=== PATIENT | male | born 1960 | race Caucasian/White ===

== ENCOUNTER → 2018-12-26 | Outpatient (CLI) | payer SELFPAY ==
[~2018-12-26] MED LIST: ALBU8.5H2 IH; BUDE6HFA IH; CHOL4PAC2 PO; FRSM40T PO; HYDR25CA PO; MED FOR STOMACH; POTA20TA15 PO; PRM25T PO; PROP10TA8 PO; SPRN25T PO; [UNRECOGNIZED DRUG - OTHER]
[2018-12-29 15:36] LABS: HEMATOCRIT 51 % (40-54); HEMOGLOBIN 18.2 G/DL (13.3-17.7); MEAN CORPUSCULAR HEMOGLOBIN 34 PG (25-34); MEAN CORPUSCULAR HGB CONC 36 G/DL (32-36); MEAN CORPUSCULAR VOLUME 95 FL (80-99); PLATELET COUNT 54 10^3/uL (130-400); RED CELL DISTRIBUTION WIDTH 14.4 % (10.0-14.5); WHITE BLOOD COUNT 6.6 10^3/uL (4.3-11.0)
[2018-12-29 15:37] LABS: BASOPHILS % (AUTO) 1 % (0-10); EOSINOPHILS % (AUTO) 6 % (0-10); LYMPHOCYTES # (AUTO) 1.4 X 10^3 (1.0-4.0); LYMPHOCYTES % (AUTO) 21 % (12-44); MEAN PLATELET VOLUME 11.9 FL (7.4-10.4); MONOCYTES # (AUTO) 0.6 X 10^3 (0.0-1.0); MONOCYTES % (AUTO) 9 % (0-12); NEUTROPHILS # (AUTO) 4.1 X 10^3 (1.8-7.8); NEUTROPHILS % (AUTO) 63 % (42-75)
[2018-12-29 15:38] LABS: EOSINOPHILS # (AUTO) 0.4 10^3/uL (0.0-0.3); NEUTROPHILS % (MANUAL) 62 %
[2018-12-29 15:39] LABS: BAND NEUTROPHILS 2 %; BASOPHILS % (MANUAL) 2 %; EOSINOPHILS % (MANUAL) 4 %; LYMPHOCYTES % (MANUAL) 20 %; MONOCYTES % (MANUAL) 10 %; RBC MORPH NORMAL
[2018-12-29 15:40] LABS: ABSOLUTE RETIC # 104 10e9/L (24-90); RETICULOCYTE % 1.93 % (0.50-2.40)
== END ==
LOC: GIR 21:20
PROVIDERS: ATTEND Family Medicine
DX: D69.6 Thrombocytopenia, unspecified (principal); D75.1 Secondary polycythemia
CPT/HCPCS: 85007; 85025; 85045

== ENCOUNTER 2020-01-06 03:49 | Inpatient (IN) | payer SELFPAY ==
[~2020-01-06] VITALS: Ht 177.8 cm; Wt 125.7 kg
[2020-01-06] VITALS (19 sets, daily range): BP systolic 103–174; BP diastolic 51–91
[2020-01-06] MEDS ORDERED: LACTATED RINGERS 1,000 ML IV ONE (03:57)
--- OUTSIDE RECORDS SUMMARY | 2020-01-06 03:58 | XMS REPORT ---
Author Author Gavin GOMEZ Organization [facility] Address [address] [place] [address] Care Team Providers Care Catalyst Operator Chief Name Role Phone MARTY GOMEZ Unavailable PROBLEMS Type Condition ICD9-CM Code JXC49-WO Code Onset Dates Condition S tatus SNOMED Code Problem Calculus of gallbladder without cholecystitis wi thout obstruction K80.20 Active 44138185 Problem Alcoholic cirrhosis of liver without ascites K70.3 0 Active 242663660 Problem Benign prostatic hyperplasia , unspecified whether lower urinary tract symptoms present N40.0 Active 969787827 Problem History of hepatitis C Z86.19 Active [id number] Problem Chronic obstructive pulmonary disease, unspecified COPD ty pe J44.9 Active 95768629 Problem Obesity (BMI 30-39.9) E66.9 Active 870772223 ALLERGIES No Information ENCOUNTERS Encounter Location Date Diagnosis [place] [address] [address] Oct, Chronic obstructive pulmonary disease, u nspecified COPD type J44.9 ; Encounter to establish care Z76.89 ; Obesity (BMI 30-39.9) E66.9 ; History of hepatitis C Z86.19 ; Alcoholic cirrhosis of liver without ascites K70.30 ; Benign prostatic hyperplasia, unspecified whether lower urinary tract symptoms present N40.0 and Calculus of gallbladder without cholecystitis without obstruction K80.20 [facility] [address] [address] Dec, [facility] [address] [address] Dec, [facility] [address] [address] Aug, [facility] [address] [address] Aug, [facility] [address] [id number] [facility] [place] [address] May, 2013 [facility] [address] [facility] [id number] [facility] [place] [address] May, 2013 [facility] [address] [id number] [facility] [place] [address] May, 2013 [facility] [address] [facility] [id number] [facility] [place] [address] May, 2013 [facility] [address] [facility] [id number] [facility] [place] [address] May, 2013 [facility] [address] [facility] [id number] [place] [address] May, 2013 [facility] [address] [id number] [place] [address] Apr, [facility] [address] [id number] [place] [address] Apr, [facility] [address] [id number] [place] [address] Mar, [facility] [address] [id number] [place] [address] Mar, [facility] [address] [id number] [place] [address] Mar, [facility] [address] [id number] [place] [address] Mar, 2013 [facility] [address] [facility] [id number] [place] [address] Mar, 2013 [facility] [address] [id number] [place] [address] Mar, [facility] [address] [id number] [place] [address] Mar, 2013 [facility] [address] [id number] [place] [address] 16 Mar, 2013 [facility] [address] [id number] [place] [address] Mar, 2013 [facility] [address] [facility] [id number] [place] [address] Mar, 2013 [facility] [address] [facility] [id number] [place] [address] Mar, 2013 [facility] [address] [id number] [place] [address] Mar, 2013 [facility] [address] [facility] [id number] [place] [address] Mar, 2013 [facility] [address] [facility] [id number] [place] [address] Mar, 2013 [facility] [address] [id number] [place] [address] Mar, 2013 [facility] [address] [id number] [place] [address] Mar, [facility] [address] [id number] [place] [address] Mar, [facility] [address] [id number] [place] [address] Feb, [facility] [address] [id number] [place] [address] Feb, [facility] [address] [id number] [place] [address] Feb, [facility] [address] [id number] [place] [address] Feb, [facility] [address] [facility] [id number] [place] [address] Oct, [facility] [address] [id number] [place] [address] Oct, [facility] [address] [id number] [place] [address] Sep, [facility] [address] [id number] [place] [address] Sep, [facility] [address] [place] [id number] [place] [address] Sep, [facility] [address] [place] [id number] [place] [address] Sep, [facility] [address] [place] [id number] [place] [address] Sep, [facility] [address] [place] [id number] [place] [address] Sep, [facility] [address] [place] [id number] [place] [address] Sep, [facility] [address] [address] Sep, [facility] [address] [place] [id number] [place] [address] Sep, [facility] [address] [place] [id number] [place] [address] Sep, [facility] [address] [place] [id number] [place] [address] Aug, [facility] [address] [place] [id number] [place] [address] Aug, [facility] [address] [place] [id number] [place] [address] Aug, [facility] [address] [place] [id number] [place] [address] Aug, [facility] [address] [place] [id number] [place] [address] Aug, IMMUNIZATIONS No Known Immunizations SOCIAL HISTORY Never Assessed REASON FOR VISIT PLAN OF CARE VITAL SIGNS MEDICATIONS Unknown Medications RESULTS No Results PROCEDURES No Known procedures INSTRUCTIONS MEDICATIONS ADMINISTERED No Known Medications MEDICAL (GENERAL) HISTORY Type Description Date Medical History COPD Medical History Liver Cirrhosis Medical History BPH Medical History Disorders of bilirubin excretion Medical History Nondependent alcohol abuse, unspecified drunkenness Medical History Alcoholic cirrhosis of liver Medical History Calculus of gallbladder with out mention of cholecystitis or obstruction Hospitalization History COPD, penumonia
--- OUTSIDE RECORDS SUMMARY | 2020-01-06 03:58 | XMS REPORT ---
Author Author Gvain GOMEZ Organization [facility] Address [address] [place] [address] Care Team Providers Care Cattle Shipper Name Role Phone MARTY GOMEZ Unavailable PROBLEMS Type Condition ICD9-CM Code MXA04-KT Code Onset Dates Condition S tatus SNOMED Code Problem Calculus of gallbladder without cholecystitis wi thout obstruction K80.20 Active 87453287 Problem Alcoholic cirrhosis of liver without ascites K70.3 0 Active 607614363 Problem Benign prostatic hyperplasia , unspecified whether lower urinary tract symptoms present N40.0 Active 812416503 Problem History of hepatitis C Z86.19 Active 53410759891668 Problem Chronic obstructive pulmonary disease, unspecified COPD ty pe J44.9 Active 37372074 Problem Obesity (BMI 30-39.9) E66.9 Active 604559087 ALLERGIES No Information ENCOUNTERS Encounter Location Date Diagnosis [place] [address] [address] 07 Dec, 2019 [place] [address] [place] [id number] [place] [address] 03 Oct, 2019 Chronic obstructive pulmonar y disease, unspecified COPD type J44.9 ; Encounter to establish care Z76.89 ; Obesity (BMI 30-39.9) E66.9 ; History of hepatitis C Z86.19 ; Alcoholic cirrhosis of liver without ascites K70.30 ; Benign prostatic hyperplasia, unspecified whether lower urinary tract symptoms present N40.0 and Calculus of gallbladder without cholecystitis without obstruction K80.20 [facility] [address] [place] [id number] [address] [place] [address] Dec, [facility] [address] [place] [id number] [address] [place] [address] 13 Dec, 2014 [facility] [address] [id number] [address] [place] [address], [place] [address] 15 Aug, 2014 [facility] [address] [id number] [address] [place] [address], [place] [address] Aug, [facility] [address] [id number] [address] [place] [address], [place] [address] May, [facility] [address] [id number] [address] [place] [address], [place] [address] May, 2013 [facility] [address] [id number] [address] [place] [address], [place] [address] May, 2013 [facility] [address] [id number] [address] [place] [address], [place] [address] May, [facility] [address] [id number] [address] [place] [address], [place] [address] May, [facility] [address] [id number] [address] [place] [address], [place] [address] May, [facility] [address] [id number] [address] [place] [address], [place] [address] Apr, [facility] [address] [id number] [address] [place] [address], [place] [address] Apr, [facility] [address] [id number] [address] [place] [address], [place] [address] Mar, [facility] [address] [id number] [address] [place] [address], [place] [address] Mar, [facility] [address] [id number] [address] [place] [address], [place] [address] Mar, [facility] [address] [id number] [address] [place] [address], [place] [address] Mar, [facility] [address] [id number] [address] [place] [address], [place] [address] Mar, [facility] [address] [id number] [address] [place] [address], [place] [address] Mar, [facility] [address] [id number] [address] [place] [address], [place] [address] Mar, 2013 [facility] [address] [id number] [address] [place] [address], [place] [address] Mar, 2013 [facility] [address] [id number] [address] [place] [address], [place] [address] Mar, 2013 [facility] [address] [id number] [address] [place] [address], [place] [address] Mar, 2013 [facility] [address] [id number] [address] [place] [address], [place] [address] Mar, 2013 [facility] [address] [id number] [address] [place] [address], [place] [address] Mar, 2013 [facility] [address] [id number] [address] [place] [address], [place] [address] Mar, 2013 [facility] [address] [id number] [address] [place] [address], [place] [address] Mar, 2013 [facility] [address] [id number] [address] [place] [address], [place] [address] Mar, 2013 [facility] [address] [id number] [address] [place] [address], [place] [address] Mar, [facility] [address] [id number] [address] [place] [address], [place] [address] Mar, [facility] [address] [id number] [address] [place] [address], [place] [address] Feb, [facility] [address] [id number] [address] [place] [address], [place] [address] Feb, [facility] [address] [id number] [address] [place] [address], [place] [address] Feb, [facility] [address] [id number] [address] [place] [address], [place] [address] Feb, [facility] [address] [id number] [address] [place] [address], [place] [address] Oct, [facility] [address] [id number] [address] [place] [address], [place] [address] Oct, [facility] [address] [id number] [address] [place] [address], [place] [address] Sep, [facility] [address] [id number] [address] [place] [address], [place] [address] Sep, [facility] [address] [id number] [address] [place] [address], [place] [address] Sep, [facility] [address] [id number] [address] [place] [address], [place] [address] Sep, [facility] [address] [id number] [address] [place] [address], [place] [address] Sep, [facility] [address] [id number] [address] [place] [address], [place] [address] Sep, [facility] [address] [id number] [address] [place] [address], [place] [address] Sep, [facility] [address] [id number] [address] [place] [address], [place] [address] Sep, [facility] [address] [id number] [address] [place] [address], [place] [address] Sep, [facility] [address] [id number] [address] [place] [address], [place] [address] Sep, [facility] [address] [id number] [address] [place] [address], [place] [address] Aug, [facility] [address] [id number] [address] [place] [address], [place] [address] Aug, [facility] [address] [id number] [address] [place] [address], [place] [address] Aug, [facility] [address] [id number] [address] [place] [address], [place] [address] Aug, [facility] [address] [facility] [id number] [address] [place] [address] Aug, IMMUNIZATIONS No Known Immunizations SOCIAL HISTORY [...]
--- OUTSIDE RECORDS SUMMARY | 2020-01-06 03:58 | XMS REPORT ---
Author Author Gavin GOMEZ Organization [facility] Address [address] [place] [address] Care Team Providers Care Mechanical Shop Laborer Name Role Phone MARTY GOMEZ Unavailable PROBLEMS Type Condition ICD9-CM Code WQG79-CF Code Onset Dates Condition S tatus SNOMED Code Problem Calculus of gallbladder without cholecystitis wi thout obstruction K80.20 Active 38492803 Problem Alcoholic cirrhosis of liver without ascites K70.3 0 Active 196776867 Problem Benign prostatic hyperplasia , unspecified whether lower urinary tract symptoms present N40.0 Active 333603569 Problem History of hepatitis C Z86.19 Active [id number] Problem Chronic obstructive pulmonary disease, unspecified COPD ty pe J44.9 Active 01416195 Problem Obesity (BMI 30-39.9) E66.9 Active 145410367 ALLERGIES No Information ENCOUNTERS Encounter Location Date Diagnosis [place] [address] [place] [address] 03 Oct, 2019 Chronic obstructive pulmonar y disease, unspecified COPD type J44.9 ; Encounter to establish care Z76.89 ; Obesity (BMI 30-39.9) E66.9 ; History of hepatitis C Z86.19 ; Alcoholic cirrhosis of liver without ascites K70.30 ; Benign prostatic hyperplasia, unspecified whether lower urinary tract symptoms present N40.0 and Calculus of gallbladder without cholecystitis without obstruction K80.20 [facility] [address] [facility] [id number] [address] [place] [address] Dec, [facility] [address] [place] [id number] [address] [place] [address] Dec, [facility] [address] [place] [id number] [address] [place] [address] Aug, [facility] [address] [id number] [facility] [place] [address] 15 Aug, 2014 [facility] [address] [id number] [address] [place] [address], [place] [address] May, 2013 [facility] [address] [id number] [address] [place] [address], [place] [address] May, 2013 [facility] [address] [id number] [address] [place] [address], [place] [address] May, 2013 [facility] [address] [id number] [address] [place] [address], [place] [address] May, 2013 [facility] [address] [id number] [address] [place] [address], [place] [address] May, [facility] [address] [id number] [address] [place] [address], [place] [address] May, [facility] [address] [id number] [address] [place] [address], [place] [address] Apr, [facility] [address] [id number] [address] [place] [address], [place] [address] Apr, [facility] [address] [id number] [address] [place] [address], [place] [address] Mar, [facility] [address] [id number] [address] [place] [address], [place] [address] Mar, [facility] [address] [id number] [address] [place] [address], [place] [address] Mar, [facility] [address] [id number] [address] [place] [address], [place] [address] Mar, [facility] [address] [id number] [address] [place] [address], [place] [address] Mar, [facility] [address] [id number] [address] [place] [address], [place] [address] Mar, [facility] [address] [id number] [address] [place] [address], [place] [address] Mar, [facility] [address] [id number] [address] [place] [address], [place] [address] Mar, 2013 [facility] [address] [id number] [address] [place] [address], [place] [address] Mar, 2013 [facility] [address] [id number] [address] [place] [address], [place] [address] Mar, 2013 [facility] [address] [id number] [address] [place] [address], [place] [address] Mar, 2013 [facility] [address] [id number] [address] [place] [address], [place] [address] Mar, 2013 [facility] [address] [id number] [address] [place] [address], [place] [address] Mar, 2013 [facility] [address] [id number] [address] [place] [address], [place] [address] Mar, 2013 [facility] [address] [id number] [address] [place] [address], [place] [address] Mar, 2013 [facility] [address] [id number] [address] [place] [address], [place] [address] Mar, [facility] [address] [id number] [address] [place] [address], [place] [address] Mar, [facility] [address] [id number] [address] [place] [address], [place] [address] Feb, [facility] [address] [id number] [address] [place] [address], [place] [address] Feb, [facility] [address] [id number] [address] [place] [address], [place] [address] Feb, [facility] [address] [id number] [address] [place] [address], [place] [address] Feb, [facility] [address] [id number] [address] [place] [address], [place] [address] Oct, [facility] [address] [id number] [address] [place] [address] Oct, [facility] [address] [id number] [address] [place] [address], [place] [address] Sep, [facility] [address] [id number] [address] [place] [address] Sep, [facility] [address] [id number] [address] [place] [address], [place] [phone] Sep, [facility] [address] [id number] [address] [place] [address], [place] [address] Sep, [facility] [address] [id number] [address] [place] [address], [place] [address] Sep, [facility] [address] [id number] [address] [place] [address], [place] [address] Sep, [facility] [address] [id number] [address] [place] [id number] Sep, [facility] [address] [id number] [address] [place] [phone] Sep, [facility] [address] [id number] [address] [place] [id number] Sep, [facility] [address] [id number] [address] [place] [id number] Sep, [facility] [address] [id number] [address] [place] [id number] Aug, [facility] [address] [id number] [address] [place] [id number] Aug, [facility] [address] [id number] [address] [place] [phone] Aug, [facility] [address] [id number] [address] [place] [phone] Aug, [facility] [address] [id number] [address] [place] [id number] Aug, IMMUNIZATIONS No Known Immunizations SOCIAL HISTORY Never Assessed REASON FOR VISIT PLAN OF CARE VITAL SIGNS MEDICATIONS Unknown Medications RESULTS No Results PROCEDURES Procedure Date Ordered Result Body Site RESPIRATORY FLOW VOLUME LOOP Sep 18, 2013 NEB/MDI DEMO Sep 18, 2013 SPRIOMETRY CHALLENGE Sep 18, 2013 SPIROMETRY Sep 18, 2013 INSTRUCTIONS MEDICATIONS ADMINISTERED No Known Medications MEDICAL [...]
--- OUTSIDE RECORDS SUMMARY | 2020-01-06 03:58 | XMS REPORT ---
Author Author Gavin HUNTER Organization [facility] Address [address] [place] [address] Care Team Providers Care Herb Doctor Name Role Phone JABARI HUNTER Unavailable PROBLEMS Type Condition ICD9-CM Code EUM84-IT Code Onset Dates Condition S tatus SNOMED Code Problem Calculus of gallbladder without cholecystitis wi thout obstruction K80.20 Active 15114699 Problem Alcoholic cirrhosis of liver without ascites K70.3 0 Active 125307886 Problem Benign prostatic hyperplasia , unspecified whether lower urinary tract symptoms present N40.0 Active 104585278 Problem History of hepatitis C Z86.19 Active [id number] Problem Chronic obstructive pulmonary disease, unspecified COPD ty pe J44.9 Active 37550820 Problem Obesity (BMI 30-39.9) E66.9 Active 090107228 ALLERGIES No Information ENCOUNTERS Encounter Location Date Diagnosis [facility] [address] [address] Oct, Chronic obstructive pulmonary disease, u nspecified COPD type J44.9 ; Encounter to establish care Z76.89 ; Obesity (BMI 30-39.9) E66.9 ; History of hepatitis C Z86.19 ; Alcoholic cirrhosis of liver without ascites K70.30 ; Benign prostatic hyperplasia, unspecified whether lower urinary tract symptoms present N40.0 and Calculus of gallbladder without cholecystitis without obstruction K80.20 [facility] [address] [address] Dec, [facility] [address] [address] Dec, [facility] [address] [address] Aug, [facility] [address] [address] Aug, [facility] [address] [id number] [place] [address] May, 2013 [facility] [address] [facility] [id number] [place] [address] May, 2013 [facility] [address] [id number] [place] [address] May, 2013 [facility] [address] [id number] [place] [address] May, 2013 [facility] [address] [facility] [id number] [place] [address] May, 2013 [facility] [address] [id number] [place] [address] May, 2013 [facility] [address] [id number] [place] [address] Apr, [facility] [address] [id number] [place] [address] Apr, [facility] [address] [id number] [place] [address] Mar, [facility] [address] [id number] [place] [address] Mar, [facility] [address] [id number] [place] [address] Mar, [facility] [address] [id number] [place] [address] Mar, [facility] [address] [id number] [place] [address] Mar, 2013 [facility] [address] [id number] [place] [address] Mar, [facility] [address] [id number] [place] [address] Mar, [facility] [address] [id number] [place] [address] Mar, 2013 [facility] [address] [id number] [place] [address] Mar, 2013 [facility] [address] [facility] [id number] [place] [address] Mar, 2013 [facility] [address] [facility] [id number] [place] [address] Mar, 2013 [facility] [address] [id number] [place] [address] Mar, 2013 [facility] [address] [facility] [id number] [place] [address] Mar, 2013 [facility] [address] [facility] [id number] [place] [address] Mar, 2013 [facility] [address] [id number] [place] [address] Mar, 2013 [facility] [address] [id number] [place] [address] Mar, 2013 [facility] [address] [id number] [place] [address] Mar, [facility] [address] [facility] [id number] [place] [address] Feb, [facility] [address] [id number] [place] [address] Feb, [facility] [address] [id number] [place] [address] Feb, [facility] [address] [id number] [place] [address] Feb, [facility] [address] [facility] [id number] [place] [address] Oct, [facility] [address] [id number] [place] [address] Oct, [facility] [address] [facility] [id number] [place] [address] Sep, [facility] [address] [id number] [place] [address] Sep, [facility] [id number] [place] [address] Sep, [facility] [address] [id number] [place] [address] Sep, [facility] [address] [id number] [place] [address] Sep, [facility] [address] [id number] [place] [address] Sep, [facility] [id number] [place] [address] Sep, [facility] [address] [address] Sep, [facility] [address] [address] Sep, [facility] [address] [address] Sep, [facility] [id number] [place] [address] Aug, [facility] [address] [id number] [place] [address] Aug, [facility] [address] [address] Aug, [facility] [address] [id number] [place] [address] Aug, [facility] [id number] [place] [address] Aug, IMMUNIZATIONS No Known Immunizations SOCIAL HISTORY Never Assessed REASON FOR VISIT PLAN OF CARE VITAL SIGNS Height 70 in 2013-09-19 Weight 259 lbs 2013-09-19 Temperature 97.4 degrees Fahrenheit 2013-09-19 Heart Rate 76 bpm 2013-09-19 Respiratory Rate 24 2013-09-19 Blood pressure systolic 128 mmHg 2013-09-19 Blood pressure diastolic 78 mmHg 2013-09-19 MEDICATIONS Unknown Medications RESULTS No Results PROCEDURES [...]
--- OUTSIDE RECORDS SUMMARY | 2020-01-06 03:58 | XMS REPORT ---
Author Author Gavin GOMEZ Organization [facility] Address [address] [place] [address] Care Team Providers Care Channel Program Manager Name Role Phone MARTY GOMEZ Unavailable PROBLEMS Type Condition ICD9-CM Code ITP31-XL Code Onset Dates Condition S tatus SNOMED Code Problem Calculus of gallbladder without cholecystitis wi thout obstruction K80.20 Active 68512780 Problem Alcoholic cirrhosis of liver without ascites K70.3 0 Active 224388697 Problem Benign prostatic hyperplasia , unspecified whether lower urinary tract symptoms present N40.0 Active 931226067 Problem History of hepatitis C Z86.19 Active 34376154459487 Problem Chronic obstructive pulmonary disease, unspecified COPD ty pe J44.9 Active 80145361 Problem Obesity (BMI 30-39.9) E66.9 Active 375943974 ALLERGIES No Information ENCOUNTERS Encounter Location Date Diagnosis [place] [address] [place] [address] 03 Oct, 2019 Chronic obstructive pulmonar y disease, unspecified COPD type J44.9 ; Encounter to establish care Z76.89 ; Obesity (BMI 30-39.9) E66.9 ; History of hepatitis C Z86.19 ; Alcoholic cirrhosis of liver without ascites K70.30 ; Benign prostatic hyperplasia, unspecified whether lower urinary tract symptoms present N40.0 and Calculus of gallbladder without cholecystitis without obstruction K80.20 [facility] [address] [facility] [id number] [address] [place] [address] Dec, [facility] [address] [place] [id number] [address] [place] [address] Dec, [facility] [address] [place] [id number] [address] [place] [address] Aug, [facility] [address] [id number] [facility] [place] [address] 15 Aug, 2014 [facility] [address] [id number] [address] [place] [address], [place] [address] May, 2013 [facility] [address] [id number] [address] [place] [address], [place] [address] May, 2013 [facility] [address] [id number] [address] [place] [address], [place] [address] May, 2013 [facility] [address] [id number] [address] [place] [address], [place] [address] May, 2013 [facility] [address] [id number] [address] [place] [address], [place] [address] May, [facility] [address] [id number] [address] [place] [address], [place] [address] May, [facility] [address] [id number] [address] [place] [address], [place] [address] Apr, [facility] [address] [id number] [address] [place] [address], [place] [address] Apr, [facility] [address] [id number] [address] [place] [address], [place] [address] Mar, [facility] [address] [id number] [address] [place] [address], [place] [address] Mar, [facility] [address] [id number] [address] [place] [address], [place] [address] Mar, [facility] [address] [id number] [address] [place] [address], [place] [address] Mar, [facility] [address] [id number] [address] [place] [address], [place] [address] Mar, [facility] [address] [id number] [address] [place] [address], [place] [address] Mar, [facility] [address] [id number] [address] [place] [address], [place] [address] Mar, [facility] [address] [id number] [address] [place] [address], [place] [address] Mar, 2013 [facility] [address] [id number] [address] [place] [address], [place] [address] Mar, 2013 [facility] [address] [id number] [address] [place] [address], [place] [address] Mar, 2013 [facility] [address] [id number] [address] [place] [address], [place] [address] Mar, 2013 [facility] [address] [id number] [address] [place] [address], [place] [address] Mar, 2013 [facility] [address] [id number] [address] [place] [address], [place] [address] Mar, 2013 [facility] [address] [id number] [address] [place] [address], [place] [address] Mar, 2013 [facility] [address] [id number] [address] [place] [address], [place] [address] Mar, 2013 [facility] [address] [id number] [address] [place] [address], [place] [address] Mar, [facility] [address] [id number] [address] [place] [address], [place] [address] Mar, [facility] [address] [id number] [address] [place] [address], [place] [address] Feb, [facility] [address] [id number] [address] [place] [address], [place] [address] Feb, [facility] [address] [id number] [address] [place] [address], [place] [address] Feb, [facility] [address] [id number] [address] [place] [address], [place] [address] Feb, [facility] [address] [id number] [address] [place] [address], [place] [address] Oct, [facility] [address] [id number] [address] [place] [address] Oct, [facility] [address] [id number] [address] [place] [address], [place] [address] Sep, [facility] [address] [id number] [address] [place] [address] Sep, [facility] [address] [id number] [address] [place] [address], [place] [address] Sep, [facility] [address] [id number] [address] [place] [address], [place] [address] Sep, [facility] [address] [id number] [address] [place] [address], [place] [address] Sep, [facility] [address] [id number] [address] [place] [address], [place] [address] Sep, [facility] [address] [id number] [address] [place] [address] Sep, [facility] [address] [id number] [address] [place] [address] Sep, [facility] [address] [id number] [address] [place] [address] Sep, [facility] [address] [id number] [address] [place] [address] Sep, [facility] [address] [id number] [address] [place] [address] Aug, [facility] [address] [id number] [address] [place] [address] Aug, [facility] [address] [id number] [address] [place] [address] Aug, [facility] [address] [id number] [address] [place] [address] Aug, [facility] [address] [id number] [address] [place] [address] Aug, IMMUNIZATIONS No Known Immunizations SOCIAL HISTORY [...]
--- OUTSIDE RECORDS SUMMARY | 2020-01-06 03:58 | XMS REPORT ---
Author Author Gavin GOMEZ Organization [facility] Address [address] [place] [address] Care Team Providers Care Banana Ripening Room Supervisor Name Role Phone MARTY GOMEZ Unavailable PROBLEMS Type Condition ICD9-CM Code KAG90-DY Code Onset Dates Condition S tatus SNOMED Code Problem Calculus of gallbladder without cholecystitis wi thout obstruction K80.20 Active 19157600 Problem Alcoholic cirrhosis of liver without ascites K70.3 0 Active 373451971 Problem Benign prostatic hyperplasia , unspecified whether lower urinary tract symptoms present N40.0 Active 963676360 Problem History of hepatitis C Z86.19 Active 95012116274323 Problem Chronic obstructive pulmonary disease, unspecified COPD ty pe J44.9 Active 97621351 Problem Obesity (BMI 30-39.9) E66.9 Active 287702854 ALLERGIES No Information ENCOUNTERS Encounter Location Date Diagnosis [place] [address] [address] Oct, Chronic obstructive pulmonary disease, u nspecified COPD type J44.9 ; Encounter to establish care Z76.89 ; Obesity (BMI 30-39.9) E66.9 ; History of hepatitis C Z86.19 ; Alcoholic cirrhosis of liver without ascites K70.30 ; Benign prostatic hyperplasia, unspecified whether lower urinary tract symptoms present N40.0 and Calculus of gallbladder without cholecystitis without obstruction K80.20 [facility] [address] [address] Dec, [facility] [address] [address] Dec, [facility] [address] [address] Aug, [facility] [address] [address] Aug, [facility] [address] [id number] [facility] [place] [address] May, 2013 [facility] [address] [facility] [id number] [facility] [place] [address] May, 2013 [facility] [address] [id number] [facility] [place] [address] May, 2013 [facility] [address] [facility] [id number] [facility] [place] [address] May, 2013 [facility] [address] [facility] [id number] [facility] [place] [address] May, 2013 [facility] [address] [facility] [id number] [place] [address] May, 2013 [facility] [address] [id number] [place] [address] Apr, [facility] [address] [id number] [place] [address] Apr, [facility] [address] [id number] [place] [address] Mar, [facility] [address] [id number] [place] [address] Mar, [facility] [address] [id number] [place] [address] Mar, [facility] [address] [id number] [place] [address] Mar, 2013 [facility] [address] [facility] [id number] [place] [address] Mar, 2013 [facility] [address] [id number] [place] [address] Mar, [facility] [address] [id number] [place] [address] Mar, 2013 [facility] [address] [id number] [place] [address] 16 Mar, 2013 [facility] [address] [id number] [place] [address] Mar, 2013 [facility] [address] [facility] [id number] [place] [address] Mar, 2013 [facility] [address] [facility] [id number] [place] [address] Mar, 2013 [facility] [address] [id number] [place] [address] Mar, 2013 [facility] [address] [facility] [id number] [place] [address] Mar, 2013 [facility] [address] [facility] [id number] [place] [address] Mar, 2013 [facility] [address] [id number] [place] [address] Mar, 2013 [facility] [address] [id number] [place] [address] Mar, [facility] [address] [id number] [place] [address] Mar, [facility] [address] [id number] [place] [address] Feb, [facility] [address] [id number] [place] [address] Feb, [facility] [address] [id number] [place] [address] Feb, [facility] [address] [id number] [place] [address] Feb, [facility] [address] [facility] [id number] [place] [address] Oct, [facility] [address] [id number] [place] [address] Oct, [facility] [address] [id number] [place] [address] Sep, [facility] [address] [id number] [place] [address] Sep, [facility] [address] [id number] [place] [address] Sep, [facility] [address] [id number] [place] [address] Sep, [facility] [address] [id number] [place] [address] Sep, [facility] [address] [id number] [place] [address] Sep, [facility] [address] [id number] [place] [address] Sep, [facility] [address] [address] Sep, [facility] [address] [address] Sep, [facility] [address] [address] Sep, [facility] [address] [id number] [place] [address] Aug, [facility] [address] [address] Aug, [facility] [address] [address] Aug, [facility] [address] [id number] [place] [address] Aug, [facility] [address] [id number] [place] [address] Aug, IMMUNIZATIONS No Known Immunizations SOCIAL HISTORY Never Assessed REASON FOR VISIT PLAN OF CARE VITAL SIGNS Height 70 in 2013-09-29 Weight 260.3 lbs 2013-09-29 Temperature 97.3 degrees Fahrenheit 2013-09-29 Heart Rate 78 bpm 2013-09-29 Respiratory Rate 20 2013-09-29 Blood pressure systolic 126 mmHg 2013-09-29 Blood pressure diastolic 70 mmHg 2013-09-29 MEDICATIONS Unknown Medications RESULTS No Results PROCEDURES Procedure Date Ordered Result Body Site THER/PROPH/DIAG INJ, SC/IM Sep 29, 2013 INJ METHYLPRDNISLN SODIM TO 125 MG Sep 29, 2013 INSTRUCTIONS MEDICATIONS ADMINISTERED No Known Medications [...]
--- OUTSIDE RECORDS SUMMARY | 2020-01-06 03:58 | XMS REPORT ---
Author Author Gavin GOMEZ Organization [facility] Address [address] [place] [address] Care Team Providers Care Director Financial Systems Name Role Phone MARTY GOMEZ Unavailable PROBLEMS Type Condition ICD9-CM Code RIF59-VN Code Onset Dates Condition S tatus SNOMED Code Problem Calculus of gallbladder without cholecystitis wi thout obstruction K80.20 Active 70074487 Problem Alcoholic cirrhosis of liver without ascites K70.3 0 Active 953181181 Problem Benign prostatic hyperplasia , unspecified whether lower urinary tract symptoms present N40.0 Active 603592163 Problem History of hepatitis C Z86.19 Active [id number] Problem Chronic obstructive pulmonary disease, unspecified COPD ty pe J44.9 Active 76019742 Problem Obesity (BMI 30-39.9) E66.9 Active 321148391 ALLERGIES No Information ENCOUNTERS Encounter Location Date Diagnosis [place] [address] [address] [place] [address] 03 Oct, 2019 Chronic obstructive pulmonar y disease, unspecified COPD type J44.9 ; Encounter to establish care Z76.89 ; Obesity (BMI 30-39.9) E66.9 ; History of hepatitis C Z86.19 ; Alcoholic cirrhosis of liver without ascites K70.30 ; Benign prostatic hyperplasia, unspecified whether lower urinary tract symptoms present N40.0 and Calculus of gallbladder without cholecystitis without obstruction K80.20 [facility] [address] [facility] [id number] [address] [place] [address] Dec, [facility] [address] [place] [id number] [address] [place] [address] Dec, [facility] [address] [id number] [address] [place] [address] Aug, [facility] [address] [id number] [facility] [place] [address] 15 Aug, 2014 [facility] [address] [id number] [address] [place] [address], [place] [address] May, 2013 [facility] [address] [id number] [address] [place] [address], [place] [address] May, 2013 [facility] [address] [id number] [address] [place] [address], [place] [address] May, 2013 [facility] [address] [id number] [address] [place] [address], [place] [address] May, 2013 [facility] [address] [id number] [address] [place] [address], [place] [address] May, [facility] [address] [id number] [address] [place] [address], [place] [address] May, [facility] [address] [id number] [address] [place] [address], [place] [address] Apr, [facility] [address] [id number] [address] [place] [address], [place] [address] Apr, [facility] [address] [id number] [address] [place] [address], [place] [address] Mar, [facility] [address] [id number] [address] [place] [address], [place] [address] Mar, [facility] [address] [id number] [address] [place] [address], [place] [address] Mar, [facility] [address] [id number] [address] [place] [address], [place] [address] Mar, [facility] [address] [id number] [address] [place] [address], [place] [address] Mar, [facility] [address] [id number] [address] [place] [address], [place] [address] Mar, [facility] [address] [id number] [address] [place] [address], [place] [address] Mar, [facility] [address] [id number] [address] [place] [address], [place] [address] Mar, 2013 [facility] [address] [id number] [address] [place] [address], [place] [address] Mar, 2013 [facility] [address] [id number] [address] [place] [address], [place] [address] Mar, 2013 [facility] [address] [id number] [address] [place] [address], [place] [address] Mar, 2013 [facility] [address] [id number] [address] [place] [address], [place] [address] Mar, 2013 [facility] [address] [id number] [address] [place] [address], [place] [address] Mar, 2013 [facility] [address] [id number] [address] [place] [address], [place] [address] Mar, 2013 [facility] [address] [id number] [address] [place] [address], [place] [address] Mar, 2013 [facility] [address] [id number] [address] [place] [address], [place] [address] Mar, [facility] [address] [id number] [address] [place] [address], [place] [address] Mar, [facility] [address] [id number] [address] [place] [address], [place] [address] Feb, [facility] [address] [id number] [address] [place] [address], [place] [address] Feb, [facility] [address] [id number] [address] [place] [address], [place] [address] Feb, [facility] [address] [id number] [address] [place] [address], [place] [address] Feb, [facility] [address] [id number] [address] [place] [address], [place] [address] Oct, [facility] [address] [id number] [address] [place] [address] Oct, [facility] [address] [id number] [address] [place] [address], [place] [address] Sep, [facility] [address] [id number] [address] [place] [address] Sep, [facility] [address] [id number] [address] [place] [address], [place] [address] Sep, [facility] [address] [id number] [address] [place] [address], [place] [address] Sep, [facility] [address] [id number] [address] [place] [address], [place] [address] Sep, [facility] [address] [id number] [address] [place] [address], [place] [address] Sep, [facility] [address] [id number] [address] [place] [address] Sep, [facility] [address] [id number] [address] [place] [address] Sep, [facility] [address] [id number] [address] [place] [address] Sep, [facility] [address] [id number] [address] [place] [address] Sep, [facility] [address] [id number] [address] [place] [address] Aug, [facility] [address] [id number] [address] [place] [address] Aug, [facility] [address] [id number] [address] [place] [address] Aug, [facility] [address] [id number] [address] [place] [address] Aug, [facility] [address] [id number] [address] [place] [address] Aug, IMMUNIZATIONS No Known Immunizations SOCIAL HISTORY Never Assessed REASON FOR VISIT PLAN OF CARE VITAL SIGNS Height 70 in 2013-09-14 Weight 260 lbs 2013-09-14 Temperature 98.2 degrees Fahrenheit 2013-09-14 Heart Rate 72 bpm 2013-09-14 Respiratory Rate 20 2013-09-14 Blood pressure systolic 122 mmHg 2013-09-14 Blood pressure diastolic 80 mmHg 2013-09-14 MEDICATIONS Unknown Medications RESULTS No Results PROCEDURES Procedure Date Ordered Result Body Site COMPLETE CBC W/AUTO DIFF WBC Sep 14, 2013 ASSAY THYROID STIM HORMONE Sep 14, 2013 GLYCATED HEMOGLOBIN TEST Sep 14, 2013 ACUTE HEPATITIS PANEL Sep 14, 2013 COMPREHEN METABOLIC PANEL Sep 14, 2013 VENIPUNCT, ROUTINE* Sep 14, 2013 INSTRUCTIONS MEDICATIONS ADMINISTERED No Known Medications [...]
--- OUTSIDE RECORDS SUMMARY | 2020-01-06 03:59 | XMS REPORT ---
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 V70.0 Active 673517016 Problem Alcoholic cirrhosis of liver 571.2 A ctive 489623411 Problem Chronic airway obstruction, not elsewhere classified 496 Active 60100154 Problem Nondependent alcohol abuse, unspecified drunkenness 305.00 Active 334449747 Problem Unspecified thrombocytopenia 287.5 A ctive 966907164 ALLERGIES No Information ENCOUNTERS Encounter Location Date Diagnosis [facility] [id number] [place] [address] Oct, [facility] [address] [address] Dec, [facility] [address] [address] Dec, [facility] [address] [address] Aug, [facility] [address] [address] Aug, [facility] [address] [id number] [place] [address] May, 2013 [facility] [address] [facility] [id number] [place] [address] May, 2013 [facility] [address] [facility] [id number] [place] [address] May, 2013 [facility] [address] [id number] [place] [address] May, 2013 [facility] [address] [facility] [id number] [place] [address] May, 2013 [facility] [address] [id number] [place] [address] May, 2013 [facility] [address] [id number] [place] [address] Apr, [facility] [address] [id number] [place] [address] Apr, [facility] [address] [id number] [place] [address] Mar, [facility] [address] [id number] [place] [address] Mar, [facility] [address] [id number] [place] [address] Mar, [facility] [address] [id number] [place] [address] Mar, [facility] [address] [id number] [place] [address] Mar, [facility] [address] [facility] [id number] [place] [address] Mar, [facility] [address] [id number] [place] [address] Mar, [facility] [address] [id number] [place] [address] Mar, [facility] [address] [id number] [place] [address] Mar, 2013 [facility] [address] [facility] [id number] [place] [address] Mar, 2013 [facility] [address] [id number] [facility] [place] [address] Mar, 2013 [facility] [address] [id number] [place] [address] Mar, 2013 [facility] [address] [id number] [place] [address] Mar, 2013 [facility] [address] [id number] [place] [address] Mar, 2013 [facility] [address] [id number] [place] [address] Mar, 2013 [facility] [address] [id number] [place] [address] Mar, [facility] [address] [id number] [place] [address] Mar, [facility] [address] [id number] [place] [address] Feb, [facility] [address] [id number] [place] [address] Feb, [facility] [address] [id number] [place] [address] Feb, [facility] [address] [id number] [place] [address] Feb, [facility] [address] [id number] [place] [address] Oct, [facility] [address] [id number] [place] [address] Oct, [facility] [address] [id number] [place] [address] Sep, [facility] [address] [id number] [place] [address] Sep, [facility] [address] [id number] [place] [address] Sep, [facility] [address] [id number] [place] [address] Sep, [facility] [address] [id number] [place] [address] Sep, [facility] [id number] [place] [address] Sep, [facility] [id number] [place] [address] Sep, [facility] [id number] [place] [address] Sep, [facility] [id number] [place] [address] Sep, [facility] [id number] [place] [address] Sep, [facility] [id number] [place] [address] Aug, [facility] [id number] [place] [address] Aug, [facility] [id number] [place] [address] Aug, [facility] [id number] [place] [address] Aug, [facility] [id number] [place] [address] Aug, IMMUNIZATIONS No Known Immunizations SOCIAL HISTORY Never Assessed REASON FOR VISIT PLAN OF CARE VITAL SIGNS Height 70 in 2014-04-05 Weight 251.25 lbs 2014-04-05 Temperature 98.2 degrees Fahrenheit 2014-04-05 Heart Rate 84 bpm 2014-04-05 Respiratory Rate 20 2014-04-05 Blood pressure systolic 136 mmHg 2014-04-05 Blood pressure diastolic 82 mmHg 2014-04-05 MEDICATIONS Unknown Medications RESULTS No Results PROCEDURES No Known procedures INSTRUCTIONS MEDICATIONS ADMINISTERED No Known Medications
--- OUTSIDE RECORDS SUMMARY | 2020-01-06 03:59 | XMS REPORT ---
Author Author Gavin THIBODEAUX [facility] Address [address] [place] [address] Care Team Providers Care Delivery And Mail Sorter Name Role Phone MORELIA FLORECITA Unavailable PROBLEMS Type Condition ICD9-CM Code TMH42-HD Code Onset Dates Condition S tatus SNOMED Code Problem Unspecified pruritic disorder 698.9 Active 234724738 Problem Other atopic dermatitis and related conditions 691.8 Active 970199601 Problem Calculus of gallbladder without mention of cholecystitis or obstruction 574.20 Active 488608522 Problem Family history of diabetes mellitus V18.0 Active 890481683 Problem Disorders of bilirubin excretion 277.4 Active 859242314 Problem Rash and other nonspecific skin eruption 782.1 Active 811162765 Problem Chronic hepatitis C without mention of hepatic coma 070.54 Active 012885784 Problem Routine general medical examination at [facility] V70.0 Active 003604410 Problem Alcoholic cirrhosis of liver 571.2 A ctive 544142826 Problem Chronic airway obstruction, not elsewhere classified 496 Active 39755599 Problem Nondependent alcohol abuse, unspecified drunkenness 305.00 Active 765819577 Problem Unspecified thrombocytopenia 287.5 A ctive 675547663 ALLERGIES No Information ENCOUNTERS Encounter Location Date Diagnosis [facility] [id number] [place] [address] Oct, [facility] [address] [id number] [place] [address] Dec, [facility] [address] [address] Dec, [facility] [address] [address] Aug, [facility] [address] [address] Aug, [facility] [address] [id number] [place] [address] May, 2013 [facility] [address] [id number] [facility] [place] [address] May, 2013 [facility] [address] [facility] [id number] [place] [address] May, 2013 [facility] [address] [id number] [place] [address] May, 2013 [facility] [address] [facility] [id number] [place] [address] May, 2013 [facility] [address] [id number] [place] [address] May, 2013 [facility] [address] [id number] [place] [address] Apr, [facility] [id number] [place] [address] Apr, [facility] [id number] [place] [address] Mar, [facility] [address] [id number] [place] [address] Mar, [facility] [address] [id number] [place] [address] Mar, [facility] [id number] [place] [address] Mar, 2013 [facility] [id number] [place] [address] Mar, [facility] [address] [id number] [place] [address] Mar, [facility] [address] [id number] [place] [address] Mar, [facility] [id number] [place] [address] Mar, [facility] [id number] [place] [address] Mar, 2013 [facility] [address] [facility] [id number] [place] [address] Mar, 2013 [facility] [address] [facility] [id number] [facility] [place] [address] Mar, 2013 [facility] [address] [facility] [id number] [place] [address] Mar, 2013 [facility] [address] [facility] [id number] [place] [address] Mar, 2013 [facility] [address] [facility] [id number] [place] [address] Mar, 2013 [facility] [id number] [place] [address] Mar, 2013 [facility] [id number] [place] [address] Mar, 2013 [facility] [id number] [place] [address] Mar, [facility] [address] [facility] [id number] [place] [address] Feb, [facility] [id number] [place] [address] Feb, [facility] [id number] [place] [address] Feb, [facility] [id number] [place] [address] Feb, [facility] [address] [facility] [id number] [place] [address] Oct, [facility] [address] [facility] [id number] [place] [address] Oct, [facility] [id number] [place] [address] Sep, [facility] [id number] [place] [address] Sep, [facility] [id number] [place] [address] Sep, [facility] [id number] [place] [address] Sep, [facility] [id number] [place] [address] Sep, [facility] [id number] [place] [address] Sep, [facility] [id number] [place] [address] Sep, [facility] [id number] [place] [address] Sep, [facility] [id number] [place] [address] Sep, [facility] [id number] [place] [address] Sep, [facility] [id number] [place] [address] Aug, [facility] [address] [id number] [place] [address] Aug, [facility] [id number] [place] [address] Aug, [facility] [address] [id number] [place] [address] Aug, [facility] [address] [id number] [place] [address] Aug, IMMUNIZATIONS No Known Immunizations SOCIAL HISTORY Never Assessed REASON FOR VISIT PLAN OF CARE VITAL SIGNS Height 70 in 2014-02-15 Weight 254.12 lbs 2014-02-15 Temperature 97.8 degrees Fahrenheit 2014-02-15 Heart Rate 112 bpm 2014-02-15 Respiratory Rate 22 2014-02-15 Blood pressure systolic 131 mmHg 2014-02-15 Blood pressure diastolic 64 mmHg 2014-02-15 MEDICATIONS Unknown Medications RESULTS No Results PROCEDURES Procedure Date Ordered Result Body Site MEASURE BLOOD OXYGEN LEVEL February 15, 2014 INSTRUCTIONS MEDICATIONS ADMINISTERED No Known Medications
--- OUTSIDE RECORDS SUMMARY | 2020-01-06 03:59 | XMS REPORT ---
Author Author Gavin GOMEZ [facility] Address [address] [place] [address] Care Team Providers Care Head Of Drama Name Role Phone MARTY GOMEZ Unavailable PROBLEMS Type Condition ICD9-CM Code IJM30-[id number] Code Onset Dates Condition S tatus SNOMED Code Problem Unspecified pruritic disorder 698.9 Active 495690994 Problem Other atopic dermatitis and related conditions 691.8 Active 832092712 Problem Calculus of gallbladder without mention of cholecystitis or obstruction 574.20 Active 795588941 Problem Family history of diabetes mellitus V18.0 Active 060954223 Problem Disorders of bilirubin excretion 277.4 Active 282029031 Problem Rash and other nonspecific skin eruption 782.1 Active 112305284 Problem Chronic hepatitis C without mention of hepatic coma 070.54 Active 102393578 Problem Routine general medical examination at [facility] V70.0 Active 538706610 Problem Alcoholic cirrhosis of liver 571.2 A ctive 260258354 Problem Chronic airway obstruction, not elsewhere classified 496 Active 03588939 Problem Nondependent alcohol abuse, unspecified drunkenness 305.00 Active 368517884 Problem Unspecified thrombocytopenia 287.5 A ctive [id number] ALLERGIES No Information ENCOUNTERS Encounter Location Date Diagnosis [facility] [address] [id number] [place] [address] Oct, [facility] [address] [address] Dec, [facility] [address] [address] Dec, [facility] [address] [address] Aug, [facility] [address] [address] Aug, [facility] [address] [id number] [place] [address] May, 2013 [facility] [address] [facility] [id number] [place] [address] May, 2013 [facility] [address] [facility] [id number] [place] [address] May, 2013 [facility] [address] [id number] [place] [address] May, 2013 [facility] [address] [facility] [id number] [place] [address] May, 2013 [facility] [address] [id number] [place] [address] May, 2013 [facility] [address] [id number] [place] [address] Apr, [facility] [address] [id number] [place] [address] Apr, [facility] [address] [id number] [place] [address] Mar, [facility] [address] [id number] [place] [address] Mar, [facility] [address] [id number] [place] [address] Mar, [facility] [address] [id number] [place] [address] Mar, [facility] [address] [id number] [place] [address] Mar, [facility] [address] [facility] [id number] [place] [address] Mar, [facility] [address] [id number] [place] [address] Mar, [facility] [address] [id number] [place] [address] Mar, [facility] [address] [id number] [place] [address] Mar, 2013 [facility] [address] [facility] [id number] [place] [address] Mar, 2013 [facility] [address] [id number] [facility] [place] [address] Mar, 2013 [facility] [address] [id number] [place] [address] Mar, 2013 [facility] [address] [id number] [place] [address] Mar, 2013 [facility] [address] [id number] [place] [address] Mar, 2013 [facility] [address] [id number] [place] [address] Mar, 2013 [facility] [address] [id number] [place] [address] Mar, [facility] [address] [id number] [place] [address] Mar, [facility] [address] [id number] [place] [address] Feb, [facility] [address] [id number] [place] [address] Feb, [facility] [address] [id number] [place] [address] Feb, [facility] [address] [id number] [place] [address] Feb, [facility] [address] [id number] [place] [address] Oct, [facility] [address] [id number] [place] [address] Oct, [facility] [address] [id number] [place] [address] Sep, [facility] [address] [id number] [place] [address] Sep, [facility] [address] [id number] [place] [address] Sep, [facility] [address] [id number] [place] [address] Sep, [facility] [address] [id number] [place] [address] Sep, [facility] [address] [id number] [place] [address] Sep, [facility] [id number] [place] [address] Sep, [facility] [id number] [place] [address] Sep, [facility] [id number] [place] [address] Sep, [facility] [address] [id number] [place] [address] Sep, [facility] [address] [id number] [place] [address] Aug, [facility] [id number] [place] [address] Aug, [facility] [id number] [place] [address] Aug, [facility] [address] [id number] [place] [address] Aug, [facility] [address] [id number] [place] [address] Aug, IMMUNIZATIONS No Known Immunizations SOCIAL HISTORY Never Assessed REASON FOR VISIT PLAN OF CARE VITAL SIGNS MEDICATIONS Unknown Medications RESULTS No Results PROCEDURES No Known procedures INSTRUCTIONS MEDICATIONS ADMINISTERED No Known Medications
--- OUTSIDE RECORDS SUMMARY | 2020-01-06 03:59 | XMS REPORT ---
Author Author Gavin GOMEZ [facility] Address [address] [place] [address] Care Team Providers Care Negotiations Director Name Role Phone MARTY GOMEZ Unavailable PROBLEMS Type Condition ICD9-CM Code MGM06-FO Code Onset Dates Condition S tatus SNOMED Code Problem Unspecified pruritic disorder 698.9 Active 435335813 Problem Other atopic dermatitis and related conditions 691.8 Active 581451343 Problem Calculus of gallbladder without mention of cholecystitis or obstruction 574.20 Active 112916109 Problem Family history of diabetes mellitus V18.0 Active 036842869 Problem Disorders of bilirubin excretion 277.4 Active 419281472 Problem Rash and other nonspecific skin eruption 782.1 Active 797254254 Problem Chronic hepatitis C without mention of hepatic coma 070.54 Active 413963559 Problem Routine general medical examination at [facility] V70.0 Active 181857441 Problem Alcoholic cirrhosis of liver 571.2 A ctive 717885867 Problem Chronic airway obstruction, not elsewhere classified 496 Active 93812450 Problem Nondependent alcohol abuse, unspecified drunkenness 305.00 Active 467403392 Problem Unspecified thrombocytopenia 287.5 A ctive 693940819 ALLERGIES No Information ENCOUNTERS Encounter Location Date Diagnosis [facility] [id number] [place] [address] Oct, [facility] [address] [address] Dec, [facility] [address] [address] Dec, [facility] [address] [address] Aug, [facility] [address] [address] Aug, [facility] [address] [id number] [place] [address] May, 2013 [facility] [address] [facility] [id number] [place] [address] May, 2013 [facility] [address] [facility] [id number] [place] [address] May, 2013 [facility] [address] [id number] [place] [address] May, 2013 [facility] [address] [facility] [id number] [place] [address] May, 2013 [facility] [address] [id number] [place] [address] May, 2013 [facility] [address] [id number] [place] [address] Apr, [facility] [address] [id number] [place] [address] Apr, [facility] [address] [id number] [place] [address] Mar, [facility] [address] [id number] [place] [address] Mar, [facility] [address] [id number] [place] [address] Mar, [facility] [address] [id number] [place] [address] Mar, [facility] [address] [id number] [place] [address] Mar, [facility] [address] [facility] [id number] [place] [address] Mar, [facility] [address] [id number] [place] [address] Mar, [facility] [address] [id number] [place] [address] Mar, [facility] [address] [id number] [place] [address] Mar, 2013 [facility] [address] [facility] [id number] [place] [address] Mar, 2013 [facility] [address] [id number] [facility] [place] [address] Mar, 2013 [facility] [address] [id number] [place] [address] Mar, 2013 [facility] [address] [id number] [place] [address] Mar, 2013 [facility] [address] [id number] [place] [address] Mar, 2013 [facility] [address] [id number] [place] [address] Mar, 2013 [facility] [address] [id number] [place] [address] Mar, [facility] [address] [id number] [place] [address] Mar, [facility] [address] [id number] [place] [address] Feb, [facility] [address] [id number] [place] [address] Feb, [facility] [address] [id number] [place] [address] Feb, [facility] [address] [id number] [place] [address] Feb, [facility] [address] [id number] [place] [address] Oct, [facility] [address] [id number] [place] [address] Oct, [facility] [address] [id number] [place] [address] Sep, [facility] [address] [id number] [place] [address] Sep, [facility] [address] [id number] [place] [address] Sep, [facility] [address] [id number] [place] [address] Sep, [facility] [address] [id number] [place] [address] Sep, [facility] [id number] [place] [address] Sep, [facility] [id number] [place] [address] Sep, [facility] [id number] [place] [address] Sep, [facility] [id number] [place] [address] Sep, [facility] [id number] [place] [address] Sep, [facility] [id number] [place] [address] Aug, [facility] [id number] [place] [address] Aug, [facility] [id number] [place] [address] Aug, [facility] [id number] [place] [address] Aug, [facility] [id number] [place] [address] Aug, IMMUNIZATIONS No Known Immunizations SOCIAL HISTORY Never Assessed REASON FOR VISIT PLAN OF CARE VITAL SIGNS Height 70 in 2014-03-25 Weight 246.19 lbs 2014-03-25 Temperature 97.2 degrees Fahrenheit 2014-03-25 Heart Rate 88 bpm 2014-03-25 Respiratory Rate 20 2014-03-25 Blood pressure systolic 134 mmHg 2014-03-25 Blood pressure diastolic 74 mmHg 2014-03-25 MEDICATIONS Unknown Medications RESULTS No Results PROCEDURES No Known procedures INSTRUCTIONS MEDICATIONS ADMINISTERED No Known Medications
--- OUTSIDE RECORDS SUMMARY | 2020-01-06 03:59 | XMS REPORT ---
Author Author Gavin GOMEZ Organization [facility] Address [address] [place] [address] Care Team Providers Care Link Trainer Name Role Phone MARTY GOMEZ Unavailable PROBLEMS Type Condition ICD9-CM Code DBT61-IQ Code Onset Dates Condition S tatus SNOMED Code Problem Calculus of gallbladder without cholecystitis wi thout obstruction K80.20 Active 47236746 Problem Alcoholic cirrhosis of liver without ascites K70.3 0 Active 157940924 Problem Benign prostatic hyperplasia , unspecified whether lower urinary tract symptoms present N40.0 Active 982075793 Problem History of hepatitis C Z86.19 Active 67139143138776 Problem Chronic obstructive pulmonary disease, unspecified COPD ty pe J44.9 Active 14185401 Problem Obesity (BMI 30-39.9) E66.9 Active 118367527 ALLERGIES No Information ENCOUNTERS Encounter Location Date Diagnosis [place] [address] [address] Oct, Chronic obstructive pulmonary disease, u nspecified COPD type J44.9 ; Encounter to establish care Z76.89 ; Obesity (BMI 30-39.9) E66.9 ; History of hepatitis C Z86.19 ; Alcoholic cirrhosis of liver without ascites K70.30 ; Benign prostatic hyperplasia, unspecified whether lower urinary tract symptoms present N40.0 and Calculus of gallbladder without cholecystitis without obstruction K80.20 [facility] [address] [address] Dec, [facility] [address] [address] Dec, [facility] [address] [address] Aug, [facility] [address] [address] Aug, [facility] [address] [id number] [facility] [place] [address] May, 2013 [facility] [address] [facility] [id number] [facility] [place] [address] May, 2013 [facility] [address] [id number] [facility] [place] [address] May, 2013 [facility] [address] [facility] [id number] [facility] [place] [address] May, 2013 [facility] [address] [facility] [id number] [facility] [place] [address] May, 2013 [facility] [address] [facility] [id number] [place] [address] May, 2013 [facility] [address] [id number] [place] [address] Apr, [facility] [address] [id number] [place] [address] Apr, [facility] [address] [id number] [place] [address] Mar, [facility] [address] [id number] [place] [address] Mar, [facility] [address] [id number] [place] [address] Mar, [facility] [address] [id number] [place] [address] Mar, 2013 [facility] [address] [facility] [id number] [place] [address] Mar, 2013 [facility] [address] [id number] [place] [address] Mar, [facility] [address] [id number] [place] [address] Mar, 2013 [facility] [address] [id number] [place] [address] 16 Mar, 2013 [facility] [address] [id number] [place] [address] Mar, 2013 [facility] [address] [facility] [id number] [place] [address] Mar, 2013 [facility] [address] [facility] [id number] [place] [address] Mar, 2013 [facility] [address] [id number] [place] [address] Mar, 2013 [facility] [address] [facility] [id number] [place] [address] Mar, 2013 [facility] [address] [facility] [id number] [place] [address] Mar, 2013 [facility] [address] [id number] [place] [address] Mar, 2013 [facility] [address] [id number] [place] [address] Mar, [facility] [address] [id number] [place] [address] Mar, [facility] [address] [id number] [place] [address] Feb, [facility] [address] [id number] [place] [address] Feb, [facility] [address] [id number] [place] [address] Feb, [facility] [address] [id number] [place] [address] Feb, [facility] [address] [facility] [id number] [place] [address] Oct, [facility] [address] [id number] [place] [address] Oct, [facility] [address] [id number] [place] [address] Sep, [facility] [address] [id number] [place] [address] Sep, [facility] [id number] [place] [address] Sep, [facility] [id number] [place] [address] Sep, [facility] [id number] [place] [address] Sep, [facility] [id number] [place] [address] Sep, [facility] [id number] [place] [address] Sep, [facility] [address] [address] Sep, [facility] [id number] [place] [address] Sep, [facility] [id number] [place] [address] Sep, [facility] [id number] [place] [address] Aug, [facility] [id number] [place] [address] Aug, [facility] [id number] [place] [address] Aug, [facility] [id number] [place] [address] Aug, [facility] [id number] [place] [address] Aug, IMMUNIZATIONS No Known Immunizations SOCIAL HISTORY [...]
--- OUTSIDE RECORDS SUMMARY | 2020-01-06 03:59 | XMS REPORT ---
Author Author Gavin GOMEZ [facility] Address [address] [place] [address] Care Team Providers Care Recruitment And Outreach Assistant Name Role Phone MARTY GOMEZ Unavailable PROBLEMS Type Condition ICD9-CM Code ALX12-PF Code Onset Dates Condition S tatus SNOMED Code Problem Unspecified pruritic disorder 698.9 Active 367445821 Problem Other atopic dermatitis and related conditions 691.8 Active 041466246 Problem Calculus of gallbladder without mention of cholecystitis or obstruction 574.20 Active 231223117 Problem Family history of diabetes mellitus V18.0 Active 384527043 Problem Disorders of bilirubin excretion 277.4 Active 583942426 Problem Rash and other nonspecific skin eruption 782.1 Active 715680332 Problem Chronic hepatitis C without mention of hepatic coma 070.54 Active 028643562 Problem Routine general medical examination at [facility] V70.0 Active 453073936 Problem Alcoholic cirrhosis of liver 571.2 A ctive 482307122 Problem Chronic airway obstruction, not elsewhere classified 496 Active 68409316 Problem Nondependent alcohol abuse, unspecified drunkenness 305.00 Active 127321713 Problem Unspecified thrombocytopenia 287.5 A ctive [id number] ALLERGIES No Information ENCOUNTERS Encounter Location Date Diagnosis [facility] [address] [id number] [place] [address] Oct, [facility] [address] [address] Dec, [facility] [address] [address] Dec, [facility] [address] [address] Aug, [facility] [address] [address] Aug, [facility] [address] [id number] [place] [address] May, 2013 [facility] [address] [facility] [id number] [place] [address] May, 2013 [facility] [address] [facility] [id number] [place] [address] May, 2013 [facility] [address] [id number] [place] [address] May, 2013 [facility] [address] [facility] [id number] [place] [address] May, 2013 [facility] [address] [id number] [place] [address] May, 2013 [facility] [address] [id number] [place] [address] Apr, [facility] [address] [id number] [place] [address] Apr, [facility] [address] [id number] [place] [address] Mar, [facility] [address] [id number] [place] [address] Mar, [facility] [address] [id number] [place] [address] Mar, [facility] [address] [id number] [place] [address] Mar, [facility] [address] [id number] [place] [address] Mar, [facility] [address] [facility] [id number] [place] [address] Mar, [facility] [address] [id number] [place] [address] Mar, [facility] [address] [id number] [place] [address] Mar, [facility] [address] [id number] [place] [address] Mar, 2013 [facility] [address] [facility] [id number] [place] [address] Mar, 2013 [facility] [address] [id number] [facility] [place] [address] Mar, 2013 [facility] [address] [id number] [place] [address] Mar, 2013 [facility] [address] [id number] [place] [address] Mar, 2013 [facility] [address] [id number] [place] [address] Mar, 2013 [facility] [address] [id number] [place] [address] Mar, 2013 [facility] [address] [id number] [place] [address] Mar, [facility] [address] [id number] [place] [address] Mar, [facility] [address] [id number] [place] [address] Feb, [facility] [address] [id number] [place] [address] Feb, [facility] [address] [id number] [place] [address] Feb, [facility] [address] [id number] [place] [address] Feb, [facility] [address] [id number] [place] [address] Oct, [facility] [address] [id number] [place] [address] Oct, [facility] [address] [id number] [place] [address] Sep, [facility] [address] [id number] [place] [address] Sep, [facility] [address] [id number] [place] [address] Sep, [facility] [address] [id number] [place] [address] Sep, [facility] [address] [id number] [place] [address] Sep, [facility] [address] [id number] [place] [address] Sep, [facility] [address] [id number] [place] [address] Sep, [facility] [id number] [place] [address] Sep, [facility] [address] [id number] [place] [address] Sep, [facility] [address] [id number] [place] [address] Sep, [facility] [address] [id number] [place] [address] Aug, [facility] [id number] [place] [address] Aug, [facility] [id number] [place] [address] Aug, [facility] [address] [id number] [place] [address] Aug, [facility] [address] [id number] [place] [address] Aug, IMMUNIZATIONS No Known Immunizations SOCIAL HISTORY Never Assessed REASON FOR VISIT PLAN OF CARE VITAL SIGNS MEDICATIONS Unknown Medications RESULTS No Results PROCEDURES No Known procedures INSTRUCTIONS MEDICATIONS ADMINISTERED No Known Medications
--- OUTSIDE RECORDS SUMMARY | 2020-01-06 03:59 | XMS REPORT ---
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 Active 155644868 Problem Rash and other nonspecific skin eruption 782.1 Active 767703425 Problem Chronic hepatitis C without mention of hepatic coma 070.54 Active 469590722 Problem Routine general medical examination at [facility] V70.0 Active 816460146 Problem Alcoholic cirrhosis of liver 571.2 A ctive 320051359 Problem Chronic airway obstruction, not elsewhere classified 496 Active 25990187 Problem Nondependent alcohol abuse, unspecified drunkenness 305.00 Active 574580217 Problem Unspecified thrombocytopenia 287.5 A ctive 360722484 ALLERGIES No Information ENCOUNTERS Encounter Location Date Diagnosis [facility] [address] [id number] [place] [address] Oct, [facility] [address] [address] Dec, [facility] [address] [address] Dec, [facility] [address] [address] Aug, [facility] [address] [address] Aug, [facility] [address] [id number] [place] [address] May, 2013 [facility] [address] [facility] [id number] [place] [address] May, 2013 [facility] [address] [facility] [id number] [place] [address] May, 2013 [facility] [address] [id number] [place] [address] May, 2013 [facility] [address] [facility] [id number] [place] [address] May, 2013 [facility] [address] [id number] [place] [address] May, 2013 [facility] [address] [id number] [place] [address] Apr, [facility] [address] [id number] [place] [address] Apr, [facility] [address] [id number] [place] [address] Mar, [facility] [address] [id number] [place] [address] Mar, [facility] [address] [id number] [place] [address] Mar, [facility] [address] [id number] [place] [address] Mar, [facility] [address] [id number] [place] [address] Mar, [facility] [address] [facility] [id number] [place] [address] Mar, [facility] [address] [id number] [place] [address] Mar, [facility] [address] [id number] [place] [address] Mar, [facility] [address] [id number] [place] [address] Mar, 2013 [facility] [address] [facility] [id number] [place] [address] Mar, 2013 [facility] [address] [id number] [facility] [place] [address] Mar, 2013 [facility] [address] [id number] [place] [address] Mar, 2013 [facility] [address] [id number] [place] [address] Mar, 2013 [facility] [address] [id number] [place] [address] Mar, 2013 [facility] [address] [id number] [place] [address] Mar, 2013 [facility] [address] [id number] [place] [address] Mar, [facility] [address] [id number] [place] [address] Mar, [facility] [address] [id number] [place] [address] Feb, [facility] [address] [id number] [place] [address] Feb, [facility] [address] [id number] [place] [address] Feb, [facility] [address] [id number] [place] [address] Feb, [facility] [address] [id number] [place] [address] Oct, [facility] [address] [id number] [place] [address] Oct, [facility] [address] [id number] [place] [address] Sep, [facility] [address] [id number] [place] [address] Sep, [facility] [address] [id number] [place] [address] Sep, [facility] [address] [id number] [place] [address] Sep, [facility] [address] [id number] [place] [address] Sep, [facility] [address] [id number] [place] [address] Sep, [facility] [id number] [place] [address] Sep, [facility] [id number] [place] [address] Sep, [facility] [id number] [place] [address] Sep, [facility] [address] [id number] [place] [address] Sep, [facility] [address] [id number] [place] [address] Aug, [facility] [id number] [place] [address] Aug, [facility] [id number] [place] [address] Aug, [facility] [address] [id number] [place] [address] Aug, [facility] [address] [id number] [place] [address] Aug, IMMUNIZATIONS No Known Immunizations SOCIAL HISTORY Never Assessed REASON FOR VISIT PLAN OF CARE VITAL SIGNS MEDICATIONS Unknown Medications RESULTS No Results PROCEDURES No Known procedures INSTRUCTIONS MEDICATIONS ADMINISTERED No Known Medications
--- OUTSIDE RECORDS SUMMARY | 2020-01-06 03:59 | XMS REPORT ---
Author Author Gavin GOMEZ 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 Active 101399178 Problem Rash and other nonspecific skin eruption 782.1 Active 401743997 Problem Chronic hepatitis C without mention of hepatic coma 070.54 Active 330975135 Problem Routine general medical examination at [facility] V70.0 Active 295534511 Problem Alcoholic cirrhosis of liver 571.2 A ctive 891082316 Problem Chronic airway obstruction, not elsewhere classified 496 Active 31505801 Problem Nondependent alcohol abuse, unspecified drunkenness 305.00 Active 035534066 Problem Unspecified thrombocytopenia 287.5 A ctive 054214894 ALLERGIES No Information ENCOUNTERS Encounter Location Date Diagnosis [facility] [address] [id number] [place] [address] Oct, [facility] [address] [address] Dec, [facility] [address] [address] Dec, [facility] [address] [address] Aug, [facility] [address] [address] Aug, [facility] [address] [id number] [place] [address] May, 2013 [facility] [address] [facility] [id number] [place] [address] May, 2013 [facility] [address] [facility] [id number] [place] [address] May, 2013 [facility] [address] [id number] [place] [address] May, 2013 [facility] [address] [facility] [id number] [place] [address] May, 2013 [facility] [address] [id number] [place] [address] May, 2013 [facility] [address] [id number] [place] [address] Apr, [facility] [address] [id number] [place] [address] Apr, [facility] [address] [id number] [place] [address] Mar, [facility] [address] [id number] [place] [address] Mar, [facility] [address] [id number] [place] [address] Mar, [facility] [address] [id number] [place] [address] Mar, [facility] [address] [id number] [place] [address] Mar, [facility] [address] [facility] [id number] [place] [address] Mar, [facility] [address] [id number] [place] [address] Mar, [facility] [address] [id number] [place] [address] Mar, [facility] [address] [id number] [place] [address] Mar, 2013 [facility] [address] [facility] [id number] [place] [address] Mar, 2013 [facility] [address] [id number] [place] [address] Mar, 2013 [facility] [address] [id number] [place] [address] Mar, 2013 [facility] [address] [id number] [place] [address] Mar, 2013 [facility] [address] [id number] [place] [address] Mar, 2013 [facility] [address] [id number] [place] [address] Mar, 2013 [facility] [address] [id number] [place] [address] Mar, [facility] [address] [id number] [place] [address] Mar, [facility] [address] [id number] [place] [address] Feb, [facility] [address] [id number] [place] [address] Feb, [facility] [address] [id number] [place] [address] Feb, [facility] [address] [id number] [place] [address] Feb, [facility] [address] [id number] [place] [address] Oct, [facility] [address] [id number] [place] [address] Oct, [facility] [address] [id number] [place] [address] Sep, [facility] [address] [id number] [place] [address] Sep, [facility] [address] [id number] [place] [address] Sep, [facility] [address] [id number] [place] [address] Sep, [facility] [address] [id number] [place] [address] Sep, [facility] [address] [id number] [place] [address] Sep, [facility] [id number] [place] [address] Sep, [facility] [id number] [place] [address] Sep, [facility] [id number] [place] [address] Sep, [facility] [address] [id number] [place] [address] Sep, [facility] [address] [id number] [place] [address] Aug, [facility] [id number] [place] [address] Aug, [facility] [id number] [place] [address] Aug, [facility] [address] [id number] [place] [address] Aug, [facility] [address] [id number] [place] [address] Aug, IMMUNIZATIONS No Known Immunizations SOCIAL HISTORY Never Assessed REASON FOR VISIT PLAN OF CARE VITAL SIGNS MEDICATIONS Unknown Medications RESULTS No Results PROCEDURES No Known procedures INSTRUCTIONS MEDICATIONS ADMINISTERED No Known Medications
--- OUTSIDE RECORDS SUMMARY | 2020-01-06 03:59 | XMS REPORT ---
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 V70.0 Active 599485936 Problem Alcoholic cirrhosis of liver 571.2 A ctive 134243214 Problem Chronic airway obstruction, not elsewhere classified 496 Active 02139729 Problem Nondependent alcohol abuse, unspecified drunkenness 305.00 Active 363235091 Problem Unspecified thrombocytopenia 287.5 A ctive 357298104 ALLERGIES No Information ENCOUNTERS Encounter Location Date Diagnosis [facility] [id number] [place] [address] Oct, [facility] [address] [address] Dec, [facility] [address] [address] Dec, [facility] [address] [address] Aug, [facility] [address] [address] Aug, [facility] [id number] [place] [address] May, 2013 [facility] [address] [facility] [id number] [place] [address] May, 2013 [facility] [address] [facility] [id number] [place] [address] May, 2013 [facility] [address] [id number] [place] [address] May, 2013 [facility] [address] [facility] [id number] [place] [address] May, 2013 [facility] [address] [id number] [place] [address] May, 2013 [facility] [address] [id number] [place] [address] Apr, [facility] [address] [id number] [place] [address] Apr, [facility] [address] [id number] [place] [address] Mar, [facility] [address] [id number] [place] [address] Mar, [facility] [address] [id number] [place] [address] Mar, [facility] [address] [id number] [place] [address] Mar, [facility] [address] [id number] [place] [address] Mar, [facility] [address] [facility] [id number] [place] [address] Mar, [facility] [address] [id number] [place] [address] Mar, [facility] [address] [id number] [place] [address] Mar, [facility] [address] [id number] [place] [address] Mar, 2013 [facility] [address] [facility] [id number] [place] [address] Mar, 2013 [facility] [address] [id number] [place] [address] Mar, 2013 [facility] [address] [id number] [place] [address] Mar, 2013 [facility] [address] [id number] [place] [address] Mar, 2013 [facility] [address] [id number] [place] [address] Mar, 2013 [facility] [address] [id number] [place] [address] Mar, 2013 [facility] [address] [id number] [place] [address] Mar, [facility] [address] [id number] [place] [address] Mar, [facility] [address] [id number] [place] [address] Feb, [facility] [address] [id number] [place] [address] Feb, [facility] [address] [id number] [place] [address] Feb, [facility] [address] [id number] [place] [address] Feb, [facility] [address] [id number] [place] [address] Oct, [facility] [address] [id number] [place] [address] Oct, [facility] [address] [id number] [place] [address] Sep, [facility] [address] [id number] [place] [address] Sep, [facility] [address] [id number] [place] [address] Sep, [facility] [address] [id number] [place] [address] Sep, [facility] [address] [id number] [place] [address] Sep, [facility] [address] [id number] [place] [address] Sep, [facility] [id number] [place] [address] Sep, [facility] [id number] [place] [address] Sep, [facility] [id number] [place] [address] Sep, [facility] [address] [id number] [place] [address] Sep, [facility] [address] [id number] [place] [address] Aug, [facility] [id number] [place] [address] Aug, [facility] [id number] [place] [address] Aug, [facility] [address] [id number] [place] [address] Aug, [facility] [address] [id number] [place] [address] Aug, IMMUNIZATIONS No Known Immunizations SOCIAL HISTORY Never Assessed REASON FOR VISIT PLAN OF CARE VITAL SIGNS MEDICATIONS Unknown Medications RESULTS No Results PROCEDURES No Known procedures INSTRUCTIONS MEDICATIONS ADMINISTERED No Known Medications
--- OUTSIDE RECORDS SUMMARY | 2020-01-06 03:59 | XMS REPORT | Continuity Of Care Document ---
Author Author [facility] Organization [facility] Address [address] [place] [address] Phone Care Team Providers Care City Superintendent Name Role Phone UNASSIGNED, ED PHYSICIAN Unavailable Unavailable JULISSA GROVE, YAMILETH Khanna AT NON STAFF, PROVIDER Unavailable Unavailable Results Lab Results Visit/Account #[id number] (March 25 7:47am - March 25, 2016 9:49am) Test Result Date/Time 04837-4: COMPLETE BLOOD COUNT WITH DIFF WHITE BLOOD COUNT(4.0-11.0 10E3/UL) 4.5 10E3/UL March 25, 2016 8:00am RED BLOOD COUNT(4.50-5.90 10E6/UL) 5.51 10E6/UL March 25, 2016 8:00am HEMOGLOBIN(13.5-17.5 G/DL) 17.5 G/DL March 25, 2016 8:00am HEMATOCRIT(41.0-53.0 %) 51.1 % March 25, 2016 8:00am MEAN CORPUSCULAR VOLUME(82.0-100.0 FL) 92.7 FL March 25, 2016 8:00am 96995-0: MEAN CORPUSCULAR HEMOGLOBIN(26. 0-34.0 PG) 31.8 PG March 25, 2016 8:00am MEAN CORPUSCULAR HGB CONC(31.5-36.5 G/DL ) 34.2 G/DL March 25, 2016 8:00am RED CELL DISTRIBUTION WIDTH(11.5-14.5 %) 13.2 % March 25, 2016 8:00am 777-3: PLATELET COUNT(150-450 10E3/UL) 42 10E3/UL March 25, 2016 8:00am MEAN PLATELET VOLUME(8.2-12.4 FL) 10.2 FL March 25, 2016 8:00am 770-8: NEUTROPHILS % (AUTO)(40-70 %) 64 % March 25, 2016 8:00am LYMPHOCYTES % (AUTO)(15-45 %) 20 % March 25, 2016 8:00am 5905-5: MONOCYTES % (AUTO)(2-10 %) 11 % March 25, 2016 8:00am 713-8: EOSINOPHILS % (AUTO)(0-6 %) 5 % March 25, 2016 8:00am 706-2: BASOPHILS % (AUTO)(0-1 %) 0 % March 25, 2016 8:00am 50515-4: IMMATURE GRANS % (AUTO)(0-0 %) 0 % March 25, 2016 8:00am NUCLEATED RBCS (AUTO)(0-0 %) 0 % March 25, 2016 8:00am 751-8: NEUTROPHILS # (AUTO)(2.5-7.5 10E3 /UL) 2.9 10E3/UL March 25, 2016 8:00am 58174-3: LYMPHOCYTES # (AUTO)(1.0-4.0 10 E3/UL) 0.9 10E3/UL March 25, 2016 8:00am 742-7: MONOCYTES # (AUTO)(0.2-0.8 10E3/U L) 0.5 10E3/UL March 25, 2016 8:00am 711-2: EOSINOPHILS # (AUTO)(0.0-0.4 10E3 /UL) 0.2 10E3/UL March 25, 2016 8:00am 704-7: BASOPHILS # (AUTO)(0.0-0.2 10E3/U L) 0.0 10E3/UL March 25, 2016 8:00am IMMATURE GRANS # (AUTO)(0.0-0.0 10E3/UL) 0.0 10E3/UL March 25, 2016 8:00am DIFF TYPE AUTOMATED March 25, 2016 8:00am UA WITH SCREEN FOR CULTURE 5778-6: COLOR,URINE YELLOW March 25, 2016 8:00am 57272-5: CLARITY,URINE CLEAR March 25, 2016 8:00am GLUCOSE, URINE(NEGATIVE MG/DL) NEGATIVE MG/DL March 25, 2016 8:00am URINE BILIRUBIN(NEGATIVE) NEGATIVE March 25, 2016 8:00am KETONES,URINE(NEGATIVE MG/DL) NEGATIVE MG/DL March 25, 2016 8:00am URINE SPECIFIC GRAVITY(1.001-1.035) 1.015 March 25, 2016 8:00am 06815-5: URINE BLOOD(NEGATIVE) NEGATIVE March 25, 2016 8:00am 2756-5: URINE PH(5.0-9.0) 7.0 March 25, 2016 8:00am URINE PROTEIN(Less than 20 MG/DL) NEGATIVE MG/DL March 25, 2016 8:00am 72804-8: URINE UROBILINOGEN(0.2-1.0 MG/D L) 0.2 MG/DL March 25, 2016 8:00am URINE NITRITE(NEGATIVE) NEGATIVE March 25, 2016 8:00am 5799-2: LEUKOCYTE ESTERASE ,URINE(NEGATI VE) NEGATIVE March 25, 2016 8:00am 630-4: URINE CULTURE NOT INDICATED March 25, 2016 8:00am URINE MICROSCOPIC REQUIRED NO March 25, 2016 8:00am 69502-9: COMPLETE METABOLIC PROFILE GLUCOSE(70-110 MG/DL) 130 MG/DL March 25, 2016 8:00am BLOOD UREA NITROGEN(6-20 MG/DL) 15 MG/DL March 25, 2016 8:00am CREATININE(0.50-1.20 MG/DL) 0.55 MG/DL March 25, 2016 8:00am 00205-4: EST GLOMERULAR FILTRATION RATE( Greater than or equal to 60) Greater than or equal to 60 Result Comments: If the patient is of -[place] descent/extraction multiply the eGFR value by 1.212 to obtain the actual eGFR. >=60 mg/dL Normal 30-59 mg/dL Moderate Kidney Disease 15-29 mg/dL Severe Kidney Disease <15 mg/dL Kidney Failure March 25, 2016 8:00am BUN CREATININE RATIO(10.0-20.0 RATIO) 27.0 RATIO March 25, 2016 8:00am SODIUM(135-145 MMOL/L) 140 MMOL/L March 25, 2016 8:00am POTASSIUM(3.6-5.0 MMOL/L) 4.1 MMOL/L March 25, 2016 8:00am CHLORIDE(101-111 MMOL/L) 101 MMOL/L March 25, 2016 8:00am 8-9: CO2(21-31 MMOL/L) 31 MMOL/L March 25, 2016 8:00am ANION GAP(8-18) 12 March 25, 2016 8:00am OSMO CALCULATED(270.0-290.0) 282.0 March 25, 2016 8:00am CALCIUM(8.5-10.5 MG/DL) 9.3 MG/DL March 25, 2016 8:00am BILIRUBIN,TOTAL(0.1-1.2 MG/DL) 1.1 MG/DL March 25, 2016 8:00am ALKALINE PHOSPHATASE(42-121 IU/L) 61 IU/L March 25, 2016 8:00am ASPARTATE AMINO TRANSFERASE(10-42 IU/L) 26 IU/L March 25, 2016 8:00am ALANINE AMINOTRANSFERASE(10-60 IU/L) 30 IU/L March 25, 2016 8:00am TOTAL PROTEIN(6.4-8.2 G/DL) 7.7 G/DL March 25, 2016 8:00am ALBUMIN(3.5-5.5 G/DL) 4.7 G/DL March 25, 2016 8:00am GLOBULIN(2.4-3.6) 3.0 March 25, 2016 8:00am ALBUMIN/GLOBULIN RATIO(0.9-1.8 RATIO) 1.6 RATIO March 25, 2016 8:00am Allergies and Adverse Reactions Allergies and Adverse Reactions Patient Unit Number: [id number] No allergies recorded. Problem List Problem List Visit/Account #[id number] (March 25 7:47am - March 25, 2016 9:49am) Acute Problems: Code/Condition Comments Documented Start Date Documented Resolv ed Date Code(s) COPD exacerbation ICD10: J44.1 Obstructive chronic bronchitis with exacerbation ICD9: 491.21 Obstructive chronic bronchitis with exacerbation SNOMED: 230569897 Obstructive chronic bronchitis with exacerbation Plan of Care Plan Of Care Visit/Account #[id number] (March 25 7:47am - March 25, 2016 9:49am) Patient Instructions Take the prednisone as directed. Use the prescribed inhaler as needed for shortness of breath. Stop smoking. Followup with either the County call physician as listed, or a local primary care physician, as soon as possible for recheck and further recommendations. ER as needed. Vital Signs Vital Signs Visit/Account #[id number] (March 25 7:47am - March 25, 2016 9:49am) Sign First Result Last Result Code(s) Temperature in Fahrenheit Temperature (Fahrenheit): 97.1 [degF] O n March 25, 2016 7:38am Temperature (Fahrenheit): 98.2 [degF] O n March 25, 2016 9:39am 8310-5 Body Temperature Weight in Kilograms Weight (Kilograms): 115.5 kg On March 7:38am 3141-9 Weight Measured 13314-6 Body weight measured in kilogra ms Functional Status Functional and Cognitive Status No Functional Status Data Medications Inpatient/Ordered Medications - Medicati ons administered during hospital visit Visit/Account #[id number] (March 25 7:47am - March 25, 2016 9:49am) Medication Route Sig/Schedule Precondition/Indication Comments/I nstructions Codes ATROVENT 0.02% NEB(IPRATROPIUM BROMIDE) 0.5 MG/2.5 ML SOLUTION Dose: 2.5 ML INHALED NOW Ipratropium [place] 0.2 MG/ML Inhalant S olution (RxNorm): 466384 ATROVENT 0.02% NEB (IPRATROPIUM BROMIDE) NDC: 76018865883 XOPENEX NEB(LEVALBUTEROL) 1.25 MG/0.5 ML NEBULE Dose: 0.5 ML INHALED NOW Levalbuterol 0.417 MG/ML Inhalant Soluti on [Xopenex] (RxNorm): 930075 XOPENEX NEB (LEVALBUTEROL) NDC: 61786084050 Solu-MEDROL INJ(MethylPREDNISolone SOD S UCC) 125 MG/2 ML INJECTION Dose: 2 ML INTRAVEN NOW Methylprednisolone 62.5 MG/ML Injectable Solution [Solu-Medrol] (RxNorm): 292567 Solu-MEDROL INJ (MethylPREDNISolone SOD SUCC) NDC: 28276070173 Discharge Medications - Medications that patient should continue to take. Review with physician Visit/Account #[id number] (March 25 7:47am - March 25, 2016 9:49am) Medication Route Sig/Schedule Precondition/Indication Comments/I nstructions Codes Prednisone(PredniSONE) 20 MG TAB Dose: 20 MG ORAL DAILY Rx Instructions: Take 3 tabs QD for 3 days, then 2 tabs QD for 3 days, then 1 tab QD for 3 days, then 1/2 tab QD for 4 days. Prednisone 20 MG Oral Tablet (RxNorm): 3 79549 Prednisone (PredniSONE) NDC: 22606422292 ALBUTEROL SULF HFA(ALBUTEROL SULFATE) 8. 5 GM PUFF Dose: 2-3 PUFF INHALED Q4H WHEEZING 200 ACTUAT Albuterol 0.09 MG/ACTUAT Mete red Dose Inhaler [Proventil] (RxNorm): 201728 ALBUTEROL SULF HFA (ALBUTEROL SULFATE) NDC: 99501640584 History Of Encounters Encounters Visit/Account #[id number] (March 25 7:47am - March 25, 2016 9:49am) Account Status Physican Of Record Reason For Visit Visit Diagnosis Start Date/Time Stop Date/Time ER YAMILETH COSTA MD SHORTNESS OF BREATH FOR THE LAST 2 WEEKS Not Available Mar 25, 2016 7:47am Mar 25, 2016 9:49am History of Procedures Procedure List No procedures recorded. Discharge Instructions Discharge Instructions Visit/Account #[id number] (March 25 7:47am - March 25, 2016 9:49am) DISCHARGE INSTRUCTIONS Physician Shira craig Social History Social History No Social History Data. Immunizations Immunizations Patient Unit Number: [id number] Immunizations No immunizations recorded.
--- OUTSIDE RECORDS SUMMARY | 2020-01-06 03:59 | XMS REPORT ---
Author Author Gavin GOMEZ Organization [facility] Address [address] [place] [address] Care Team Providers Care Head Rose Grower Name Role Phone MARTY GOMEZ Unavailable PROBLEMS Type Condition ICD9-CM Code MWO95-QJ Code Onset Dates Condition S tatus SNOMED Code Problem Calculus of gallbladder without cholecystitis wi thout obstruction K80.20 Active 95733562 Problem Alcoholic cirrhosis of liver without ascites K70.3 0 Active 860354745 Problem Benign prostatic hyperplasia , unspecified whether lower urinary tract symptoms present N40.0 Active 170907027 Problem History of hepatitis C Z86.19 Active 80051238739194 Problem Chronic obstructive pulmonary disease, unspecified COPD ty pe J44.9 Active 49318491 Problem Obesity (BMI 30-39.9) E66.9 Active 189930784 ALLERGIES No Information ENCOUNTERS Encounter Location Date Diagnosis [address] [address] Oct, Chronic obstructive pulmonary disease, u nspecified COPD type J44.9 ; Encounter to establish care Z76.89 ; Obesity (BMI 30-39.9) E66.9 ; History of hepatitis C Z86.19 ; Alcoholic cirrhosis of liver without ascites K70.30 ; Benign prostatic hyperplasia, unspecified whether lower urinary tract symptoms present N40.0 and Calculus of gallbladder without cholecystitis without obstruction K80.20 [facility] [address] [address] Dec, [facility] [address] [address] Dec, [facility] [address] [address] Aug, [facility] [address] [address] Aug, [facility] [address] [id number] [facility] [place] [address] May, 2013 [facility] [address] [facility] [place] [id number] [facility] [place] [address] May, 2013 [facility] [address] [id number] [facility] [place] [address] May, 2013 [facility] [address] [facility] [place] [id number] [facility] [place] [address] May, 2013 [facility] [address] [facility] [place] [id number] [facility] [place] [address] May, 2013 [facility] [address] [facility] [place] [id number] [place] [address] May, 2013 [facility] [address] [id number] [place] [address] Apr, [facility] [address] [id number] [place] [address] Apr, [facility] [address] [id number] [place] [address] Mar, [facility] [address] [id number] [place] [address] Mar, [facility] [address] [id number] [place] [address] Mar, [facility] [address] [id number] [place] [address] Mar, 2013 [facility] [address] [facility] [place] [id number] [place] [address] Mar, 2013 [facility] [address] [id number] [place] [address] Mar, [facility] [address] [id number] [place] [address] Mar, 2013 [facility] [address] [id number] [place] [address] 16 Mar, 2013 [facility] [address] [id number] [place] [address] Mar, 2013 [facility] [address] [facility] [place] [id number] [place] [address] Mar, 2013 [facility] [address] [facility] [place] [id number] [place] [address] Mar, 2013 [facility] [address] [id number] [place] [address] Mar, 2013 [facility] [address] [facility] [place] [id number] [place] [address] Mar, 2013 [facility] [address] [facility] [place] [id number] [place] [address] Mar, 2013 [facility] [address] [id number] [place] [address] Mar, 2013 [facility] [address] [id number] [place] [address] Mar, [facility] [address] [id number] [place] [address] Mar, [facility] [address] [id number] [place] [address] Feb, [facility] [address] [id number] [place] [address] Feb, [facility] [address] [id number] [place] [address] Feb, [facility] [address] [id number] [place] [address] Feb, [facility] [address] [facility] [place] [id number] [place] [address] Oct, [facility] [address] [id number] [place] [address] Oct, [facility] [address] [id number] [place] [address] Sep, [facility] [address] [id number] [place] [address] Sep, [facility] [id number] [place] [address] Sep, [facility] [id number] [place] [address] Sep, [facility] [id number] [place] [address] Sep, [facility] [id number] [place] [address] Sep, [facility] [id number] [place] [address] Sep, [facility] [address] [address] Sep, [facility] [id number] [place] [address] Sep, [facility] [id number] [place] [address] Sep, [facility] [id number] [place] [address] Aug, [facility] [id number] [place] [address] Aug, [facility] [id number] [place] [address] Aug, [facility] [id number] [place] [address] Aug, [facility] [id number] [place] [address] Aug, IMMUNIZATIONS No Known Immunizations SOCIAL HISTORY [...]
--- OUTSIDE RECORDS SUMMARY | 2020-01-06 04:00 | XMS REPORT | Continuity Of Care Document ---
Author Author [facility] Organization [facility] Address [address] [place] [address] Phone Care Team Providers Care Service Learning Coordinator Name Role Phone UNASSIGNED KIM, ED PHYSICIAN AT [facility] rajiv POP MD, AMANDA Ramos Unavailable Results Lab Results Visit/Account #[id number] (May 8:02pm - May 17, 2016 10:07pm) Test Result Date/Time POC LACTIC ACID VENOUS POC LACTIC ACID VENOUS(0.90-1.70 MMOL/L) 1.02 MMOL/L May 17, 2016 8:28pm 89186-2: COMPLETE BLOOD COUNT WITH DIFF WHITE BLOOD COUNT(4.0-11.0 10E3/UL) 4.0 10E3/UL May 17, 2016 8:15pm RED BLOOD COUNT(4.50-5.90 10E6/UL) 4.91 10E6/UL May 17, 2016 8:15pm HEMOGLOBIN(13.5-17.5 G/DL) 15.9 G/DL May 17, 2016 8:15pm HEMATOCRIT(41.0-53.0 %) 44.7 % May 17, 2016 8:15pm MEAN CORPUSCULAR VOLUME(82.0-100.0 FL) 91.0 FL May 17, 2016 8:15pm 11534-0: MEAN CORPUSCULAR HEMOGLOBIN(26. 0-34.0 PG) 32.4 PG May 17, 2016 8:15pm MEAN CORPUSCULAR HGB CONC(31.5-36.5 G/DL ) 35.6 G/DL May 17, 2016 8:15pm RED CELL DISTRIBUTION WIDTH(11.5-14.5 %) 14.2 % May 17, 2016 8:15pm 777-3: PLATELET COUNT(150-450 10E3/UL) 40 10E3/UL May 17, 2016 8:15pm MEAN PLATELET VOLUME(8.2-12.4 FL) 11.0 FL May 17, 2016 8:15pm 770-8: NEUTROPHILS % (AUTO)(40-70 %) 66 % May 17, 2016 8:15pm LYMPHOCYTES % (AUTO)(15-45 %) 15 % May 17, 2016 8:15pm 5905-5: MONOCYTES % (AUTO)(2-10 %) 13 % May 17, 2016 8:15pm 713-8: EOSINOPHILS % (AUTO)(0-6 %) 5 % May 17, 2016 8:15pm 706-2: BASOPHILS % (AUTO)(0-1 %) 0 % May 17, 2016 8:15pm 06267-5: IMMATURE GRANS % (AUTO)(0-0 %) 0 % May 17, 2016 8:15pm 751-8: NEUTROPHILS # (AUTO)(2.5-7.5 10E3 /UL) 2.6 10E3/UL May 17, 2016 8:15pm 92919-5: LYMPHOCYTES # (AUTO)(1.0-4.0 10 E3/UL) 0.6 10E3/UL May 17, 2016 8:15pm 742-7: MONOCYTES # (AUTO)(0.2-0.8 10E3/U L) 0.5 10E3/UL May 17, 2016 8:15pm 711-2: EOSINOPHILS # (AUTO)(0.0-0.4 10E3 /UL) 0.2 10E3/UL May 17, 2016 8:15pm 704-7: BASOPHILS # (AUTO)(0.0-0.2 10E3/U L) 0.0 10E3/UL May 17, 2016 8:15pm IMMATURE GRANS # (AUTO)(0.0-0.0 10E3/UL) 0.0 10E3/UL May 17, 2016 8:15pm DIFF TYPE AUTOMATED May 17, 2016 8:15pm 78365-7: PROTHROMBIN TIME WITH INR PROTHROMBIN TIME(12.1-14.0 SEC) 14.1 SEC May 17, 2016 8:15pm 47815-4: INR 1.09 Result Comments: INR reference interval applies to patients on anticoagulant therapy. Suggested INR therapeutic range for oral anticoagulant therapy: (Stabilized anticoagulated patients) Routine Therapy: 2.0 to 3.0 Recurrent Myocardial Infarction: 2.5 to 3.5 Mechanical Prosthetic Valves: 2.5 to 3.5 May 17, 2016 8:15pm PARTIAL THROMBOPLASTIN TIME PARTIAL THROMBOPLASTIN TIME(22.2-37.4 SE C) 27.4 SEC May 17, 2016 8:15pm 51169-4: COMPLETE METABOLIC PROFILE GLUCOSE(70-110 MG/DL) 106 MG/DL May 17, 2016 8:15pm BLOOD UREA NITROGEN(6-20 MG/DL) 13 MG/DL May 17, 2016 8:15pm CREATININE(0.50-1.20 MG/DL) 0.64 MG/DL May 17, 2016 8:15pm 41032-7: EST GLOMERULAR FILTRATION RATE( Greater than or equal to 60) Greater than or equal to 60 Result Comments: If the patient is of -[place] descent/extraction multiply the eGFR value by 1.212 to obtain the actual eGFR. >=60 mg/dL Normal 30-59 mg/dL Moderate Kidney Disease 15-29 mg/dL Severe Kidney Disease <15 mg/dL Kidney Failure May 17, 2016 8:15pm BUN CREATININE RATIO(10.0-20.0 RATIO) 20.0 RATIO May 17, 2016 8:15pm SODIUM(135-145 MMOL/L) 138 MMOL/L May 17, 2016 8:15pm POTASSIUM(3.6-5.0 MMOL/L) 3.7 MMOL/L May 17, 2016 8:15pm CHLORIDE(101-111 MMOL/L) 101 MMOL/L May 17, 2016 8:15pm 8-9: CO2(21-31 MMOL/L) 31 MMOL/L May 17, 2016 8:15pm ANION GAP(8-18) 10 May 17, 2016 8:15pm OSMO CALCULATED(270.0-290.0) 276.2 May 17, 2016 8:15pm CALCIUM(8.5-10.5 MG/DL) 9.2 MG/DL May 17, 2016 8:15pm BILIRUBIN,TOTAL(0.1-1.2 MG/DL) 1.1 MG/DL May 17, 2016 8:15pm ALKALINE PHOSPHATASE(42-121 IU/L) 64 IU/L May 17, 2016 8:15pm ASPARTATE AMINO TRANSFERASE(10-42 IU/L) 30 IU/L May 17, 2016 8:15pm ALANINE AMINOTRANSFERASE(10-60 IU/L) 34 IU/L May 17, 2016 8:15pm TOTAL PROTEIN(6.4-8.2 G/DL) 7.5 G/DL May 17, 2016 8:15pm ALBUMIN(3.5-5.5 G/DL) 4.3 G/DL May 17, 2016 8:15pm GLOBULIN(2.4-3.6) 3.2 May 17, 2016 8:15pm ALBUMIN/GLOBULIN RATIO(0.9-1.8 RATIO) 1.3 RATIO May 17, 2016 8:15pm 39290-9: CARDIAC TROPONIN I 41457-6: CARDIAC TROPONIN I(0.01-0.04 NG /ML) 0.01 NG/ML Result Comments: REFERENCE RANGES: NEGATIVE < 0.04 NG/ML POSSIBLE MYCARDIAL INVOLVEMENT >/= 0.04 NG/ML INTERPRET TROPONIN I RESULT IN LIGHT OF THE TOTAL CLINICAL PRESENTATION INCLUDING CLINICAL HISTORY. ANY CONDITION RESULTING IN MYOCARDIAL INJURY CAN POTENTIALLY ELEVATE TROPONIN I LEVELS ABOVE EXPECTED NORMAL RANGES. NOTE NEW REFERENCE RANGE May 17, 2016 8:15pm LACTIC ACID LACTIC ACID(0.5-2.0 MMOL/L) 1.3 MMOL/L May 17, 2016 8:15pm Allergies and Adverse Reactions Allergies and Adverse Reactions Patient Unit Number: [id number] No allergies recorded. Problem List Problem List Visit/Account #[id number] (May 8:02pm - May 17, 2016 10:07pm) Acute Problems: Code/Condition Comments Documented Start Date Documented Resolv ed Date Code(s) COPD exacerbation ICD10: J44.1 Obstructive chronic bronchitis with exacerbation ICD9: 491.21 Obstructive chronic bronchitis with exacerbation SNOMED: 244086801 Obstructive chronic bronchitis with exacerbation Community acquired pneumonia ICD10: J18.9 Community acquired pneumonia ICD9: 486 Community acquired pneumonia SNOMED: 564317953 Community acquired pneumonia Plan of Care Plan Of Care Visit/Account #[id number] (May 8:02pm - May 17, 2016 10:07pm) Patient Instructions Continue to take Mucinex to help move se cretions. Take 2 puffs of your albuterol inhaler every 2-4 hours overnight. Fill antibiotic and complete the course. If breathing becomes worse or you have any concerns return to the ED Follow-up with [facility] tomorrow or Saturday. You will receive a phone call and if not by noon call them [phone]. Vital Signs Vital Signs Visit/Account #[id number] (May 8:02pm - May 17, 2016 10:07pm) Sign First Result Last Result Code(s) Temperature in Fahrenheit Temperature (Fahrenheit): 97.4 [degF] O n May 17, 2016 8:00pm Temperature (Fahrenheit): 97.4 [degF] O n May 17, 2016 8:15pm 8310-5 Body Temperature Weight in Kilograms Weight (Kilograms): 117.73 kg On 2015 8:00pm 3141-9 Weight Measured 37727-4 Body weight measured in kilogra ms Functional Status Functional and Cognitive Status No Functional Status Data Medications Inpatient/Ordered Medications - Medicati ons administered during hospital visit Visit/Account #[id number] (May 8:02pm - May 17, 2016 10:07pm) Medication Route Sig/Schedule Precondition/Indication Comments/I nstructions Codes VENTOLIN 0.5% NEB(ALBUTEROL SULF) 2.5 MG /0.5 ML INHALER Dose: 1 ML INHALED NOW Albuterol 1 MG/ML Inhalant Solution (RxN orm): 684582 VENTOLIN 0.5% NEB (ALBUTEROL SULF) NDC: 18196229659 ATROVENT 0.02% NEB(IPRATROPIUM BROMIDE) 0.5 MG/2.5 ML SOLUTION Dose: 2.5 ML INHALED NOW Ipratropium [place] 0.2 MG/ML Inhalant S olution (RxNorm): 459079 ATROVENT 0.02% NEB (IPRATROPIUM BROMIDE) NDC: 78868448906 Solu-MEDROL INJ(MethylPREDNISolone SOD S UCC) 125 MG/2 ML INJECTION Dose: 2 ML INTRAVEN NOW Methylprednisolone 125 MG Injection [Hansa u-Medrol] (RxNorm): 2227167 Solu-MEDROL INJ (MethylPREDNISolone SOD SUCC) NDC: 47014312927 IV Medication Carriers: NORMAL SALINE(SODIUM CHLORIDE) 1000 ML INJECTION Dose: 500 ML INTRAVEN .Q30M (Rate: 1000 MLS/HR Duration: 30 OK N) Label Comments: use a 1000 mL bag. Carriers: Sodium Chloride 0.154 MEQ/ML Injectable Solution (RxNorm): 525264 NORMAL SALINE (SODIUM CHLORIDE) NDC: 52435540329 DECADRON INJ(DEXAMETHASONE SOD PHOS) 10 MG/ML INJECTION Dose: 1 ML INTRAVEN NOW Dexamethasone 10 MG/ML Injectable Soluti on (RxNorm): 766349 DECADRON INJ (DEXAMETHASONE SOD PHOS) NDC: 92208526002 LEVAQUIN(LEVOFLOXACIN) 750 MG TAB Dose: 750 MG ORAL NOW Label Comments: Take 2 hrs before or after antacids, sucralfate, metal cations(iron), or multi-vitamins Levofloxacin 750 MG Oral Tablet (RxNorm) : 619929 LEVAQUIN (LEVOFLOXACIN) NDC: 25349714277 VENTOLIN 0.5% NEB(ALBUTEROL SULF) 2.5 MG /0.5 ML INHALER Dose: 1 ML INHALED NOW Albuterol 1 MG/ML Inhalant Solution (RxN orm): 333596 VENTOLIN 0.5% NEB (ALBUTEROL SULF) NDC: 18020037065 ATROVENT 0.02% NEB(IPRATROPIUM BROMIDE) 0.5 MG/2.5 ML SOLUTION Dose: 2.5 ML INHALED NOW Ipratropium [place] 0.2 MG/ML Inhalant S olution (RxNorm): 620235 ATROVENT 0.02% NEB (IPRATROPIUM BROMIDE) NDC: 60017918991 Discharge Medications - Medications that patient should continue to take. Review with physician Visit/Account #[id number] (May 8:02pm - May 17, 2016 10:07pm) Medication Route Sig/Schedule Precondition/Indication Comments/I nstructions Codes ZITHROMAX(AZITHROMYCIN) 500 MG TABLET Dose: 500 MG ORAL DAILY Azithromycin 500 MG Oral Tablet [Zithrom ax] (RxNorm): 646150 ZITHROMAX (AZITHROMYCIN) NDC: 16367273760 History Of Encounters Encounters Visit/Account #[id number] (May 8:02pm - May 17, 2016 10:07pm) Account Status Physican Of Record Reason For Visit Visit Diagnosis Start Date/Time Stop Date/Time ER ED PHYSICIAN UNASSIGNED DIFF BREATHING, COUGH Not Available May 17, 2016 8:02pm May 17, 2016 10:07pm History of Procedures Procedure List No procedures recorded. Discharge Instructions Discharge Instructions Visit/Account #[id number] (May 8:02pm - May 17, 2016 10:07pm) DISCHARGE INSTRUCTIONS Physician Shira craig Social History Social History No Social History Data. Immunizations Immunizations Patient Unit Number: [id number] Immunizations No immunizations recorded.
--- OUTSIDE RECORDS SUMMARY | 2020-01-06 04:00 | XMS REPORT | Continuity of Care Document ---
Author Organization Unknown Address Unknown Phone Unavailable Allergies Active Description Code Type Severity Reaction Onset Reported/Identified Relationship to Patient Clinical Status Yes DICYCLOMINE SEVERE DERMATOLOGICAL - DAWIT Yes No Allergy Information Drug Allergy N/A N/A 06/02/2013 Yes No Known Drug Allergies Drug Allergy N/A N/A 06/02/2013 Yes No Known Drug Allergies [id number] Drug Allergy Unknown N/A 03/09/2014 Yes No Known Allergies [id number] Drug Allergy Unknown N/A 10/08/2018 Yes No Known Drug Allergy NKDA N/A N/A 11/01/2018 Yes BENTYL [id number] Modera te to severe Anaphylaxis (Moderate to severe) 12/18/2018 Yes dicyclomine [id number] Drug Aller gy Severe Rash 07/08/2019 Medications Medication Packaging Start Date St op Date Route Dosage Sig ALBUTEROL 0.5% NEB 10/08/2018 10/08/2018 INH 5 MG ONE IPRATROPIUM 0.02% NEB 10/08/2018 10/08/2018 INH 0.5 MG ONE MAGNESIUM SULF (2 GM) PM 10/08/2018 10/08/2018 IV 50 ML ONE methylPREDNISolone Sod Succ PF 10/08/2018 10/08/2018 IV 125 MG ONE ALBUTEROL HFA INH 10/08/2018 INH 2 PUFF Q2H guaiFENesin ER 0 10/08/2018 PO 1200 MG BID&0900 ,2100 ALBUTEROL 0.5% NEB 10/08/2018 INH 2.5 MG Q6H IPRATROPIUM 0.02% NEB 10/08/2018 INH 0.5 MG Q6H ALBUTEROL 0.5% NEB 10/08/2018 INH 2.5 MG Q4H IBUPROFEN 2018 PO 800 MG Q8H ACETAMINOPHEN PO 1000 MG Q6H predniSONE 10/09 PO 60 MG DAILYB&0 800 levoFLOXacin PO 500 MG DAILY@10 00&1000 BUDESONIDE NEB 0 10/09/2018 INH 0.5 MG RTBID&07 00,1900 raNITIdine INJ 0 12/18/2018 12/18/2018 .ROUTE 50 MG .STK-ME D EPINEPHrine (1:1000) Inj 12/18/2018 12/18/2018 .ROUTE 1 MG .STK- MED SODIUM CHLORIDE 0.9% 12/18/2018 12/18/2018 .ROUTE 20 ML .STK-MED methylPREDNISolone Sod Succ PF 12/18/2018 12/18/2018 .ROUTE 125 MG .STK-MED raNITIdine INJ 0 12/18/2018 12/18/2018 IVP 50 MG ONE EPINEPHrine (1:1000) Inj 12/18/2018 12/18/2018 IM 0.3 MG ONE methylPREDNISolone Sod Succ PF 12/18/2018 12/18/2018 IM 125 MG ONE ONDANSETRON INJ 12/18/2018 12/18/2018 .ROUTE 4 MG .STK-MED raNITIdine 12/2012/20/2018 PO 150 MG ONE diphenhydrAMINE 12/20/2018 12/20/2018 PO 50 MG ONE ALBUTEROL 0.5% NEB 12/20/2018 12/20/2018 INH 5 MG ONE EPINEPHrine (1:1000) Inj 12/20/2018 12/20/2018 IM 0.3 MG ONE methylPREDNISolone Sod Succ PF 12/20/2018 12/20/2018 IM 125 MG ONE NORMAL SALINE 1000CC IV BAG INJ 0.9 % (NS 1000CC IV BAG) ml 12/26/2018 12/26/2018 ONCE&2150 ONDANSETRON INJ 02/19/2019 02/19/2019 IV 4 MG ONE fentaNYL INJ 02/201902/19/2019 IV 50 MCG ONE BENZOCAINE 20% (ORAL) 02/19/2019 02/19/2019 MM 1 SPRAY ONE Midazolam Inj (Special Proc) 02/19/2019 02/19/2019 IV 1 MG ONE SODIUM CHLORIDE 0.9% 02/19/2019 IV 1000 ML .Q 20H ALBUTEROL 0.5% NEB 03/20/2019 03/20/2019 INH 5 MG ONE IPRATROPIUM 0.02% NEB 03/20/2019 03/20/2019 INH 0.5 MG ONE predniSONE 03/2003/20/2019 PO 60 MG ONE ALBUTEROL 0.5% NEB 07/07/2019 07/07/2019 INH 5 MG ONE IPRATROPIUM 0.02% NEB 07/07/2019 07/07/2019 INH 0.5 MG ONE SODIUM CHLORIDE 0.9% 07/07/2019 07/07/2019 IV 500 ML ONE methylPREDNISolone Sod Succ PF 07/07/2019 07/07/2019 IV 125 MG ONE AZITHROMYCIN INJ 07/07/2019 07/07/2019 IV 500 MG ONE CefTRIAXone Inj 07/07/2019 IV 1000 MG NO W ALBUTEROL 0.5% NEB 07/07/2019 07/07/2019 INH 5 MG ONE IPRATROPIUM 0.02% NEB 07/07/2019 07/07/2019 INH 0.5 MG ONE cefTRIAXone (1)/Sod Chlor 0.9% 07/07/2019 07/07/2019 IV 50 ML ONE ALBUTEROL 0.5% NEB 07/07/2019 07/07/2019 INH 5 MG ONE IPRATROPIUM 0.02% NEB 07/07/2019 07/07/2019 INH 0.5 MG ONE MAGNESIUM SULF (2 GM) PM 07/07/2019 07/07/2019 IV 50 ML ONE NS- KCL(20) 06/17 IV 1000 ML .Q8H ALBUTEROL 0.5% NEB 07/07/2019 INH 2.5 MG Q2H IPRATROPIUM 0.02% NEB 07/07/2019 INH 0.5 MG Q2H ALBUTEROL 0.5% NEB 07/07/2019 INH 2.5 MG Q4H IPRATROPIUM 0.02% NEB 07/07/2019 INH 0.5 MG Q4H ACETAMINOPHEN PO 1000 MG Q8H ENOXAPARIN 07/08 SUBCUT 40 MG DAILY@06 00&0600 predniSONE 07/08 PO 60 MG DAILYB&0 800 NICOTINE 14 MG PATCH 07/08/2019 TOP 1 PATCH DA APARNA&0900 CefTRIAXone Inj 07/08/2019 IV 2000 MG Q2 4H FUROSEMIDE 07/08 PO 20 MG DAILY&09 00 AZITHROMYCIN 07/08/2019 PO 250 MG DAILY&0 900 PROPRANOLOL 06/1707/08/2019 PO 20 MG ONE Influenza Vacc PF (Quad) 6 mo+ 07/08/2019 07/08/2019 IM 0.5 ML ONE AZITHROMYCIN PO 500 MG BEDTIME& 2100 PROPRANOLOL 06/17 PO 20 MG BID&09 CefTRIAXone Inj 07/09/2019 IV 1000 MG Q2 4H AZITHROMYCIN 07/09/2019 PO 250 MG ONE SODIUM CHLORIDE 3% NEB 07/09/2019 INH 4 ML PRN guaiFENesin ER 1 PO 600 MG BID&899 guaiFENesin ER 1 PO 600 MG BID&899 CEFDINIR 019 PO 300 MG BID&899 ALBUTEROL 0.5% NEB 11/02/2019 11/02/2019 INH 2.5 MG ONE methylPREDNISolone Sod Succ PF 11/02/2019 11/02/2019 IV 125 MG ONE DOXYCYCLINE 10/1711/02/2019 PO 100 MG ONE Problems Date Dx Coded Attending Type Code Diagnosis Diagnosed By 05/06/2013 Robel Chávez MD Final 305. 1 TOBACCO USE DISORDER 05/06/2013 Robel Chávez MD Final 338. 19 ACUTE PAIN NEC 05/06/2013 Robel Chávez MD Final 338. 29 CHRONIC PAIN NEC 05/06/2013 Robel Chávez MD Final 724. 2 LUMBAGO 06/02/2013 Dwight Tristan MD Final 305.1 TOBACCO USE DISORDER 06/02/2013 Dwight Tristan MD Final 491.21 OCB W EXACERBATION 06/02/2013 Dwight Tristan MD 786.05 SHORTNESS OF BREATH 06/02/2013 Dwight Tristan MD Admittin g 786.2 COUGH 06/02/2013 Yazan Rene MD Final 305.1 TOBACCO USE DISORDER 06/02/2013 Yazan Rene MD Final 493.92 ASTHMA NOS W EXACER 06/02/2013 Yazan Rene MD Final 4 96 CHRONIC AIRWAY OBSTR NEC 06/02/2013 Yazan Rene MD Admitting 786.05 SHORTNESS OF BREATH 06/02/2013 Yazan Rene MD 786. 2 COUGH 06/02/2013 Yazan Rene MD Final 799.02 HYPOXEMIA 08/31/2013 Fabio Elliott MD Final 305.1 TOBACCO USE DISORDER 08/31/2013 Fabio Elliott MD Final 493.90 ASTHMA NOS 08/31/2013 Earl GROVE, Fabio Albright Admitting 786.05 SHORTNESS OF BREATH 08/31/2013 Earl GROVE, Fabio Albright 786 .9 RESP SYST/CHEST SX NEC 09/14/2013 DERREK GOMEZ APRNA S 070.54 HEPATITIS C CHRONIC 09/14/2013 JASON DIANE MARTY S 305.00 ALCOHOL ABUSE UNSPEC 09/14/2013 JASON DIANE MARTY S 496 COPD 09/14/2013 JASON DIANE MARTY S 782.1 RASH 09/14/2013 FRANCES GOMEZ APRNNDA S V18.0 FAMILY HISTORY OF DIABETES MELLITUS 09/14/2013 DERREK GOMEZ APRNA S V70.0 EXAM - ROUTINE H&P 09/14/2013 EVANGELISTA KILLIAN CORAL K 070.54 HEPATITIS C CHRONIC 09/14/2013 NAIDU DO CORAL K 305.00 ALCOHOL ABUSE UNSPEC 09/14/2013 EVANGELISTA KILLIAN CORAL K 496 COPD 09/14/2013 EVANGELISTA KILLIAN CORAL K 782.1 RASH 09/14/2013 EVANGELISTA KILLIAN CORAL K V18.0 FAMILY HISTORY OF DIABETES MELLITUS 09/14/2013 EVANGELISTA KILLIAN CORAL K V70.0 EXAM - ROUTINE H&P 09/14/2013 JABARI HUNTER APRN 070.54 HEPATITIS C CHRONIC 09/14/2013 JABARI HUNTER APRN 305.00 ALCOHOL ABUSE UNSPEC 09/14/2013 JABARI HUNTER APRN 49 6 COPD 09/14/2013 JABARI HUNTER APRN 78 2.1 RASH 09/14/2013 JABARI HUNTER APRN V1 8.0 FAMILY HISTORY OF DIABETES MELLITUS 09/14/2013 JABARI HUNTER APRN V7 0.0 EXAM - ROUTINE H&P 09/14/2013 MARTY GOMEZ APRN S 070.54 HEPATITIS C CHRONIC 09/14/2013 DERREK GOMEZ APRNA S 305.00 ALCOHOL ABUSE UNSPEC 09/14/2013 FRANCES GOMEZ APRNNDA S 496 COPD 09/14/2013 FRANCES GOMEZ APRNNDA S 782.1 RASH 09/14/2013 DERREK GOMEZ APRNA S V18.0 FAMILY HISTORY OF DIABETES MELLITUS 09/14/2013 DERREK GOMEZ APRNA S V70.0 EXAM - ROUTINE H&P 09/14/2013 NICOLASA THIBODEAUX APRNIA R 070.54 HEPATITIS C CHRONIC 09/14/2013 MORELIA DIANE FLORECITA R 305.00 ALCOHOL ABUSE 09/14/2013 THIBODEAUX MINUTE CLERKMYNORFLORECITA R 496 COPD 09/14/2013 THIBODEAUX MINUTE CLERK, FLORECITA R 782.1 RASH 09/14/2013 THIBODEAUX MINUTE CLERK, FLORECITA R V18.0 FAMILY HISTORY OF DIABETES MELLITUS 09/14/2013 THIBODEAUX MINUTE CLERK, FLORECITA R V70.0 EXAM - ROUTINE H&P 09/14/2013 070.54 HEP ATITIS C CHRONIC 09/14/2013 305.00 ALC OHOL ABUSE 09/14/2013 496 COPD 09/14/2013 782.1 RASH 09/14/2013 V18.0 FAMI LY HISTORY OF DIABETES MELLITUS 09/14/2013 V70.0 EXAM - ROUTINE H&P 09/14/2013 DERREK GOMEZ APRNA S 070.54 HEPATITIS C CHRONIC 09/14/2013 DERREK GOMEZ APRNA S 305.00 ALCOHOL ABUSE 09/14/2013 FRANCES GOMEZ APRNNDA S 496 COPD 09/14/2013 DERREK GOMEZ APRNA S 782.1 RASH 09/14/2013 DERREK GOMEZ APRNA S V18.0 FAMILY HISTORY OF DIABETES MELLITUS 09/14/2013 DERREK GOMEZ APRNA S V70.0 EXAM - ROUTINE H&P 09/14/2013 DERREK GOMEZ APRNA S 070.54 HEPATITIS C CHRONIC 09/14/2013 FRANCES GOMEZ APRNNDA S 305.00 ALCOHOL ABUSE 09/14/2013 FRANCES GOMEZ APRNNDA S 496 COPD 09/14/2013 FRANCES GOMEZ APRNNDA S 782.1 RASH 09/14/2013 JASON DIANE MARTY S V18.0 FAMILY HISTORY OF DIABETES MELLITUS 09/14/2013 FRANCES GOMEZ APRNNDA S V70.0 EXAM - ROUTINE H&P 09/14/2013 NAIDU DO, CORAL K 070.54 HEPATITIS C CHRONIC 09/14/2013 NAIDU DO, CORAL K 305.00 ALCOHOL ABUSE 09/14/2013 EVANGELISTA KILLIAN CORAL K 496 COPD 09/14/2013 KAREN NAIDU DOA K 782.1 RASH 09/14/2013 CORAL NAIDU DO K V18.0 FAMILY HISTORY OF DIABETES MELLITUS 09/14/2013 EVANGELISTA KILLIAN CORAL K V70.0 EXAM - ROUTINE H&P 09/15/2013 DERREK GOMEZ APRNA S 287.5 THROMBOCYTOPENIA 09/15/2013 EVANGELISTA CORAL KILLIAN K 287.5 THROMBOCYTOPENIA 09/15/2013 JABARI HUNTER APRN 28 7.5 THROMBOCYTOPENIA 09/15/2013 DERREK GOMEZ APRNA S 287.5 THROMBOCYTOPENIA 09/15/2013 FLORECITA THIBODEAUX APRN R 287.5 THROMBOCYTOPENIA 09/15/2013 287.5 THRO MBOCYTOPENIA 09/15/2013 DERREK GOMEZ APRNA S 287.5 THROMBOCYTOPENIA 09/15/2013 DERREK GOMEZ APRNA S 287.5 THROMBOCYTOPENIA 09/15/2013 NAIDU CORAL KILLIAN K 287.5 THROMBOCYTOPENIA 09/19/2013 JABARI HUNTER APRN 69 1.8 OTHER ATOPIC DERMATITIS AND RELATED CONDITIONS 09/19/2013 MARTY GOMEZ APRN S 691.8 OTHER ATOPIC DERMATITIS AND RELATED CONDITIONS 09/19/2013 FLORECITA THIBODEAUX APRN R 691.8 OTHER ATOPIC DERMATITIS AND RELATED CONDITIONS 09/19/2013 691.8 OTHE R ATOPIC DERMATITIS AND RELATED CONDITIONS 09/19/2013 MARTY GOMEZ APRN S 691.8 OTHER ATOPIC DERMATITIS AND RELATED CONDITIONS 09/19/2013 MARTY GOMEZ APRN S 691.8 OTHER ATOPIC DERMATITIS AND RELATED CONDITIONS 09/19/2013 CORAL NAIDU DO K 691.8 OTHER ATOPIC DERMATITIS AND RELATED CONDITIONS 02/15/2014 FLORECITA THIBODEAUX APRN R 277.4 DISORDERS OF BILIRUBIN EXCRETION 02/15/2014 FLORECITA THIBODEAUX APRN R 698.9 UNSPECIFIED PRURITIC DISORDER 02/15/2014 277.4 DISO RDERS OF BILIRUBIN EXCRETION 02/15/2014 698.9 UNSP ECIFIED PRURITIC DISORDER 02/15/2014 MARTY GOMEZ APRN S 277.4 DISORDERS OF BILIRUBIN EXCRETION 02/15/2014 MARTY GOMEZ APRN S 698.9 UNSPECIFIED PRURITIC DISORDER 02/15/2014 JASON DAVENPORTCharleen MARTY S 277.4 DISORDERS OF BILIRUBIN EXCRETION 02/15/2014 JASON MINUTE CLERK, MARTY S 698.9 UNSPECIFIED PRURITIC DISORDER 02/15/2014 EVANGELISTA KILLIAN CORAL K 277.4 DISORDERS OF BILIRUBIN EXCRETION 02/15/2014 EVANGELISTA KILLIAN CORAL K 698.9 UNSPECIFIED PRURITIC DISORDER 02/18/2014 070.54 HEP ATITIS C CHRONIC 02/18/2014 571.2 CIRR HOSIS OF LIVER - ALCOHOL INDUCED 02/18/2014 574.20 CHO LELITHIASIS 02/18/2014 JASON MINUTE CLERK, MARTY S 070.54 HEPATITIS C CHRONIC 02/18/2014 FRANCES GOMEZ APRNNDA S 571.2 CIRRHOSIS OF LIVER - ALCOHOL INDUCED 02/18/2014 JASON MINUTE CLERK, MARTY S 574.20 CHOLELITHIASIS 02/18/2014 FRANCES GOMEZ APRNNDA S 070.54 HEPATITIS C CHRONIC 02/18/2014 FRANCES GOMEZ APRNNDA S 571.2 CIRRHOSIS OF LIVER - ALCOHOL INDUCED 02/18/2014 JASON MINUTE CLERK, MARTY S 574.20 CHOLELITHIASIS 02/18/2014 EVANGELISTA KILLIAN CORAL K 070.54 HEPATITIS C CHRONIC 02/18/2014 EVANGELISTA KILLIAN CORAL K 571.2 CIRRHOSIS OF LIVER - ALCOHOL INDUCED 02/18/2014 NAIDU CORAL K 574.20 CHOLELITHIASIS 03/25/2016 JULISSA GROVE, YAMILETH ESPARZA F17.210 NICOTINE DEPENDENCE, CIGARETTES, UNCOMPLICATED 03/25/2016 YAMILETH COSTA MD J44.1 CHRONIC OBSTRUCTIVE PULMONARY DISEASE W (ACUTE) EX 03/25/2016 YAMILETH COSTA MD R06.02 SHORTNESS OF BREATH 05/17/2016 GIOVANY HO MD Other J18.9 PNEUMONIA, UNSPECIFIED ORGANISM 05/17/2016 GIOVANY HO MD Other J44.1 CHRONIC OBSTRUCTIVE PULMONARY DISEASE W (ACUTE) EXACER BATION 05/17/2016 GIOVANY HO MD Other R06.02 SHORTNESS OF BREATH 06/06/2018 NISS, CHYNA F J44.9 Chronic obstructive pulmonary disease, unspecified 07/12/2018 F F17.210 07/12/2018 F J44.1 07/12/2018 F R06.02 07/28/2018 NISSCHYNA J44.9 Chronic obstructive pulmonary disease, unspecified 07/31/2018 NISSCHYNA Z72.0 Tobacco use 07/31/2018 NISSCHYNA Z59.9 Problem related to housing and economic circumstances, unspecified 10/06/2018 NISSCHYNA J44.1 Chronic obstructive pulmonary disease with (acute) exacerbation 10/08/2018 TIM GROVE, MANUEL M F D69 .6 10/08/2018 TIM GROVE, MANUEL M F D72.819 10/08/2018 TIM GROVE, MANUEL M F E66 .9 10/08/2018 TIM GROVE, MANUEL M F F17.210 10/08/2018 TIM GROVE, MANUEL M F J44 .1 10/08/2018 TIM GROVE, MANUEL M F J96 .00 10/08/2018 TIM GROVE, MANUEL M F R05 10/08/2018 TIM GROVE, MANUEL M A R06 .02 10/08/2018 TIM GROVE, MANUEL M F R42 10/08/2018 TIM GROVE, MANUEL M F Z68 .34 10/08/2018 TIM GROVE, MANUEL M F Z79.899 10/10/2018 TIM GROVE, MANUEL M Other D69.6 D69.6 - Thrombocytopenia, unspecified 10/10/2018 TIM GROVE, MANUEL M Other D72.819 D72.819 - Decreased white blood cell count, unspecifie d 10/10/2018 TIM GROVE, MANUEL M Other E66.9 E66.9 - Obesity, unspecified 10/10/2018 TIM GROVE, MANUEL M Other J44.1 J44.1 - Chronic obstructive pulmonary di sease with (acute) exacerbation 10/10/2018 TIM GROVE, MANUEL Khanna Other D69.6 D69.6 - Thrombocytopenia, unspecified 10/10/2018 TIM GROVE, MANUEL M Other D72.819 D72.819 - Decreased white blood cell count, unspecifie d 10/10/2018 TIM GROVE, MANUEL M Other E66.9 E66.9 - Obesity, unspecified 10/10/2018 TIM GROVE, MANUEL Fajardo J44.1 J44.1 - Chronic obstructive pulmonary di sease with (acute) exacerbation 10/16/2018 NISS, CHYNA Wilcox J44.9 Chronic obstructive pulmonary disease, unspecified 10/16/2018 F Z59.6 Low income 10/17/2018 NISS, CHYNA Wilcox Z12.11 Encounter for screening for malignant neoplasm of colon 10/21/2018 F Z59.6 Low income 12/18/2018 FOREIGN GROVE, MAXIMILIANO Wilcox F17.210 12/18/2018 FOREIGN GROVE, MAXIMILIANO Wilcox T39.95XA 12/18/2018 FOREIGN GROVE, MAXIMILIANO Chavez T78.40XA 12/18/2018 FOREIGN GROVE, MAXIMILIANO Wilcox T88.6XXA 12/18/2018 FOREIGN GROVE, MAXIMILIANO Wilcox X58.XXXA 12/20/2018 WINTER GROVE, JONO S F F17.210 12/20/2018 WINTER GROVE, JONO S F L29.9 12/20/2018 WINTER GROVE, JONO S F R21 12/20/2018 WINTER GROVE, JONO S F R60.9 12/20/2018 WINTER GROVE, JONO S A T78.40XA 12/20/2018 WINTER GROVE, JONO S F X58.XXXA 12/26/2018 Juli Ibarra A W 287.5 THROMBOCYTOPENIA, UNSPECIFIED 12/26/2018 Ibarra, Juli A W D69.6 THROMBOCYTOPENIA, UNSPECIFIED 01/07/2019 NISS, CHYNA Wilcox H66.92 Otitis media, unspecified, left ear 01/07/2019 NISS, CHYNA Wilcox T78.40XA Allergy, unspecified, initial encounter 01/07/2019 NISS, CHYNA Wilcox Z98.890 Other specified postprocedural states 01/08/2019 NISS, CHYNA Wilcox K70.30 Alcoholic cirrhosis of liver without ascites 01/08/2019 NISS, CHYNA Wilcox D69.6 Thrombocytopenia, unspecified 01/08/2019 NISS, CHYNA Wilcox R16.1 Splenomegaly, not elsewhere classified 01/12/2019 VIJAYA GROVE, BRENDA Wilcox F17.210 01/12/2019 VIJAYA GROVE, BRENDA Wilcox J44.9 01/12/2019 VIJAYA GROVE, BRENDA Chavez R31.9 01/12/2019 VIJAYA GROVE, BERNDA Rausch F R82.2 01/12/2019 VIJAYA GROVE, BRENDA Rausch Other R31.9 R31.9 - Hematuria, unspecified 01/16/2019 PATRICIA GROVE, RUFINO Ot D69.6 THROMBOCYTOPENIA, UNSPECIFIED 01/16/2019 PATRICIA GROVE, RUFINO Ot D75.1 SECONDARY POLYCYTHEMIA 02/19/2019 APRIL GROVE, BRITNI R F F17. 210 02/19/2019 APRIL GROVE, BRITNI R F I85. 10 02/19/2019 APRIL GROVE, BRITNI R F J44. 9 02/19/2019 APRIL GROVE, BRITNI R F K31. 89 02/19/2019 APRIL GROVE, BRITNI R F K74. 69 02/19/2019 APRIL GROVE, BRITNI R F Z13. 810 02/19/2019 APRIL GROVE BRITNI R F Z79. 899 02/19/2019 TIM CHEN MDSICA R Other K74.60 K74.60 - Unspecified cirrhosis of liver 02/19/2019 APRIL GROVE BRITNI R Other K74.60 K74.60 - Unspecified cirrhosis of liver 03/20/2019 ZEN DIAZ MD G F J44.1 03/20/2019 ZEN DIAZ MD G A R06.02 03/20/2019 ZEN DIAZ MD G F R06.2 03/20/2019 ZEN DIAZ MD G F Z72.0 04/01/2019 NISS, CHYNA F J44.9 Chronic obstructive pulmonary disease, unspecified 04/02/2019 NISS, CHYNA F K70.30 Alcoholic cirrhosis of liver without ascites 07/07/2019 Viv Mart MD F D69.6 07/07/2019 Barron GROVE Viv F D72.81 9 07/07/2019 Viv Mart MD F E66.9 07/07/2019 Viv Mart MD F F17.21 0 07/07/2019 Viv Mart MD F J18.9 07/07/2019 Barron GROVE Viv F J44.0 07/07/2019 Viv Mart MD F J44.1 07/07/2019 Viv Mart MD F J45.90 9 07/07/2019 Barron GROVE, Viv F J96.20 07/07/2019 Barron GROVE, Viv F K70.30 07/07/2019 Barron GROVE, Viv F R73.9 07/07/2019 Barron GROVE, Viv F Z23 07/07/2019 Viv Mart MD Z68.34 07/09/2019 Viv Mart MD Other D69 .6 D69.6 - Thrombocytopenia, unspecified 07/09/2019 Barron GROVE Viv Other D72.819 D72.819 - Decreased white blood cell count, unspecifie d 07/09/2019 Barron GROVE Viv Other J18 .9 J18.9 - Pneumonia, unspecified organism 07/09/2019 Viv Mart MD Other J44 .1 J44.1 - Chronic obstructive pulmonary disease with (acute) exacerbation 07/09/2019 Viv Mart MD Other K74.60 K74.60 - Unspecified cirrhosis of liver 07/09/2019 Viv Mart MD Other R65.10 R65.10 - Systemic inflammatory response syndrome (SIRS) of non-infectious origin without acute organ dysfunction 07/09/2019 Viv Mart MD Other R73 .9 R73.9 - Hyperglycemia, unspecified 07/09/2019 Viv Mart MD Other Z72 .0 Z72.0 - Tobacco use 07/09/2019 Viv Mart MD Other D69 .6 D69.6 - Thrombocytopenia, unspecified 07/09/2019 Barron GROVE Viv Other D72.819 D72.819 - Decreased white blood cell count, unspecifie d 07/09/2019 Viv Mart MD Other J18 .9 J18.9 - Pneumonia, unspecified organism 07/09/2019 Barron GROVE Viv Other J44 .1 J44.1 - Chronic obstructive pulmonary disease with (acute) exacerbation 07/09/2019 Viv Mart MD Other K74.60 K74.60 - Unspecified cirrhosis of liver 07/09/2019 Viv Mart MD Other R65.10 R65.10 - Systemic inflammatory response syndrome (SIRS) of non-infectious origin without acute organ dysfunction 07/09/2019 Viv Mart MD Other R73 .9 R73.9 - Hyperglycemia, unspecified 07/09/2019 Barron GROVE Viv Other Z72 .0 Z72.0 - Tobacco use 07/10/2019 Viv Mart MD Other D69 .6 D69.6 - Thrombocytopenia, unspecified 07/10/2019 Barron GROVE Viv Other D72.819 D72.819 - Decreased white blood cell count, unspecifie d 07/10/2019 Viv Mart MD Other J18 .9 J18.9 - Pneumonia, unspecified organism 07/10/2019 Barron GROVE Viv Other J44 .1 J44.1 - Chronic obstructive pulmonary disease with (acute) exacerbation 07/10/2019 Viv Mart MD Other K74.60 K74.60 - Unspecified cirrhosis of liver 07/10/2019 Viv Mart MD Other R65.10 R65.10 - Systemic inflammatory response syndrome (SIRS) of non-infectious origin without acute organ dysfunction 07/10/2019 Viv Mart MD Other R73 .9 R73.9 - Hyperglycemia, unspecified 07/10/2019 Barron GROVE Viv Other Z72 .0 Z72.0 - Tobacco use 07/10/2019 Viv Mart MD Other D69 .6 D69.6 - Thrombocytopenia, unspecified 07/10/2019 Barron GROVE Viv Other D72.819 D72.819 - Decreased white blood cell count, unspecifie d 07/10/2019 Viv Mart MD Other J18 .9 J18.9 - Pneumonia, unspecified organism 07/10/2019 Viv Mart MD Other J44 .1 J44.1 - Chronic obstructive pulmonary disease with (acute) exacerbation 07/10/2019 Viv Mart MD Other K74.60 K74.60 - Unspecified cirrhosis of liver 07/10/2019 Viv Mart MD Other R65.10 R65.10 - Systemic inflammatory response syndrome (SIRS) of non-infectious origin without acute organ dysfunction 07/10/2019 Viv Mart MD Other R73 .9 R73.9 - Hyperglycemia, unspecified 07/10/2019 Barron GROVE Viv Other Z72 .0 Z72.0 - Tobacco use 07/10/2019 Viv Mart MD Other D69 .6 D69.6 - Thrombocytopenia, unspecified 07/10/2019 Viv Mart MD Other D72.819 D72.819 - Decreased white blood cell count, unspecifie d 07/10/2019 Viv Mart MD Other J18 .9 J18.9 - Pneumonia, unspecified organism 07/10/2019 Viv Mart MD Other J44 .1 J44.1 - Chronic obstructive pulmonary disease with (acute) exacerbation 07/10/2019 Viv Mart MD Other K74.60 K74.60 - Unspecified cirrhosis of liver 07/10/2019 Viv Mart MD Other R65.10 R65.10 - Systemic inflammatory response syndrome (SIRS) of non-infectious origin without acute organ dysfunction 07/10/2019 Viv Mart MD Other R73 .9 R73.9 - Hyperglycemia, unspecified 07/10/2019 Viv Mart MD Other Z72 .0 Z72.0 - Tobacco use 07/10/2019 Viv Mart MD Other D69 .6 D69.6 - Thrombocytopenia, unspecified 07/10/2019 Viv Mart MD Other D72.819 D72.819 - Decreased white blood cell count, unspecifie d 07/10/2019 Viv Mart MD Other J18 .9 J18.9 - Pneumonia, unspecified organism 07/10/2019 Viv Mart MD Other J44 .1 J44.1 - Chronic obstructive pulmonary disease with (acute) exacerbation 07/10/2019 Viv Mart MD Other K74.60 K74.60 - Unspecified cirrhosis of liver 07/10/2019 Viv Mart MD Other R65.10 R65.10 - Systemic inflammatory response syndrome (SIRS) of non-infectious origin without acute organ dysfunction 07/10/2019 Viv Mart MD Other R73 .9 R73.9 - Hyperglycemia, unspecified 07/10/2019 Viv Mart MD Other Z72 .0 Z72.0 - Tobacco use 07/14/2019 F 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, unspecified 07/14/2019 F 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 07/14/2019 F R09.02 Hyp oxemia 07/14/2019 F J18.9 Pneu monia, unspecified organism 07/17/2019 MAXWELL VERDUGO J44.9 Chronic obstructive pulmonary disease, unspecified 07/17/2019 MAXWELL VERDUGO J18.9 Pneumonia, unspecified organism 07/17/2019 MAXWELL VERDUGO K70.30 Alcoholic cirrhosis of liver without ascites 08/20/2019 CHYNA AGUAYO K70.30 Alcoholic cirrhosis of liver without ascites 08/20/2019 CHYNA AGUAYO Z20.5 Contact with and (suspected) exposure to viral hepatitis 08/20/2019 CHYNA AGUAYO N40.1 Benign prostatic hyperplasia with lower urinary tract symptoms 08/20/2019 CHYNA AGUAYO J44.9 Chronic obstructive pulmonary disease, unspecified 11/02/2019 Travis GROVE, Clemencia Wilcox J06.9 11/02/2019 Travis GROVE, Clemencia Wilcox J44.1 11/02/2019 Clemencia Robles MD R06.02 11/02/2019 Clemencia Robles MD Z79.51 11/02/2019 Travis GROVE, Clemencia Wilcox Z79.899 11/02/2019 Travis GROVE, Clemencia Hammond. Brenden Z87.891 Procedures Code [place] [address] ROUT INE VENIPUNCTURE 09/14/2013 08724 A1C (IN-HOUSE) 09/14/2013 4039971 GF R CALC (RESULT ONLY) 09/14/2013 14074 CMP 09/14/2013 84897 CBC 09/14/2013 43513 TSH 09/14/2013 96897 HEPA TITIS PROFILE 09/14/2013 08718 PULM ONARY FUNCTION TEST (IN- HOUSE) 09/18/2013 62942 BRON CHODILATION PRE/POST 09/18/2013 18064 RESP IRATORY FLOW VOLUME LOOP 09/18/2013 68242 PULM ONARY EDUCATION 09/18/2013 99534 THER APUTIC INJ SQ/IM 09/29/2013 J2930 SOLU MEDROL INJ 09/29/2013 48552 OXIMETRY 02/15/2014 66807 EST EXPANDED PROBLEM FOCUSED 06/06/2018 34190 EST EXPANDED PROBLEM FOCUSED 07/28/2018 84425 CHES T 2 VIEWS 10/06/2018 89303 EST DETAILED 10/06/2018 24899 EST DETAILED 10/16/2018 AMERICARES AMERICARES 10/16/2018 [facility] 10/20/2018 64844 ADMI N, IM OR SUBCS INJECTION 01/07/2019 86844 EST DETAILED 01/07/2019 J3301 JENN LOG/TRIAMICINOLONE 01/07/2019 50152 02/19/2019 67593 EST EXPANDED PROBLEM FOCUSED 04/01/2019 1111F DISC HARGE MEDICATION RECONCILED WITH CURRENT MED LIST 1 TCM TRANSI TIONAL CARE MANAGEMENT 07/14/2019 71443 EST DETAILED 07/17/2019 77233 DRAW ING AND HANDLING - VENOUS 08/20/2019 18339 COMP REHENSIVE PANEL 08/20/2019 91830 CBC/ HEMOGRAM WITH 08/20/2019 88445 PROTIME 08/20/2019 89483 EST DETAILED 08/20/2019 Results Test Result Range Comprehensive Metabolic Panel - 10/08/18 12:55 OSMO CALCULATED =282.5 270.0-290.0 Sodium SerPl-sCnc =138 135-145 Potassium SerPl-sCnc =3.9 3.6-5.0 Chloride SerPl-sCnc =100 101-111 CO2 SerPl-sCnc =24 21-31 Anion Gap4 SerPl-sCnc =18 8-18 BUN SerPl-mCnc =16 6-20 Creat SerPl-mCnc =0.20 0.50-1.20 Creatinine Clr Calc Pharmacy =410.6250 NRG GFR/BSA.pred SerPl DRD-NOF-RuQFxw >=60 >=60 BUN/Creat SerPl =80.0 10.0-20.0 Glucose SerPl-mCnc =200 70-110 Calcium SerPl-mCnc =9.0 8.5-10.5 Bilirub SerPl-mCnc =0.8 0.1-1.2 AST SerPl-cCnc =31 10-42 ALT SerPl w/o P-5'-P-cCnc =31 10-6 0 ALP SerPl-cCnc =51 42-121 Prot SerPl-mCnc =6.8 6.4-8.2 Albumin SerPl-mCnc =4.3 3.5-5.5 Globulin Ser Calc-mCnc =2.5 2.4-3.6 Albumin/Glob SerPl =1.7 0.9-1.8 Complete Blood Count with Diff - 9 12:55 DIFF TYPE Automated NRG WBC # Bld Auto =3.0 4.0-11.0 RBC # Bld Auto =5.19 4.50-5.90 Hgb Bld-mCnc =16.5 13.5-17.5 Hct VFr Bld Auto =47.8 41.0-53.0 MCV RBC Auto =92.1 80.0-100.0 MCH RBC Qn Auto =31.8 26.0-34.0 MCHC RBC Auto-mCnc =34.5 31.0-37.0 RDW RBC Auto-Rto =13.2 11.0-15.0 Platelet # Bld Auto =36 140-450 PMV Bld Auto =13.1 8.2-12.4 nRBC/100 WBC Bld Auto-Rto =0.0 0.0- 0.0 nRBC # Bld Auto =0.0 0.0-0.0 Neutrophils/leuk NFr Bld Auto =85.2 40.0-70.0 Lymphocytes/leuk NFr Bld Auto =9.9 15.0-45.0 Monocytes/leuk NFr Bld Auto =3.6 2. 0-10.0 Eosinophil/leuk NFr Bld Auto =1.0 0 .0-6.0 Basophils/leuk NFr Bld Auto =0.0 0. 0-1.0 Imm Granulocytes/leuk NFr Bld Auto =0.3 0.0-0.0 Neutrophils # Bld Auto =2.6 2.5-7.5 Lymphocytes # Bld Auto =0.3 1.0-4.0 Monocytes # Bld Auto =0.1 0.2-0.8 Eosinophil # Bld Auto =0.0 0.0-0.4 Basophils # Bld Auto =0.0 0.0-0.1 Imm Granulocytes # Bld Auto =0.0 0. 0-0.0 Vitamin B12 and Folate - 10/08/18 12:55 Folate SerPl-mCnc =18.10 5.90-24.80 Vit B12 SerPl-mCnc =659 180-914 TSH SerPl-aCnc - 10/08/18 12:55 TSH SerPl-aCnc =0.480 0.450-5.330 Comprehensive Metabolic Panel - 10/08/18 12:55 OSMO CALCULATED =280.3 270.0-290.0 Sodium SerPl-sCnc =137 135-145 Potassium SerPl-sCnc =3.8 3.6-5.0 Chloride SerPl-sCnc =102 101-111 CO2 SerPl-sCnc =26 21-31 Anion Gap4 SerPl-sCnc =13 8-18 BUN SerPl-mCnc =16 6-20 Creat SerPl-mCnc =0.48 0.50-1.20 Creatinine Clr Calc Pharmacy =[phone] NRG GFR/BSA.pred SerPl LVJ-QHO-UaXVez >=60 >=60 BUN/Creat SerPl =33.0 10.0-20.0 Glucose SerPl-mCnc =194 70-110 Calcium SerPl-mCnc =9.1 8.5-10.5 Bilirub SerPl-mCnc =1.0 0.1-1.2 AST SerPl-cCnc =32 10-42 ALT SerPl w/o P-5'-P-cCnc =33 10-6 0 ALP SerPl-cCnc =53 42-121 Prot SerPl-mCnc =6.7 6.4-8.2 Albumin SerPl-mCnc =4.2 3.5-5.5 Globulin Ser Calc-mCnc =2.5 2.4-3.6 Albumin/Glob SerPl =1.7 0.9-1.8 Hemoglobin A1c/Hemoglobin.total in Blood - 10/08/18 12:55 Est. average glucose Bld gHb Est-mCnc =123 84-140 Hemoglobin A1c/Hemoglobin.total in Blood =5.9 4.8-5.6 MRSA XXX Ql Cult - 10/08/18 15:30 MRSA XXX Ql Cult NMRSA NRG Complete Blood Count with Diff - 9 06:03 DIFF TYPE Automated NRG WBC # Bld Auto =3.8 4.0-11.0 RBC # Bld Auto =5.40 4.50-5.90 Hgb Bld-mCnc =17.1 13.5-17.5 Hct VFr Bld Auto =49.8 41.0-53.0 MCV RBC Auto =92.2 80.0-100.0 MCH RBC Qn Auto =31.7 26.0-34.0 MCHC RBC Auto-mCnc =34.3 31.0-37.0 RDW RBC Auto-Rto =13.2 11.0-15.0 Platelet # Bld Auto =46 140-450 PMV Bld Auto =11.5 8.2-12.4 nRBC/100 WBC Bld Auto-Rto =0.0 0.0- 0.0 nRBC # Bld Auto =0.0 0.0-0.0 Neutrophils/leuk NFr Bld Auto =78.1 40.0-70.0 Lymphocytes/leuk NFr Bld Auto =12.1 15.0-45.0 Monocytes/leuk NFr Bld Auto =8.4 2. 0-10.0 Eosinophil/leuk NFr Bld Auto =0.3 0 .0-6.0 Basophils/leuk NFr Bld Auto =0.3 0. 0-1.0 Imm Granulocytes/leuk NFr Bld Auto =0.8 0.0-0.0 Neutrophils # Bld Auto =3.0 2.5-7.5 Lymphocytes # Bld Auto =0.5 1.0-4.0 Monocytes # Bld Auto =0.3 0.2-0.8 Eosinophil # Bld Auto =0.0 0.0-0.4 Basophils # Bld Auto =0.0 0.0-0.1 Imm Granulocytes # Bld Auto =0.0 0. 0-0.0 Comprehensive Metabolic Panel - 10/09/18 06:03 OSMO CALCULATED =282.7 270.0-290.0 Sodium SerPl-sCnc =140 135-145 Potassium SerPl-sCnc =3.8 3.6-5.0 Chloride SerPl-sCnc =101 101-111 CO2 SerPl-sCnc =30 21-31 Anion Gap4 SerPl-sCnc =13 8-18 BUN SerPl-mCnc =18 6-20 Creat SerPl-mCnc =0.52 0.50-1.20 Creatinine Clr Calc Pharmacy =[phone] NRG GFR/BSA.pred SerPl ILJ-ZTQ-GjVXsa >=60 >=60 BUN/Creat SerPl =35.0 10.0-20.0 Glucose SerPl-mCnc =123 70-110 Calcium SerPl-mCnc =8.9 8.5-10.5 Bilirub SerPl-mCnc =0.9 0.1-1.2 AST SerPl-cCnc =31 10-42 ALT SerPl w/o P-5'-P-cCnc =42 10-6 0 ALP SerPl-cCnc =54 42-121 Prot SerPl-mCnc =7.0 6.4-8.2 Albumin SerPl-mCnc =4.3 3.5-5.5 Globulin Ser Calc-mCnc =2.7 2.4-3.6 Albumin/Glob SerPl =1.6 0.9-1.8 Prothrombin Time INR - 10/09/18 06:06 Prothrombin time =14.5 12.1-14.0 INR PPP =1.1 0.8-1.1 Hepatitis B T C Profile - 10/09/18 06:06 COMMENT: . HBV surface Ag SerPl Ql IA Negative Neg ative HCV Ab s/co SerPl IA =0.4 0.0-0.9 HBV surface Ab Ser Ql Reactive . HBV core Ab SerPl Ql IA Positive Negati ve HIV 4Th Gen W/Reflex - 10/09/18 06:06 HIV 1+2 Ab+HIV1 p24 Ag SerPl Ql IA Non Reactive Non Reactive Complete blood count (CBC) with automate d white blood cell (WBC) differential - 12/26/18 21:20 Blood leukocytes automated count (number/volume) 6.6 10*3/uL 4.3-11.0 Blood erythrocytes automated count (number/volume) 5.38 10*6/uL 4.35-5.85 Venous blood hemoglobin measurement (mass/volume) 18.2 g/dL 13.3-17.7 Blood hematocrit (volume fraction) 51 % 40-54 Automated erythrocyte mean corpuscular volume 95 [ foz_us] 80-99 Automated erythrocyte mean corpuscular h emoglobin (mass per erythrocyte) 34 pg 25-34 Automated erythrocyte mean corpuscular h emoglobin concentration measurement (mass/volume) 36 g/dL 32-36 Automated erythrocyte distribution width ratio 14. 4 % 10.0- 14.5 Automated blood platelet count (count/volume) 54 1 0*3/uL 130-400 Automated blood platelet mean volume measurement 11.9 [foz_us] 7.4-10.4 Automated blood neutrophils/100 leukocytes 63 % 42-75 Automated blood lymphocytes/100 leukocytes 21 % 12-44 Blood monocytes/100 leukocytes 9 % 0-12 Automated blood eosinophils/100 leukocytes 6 % 0-10 Automated blood basophils/100 leukocytes 1 % 0-10 Blood neutrophils automated count (number/volume) 4.1 10*3 1.8-7.8 Blood lymphocytes automated count (number/volume) 1.4 10*3 1.0-4.0 Blood monocytes automated count (number/volume) 0. 6 10*3 0.0-1.0 Automated eosinophil count 0.4 10*3/uL 0 .0-0.3 Automated blood basophil count (count/volume) 0.0 10*3/uL 0.0-0.1 Blood manual differential performed dete ction - 12/26/18 21:20 Blood monocytes/100 leukocytes 10 % NRG Manual blood segmented neutrophils/100 leukocytes 62 % NRG Blood band neutrophils/100 leukocytes 2 % NRG Manual blood lymphocytes/100 leukocytes 20 % NRG Manual eosinophils/100 leukocytes in nose 4 % NRG Manual blood basophils/100 leukocytes 2 % NRG Blood erythrocyte morphology finding identification NORMAL NRG Automated reticulocyte percentage - 12/15 11/04 21:20 Blood reticulocytes count (number/volume) 104 10*9 /L 24-90 Blood reticulocytes/100 erythrocytes 1.93 % 0.50-2.40 Comprehensive Metabolic Panel - 12/26/18 21:20 Albumin 4.6 g/dL 3.6-5.1 ALP 59 U/L 35-130 ALT 48 U/L 6-45 Anion Gap 15 6-14 AST 25 U/L 2-40 BUN 12 mg/dL 5-25 Calcium 10.0 mg/dL 8.3-10.4 Chloride 104 mmol/L 95-114 CO2 24 mEq/L 22-33 Creat 0.73 mg/dL 0.50-1.50 eGFR 110 mL/min/1.73m2 >59 Globulin 2.9 g/dL 2.3-3.5 Glucose 127 mg/dL 70-110 Osmo 288 280-295 Potassium 4.0 mmol/L 3.5-5.3 Sodium 139 mmol/L 134-148 TBil 0.9 mg/dL 0.2-1.2 TP 7.5 g/dL 6.0-8.3 Peripheral Smear - 12/26/18 21:20 Peripheral smear Sent to [facility] Pathology for review D-Dimer - 12/26/18 21:20 DDimer 190.00 ng/mL 21.00-229.00 PTT - 12/26/18 21:20 PTT 31.8 Sec 26.0-38.0 CBC with Auto Diff - 12/26/18 22:55 Baso% 0.50 % 0.00-2.50 Eos 0.4 K/uL 0.0-0.7 Eos% 6.9 % 0.0-7.0 Hct 47.6 % 42.0-52.0 Hgb 17.1 g/dL 14.0-17.0 Lym 1.08 K/uL 0.60-3.40 Lym% 19.0 % 10.0-50.0 MCH 33.9 pg 27.0-31.2 MCHC 35.9 g/dL 32.0-36.0 MCV 94.4 fL 80.0-97.0 [place]% 8.6 % 0.0-12.0 MPV 10.9 fL 7.4-10.0 Colin% 65.0 % 37.0-80.0 Plt 49 Result Verified by Repeat Analysis K/ uL 150-400 RBC 5.04 M/uL 4.20-5.40 RDW 14.4 % 11.6-14.8 WBC 5.68 K/uL 5.00-10.00 Colin 3.69 K/uL 2.00-6.90 [place] 0.5 K/uL 0.0-0.9 Baso 0.0 K/uL 0.0-0.2 UA with screen for culture - 01/12/19 18 :45 URINE CULTURE Not Indicated NRG URINE MICROSCOPIC REQUIRED Yes NRG Color Ur Auto Yellow Yellow Clarity Ur Refract.auto Slightly cloudy Clear Glucose Ur Strip.auto-mCnc Negative Neg ative Bilirub Ur Strip.auto-mCnc Negative Neg ative Ketones Ur Strip.auto-mCnc =5 Neg ative Sp Gr Ur Refract.auto =1.022 1.001-1. 035 Hgb Ur Strip.auto-mCnc >0.5 Negativ e pH Ur Strip.auto =6.0 5.0-9.0 Prot Ur Strip.auto-mCnc =20 <20 Urobilinogen Ur Strip.auto-mCnc =2.0 0.2-1.0 Nitrite Ur Ql Strip Negative Negative Leukocyte esterase Ur-aCnc Negative Neg ative RBC # Ur Auto 0 0-3 WBC # Ur Auto 0 0-3 Squamous # Ur Auto 0 0-3 Hyaline Casts # Ur Auto 0 0-3 Bacteria # Ur Auto Negative Negative Complete Blood Count with Diff - 9 18:53 DIFF TYPE Automated NRG WBC # Bld Auto =6.8 4.0-11.0 RBC # Bld Auto =5.46 4.50-5.90 Hgb Bld-mCnc =18.1 13.5-17.5 Hct VFr Bld Auto =50.6 41.0-53.0 MCV RBC Auto =92.7 80.0-100.0 MCH RBC Qn Auto =33.2 26.0-34.0 MCHC RBC Auto-mCnc =35.8 31.0-37.0 RDW RBC Auto-Rto =14.1 11.0-15.0 Platelet # Bld Auto =56 140-450 PMV Bld Auto =11.2 8.2-12.4 nRBC/100 WBC Bld Auto-Rto =0.0 0.0- 0.0 nRBC # Bld Auto =0.0 0.0-0.0 Neutrophils/leuk NFr Bld Auto =66.6 40.0-70.0 Lymphocytes/leuk NFr Bld Auto =19.2 15.0-45.0 Monocytes/leuk NFr Bld Auto =8.7 2. 0-10.0 Eosinophil/leuk NFr Bld Auto =4.7 0 .0-6.0 Basophils/leuk NFr Bld Auto =0.4 0. 0-1.0 Imm Granulocytes/leuk NFr Bld Auto =0.4 0.0-0.0 Neutrophils # Bld Auto =4.5 2.5-7.5 Lymphocytes # Bld Auto =1.3 1.0-4.0 Monocytes # Bld Auto =0.6 0.2-0.8 Eosinophil # Bld Auto =0.3 0.0-0.4 Basophils # Bld Auto =0.0 0.0-0.1 Imm Granulocytes # Bld Auto =0.0 0. 0-0.0 Prothrombin Time INR - 01/12/19 18:53 Prothrombin time =14.4 12.1-14.0 INR PPP =1.1 0.8-1.1 aPTT PPP - 01/12/19 18:53 aPTT PPP =27.7 22.2-37.4 Comprehensive Metabolic Panel - 01/12/19 18:53 OSMO CALCULATED =273.0 270.0-290.0 Sodium SerPl-sCnc =136 135-145 Potassium SerPl-sCnc =3.8 3.6-5.0 Chloride SerPl-sCnc =102 101-111 CO2 SerPl-sCnc =24 21-31 Anion Gap4 SerPl-sCnc =14 8-18 BUN SerPl-mCnc =14 6-20 Creat SerPl-mCnc =0.53 0.50-1.20 Creatinine Clr Calc Pharmacy =[phone] NRG GFR/BSA.pred SerPl RVU-HFJ-EbMCvp >=60 >=60 BUN/Creat SerPl =26.0 10.0-20.0 Glucose SerPl-mCnc =109 70-110 Calcium SerPl-mCnc =9.2 8.5-10.5 Bilirub SerPl-mCnc =1.2 0.1-1.2 AST SerPl-cCnc =25 10-42 ALT SerPl w/o P-5'-P-cCnc =13 10-6 0 ALP SerPl-cCnc =55 42-121 Prot SerPl-mCnc =7.7 6.4-8.2 Albumin SerPl-mCnc =4.9 3.5-5.5 Globulin Ser Calc-mCnc =2.8 2.4-3.6 Albumin/Glob SerPl =1.8 0.9-1.8 Lipase SerPl-cCnc - 01/12/19 18:53 Lipase SerPl-cCnc =25 22-51 CBC W/ AUTO DIFF - 02/24/19 08:50 WBC 5.13 10E3/uL 4.00-11.00 RBC 5.25 10E6/uL 4.40-5.90 HGB 17.4 g/dL 13.0-18.0 HCT 48.9 % 39.0-54.0 MCV 93.1 fL 80.0-100.0 MCH 33.1 pg 27.0-34.0 MCHC 35.6 g/dL 33.0-37.0 PLT 50 10E3/uL 130-400 LY% 21.4 % 15.0-45.0 MONO% 9.7 % 2.0-10.0 EO% 4.9 % 0.0-7.0 BASO% 0.4 % 0.0-1.0 NE% 63.6 % 40.0-70.0 LY# 1.10 10E3/uL 1.00-4.00 MONO# 0.50 10E3/uL 0.20-0.80 EO# 0.25 10E3/uL 0.00-0.40 BASO# 0.02 10E3/uL 0.00-0.20 NE# 3.26 10E3/uL 2.50-7.50 RDW-CV 14.3 % 11.0-15.0 MPV 10.7 fL 7.4-11.0 PT/INR - 02/24/19 08:50 PT 11.0 SEC 9.3-11.4 INR 1.1 0.8-1.2 CMP, SERUM OR PLASMA - 02/24/19 08:50 GLU 131 mg/dL 70-99 BUN 17 mg/dL 7-18 BUN_CR 25.4 mg/dL 10.0-20.0 CREAT 0.67 mg/dL 0.55-1.30 NA 142 mmoL/L 135-145 K+ 3.9 mmoL/L 3.6-5.0 CL 104 mmoL/L 101-111 CO2 29.9 mEq/L 23.0-29.0 CA++ 9.0 mg/dL 8.5-10.5 ALB 4.1 g/dL 3.5-5.0 ALP 62 U/L 42-121 ALT 38 U/L 10-75 AST 20 U/L 10-42 TP 7.4 g/dL 6.4-8.2 TB 0.9 mg/dL 0.2-1.2 GLOB 3.3 g/dL 2.4-3.6 A/G RATIO 1.2 g/dL 0.9-1.8 ANGAP 12 mmol/L 8-16 OSMO 277.5 mOsm/kg 270.1-298.0 HEPATITIS C VIRUS GENOTYPE, PCR, BLOOD - 02/24/19 08:50 HEPATITIS C QUANTITATION HCV NOT DETECTED IU/ML NRG HCV LOG10 TEST NOT PERFORMED. LOG10 IU/ML NRG TEST INFORMATION: COMMENT NRG HCV GENOTYPE TEST NOT PERFORMED. NRG HCV RNA by PCR, Qn Rfx Suly - 02/24/19 0 8:50 Hepatitis C Quantitation HCV Not Detected IU/mL HCV log10 TNP log10 IU/mL Test Information: Comment HCV Genotype TNP Complete Blood Count with Diff - 9 19:57 DIFF TYPE Automated NRG WBC # Bld Auto =6.1 4.0-11.0 RBC # Bld Auto =5.09 4.50-5.90 Hgb Bld-mCnc =17.1 13.5-17.5 Hct VFr Bld Auto =47.9 41.0-53.0 MCV RBC Auto =94.1 80.0-100.0 MCH RBC Qn Auto =33.6 26.0-34.0 MCHC RBC Auto-mCnc =35.7 31.0-37.0 RDW RBC Auto-Rto =14.2 11.0-15.0 Platelet # Bld Auto =49 140-450 PMV Bld Auto =10.6 8.2-12.4 nRBC/100 WBC Bld Auto-Rto =0.0 0.0- 0.0 nRBC # Bld Auto =0.0 0.0-0.0 Neutrophils/leuk NFr Bld Auto =72.0 40.0-70.0 Lymphocytes/leuk NFr Bld Auto =13.0 15.0-45.0 Monocytes/leuk NFr Bld Auto =11.0 2. 0-10.0 Eosinophil/leuk NFr Bld Auto =4.0 0 .0-6.0 Basophils/leuk NFr Bld Auto =0.0 0. 0-1.0 Imm Granulocytes/leuk NFr Bld Auto =0.0 0.0-0.0 Neutrophils # Bld Auto =4.0 2.5-7.5 Lymphocytes # Bld Auto =0.8 1.0-4.0 Monocytes # Bld Auto =0.7 0.2-0.8 Eosinophil # Bld Auto =0.2 0.0-0.4 Basophils # Bld Auto =0.0 0.0-0.1 Imm Granulocytes # Bld Auto =0.0 0. 0-0.0 Comprehensive Metabolic Panel - 07/07/19 19:57 OSMO CALCULATED =279.0 270.0-290.0 Sodium SerPl-sCnc =139 135-145 Potassium SerPl-sCnc =3.7 3.6-5.0 Chloride SerPl-sCnc =102 101-111 CO2 SerPl-sCnc =30 21-31 Anion Gap4 SerPl-sCnc =11 8-18 BUN SerPl-mCnc =12 6-20 Creat SerPl-mCnc =0.42 0.50-1.20 Creatinine Clr Calc Pharmacy =[phone] NRG GFR/BSA.pred SerPl LPP-HAK-AeCBnw >=60 >=60 BUN/Creat SerPl =29.0 10.0-20.0 Glucose SerPl-mCnc =129 70-110 Calcium SerPl-mCnc =9.1 8.5-10.5 Bilirub SerPl-mCnc =1.1 0.1-1.2 AST SerPl-cCnc =26 10-42 ALT SerPl w/o P-5'-P-cCnc =32 10-6 0 ALP SerPl-cCnc =64 42-121 Prot SerPl-mCnc =7.4 6.4-8.2 Albumin SerPl-mCnc =5.4 3.5-5.5 Globulin Ser Calc-mCnc =2.0 2.4-3.6 Albumin/Glob SerPl =2.7 0.9-1.8 MRSA XXX Ql Cult - 07/08/19 00:22 MRSA XXX Ql Cult NMRSA NRG Complete Blood Count with Diff - 9 06:23 DIFF TYPE Automated NRG WBC # Bld Auto =3.3 4.0-11.0 RBC # Bld Auto =4.84 4.50-5.90 Hgb Bld-mCnc =16.0 13.5-17.5 Hct VFr Bld Auto =46.7 41.0-53.0 MCV RBC Auto =96.5 80.0-100.0 MCH RBC Qn Auto =33.1 26.0-34.0 MCHC RBC Auto-mCnc =34.3 31.0-37.0 RDW RBC Auto-Rto =14.0 11.0-15.0 Platelet # Bld Auto =35 140-450 PMV Bld Auto =10.8 8.2-12.4 nRBC/100 WBC Bld Auto-Rto =0.0 0.0- 0.0 nRBC # Bld Auto =0.0 0.0-0.0 Neutrophils/leuk NFr Bld Auto =86.8 40.0-70.0 Lymphocytes/leuk NFr Bld Auto =9.6 15.0-45.0 Monocytes/leuk NFr Bld Auto =2.7 2. 0-10.0 Eosinophil/leuk NFr Bld Auto =0.3 0 .0-6.0 Basophils/leuk NFr Bld Auto =0.0 0. 0-1.0 Imm Granulocytes/leuk NFr Bld Auto =0.6 0.0-0.0 Neutrophils # Bld Auto =2.9 2.5-7.5 Lymphocytes # Bld Auto =0.3 1.0-4.0 Monocytes # Bld Auto =0.1 0.2-0.8 Eosinophil # Bld Auto =0.0 0.0-0.4 Basophils # Bld Auto =0.0 0.0-0.1 Imm Granulocytes # Bld Auto =0.0 0. 0-0.0 Comprehensive Metabolic Panel - 07/08/19 06:23 OSMO CALCULATED =280.6 270.0-290.0 Sodium SerPl-sCnc =136 135-145 Potassium SerPl-sCnc =4.1 3.6-5.0 Chloride SerPl-sCnc =101 101-111 CO2 SerPl-sCnc =27 21-31 Anion Gap4 SerPl-sCnc =12 8-18 BUN SerPl-mCnc =12 6-20 Creat SerPl-mCnc =0.52 0.50-1.20 Creatinine Clr Calc Pharmacy =[phone] NRG GFR/BSA.pred SerPl YNL-SDA-PfGHug >=60 >=60 BUN/Creat SerPl =23.0 10.0-20.0 Glucose SerPl-mCnc =259 70-110 Calcium SerPl-mCnc =8.4 8.5-10.5 Bilirub SerPl-mCnc =0.9 0.1-1.2 AST SerPl-cCnc =26 10-42 ALT SerPl w/o P-5'-P-cCnc =30 10-6 0 ALP SerPl-cCnc =63 42-121 Prot SerPl-mCnc =7.0 6.4-8.2 Albumin SerPl-mCnc =4.3 3.5-5.5 Globulin Ser Calc-mCnc =2.7 2.4-3.6 Albumin/Glob SerPl =1.6 0.9-1.8 Comprehensive Metabolic Panel - 07/09/19 06:09 OSMO CALCULATED =274.4 270.0-290.0 Sodium SerPl-sCnc =136 135-145 Potassium SerPl-sCnc =3.8 3.6-5.0 Chloride SerPl-sCnc =98 101-111 CO2 SerPl-sCnc =30 21-31 Anion Gap4 SerPl-sCnc =12 8-18 BUN SerPl-mCnc =13 6-20 Creat SerPl-mCnc =0.27 0.50-1.20 Creatinine Clr Calc Pharmacy =[phone] NRG GFR/BSA.pred SerPl JIF-RWY-NlIPan >=60 >=60 BUN/Creat SerPl =48.0 10.0-20.0 Glucose SerPl-mCnc =141 70-110 Calcium SerPl-mCnc =8.5 8.5-10.5 Bilirub SerPl-mCnc =1.0 0.1-1.2 AST SerPl-cCnc =19 10-42 ALT SerPl w/o P-5'-P-cCnc =29 10-6 0 ALP SerPl-cCnc =58 42-121 Prot SerPl-mCnc =7.0 6.4-8.2 Albumin SerPl-mCnc =4.3 3.5-5.5 Globulin Ser Calc-mCnc =2.7 2.4-3.6 Albumin/Glob SerPl =1.6 0.9-1.8 Complete Blood Count with Diff - 9 06:09 DIFF TYPE Automated NRG WBC # Bld Auto =4.4 4.0-11.0 RBC # Bld Auto =4.89 4.50-5.90 Hgb Bld-mCnc =16.6 13.5-17.5 Hct VFr Bld Auto =48.9 41.0-53.0 MCV RBC Auto =100.0 80.0-100.0 MCH RBC Qn Auto =33.9 26.0-34.0 MCHC RBC Auto-mCnc =33.9 31.0-37.0 RDW RBC Auto-Rto =14.4 11.0-15.0 Platelet # Bld Auto =33 140-450 PMV Bld Auto =11.8 8.2-12.4 nRBC/100 WBC Bld Auto-Rto =0.0 0.0- 0.0 nRBC # Bld Auto =0.0 0.0-0.0 Neutrophils/leuk NFr Bld Auto =69.2 40.0-70.0 Lymphocytes/leuk NFr Bld Auto =16.5 15.0-45.0 Monocytes/leuk NFr Bld Auto =11.4 2. 0-10.0 Eosinophil/leuk NFr Bld Auto =2.5 0 .0-6.0 Basophils/leuk NFr Bld Auto =0.2 0. 0-1.0 Imm Granulocytes/leuk NFr Bld Auto =0.2 0.0-0.0 Neutrophils # Bld Auto =3.0 2.5-7.5 Lymphocytes # Bld Auto =0.7 1.0-4.0 Monocytes # Bld Auto =0.5 0.2-0.8 Eosinophil # Bld Auto =0.1 0.0-0.4 Basophils # Bld Auto =0.0 0.0-0.1 Imm Granulocytes # Bld Auto =0.0 0. 0-0.0 Hemoglobin A1c/Hemoglobin.total in Blood - 07/09/19 06:09 Est. average glucose Bld gHb Est-mCnc =146 84-140 Hemoglobin A1c/Hemoglobin.total in Blood =6.7 4.8-5.6 Prothrombin Time INR - 07/09/19 06:10 Prothrombin time =13.1 12.1-14.0 INR PPP =1.0 0.8-1.1 aPTT PPP - 07/09/19 06:10 aPTT PPP =22.8 22.2-37.4 Complete Blood Count with Diff - 9 07:12 DIFF TYPE Automated NRG WBC # Bld Auto =3.6 4.0-11.0 RBC # Bld Auto =4.75 4.50-5.90 Hgb Bld-mCnc =16.0 13.5-17.5 Hct VFr Bld Auto =46.5 41.0-53.0 MCV RBC Auto =97.9 80.0-100.0 MCH RBC Qn Auto =33.7 26.0-34.0 MCHC RBC Auto-mCnc =34.4 31.0-37.0 RDW RBC Auto-Rto =13.7 11.0-15.0 Platelet # Bld Auto =34 140-450 PMV Bld Auto =10.5 8.2-12.4 nRBC/100 WBC Bld Auto-Rto =0.0 0.0- 0.0 nRBC # Bld Auto =0.0 0.0-0.0 Neutrophils/leuk NFr Bld Auto =65.8 40.0-70.0 Lymphocytes/leuk NFr Bld Auto =19.6 15.0-45.0 Monocytes/leuk NFr Bld Auto =11.2 2. 0-10.0 Eosinophil/leuk NFr Bld Auto =2.8 0 .0-6.0 Basophils/leuk NFr Bld Auto =0.3 0. 0-1.0 Imm Granulocytes/leuk NFr Bld Auto =0.3 0.0-0.0 Neutrophils # Bld Auto =2.4 2.5-7.5 Lymphocytes # Bld Auto =0.7 1.0-4.0 Monocytes # Bld Auto =0.4 0.2-0.8 Eosinophil # Bld Auto =0.1 0.0-0.4 Basophils # Bld Auto =0.0 0.0-0.1 Imm Granulocytes # Bld Auto =0.0 0. 0-0.0 Comprehensive Metabolic Panel - 07/10/19 07:12 OSMO CALCULATED =283.2 270.0-290.0 Sodium SerPl-sCnc =140 135-145 Potassium SerPl-sCnc =3.6 3.6-5.0 Chloride SerPl-sCnc =97 101-111 CO2 SerPl-sCnc =37 21-31 Anion Gap4 SerPl-sCnc =10 8-18 BUN SerPl-mCnc =18 6-20 Creat SerPl-mCnc =0.52 0.50-1.20 Creatinine Clr Calc Pharmacy =[phone] NRG GFR/BSA.pred SerPl OZN-EIY-TrPMyd >=60 >=60 BUN/Creat SerPl =35.0 10.0-20.0 Glucose SerPl-mCnc =132 70-110 Calcium SerPl-mCnc =9.0 8.5-10.5 Bilirub SerPl-mCnc =1.0 0.1-1.2 AST SerPl-cCnc =21 10-42 ALT SerPl w/o P-5'-P-cCnc =31 10-6 0 ALP SerPl-cCnc =53 42-121 Prot SerPl-mCnc =7.0 6.4-8.2 Albumin SerPl-mCnc =4.9 3.5-5.5 Globulin Ser Calc-mCnc =2.1 2.4-3.6 Albumin/Glob SerPl =2.3 0.9-1.8 CBC W/ AUTO DIFF - 08/20/19 15:14 WBC 5.49 10E3/uL 4.00-11.00 RBC 4.47 10E6/uL 4.40-5.90 HGB 15.2 g/dL 13.0-18.0 HCT 42.1 % 39.0-54.0 MCV 94.2 fL 80.0-100.0 MCH 34.0 pg 27.0-34.0 MCHC 36.1 g/dL 33.0-37.0 PLT 13 10E3/uL 130-400 LY% 20.2 % 15.0-45.0 MONO% 10.2 % 2.0-10.0 EO% 3.3 % 0.0-7.0 BASO% 0.2 % 0.0-1.0 NE% 66.1 % 40.0-70.0 LY# 1.11 10E3/uL 1.00-4.00 MONO# 0.56 10E3/uL 0.20-0.80 EO# 0.18 10E3/uL 0.00-0.40 BASO# 0.01 10E3/uL 0.00-0.20 NE# 3.63 10E3/uL 2.50-7.50 RDW-CV 14.3 % 11.0-15.0 MPV 13.3 fL 7.4-11.0 CMP, SERUM OR PLASMA - 08/20/19 15:14 GLU 122 mg/dL 70-99 BUN 12 mg/dL 7-18 BUN_CR 21.1 mg/dL 10.0-20.0 CREAT 0.57 mg/dL 0.55-1.30 NA 139 mmoL/L 135-145 K+ 3.8 mmoL/L 3.6-5.0 CL 102 mmoL/L 101-111 CO2 30.6 mEq/L 23.0-29.0 CA++ 8.7 mg/dL 8.5-10.5 ALB 3.9 g/dL 3.5-5.0 ALP 84 U/L 42-121 ALT 35 U/L 10-75 AST 20 U/L 10-42 TP 7.1 g/dL 6.4-8.2 TB 0.7 mg/dL 0.2-1.2 GLOB 3.2 g/dL 2.4-3.6 A/G RATIO 1.2 g/dL 0.9-1.8 ANGAP 10 mmol/L 8-16 OSMO 269.6 mOsm/kg 270.1-298.0 PT/INR - 08/20/19 15:14 PT 10.7 SEC 9.3-11.4 INR 1.1 0.8-1.2 Complete Blood Count with Diff - 0 22:34 DIFF TYPE Automated NRG WBC # Bld Auto =3.7 4.0-11.0 RBC # Bld Auto =4.50 4.50-5.90 Hgb Bld-mCnc =14.6 13.5-17.5 Hct VFr Bld Auto =41.7 41.0-53.0 MCV RBC Auto =92.7 80.0-100.0 MCH RBC Qn Auto =32.4 26.0-34.0 MCHC RBC Auto-mCnc =35.0 31.0-37.0 RDW RBC Auto-Rto =12.7 11.0-15.0 Platelet # Bld Auto =19 140-450 PMV Bld Auto TNP 8.2-12.4 nRBC/100 WBC Bld Auto-Rto =0.0 0.0- 0.0 nRBC # Bld Auto =0.0 0.0-0.0 Neutrophils/leuk NFr Bld Auto =62.7 40.0-70.0 Lymphocytes/leuk NFr Bld Auto =20.8 15.0-45.0 Monocytes/leuk NFr Bld Auto =11.6 2. 0-10.0 Eosinophil/leuk NFr Bld Auto =4.1 0 .0-6.0 Basophils/leuk NFr Bld Auto =0.3 0. 0-1.0 Imm Granulocytes/leuk NFr Bld Auto =0.5 0.0-0.0 Neutrophils # Bld Auto =2.3 2.5-7.5 Lymphocytes # Bld Auto =0.8 1.0-4.0 Monocytes # Bld Auto =0.4 0.2-0.8 Eosinophil # Bld Auto =0.2 0.0-0.4 Basophils # Bld Auto =0.0 0.0-0.1 Imm Granulocytes # Bld Auto =0.0 0. 0-0.0 Comprehensive Metabolic Panel - 11/02/19 22:34 OSMO CALCULATED =290.4 270.0-290.0 Sodium SerPl-sCnc =141 135-145 Potassium SerPl-sCnc =3.8 3.6-5.0 Chloride SerPl-sCnc =100 101-111 CO2 SerPl-sCnc =32 21-31 Anion Gap4 SerPl-sCnc =13 8-18 BUN SerPl-mCnc =14 6-20 Creat SerPl-mCnc =0.43 0.50-1.20 Creatinine Clr Calc Pharmacy =[phone] NRG GFR/BSA.pred SerPl RIU-UDA-JpOFtz >=60 >=60 BUN/Creat SerPl =33.0 10.0-20.0 Glucose SerPl-mCnc =255 70-110 Calcium SerPl-mCnc =9.5 8.5-10.5 Bilirub SerPl-mCnc =0.5 0.1-1.2 AST SerPl-cCnc =26 10-42 ALT SerPl w/o P-5'-P-cCnc =35 10-6 0 ALP SerPl-cCnc =67 42-121 Prot SerPl-mCnc =7.4 6.4-8.2 Albumin SerPl-mCnc =4.2 3.5-5.5 Globulin Ser Calc-mCnc =3.2 2.4-3.6 Albumin/Glob SerPl =1.3 0.9-1.8 Influenza A/B PCR - 11/02/19 23:14 FLUAV+FLUBV RNA XXX Ql LEILA+probe Negative Negative Radiology Report from [id number] on 013 08:30:00 Final ReportADMITTING DIAGNOSIS: diff breathing coughCHEST PA LAT - 06/02/2013 [facility] RESULT: INDICATION: Respiratory difficulty. Cough.2 views06/02/2013 at 6:31 AM.COMPARISON: None available.FINDINGS: The cardiac silhouette size is within normal limits.The pulmonary vascularity is not congested. The wesly are withinnormal limits. There is no pleural effusion or airspace diseasedemonstrated. No significant osseous abnormality is identified.IMPRESSION: 1. No acute abnormality.Dictated on workstation # [id number] BY: JESSIE ORTEGA M.D., RADIOLOGISTELECTRONICALLY SIGNED BY: JESSIE ORTEGA M.D., RADIOLOGISTD Jun 02 2013 7:19AT SA2: Jun 02 2013 8:27AS Jun 02 2013 8:27A Encounters ACCT No. Visit Date/Time Discharge Status Pt. Type Provider Facility Loc./Unit Complaint [id number] 04/15/2014 00:00:00 04/15/2014 23:59: 59 CLS Outpatient CORAL NAIDU DO [id number] 04/05/2014 12:22:00 04/05/2014 23:59: 59 CLS Outpatient MARTY GOMEZ APRN [id number] 03/25/2014 11:08:00 03/25/2014 23:59: 59 CLS Outpatient MARTY GOMEZ APRN [id number] 03/02/2014 10:51:00 03/02/2014 23:59: 59 CLS Outpatient [id number] 02/15/2014 11:51:00 02/15/2014 23:59: 59 CLS Outpatient FLORECITA THIBODEAUX APRN [id number] 09/29/2013 15:16:00 09/29/2013 23:59: 59 CLS Outpatient MRATY GOMEZ APRN [id number] 09/19/2013 09:37:00 09/19/2013 23:59: 59 CLS Outpatient JABARI HUNTER APRN [id number] 09/18/2013 14:49:00 09/18/2013 23:59: 59 CLS Outpatient CORAL NAIDU DO [id number] 09/14/2013 10:06:00 09/14/2013 23:59: 59 CLS Outpatient MARTY GOMEZ APRN [id number] 08/31/2013 07:16:00 08/31/20 13 08:24:00 DIS Emergency Earl GROVE, Fabio Albright [facility] [id number] 06/02/2013 22:19:00 06/03/20 13 02:19:00 DIS Emergency nAju GROVE, Yazan [facility] [id number] 06/02/2013 05:52:00 06/02/20 13 08:05:00 DIS Emergency Kun GROVE, Dwight Pereyra [facility] [id number] 05/06/2013 07:02:00 05/06/20 13 08:08:00 DIS Emergency Kyler GROVE, Robel Morales [facility] on [facility] [id number] 11/27/2013 10:36:12 11/27/2013 23:59: 59 CLS Outpatient Daniela Sims [id number] 11/02/2019 22:22:00 020 00:40:00 DIS Emergency Travis GROVE Gia [facility] 01.ED [id number] 07/09/2019 13:36:00 019 14:24:00 DIS [facility] [id number] 03/20/2019 13:57:00 019 16:14:00 DIS Emergency EMILY GROVE, ZEN Baker [facility] 01.ED [id number] 02/19/2019 09:07:00 019 11:45:00 DIS Outpatient APRIL GROVE, BRITNI Baumann [facility] 01. [id number] 01/12/2019 18:17:00 019 20:03:00 DIS Emergency VIJAYA GROVE, BRENDA Rausch [facility] 01.ED [id number] 12/20/2018 01:15:00 019 03:06:00 DIS Emergency WINTER GROVE, JONO Rausch [facility] 01.ED [id number] 12/18/2018 20:23:00 019 22:00:00 DIS Emergency FOREIGN GROVE, [facility] 01.ED [id number] 10/08/2018 13:40:00 019 14:38:00 DIS Inpatient TIM GROVE, MANUEL Khanna [facility] 01.E [id number] 07/12/2018 22:07:00 Document Registration [id number] 09/30/2019 10:47:00 09/30/2019 23:59: 59 CLS Outpatient [place] Fami ly [facility] [place] [id number] 08/20/2019 14:17:00 08/20/2019 23:59: 59 CLS Outpatient NISS, [facility] [id number] 07/17/2019 13:27:00 07/17/2019 23:59: 59 CLS Outpatient LUCINA [facility] [id number] 07/14/2019 09:46:00 07/14/2019 23:59: 59 CLS Outpatient [place] [facility] [id number] 04/01/2019 15:57:00 04/01/2019 23:59: 59 CLS Outpatient NISS, [facility] [id number] 02/24/2019 08:47:00 02/24/2019 23:59: 59 CLS Outpatient [place] [facility] [id number] 01/27/2019 08:59:00 01/27/2019 23:59: 59 CLS Outpatient [place] [facility] [id number] 01/07/2019 16:08:00 01/07/2019 23:59: 59 CLS Outpatient NISS, [facility] [id number] 10/21/2018 10:18:00 10/21/2018 23:59: 59 CLS Outpatient [place] [facility] [id number] 10/16/2018 16:33:00 10/16/2018 23:59: 59 CLS Outpatient [facility] [id number] 10/16/2018 14:43:00 10/16/2018 23:59: 59 CLS Outpatient NISS, [facility] [id number] 10/06/2018 15:35:00 10/06/2018 23:59: 59 CLS Outpatient NISS, [facility] [id number] 07/28/2018 15:33:00 07/28/2018 23:59: 59 CLS Outpatient NISS, [facility] [id number] 06/06/2018 14:16:00 06/06/2018 23:59: 59 CLS Outpatient NISS, [facility] [id number] 03/31/2019 22:08:00 Document Registration [id number] 10/30/2018 12:30:00 Document Registration [id number] 02/27/2019 16:35:00 Document Registration [id number] 12/26/2018 21:20:00 23:59:59 CLS Outpatient RUFINO GOMEZ MD [facility] [id number] 03/09/2014 10:45:00 014 13:05:00 DIS Inpatient [id number] 03/25/2016 07:37:00 016 23:59:59 CLS Preadmit [facility] ED [id number] 01/12/2019 18:17:00 019 23:59:59 CLS Preadmit [facility] 01.ED [id number] 12/26/2018 20:49:00 12/26/2018 23:45: 00 DIS Outpatient Juli Ibarra [facility] [place] [id number] 12/26/2018 21:55:59 Document Registration [id number] 12/20/2018 01:15:00 019 23:59:59 CLS Preadmit [facility] 01.ED [id number] 05/17/2016 19:59:00 016 23:59:59 CLS Preadmit [facility] ED [id number] 05/17/2016 20:02:00 016 22:07:00 DIS Yvan HO MD, GIOVANY [facility] ED [id number] 03/25/2016 07:47:00 016 09:49:00 DIS DIAMOND COSTA MD, YAMILETH Khanna [facility] ED [id number] 07/16/2015 13:41:20 07/16/2015 23:59: 59 CLS Outpatient Tomy Garcia [id number] 04/19/2015 18:37:23 04/19/2015 23:59: 59 CLS Outpatient Reynaldo Story [id number] 03/03/2015 17:11:23 03/03/2015 23:59: 59 CLS Outpatient Celine Alaniz [id number] 09/29/2014 12:36:09 09/29/2014 23:59: 59 CLS Outpatient Reynaldo Story [id number] 05/15/2014 10:20:37 05/15/2014 23:59: 59 CLS Outpatient Reynaldo Story
[2020-01-06 04:08] LABS: CLARITY,URINE CLEAR; COLOR,URINE YELLOW; GLUCOSE, URINE (UA) 2+ (NEGATIVE); KETONES,URINE 3+ (NEGATIVE); LEUKOCYTE ESTERASE ,URINE NEGATIVE (NEGATIVE); NITRITE,URINE NEGATIVE (NEGATIVE); PROTEIN,URINE 2+ (NEGATIVE)
[2020-01-06 04:14] LABS: BACTERIA,URINE TRACE /HPF; RBC,URINE 0-2 /HPF; WBC,URINE 0-2 /HPF
[2020-01-06 04:14] LABS: WHITE BLOOD COUNT 4.6 10^3/uL (4.3-11.0)
[2020-01-06 04:15] LABS: SQUAMOUS EPITHELIAL CELL,UR RARE /HPF
[2020-01-06 04:15] LABS: BASOPHILS % (AUTO) 0 % (0-10); EOSINOPHILS % (AUTO) 1 % (0-10); HEMATOCRIT 39 % (40-54); HEMOGLOBIN 13.1 G/DL (13.3-17.7); LYMPHOCYTES # (AUTO) 0.6 X 10^3 (1.0-4.0); LYMPHOCYTES % (AUTO) 13 % (12-44); MEAN CORPUSCULAR HEMOGLOBIN 33 PG (25-34); MEAN CORPUSCULAR HGB CONC 34 G/DL (32-36); MEAN CORPUSCULAR VOLUME 96 FL (80-99); MEAN PLATELET VOLUME 11.8 FL (7.4-10.4); MONOCYTES # (AUTO) 0.5 X 10^3 (0.0-1.0); MONOCYTES % (AUTO) 10 % (0-12); NEUTROPHILS # (AUTO) 3.5 X 10^3 (1.8-7.8); NEUTROPHILS % (AUTO) 76 % (42-75); RED CELL DISTRIBUTION WIDTH 14.9 % (10.0-14.5)
[2020-01-06] MEDS ORDERED: ENOXAPARIN 60 MG/0.6 ML (LOVENOX) SYR SC ONE (04:15)
[2020-01-06] MEDS ORDERED: dilTIAZem DRIP PRE-MIX 125 ML IV SCH (04:15)
[2020-01-06] MEDS ORDERED: ASPIRIN 81 MG CHEW (CHILDREN'S ASA) PO ONE (04:15)
[2020-01-06 04:16] LABS: GRANULAR CASTS,URINE RARE /LPF
[2020-01-06 04:17] LABS: BILIRUBIN,URINE 2+ (NEGATIVE)
[2020-01-06 04:18] LABS: PLATELET COUNT 17 10^3/uL (130-400)
[2020-01-06 04:20] LABS: AMPHETAMINE SCREEN, URINE NEGATIVE (NEGATIVE); BARBITURATE SCREEN URINE NEGATIVE (NEGATIVE); BENZODIAZEPINES SCREEN URINE NEGATIVE (NEGATIVE); CANNABINOID SCREEN, URINE NEGATIVE (NEGATIVE); COCAINE SCREEN URINE NEGATIVE (NEGATIVE); METHADONE STAT NEGATIVE (NEGATIVE); METHAMPHETAMINE SCREEN URINE S NEGATIVE (NEGATIVE); OPIATE SCREEN URINE NEGATIVE (NEGATIVE); OXYCODONE STAT NEGATIVE (NEGATIVE); PROPOXYPHENE STAT NEGATIVE (NEGATIVE); TRICYCLIC ANTIDEPRESSANTS SCRE NEGATIVE (NEGATIVE)
[2020-01-06 04:26] LABS: ALBUMIN 4.3 GM/DL (3.2-4.5); CHLORIDE 85 MMOL/L (98-107); POTASSIUM 3.1 MMOL/L (3.6-5.0); SODIUM 134 MMOL/L (135-145)
[2020-01-06 04:27] LABS: INR 1.1 (0.8-1.4); PROTHROMBIN TIME PATIENT 14.9 SEC (12.2-14.7)
[2020-01-06 04:28] LABS: AMYLASE 15 U/L (25-125); CALCIUM 9.4 MG/DL (8.5-10.1)
[2020-01-06 04:29] LABS: GLUCOSE 282 MG/DL (70-105); TOTAL PROTEIN 6.9 GM/DL (6.4-8.2)
[2020-01-06 04:30] LABS: CARBON DIOXIDE 25 MMOL/L (21-32)
[2020-01-06 04:31] LABS: BILIRUBIN,TOTAL 1.4 MG/DL (0.1-1.0)
[2020-01-06 04:32] LABS: ALKALINE PHOSPHATASE 77 U/L (40-136); CREATININE SERUM 0.78 MG/DL (0.60-1.30); GFR ESTIMATED > 60
[2020-01-06 04:34] LABS: ACETAMINOPHEN < 10 UG/ML (10-30); BUN/CREATININE RATIO 15
[2020-01-06 04:35] LABS: ALANINE AMINOTRANSFERASE 75 U/L (0-55); MAGNESIUM 1.5 MG/DL (1.6-2.4)
[2020-01-06 04:37] LABS: CREATINE KINASE 237 U/L (30-200); LIPASE 12 U/L (8-78)
[2020-01-06 04:41] LABS: ABG BASE EXCESS 8.4 MMOL/L (-2.5-2.5); ABG OXYGEN SATURATION 98 % (94-100); ABG PCO2 45 MMHG (35-45); ABG PH 7.47 (7.37-7.43); ABG PO2 90 MMHG (79-93)
[2020-01-06] MEDS ORDERED: NS IV 1000 ML 1,000 ML ONE (04:41)
[2020-01-06 04:42] LABS: ALLENS TEST P; INSPIRED O2 2L; PATIENT TEMP 36.3; VENTILATOR NO
[2020-01-06] MEDS ORDERED: 1/2 NS W/KCL 20 MEQ/L 1,000 ML IV SCH (04:45)
[2020-01-06] MEDS ORDERED: inSUlin (REGULAR) HUMAN 1 UNIT/0.01 ML (CHARGE PER UNIT) SC ONE ×2 (04:45→05:15)
[2020-01-06] MEDS ORDERED: NS IV 1000 ML 1,000 ML IV SCH (04:47)
[2020-01-06 04:48] LABS: CREATINE KINASE MB 7.3 NG/ML (<6.6)
[2020-01-06] MEDS ORDERED: MAGNESIUM SULFATE 1 GM/2 ML VIAL ONE (04:48)
[2020-01-06 04:57] LABS: TSH (THYROID ANALYZER) 0.72 UIU/ML (0.35-4.94)
[2020-01-06] MEDS ORDERED: DIGOXIN 0.25 MG/ML (LANOXIN) 2 ML AMP IV ONE (05:00)
[2020-01-06] MEDS: MAGNESIUM 1 GM/100 ML IVPB 100 ML IV SCH ×2 (05:04→06:01)
--- OUTSIDE RECORDS SUMMARY | 2020-01-06 05:23 | XMS REPORT | Continuity of Care Document ---
Author Organization Unknown Address Unknown Phone Unavailable Allergies Active Description Code Type Severity Reaction Onset Reported/Identified Relationship to Patient Clinical Status Yes DICYCLOMINE SEVERE DERMATOLOGICAL - DAWIT Yes No Allergy Information Drug Allergy N/A N/A 06/02/2013 Yes No Known Drug Allergies Drug Allergy N/A N/A 06/02/2013 Yes No Known Drug Allergies [id number] Drug Allergy Unknown N/A 03/09/2014 Yes No Known Allergies [id number] Drug Allergy Unknown N/A 10/08/2018 Yes No Known Drug Allergy NKDA N/A N/A 11/01/2018 Yes BENTYL 153183 Modera te to severe Anaphylaxis (Moderate to severe) 12/18/2018 Yes dicyclomine [id number] Drug Aller gy Severe Rash 07/08/2019 Medications [...] FLORECITA R 305.00 ALCOHOL ABUSE 09/14/2013 THIBODEAUX [employer] SUPERVISORMYNORFLORECITA R 496 COPD 09/14/2013 THIBODEAUX [employer] SUPERVISOR, FLORECITA R 782.1 RASH 09/14/2013 THIBODEAUX [employer] SUPERVISOR, FLORECITA R V18.0 FAMILY HISTORY OF DIABETES MELLITUS 09/14/2013 THIBODEAUX [employer] SUPERVISOR, FLORECITA R V70.0 EXAM - ROUTINE H&P [...] 277.4 DISORDERS OF BILIRUBIN EXCRETION 02/15/2014 JASON [employer] SUPERVISOR, MARTY S 698.9 UNSPECIFIED PRURITIC DISORDER 02/15/2014 EVANGELISTA KILLIAN CORAL K 277.4 DISORDERS OF BILIRUBIN EXCRETION 02/15/2014 EVANGELISTA KILLIAN CORAL K 698.9 UNSPECIFIED PRURITIC DISORDER 02/18/2014 070.54 HEP ATITIS C CHRONIC 02/18/2014 571.2 CIRR HOSIS OF LIVER - ALCOHOL INDUCED 02/18/2014 574.20 CHO LELITHIASIS 02/18/2014 JASON [employer]FF[employer] SUPERVISOR, MARTY S 070.54 HEPATITIS C CHRONIC 02/18/2014 FRANCES GOMEZ APRNNDA S 571.2 CIRRHOSIS OF LIVER - ALCOHOL INDUCED 02/18/2014 JASON STEFF[employer] SUPERVISOR, MARTY S 574.20 CHOLELITHIASIS 02/18/2014 FRANCES GOMEZ APRNNDA S 070.54 HEPATITIS C CHRONIC 02/18/2014 FRANCES GOMEZ APRNNDA S 571.2 CIRRHOSIS OF LIVER - ALCOHOL INDUCED 02/18/2014 JASON [employer] SUPERVISOR, MARTY S 574.20 CHOLELITHIASIS 02/18/2014 EVANGELISTA KILLIAN [...] GROVE, BRENDA Chavez R31.9 01/12/2019 VIJAYA GROVE, BRENDA Rausch F R82.2 01/12/2019 VIJAYA GROVE, BRENDA [...] Chronic obstructive pulmonary disease, unspecified 04/02/2019 NISS, CHYAN F K70.30 Alcoholic cirrhosis of liver without [...] Z72.0 - Tobacco use 07/14/2019 F 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, unspecified 07/14/2019 F 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 07/14/2019 F R09.02 Hyp oxemia 07/14/2019 [...] Code Description [place] [address] ROUT INE VENIPUNCTURE 09/14/2013 71668 A1C (IN-HOUSE) 09/14/2013 5440830 GF R CALC (RESULT ONLY) 09/14/2013 19961 CMP 09/14/2013 61766 CBC 09/14/2013 89378 TSH 09/14/2013 95011 HEPA TITIS PROFILE 09/14/2013 85546 PULM ONARY FUNCTION TEST (IN- HOUSE) 09/18/2013 80993 BRON CHODILATION PRE/POST 09/18/2013 90853 RESP IRATORY FLOW VOLUME LOOP 09/18/2013 31614 PULM ONARY EDUCATION 09/18/2013 67459 THER APUTIC INJ SQ/IM 09/29/2013 J2930 SOLU MEDROL INJ 09/29/2013 45389 OXIMETRY 02/15/2014 72504 EST EXPANDED PROBLEM FOCUSED 06/06/2018 05992 EST EXPANDED PROBLEM FOCUSED 07/28/2018 12736 CHES T 2 VIEWS 10/06/2018 92885 EST DETAILED 10/06/2018 28777 EST DETAILED 10/16/2018 AMERICARES AMERICARES 10/16/2018 [facility] 10/20/2018 33601 ADMI N, IM OR SUBCS INJECTION 01/07/2019 48462 EST DETAILED 01/07/2019 J3301 JENN LOG/TRIAMICINOLONE 01/07/2019 75257 02/19/2019 16827 EST EXPANDED PROBLEM FOCUSED 04/01/2019 1111F DISC HARGE MEDICATION RECONCILED WITH CURRENT MED LIST 1 TCM TRANSI TIONAL CARE MANAGEMENT 07/14/2019 57904 EST DETAILED 07/17/2019 42991 DRAW ING AND HANDLING - VENOUS 08/20/2019 81543 COMP REHENSIVE PANEL 08/20/2019 15275 CBC/ HEMOGRAM WITH 08/20/2019 40934 PROTIME 08/20/2019 63406 EST DETAILED 08/20/2019 Results Test Result Range Comprehensive Metabolic Panel - 10/08/18 12:55 OSMO CALCULATED =282.5 270.0-290.0 Sodium SerPl-sCnc =138 135-145 Potassium SerPl-sCnc =3.9 3.6-5.0 Chloride SerPl-sCnc =100 101-111 CO2 SerPl-sCnc =24 21-31 Anion Gap4 SerPl-sCnc =18 8-18 BUN SerPl-mCnc =16 6-20 Creat SerPl-mCnc =0.20 0.50-1.20 Creatinine Clr Calc Pharmacy =[phone] NRG GFR/BSA.pred SerPl HXK-YAF-UhGVxc >=60 >=60 BUN/Creat SerPl =80.0 10.0-20.0 Glucose [...] Clr Calc Pharmacy =[phone] NRG GFR/BSA.pred SerPl MRG-TEC-SiDRla >=60 >=60 BUN/Creat SerPl =33.0 10.0-20.0 Glucose [...] Clr Calc Pharmacy =[phone] NRG GFR/BSA.pred SerPl VNT-YLU-DfGOyf >=60 >=60 BUN/Creat SerPl =35.0 10.0-20.0 Glucose [...] - 12/26/18 21:20 Peripheral smear Sent to [facility] Pathology for review D-Dimer - 12/26/18 21:20 [...] 35.9 g/dL 32.0-36.0 MCV 94.4 fL 80.0-97.0 Brewster% 8.6 % 0.0-12.0 MPV 10.9 fL 7.4-10.0 Colin% 65.0 % 37.0-80.0 Plt 49 Result Verified by Repeat Analysis K/ uL 150-400 RBC 5.04 M/uL 4.20-5.40 RDW 14.4 % 11.6-14.8 WBC 5.68 K/uL 5.00-10.00 Colin 3.69 K/uL 2.00-6.90 Brewster 0.5 K/uL 0.0-0.9 Baso 0.0 K/uL 0.0-0.2 [...] Clr Calc Pharmacy =[phone] NRG GFR/BSA.pred SerPl XFQ-NMZ-KlPEjj >=60 >=60 BUN/Creat SerPl =26.0 10.0-20.0 Glucose [...] Clr Calc Pharmacy =[phone] NRG GFR/BSA.pred SerPl NMG-BLU-OpQKfu >=60 >=60 BUN/Creat SerPl =29.0 10.0-20.0 Glucose [...] Clr Calc Pharmacy =[phone] NRG GFR/BSA.pred SerPl DXK-FWW-AsXXed >=60 >=60 BUN/Creat SerPl =23.0 10.0-20.0 Glucose [...] Clr Calc Pharmacy =[phone] NRG GFR/BSA.pred SerPl GMP-QGO-VfEUou >=60 >=60 BUN/Creat SerPl =48.0 10.0-20.0 Glucose [...] Clr Calc Pharmacy =[phone] NRG GFR/BSA.pred SerPl ZQA-UVS-MkUUio >=60 >=60 BUN/Creat SerPl =35.0 10.0-20.0 Glucose [...] Clr Calc Pharmacy =188.6305 NRG GFR/BSA.pred SerPl USD-GJR-OqUBeo >=60 >=60 BUN/Creat SerPl =33.0 10.0-20.0 Glucose [...] Ql LEILA+probe Negative Negative Radiology Report from [id number] on 013 08:30:00 Final ReportADMITTING DIAGNOSIS: diff [...] 1. No acute abnormality.Dictated on workstation # [id number] BY: JESSIE ORTEGA M.D., RADIOLOGISTELECTRONICALLY SIGNED BY: JESSIE ORTEGA M.D., RADIOLOGISTD Jun 02 2013 7:19AT SA2: Jun 02 2013 8:27AS Jun 02 2013 8:27A Encounters ACCT No. Visit Date/Time Discharge Status Pt. Type Provider Facility Loc./Unit Complaint [id number] 04/15/2014 00:00:00 04/15/2014 23:59: 59 CLS Outpatient CORAL NAIDU DO [id number] 04/05/2014 12:22:00 04/05/2014 23:59: 59 CLS Outpatient MARTY GOMEZ APRN [id number] 03/25/2014 11:08:00 03/25/2014 23:59: 59 CLS Outpatient MARTY GOMEZ APRN [id number] 03/02/2014 10:51:00 03/02/2014 23:59: 59 CLS Outpatient [id number] 02/15/2014 11:51:00 02/15/2014 23:59: 59 CLS Outpatient FLORECITA THIBODEAUX APRN [id number] 09/29/2013 15:16:00 09/29/2013 23:59: 59 CLS Outpatient MARTY GOMEZ APRN [id number] 09/19/2013 09:37:00 09/19/2013 23:59: 59 CLS Outpatient JABARI HUNTER APRN [id number] 09/18/2013 14:49:00 09/18/2013 23:59: 59 CLS Outpatient CORAL NAIDU DO [id number] 09/14/2013 10:06:00 09/14/2013 23:59: 59 CLS Outpatient MARTY GOMEZ APRN [id number] 08/31/2013 07:16:00 08/31/20 13 08:24:00 DIS Emergency Earl GROVE, Fabio Albright [facility] [id number] 06/02/2013 22:19:00 06/03/20 13 02:19:00 DIS Emergency Anju GROVE, [facility] [id number] 06/02/2013 05:52:00 06/02/20 13 08:05:00 DIS Emergency Kun GROVE, Dwight Pereyra [facility] [id number] 05/06/2013 07:02:00 05/06/20 13 08:08:00 DIS Emergency Kyler GROVE, Robel Morales [facility] on [facility] [id number] 11/27/2013 10:36:12 11/27/2013 23:59: 59 CLS Outpatient Daniela Sims [id number] 11/02/2019 22:22:00 020 00:40:00 DIS Emergency Travis GROVE [facility] 01.ED [id number] 07/09/2019 13:36:00 019 14:24:00 DIS In[facility] [id number] 03/20/2019 13:57:00 019 16:14:00 DIS Emergency EMILY GROVE, ZEN Baker [facility] 01.ED [id number] 02/19/2019 09:07:00 019 11:45:00 DIS Outpatient APRIL GROVE, BRITNI Baumann [facility] 01. [id number] 01/12/2019 18:17:00 019 20:03:00 DIS Emergency VIJAYA GROVE, BRENDA Rausch [facility] 01.ED [id number] 12/20/2018 01:15:00 019 03:06:00 DIS Emergency WINTER GROVE, JONO Rausch [facility] 01.ED [id number] 12/18/2018 20:23:00 019 22:00:00 DIS Emergency FOREIGN GROVE, [facility] 01.ED [id number] 10/08/2018 13:40:00 019 14:38:00 DIS Inpatient TIM GROVE, MANUEL Khanna [facility] 01.E [id number] 07/12/2018 22:07:00 Document Registration [id number] 09/30/2019 10:47:00 09/30/2019 23:59: 59 CLS Outpatient [place] [facility] [id number] 08/20/2019 14:17:00 08/20/2019 23:59: 59 CLS Outpatient NISS[facility] [id number] 07/17/2019 13:27:00 07/17/2019 23:59: 59 CLS Outpatient LUCINA [facility] [id number] 07/14/2019 09:46:00 07/14/2019 23:59: 59 CLS Outpatient [place] [facility] [id number] 04/01/2019 15:57:00 04/01/2019 23:59: 59 CLS Outpatient NISS, [facility] [id number] 02/24/2019 08:47:00 02/24/2019 23:59: 59 CLS Outpatient [place] [facility] [id number] 01/27/2019 08:59:00 01/27/2019 23:59: 59 CLS Outpatient [place] [facility] [id number] 01/07/2019 16:08:00 01/07/2019 23:59: 59 CLS Outpatient NISS, [facility] [id number] 10/21/2018 10:18:00 10/21/2018 23:59: 59 CLS Outpatient [place] [facility] [id number] 10/16/2018 16:33:00 10/16/2018 23:59: 59 CLS Outpatient [facility] [id number] 10/16/2018 14:43:00 10/16/2018 23:59: 59 CLS Outpatient NISS, [facility] [id number] 10/06/2018 15:35:00 10/06/2018 23:59: 59 CLS Outpatient NISS, [facility] [id number] 07/28/2018 15:33:00 07/28/2018 23:59: 59 CLS Outpatient NISS, [facility] [id number] 06/06/2018 14:16:00 06/06/2018 23:59: 59 CLS Outpatient NISS, [facility] [id number] 03/31/2019 22:08:00 Document Registration [id number] 10/30/2018 12:30:00 Document Registration [id number] 02/27/2019 16:35:00 Document Registration [id number] 12/26/2018 21:20:00 23:59:59 CLS Outpatient RUFINO GOMEZ MD [facility] [id number] 03/09/2014 10:45:00 014 13:05:00 DIS Inpatient [id number] 03/25/2016 07:37:00 016 23:59:59 CLS Preadmit [facility] ED [id number] 01/12/2019 18:17:00 019 23:59:59 CLS Preadmit [facility] 01.ED [id number] 12/26/2018 20:49:00 12/26/2018 23:45: 00 DIS [place] [facility] [place] [id number] 12/26/2018 21:55:59 Document Registration [id number] 12/20/2018 01:15:00 019 23:59:59 CLS Preadmit [facility] 01.ED [id number] 05/17/2016 19:59:00 016 23:59:59 CLS Preadmit [facility] ED [id number] 05/17/2016 20:02:00 016 22:07:00 DIS Yvan HO MD, GIOVANY Hi [facility] ED [id number] 03/25/2016 07:47:00 016 09:49:00 DIS DIAMOND COSTA MD, YAMILETH Khanna [facility] ED [id number] 07/16/2015 13:41:20 07/16/2015 23:59: 59 CLS Outpatient Tomy Garcia [id number] 04/19/2015 18:37:23 04/19/2015 23:59: 59 CLS Outpatient Reynaldo Story [id number] 03/03/2015 17:11:23 03/03/2015 23:59: 59 CLS Outpatient Celine Alaniz [id number] 09/29/2014 12:36:09 09/29/2014 23:59: 59 CLS Outpatient Reynaldo Story [id number] 05/15/2014 10:20:37 05/15/2014 23:59: 59 CLS Outpatient Reynaldo Story
--- NOTE | 2020-01-06 06:09 | NUR ---
RIN BHANDARI admitted to room CU12-1, with an admitting diagnosis of Afib RVR, on 01/06/20 from ED via stretcher, accompanied by staff.RIN BHANDARI introduced to surroundings, call light, bed controls, phone, TV, temperature control, lights, meal times, smoking policy, visitor policy, side rail policy, bathrooms and showers. Patient Rights given to patient in the handbook. RIN BHANDARI verbalizes understanding that [facility] is not responsible for the loss or damage to any personal effects or valuables that are kept in the patients possession during their hospitalization. The following Patient Care Plans were discussed with the patient: Discharge Planning, pain,diet, and activity. RIN BHANDARI verbalizes understanding of Interdisciplinary Patient Education. Patient and/or family were informed about the Rapid Response Team and its purpose.
--- NOTE | 2020-01-06 06:25 | ED General ---
General Chief Complaint: Respiratory Problems Stated Complaint: NEW dx AFIB/RVR;NEW dx HYPERGLYCEMIA;COPD-O2 Nursing Triage Note: SOB "NOT FEELING GOOD, I HAVE ALCOHOL POISIONING, I HAVE DRANK A FITH OF WISKEY IN THE LAST 4-5 DAYS" PATIENT IS WALKING AND TAKING WITHOUT ANY DEFICIT. AMBULATES TO BATHROOM TO GIVE A SAMPLE. Nursing Sepsis Screen: No Definite Risk Source of Information: Patient (PT IS AN EXTREMELY POOR HISTORIAN IN ALL ASPECTS), Old Records (SINGLE OLD RECORD FROM 03/12/14) History of Present Illness Date Seen by Provider: Jan 06, 2020 Time Seen by Provider: 03:55 Initial Comments PT ARRIVES VIA POV AMBULATES INTO ER ON HIS OWN, WITHOUT DIFFICULTY, CARRYING HOME O2 TANK PT STATES "I HAVE ALCOHOL POISONING" PT HAS LONGSTANDING ALCOHOLISM, STATES HE QUIT DRINKING "FOR AWHILE", THEN STARTED DRINKING HEAVILY "A COUPLE OF MONTHS AGO" --STATES HE HAS DRANK A FIFTH OF [employer] WHISKEY IN THE LAST 4-5 DAYS" -IS UNABLE TO STATE WHEN HIS LAST DRINK WAS. PT HAS CLEAR SPEECH AND ABLE TO AMBULATE--WHEN ASKED PT WHY HE THOUGHT THAT HE HAD "ALCOHOL POISONING", HE STATES "I FEEL BAD--I BEEN DRINKIN' " STATES "I GOT COPD AND I HAVE A HARD TIME BREATHIN' "--STATES HE HAS BEEN ON CONTINUOUS OXYGEN FOR ABOUT A YEAR PT HAS AN INHALER AND HE USED IT 4-5 HOURS AGO, AND IT HELPED. PT CONTINUES TO SMOKE 1 1/2 PPD--STATES HE "STOPPED FOR AWHILE, BUT THEN I STARTED SMOKIN' AND DRINKIN' AGAIN" PT ALSO HAS HISTORY OF EXTENSIVE DRUG USE--THC, METH, COCAINE, "EVERYTHING" BUT DENIES IV DRUG USE. PT STATES HE HAS "NORMAL SMOKER'S COUGH" AND IS NOT ANY DIFFERENT THAN NORMAL AN D IS NOT COUGHING NOW PT DENIES FEVER, SWEATS OR CHILLS PT DENIES CHEST PAIN DENIES PALPITATIONS DENIES DIZZINESS OR SYNCOPE DENIES NAUSEA/VOMITING/DIARRHEA/ABDOMINAL STATES HE ALWAYS HAS SOME SWELLING IN HIS FEET AND IS NO DIFFERENT TODAY PT "JUST MOVED HERE FROM [place], [place] A COUPLE OF DAYS AGO" --DESPITE THE STATE- MANDATED STAY AT HOME/NO TRAVEL REGULATIONS IN PLACE DUE TO COVID-19 PANDEMIC. STATES HE "LOST HIS JOB, SO HE MOVED HERE BECAUSE HE HAS FAMILY IN THIS AREA" HE DOES NOT HAVE A JOB HERE PT HAS BEEN HOMELESS IN THE PAST, BUT STATES THAT HE JUST MOVED INTO AN APARTMENT HERE AND IS LIVING BY HIMSELF. PT STATES HE HAS CIRRHOSIS AND COPD PT DOES NOT KNOW OF ANY OTHER MEDICAL PROBLEMS, AND ON DIRECT QUESTIONING, HE DENIES ANY HISTORY OF HTN, CARDIAC PROBLEMS, IRREGULAR HEART BEAT, STROKE, SEIZURE, OR DIABETES HE DENIES EVERY SEEING A DR FOR HIS HEART OR HAVING ANY TESTS ON HIS HEART SUCH STRESS TEST OR ECHOCARDIOGRAM OR CARDIAC CATH PT STATES HE TAKES "SOME MEDICINES" BUT HAS NO IDEA WHAT MEDICATIONS HE TAKES OR WHAT HE TAKES THEM FOR, AND DID NOT BRING HIS MEDICATIONS OR A LIST OF MEDICATIONS WITH HIM. STATES HE HAS NOT SEEN ANY DR IN MANY MONTHS. PCP: NONE Allergies and Home Medications Allergies Coded Allergies: No Known Drug Allergies (Unverified , 03/09/14) Home Medications Albuterol 8.5 Gm Hfa.aer.ad, 2 PUFF IH Q4H PRN for WHEEZING, (Reported) 2 PUFFS Budesonide/Formoterol Fumarate 10.2 Gm Hfa.aer.ad, 2 PUFF IH BID, (Reported) Cholestyramine/Sucrose 4 G/Pkt Packet, 4 G PO BID, (Reported) Furosemide 40 Mg Tab, 40 MG PO DAILY Prescribed by: LA NENA PELAEZ on 03/12/14 111 Hydroxyzine Pamoate 25 Mg Capsule, 25 MG PO TID, (Reported) Potassium Chloride 20 Meq Tab.prt.sr, 1 EACH PO DAILY Prescribed by: LA NENA PELAEZ on 03/12/14 111 Propranolol Hcl 10 Mg Tablet, 10 MG PO BID, (Reported) Spironolactone 25 Mg Tab, 25 MG PO DAILY Prescribed by: LA NENA PELAEZ on 03/12/14 111 Patient Home Medication List Home Medication List Reviewed: Yes Review of Systems Review of Systems Constitutional: see HPI ("JUST FEEL BAD" ); No chills, No diaphoresis, No dizziness, No fever, No malaise, No weakness EENTM: no symptoms reported Respiratory: see HPI, cough, dyspnea on exertion; No hemoptysis; orthopnea; No phlegm; short of breath; No wheezing Cardiovascular: No chest pain; edema; No palpitations (PT IS UNAWARE OF RAPID OR IRREGULAR HEART BEAT), No syncope Gastrointestinal: no symptoms reported; No abdominal pain, No diarrhea, No nausea, No vomiting Genitourinary: no symptoms reported Musculoskeletal: no symptoms reported Skin: no symptoms reported Psychiatric/Neurological: See HPI (SUBJSTANCE ABUSE); Denies Numbness, Denies Paresthesia, Denies Tingling, Denies Weakness Hematologic/Lymphatic: Easy Bleeding, Easy Bruising Immunological/Allergic: no symptoms reported Past Oagxvod-Bwdghc-Fsxnnp Hx Past Med/Social Hx: Reviewed and Corrections made Patient Social History Alcohol Use: Regular Use (LONG STANDING ALCOHOL ABUSE--DAILY/HEAVY USE-AT LEAST A FIFTH OF HARD LIQUOR/DAY) Alcohol Beverage of Choice: Other (HARD LIQUOR) Recreational Drug Use: Yes (THC, METH, COCAINE, "EVERYTHING" BUT DENIES HEROIN USE, OR IV DRUG USE) Drug of Choice: THC, METH, COCAINE, "EVERYTHING" BUT DENIES HEROIN USE OR IV DRUG USE Smoking Status: Current Everyday Smoker (1 1/2 PPD) Type Used: Cigarettes ( 09/17 PPD) Recent Foreign Travel: No Contact w/Someone Who Travel: No Recent Infectious Disease Expo: No Past Medical History Surgeries: Yes (LEFT INGUINAL HERNIA AND/OR HYDROCOELE REPAIR CHILD) Abdominal Respiratory: Yes (O2 DEPENDENT AT 2L/NC CONTINUOUSLY ) COPD Cardiac: No Neurological: No Genitourinary: No Gastrointestinal: Yes (ESOPHAGEAL VARICES, HEPATOSPLENOMEGALY & GALLSTONE NOTED ON CT DONE IN 2013) Liver Disease/Jaundice, Esophageal Varices, Cirrhosis, Gall Bladder Disease Musculoskeletal: No Endocrine: Yes (OBESITY) HEENT: No Cancer: No Psychosocial: Yes (SUBSTANCE ABUSE) Depression Integumentary: No Blood Disorders: Yes (THROMBOCYTOPENIA SINCE AT LEAST 2013) Physical Exam Vital Signs Vital Signs - First Documented 01/06/20 04:00 Temp 36.3 Pulse 141 Resp 22 B/P (MAP) 150/85 (106) Pulse Ox 95 O2 Flow Rate 2.00 Capillary Refill : Less Than 3 Seconds Height, Weight, BMI Height: 5'10.00" Weight: 225lbs. 3.0oz. 102.583283oc; 36.00 BMI Method:Stated General Appearance: Obese (MORBIDLY OBESE WITH VERY LARGE/ROTUND/FIRM ABDOMEN; MILD TO MODERATE DYSPNEA WITH EXERTION WITH MILD RESTING DYSPNEA, BUT PT IS ABLE TO TALK IN FULL SENTENCES AND WALK INTO ER CARRYING HIS HOME O2 TANK, WITHOUT ASSIST OR NEED TO STOP TO REST. SPEECH IS CLEAR AND GAIT IS STEADY--DOES NOT APPEAR INTOXICATED. PT IS COOPERATIVE. ), Other (REEKS OF CIGARETTES, FAINT ODOR OF ETOH) HEENT: PERRL/EOMI Neck: Normal Inspection Respiratory: Accessory Muscle Use, Decreased Breath Sounds (IN BASES), Respiratory Distress (MILD LABORED BREATHING) Cardiovascular: Irregularly Irregular, Tachycardia (180'S) Gastrointestinal: Non Tender, Other (ABDOMEN VERY LARGE, ROTUND AND VERY FIRM. UNABLE TO DETERMINE IF ORGANOMEGALY IS PRESENT) Extremity: Pedal Edema (1+ BILATERALLY) Neurologic/Psychiatric: Alert, Oriented x3, No Motor/Sensory Deficits, Normal Mood/Affect, want ad receiver II-XII Norm as Tested Skin: Normal Color, Warm/Dry, Ecchymosis (MULTIPLE AREAS OF ECCHYMOSIS ON FOREARMS. ), Rash (EXTENSIVE TINEA PEDIS) Progress/Results/Core Measures Suspected Sepsis Recent Fever Within 48 Hours: No Infection Criteria Present: None New/Unexplained Altered Menta: No Sepsis Screen: No Definite Risk SIRS Temperature: Pulse: 141 Respiratory Rate: 22 Laboratory Tests 01/06/20 04:08: White Blood Count 4.6 Blood Pressure 150 /85 Mean: 106 Laboratory Tests 01/06/20 04:08: Creatinine 0.78, INR Comment 1.1, Platelet Count 17*L, Total Bilirubin 1.4H Results/Orders Lab Results Laboratory Tests Test 01/06/20 03:57 01/06/20 04:08 01/06/20 04:32 01/06/20 05:15 Range/Units Urine Color YELLOW Urine Clarity CLEAR Urine pH 6.0 5-9 Urine Specific [place] 1.025 H 1.016-1.022 Urine Protein 2+ H NEGATIVE Urine Glucose (UA) 2+ H NEGATIVE Urine Ketones 3+ H NEGATIVE Urine Nitrite NEGATIVE NEGATIVE Urine Bilirubin 2+ H NEGATIVE Urine Urobilinogen 0.2 < = 1.0 MG/DL Urine Leukocyte Esterase NEGATIVE NEGATIVE Urine RBC (Auto) 2+ H NEGATIVE Urine RBC 0-2 /HPF Urine WBC 0-2 /HPF Urine Squamous Epithelial Cells RARE /HPF Urine Crystals NONE /LPF Urine Bacteria TRACE /HPF Urine Casts PRESENT /LPF Urine Granular Casts RARE /LPF Urine Mucus SMALL H /LPF Urine Culture Indicated NO Urine Opiates Screen NEGATIVE NEGATIVE Urine Oxycodone Screen NEGATIVE NEGATIVE Urine Methadone Screen NEGATIVE NEGATIVE Urine Propoxyphene Screen NEGATIVE NEGATIVE Urine Barbiturates Screen NEGATIVE NEGATIVE Ur Tricyclic Antidepressants Screen NEGATIVE NEGATIVE Urine Phencyclidine Screen NEGATIVE NEGATIVE Urine Amphetamines Screen NEGATIVE NEGATIVE Urine Methamphetamines Screen NEGATIVE NEGATIVE Urine Benzodiazepines Screen NEGATIVE NEGATIVE Urine Cocaine Screen NEGATIVE NEGATIVE Urine Cannabinoids Screen NEGATIVE NEGATIVE White Blood Count 4.6 4.3-11.0 10^3/uL Red Blood Count 4.02 L 4.35-5.85 10^6/uL Hemoglobin 13.1 L 13.3-17.7 G/DL Hematocrit 39 L 40-54 % Mean Corpuscular Volume 96 80-99 FL Mean Corpuscular Hemoglobin 33 25-34 PG Mean Corpuscular Hemoglobin Concent 34 32-36 G/DL Red Cell Distribution Width 14.9 H 10.0-14.5 % Platelet Count 17 *L 130-400 10^3/uL Mean Platelet Volume 11.8 H 7.4-10.4 FL Neutrophils (%) (Auto) 76 H 42-75 % Lymphocytes (%) (Auto) 13 12-44 % Monocytes (%) (Auto) 10 0-12 % Eosinophils (%) (Auto) 1 0-10 % Basophils (%) (Auto) 0 0-10 % Neutrophils # (Auto) 3.5 1.8-7.8 X 10^3 Lymphocytes # (Auto) 0.6 L 1.0-4.0 X 10^3 Monocytes # (Auto) 0.5 0.0-1.0 X 10^3 Eosinophils # (Auto) 0.0 0.0-0.3 10^3/uL Basophils # (Auto) 0.0 0.0-0.1 10^3/uL Prothrombin Time 14.9 H 12.2-14.7 SEC INR Comment 1.1 0.8-1.4 Activated Partial Thromboplast Time 23 L 24-35 SEC Sodium Level 134 L 135-145 MMOL/L Potassium Level 3.1 L 3.6-5.0 MMOL/L Chloride Level 85 L 98-107 MMOL/L Carbon Dioxide Level 25 21-32 MMOL/L Anion Gap 24 H 5-14 MMOL/L Blood Urea Nitrogen 12 7-18 MG/DL Creatinine 0.78 0.60-1.30 MG/DL Estimat Glomerular Filtration Rate > 60 BUN/Creatinine Ratio 15 Glucose Level 282 H 70-105 MG/DL Calcium Level 9.4 8.5-10.1 MG/DL Corrected Calcium 9.2 8.5-10.1 MG/DL Magnesium Level 1.5 L 1.6-2.4 MG/DL Total Bilirubin 1.4 H 0.1-1.0 MG/DL Aspartate Amino Transf (AST/SGOT) 67 H 5-34 U/L Alanine Aminotransferase (ALT/SGPT) 75 H 0-55 U/L Alkaline Phosphatase 77 40-136 U/L Total Creatine Kinase 237 H 30-200 U/L Creatine Kinase MB 7.3 *H <6.6 NG/ML Myoglobin 215.0 H 10.0-92.0 NG/ML Troponin I < 0.028 <0.028 NG/ML B-Type Natriuretic Peptide < 10.0 <100.0 PG/ML Total Protein 6.9 6.4-8.2 GM/DL Albumin 4.3 3.2-4.5 GM/DL Amylase Level 15 L 25-125 U/L Lipase 12 8-78 U/L TSH [place] Testing 0.72 0.35-4.94 UIU/ML Acetaminophen Level < 10 L 10-30 UG/ML Serum Alcohol < 10 <10 MG/DL Blood Gas Puncture Site LEFT RADIAL Blood Gas Patient Temperature 36.3 Arterial Blood pH 7.47 H 7.37-7.43 Arterial Blood Partial Pressure CO2 45 35-45 MMHG Arterial Blood Partial Pressure O2 90 79-93 MMHG Arterial Blood HCO3 33 H 23-27 MMOL/L Arterial Blood Total CO2 34.0 H 21.0-31.0 MMOL/L Arterial Blood Oxygen Saturation 98 94-100 % Arterial Blood Base Excess 8.4 H -2.5-2.5 MMOL/L [place] Test P Blood Gas Ventilator Setting NO Blood Gas Inspired Oxygen 2L Glucometer 311 H 70-110 MG/DL Test 01/06/20 05:59 Range/Units Glucometer 299 H 70-110 MG/DL My Orders Orders - HENRY PRINCE DO Ed Iv/Invasive Line Start (01/06/20 03:57) Monitor-Rhythm Ecg Trace Only (01/06/20 03:57) Acetaminophen (01/06/20 03:57) Alcohol (01/06/20 03:57) Cbc With Automated Diff (01/06/20 03:57) Comprehensive Metabolic Panel (01/06/20 03:57) Drug Screen Stat (Urine) (01/06/20 03:57) Magnesium (01/06/20 03:57) Protime With Inr (01/06/20 03:57) Partial Thromboplastin Time (01/06/20 03:57) Ua Culture If Indicated (01/06/20 03:57) Ed Iv/Invasive Line Start (01/06/20 03:57) Lactated Ringers (Lr 1000 Ml Iv Solution (01/06/20 03:57) Ekg Tracing (01/06/20 04:11) O2 (01/06/20 04:11) Amylase (01/06/20 04:11) Arterial Blood Gas (01/06/20 04:11) BNP (01/06/20 04:11) Creatine Kinase (01/06/20 04:11) Creatine Kinase Mb (01/06/20 04:11) Lipase (01/06/20 04:11) Thyroid Analyzer (01/06/20 04:11) Myoglobin Serum (01/06/20 04:11) Troponin I (01/06/20 04:11) Ed Iv/Invasive Line Start (01/06/20 04:11) Aspirin Chewable Tablet (Baby Aspirin Ch (01/06/20 04:15) Diltiazem Injection (Cardizem Injection) (01/06/20 04:15) Diltiazem Drip Pre-Mix (Cardizem Drip Pr (01/06/20 04:15) Enoxaparin Injection (Lovenox Injection) (01/06/20 04:15) Chest 1 View, Ap/Pa Only (01/06/20 04:14) Insulin (Regular) Human (Humulin R (Per (01/06/20 04:45) 1/2 Ns W/Kcl 20 Meq/L (0.45% Sodium Chlo (01/06/20 04:45) Magnesium 1 Gm/100 Ml Ivpb (Magnesium [place] (01/06/20 04:45) Hepatitis Panel Acute (01/06/20 04:44) Hiv 1&2 Antibody (01/06/20 04:44) Ed Iv/Invasive Line Start (01/06/20 04:47) Ns Iv 1000 Ml (Sodium Chloride 0.9%) (01/06/20 04:47) Ns Iv 1000 Ml (Sodium Chloride 0.9%) (01/06/20 04:41) Digoxin Injection (Lanoxin Injection) (01/06/20 05:00) Magnesium Sulfate Inj (Magnesium Sulfate (01/06/20 04:48) Hemoglobin A1c (01/06/20 04:58) Ekg Tracing (01/06/20 05:06) Accucheck Stat ONCE (01/06/20 05:06) Insulin (Regular) Human (Humulin R (Per (01/06/20 05:15) Ekg Tracing (01/06/20 05:17) Ekg Tracing (01/06/20 05:59) Medications Given in ED Current Medications Medications Dose Ordered Sig/Ricardo Route Start Time Stop Time Status Last Admin Dose Admin Aspirin 324 mg ONCE ONCE PO 01/06/20 04:15 01/06/20 04:16 DC 01/06/20 04:21 324 MG Digoxin 0.25 mg ONCE ONCE IV 01/06/20 05:00 01/06/20 05:01 DC 01/06/20 04:55 0.25 MG Diltiazem HCl 20 mg ONCE ONCE IVP 01/06/20 04:15 01/06/20 04:16 DC 01/06/20 04:26 10 MG Insulin Human Regular 10 unit ONCE ONCE SC 01/06/20 04:45 01/06/20 05:33 DC 01/06/20 04:40 10 UNIT Lactated Ringer's 1,000 ml @ 0 mls/hr Q0M ONCE IV 01/06/20 03:57 01/06/20 03:59 DC 01/06/20 04:12 0 MLS/HR Vital Signs/I&O 01/06/20 04:00 Temp 36.3 Pulse 141 Resp 22 B/P (MAP) 150/85 (106) Pulse Ox 95 O2 Flow Rate 2.00 Capillary Refill : Less Than 3 Seconds Blood Pressure Mean: 106 Point of Care Testing Finger Stick Blood Glucose: 299 Progress Note : Progress Note PT NOTED TO BE IN AFIB WITH RVR ON ARRIVAL ASPIRIN GIVEN ON ARRIVAL, BUT LOVENOX WAS HELD AFTER RECEIVING LAB RESULTS OF SEVERE THROMBOCYTOPENIA. O2 SATS IN UPPER 90'S ON O2 AT 2L/NC THROUGHOUT STAY BP REMAINED IN 130'S/70'S THROUGHOUT STAY PT WAS GIVEN CARDIZEM BOLUS OF 20 MG AND PLACED ON CARDIZEM DRIP-TITRATED UP TO 20 MG/HR PT GIVEN DIGOXIN 0.25 MG HEART RATE DOWN TO 120'S, BUT STILL IN ATRIAL FIBRILLATION PT'S DYSPNEA DID IMPROVE DURING COURSE OF ER STAY, BUT STILL HAS SOME RESTING DY SPNEA--UNSURE WHAT IS PT'S NORMAL BASELINE IN REGARDS TO DYSPNEA. NO WHEEZING AT ANY TIME DURING ER STAY. NO COMPLAINT OF CHEST PAIN AT ANY TIME PT IS UNAWARE OF IRREGULAR OR RAPID HEART BEAT GIVEN INSULIN FOR ELEVATED BLOOD GLUCOSE STARTED ON IV MAGNESIUM FOR LOW MAG. LEVEL NO DETERIORATION IN PT'S CONDITION DURING ER STAY ECG Initial ECG Impression Date: Jan 06, 2020 Initial ECG Impression Time: 04:14 Initial ECG Rate: 168 Initial ECG Rhythm: A Fib/Flutter Initial ECG Impression: Atrial Fibrillation w/RVR EKG : EKG Time: 04:19 Rate: 142 Rhythm: A Fib/Flutter ECG Impression: Atrial Fibrillation w/RVR Comment EKG #3 AT 0508--RATE 135--A-FIB/RVR, UNCHANGED EKG #4 AT 0550--RATE 129--A-FIB/RVR, UNCHANGED. Diagnostic Imaging Comments CXR--MILD VASCULAR PROMINENCE, NO OVERT FAILURE OR INFILTRATE OR OTHER ACUTE PROCESS, PENDING RADIOLOGIST REVIEW Reviewed: Reviewed by Me Critical Care Note Critical Care Total Time (minutes) 45 Departure Communication (Admissions) 0447--SPOKE WITH DR. IBARRA, AREA FORESTER, HE AGREES WITH CONTINUATION OF CARDIZEM DRIP, AND ALSO AGREES WITH DOSE OF DIGOXIN AT THIS TIME. HE WILL SEE PT IN CONSULT THIS AM. HE ALSO AGREES THAT LOVENOX IS CONTRAINDICATED AT THIS TIME DUE TO SEVERE THROMBOCYTOPENIA, WITH OTHER CO-MORBIDITIES INCLUDING ESOPHAGEAL VARICES AND SPLENOMEGALY 0453--SPOKE WITH DR. SHI, HOSPITALIST [employer]. ACCEPTS PT FOR ADMIT. Impression Primary Impression: NEW DX OF ATRIAL FIBRILLATION WITH RVR Additional Impressions: NEW DX OF HYPERGLYCEMIA Cirrhosis COPD-- O2 DEPENDENT Thrombocytopenia Hypomagnesemia Tinea pedis Hypokalemia Chronic alcohol abuse Heavy cigarette smoker (20-39 per day) History of illicit drug use Disposition: ADMITTED INPATIENT Condition: Improved Admissions Decision to Admit Reason: Admit from ER (General) Decision to Admit/Date: Jan 06, 2020 Time/Decision to Admit Time: 06:00 Departure-Patient Inst. Referrals: [facility] (PCP) Primary Care Physician HENRY PRINCE DO Jan 06, 2020 06:25
[2020-01-06] MEDS ORDERED: 1/2 NS IV SOLUTION 1,000 ML IV PRN (06:27)
[2020-01-06] MEDS ORDERED: ANTACID SUSP 30 ML UDC (MYLANTA) PO PRN (06:30)
[2020-01-06] MEDS ORDERED: D5 1/2 NS 1000 ML IV SOLUTION 1,000 ML IV PRN (06:30)
[2020-01-06] MEDS ORDERED: LORazepam INJ 2 MG/ML (ATIVAN) VIAL IM/IV PRN (06:30)
[2020-01-06] MEDS ORDERED: SENNA W/DOCUSATE (SENOKOT S) TABLET PO PRN (06:30)
[2020-01-06] MEDS ORDERED: ONDANSETRON 4 MG/2 ML (SDV) Z0FRAN IV PRN (06:30)
[2020-01-06] MEDS: 1/2 NS W/KCL 20 MEQ/L 1,000 ML IV SCH ×2 (06:41→14:32)
--- NOTE | 2020-01-06 06:55 | Diagnostic Imaging Report ---
INDICATION: Shortness of breath COMPARISON: 06/02/2013 FINDINGS: Single view of the chest demonstrates cardiac enlargement with slight central vascular congestion. There is atelectasis in the left base. There is no pneumothorax. Osseous structures are stable. IMPRESSION: 1. Cardiac enlargement with slight central vascular congestion 2. Atelectasis left base. Follow-up recommended. Dictated by: Dictated on workstation # [id number]
[2020-01-06] MEDS: ONDANSETRON 4 MG/2 ML (SDV) Z0FRAN IV PRN (07:00)
[2020-01-06] MEDS: LORazepam INJ 2 MG/ML (ATIVAN) VIAL IV PRN ×3 (08:32→14:58)
[2020-01-06] MEDS: THIAMINE INJECTION 100 MG, FOLIC ACID INJECTION 1 MG, MAGNESIUM SULFATE 2 GM, VITAMIN M... IV SCH ×5 (08:32)
--- NOTE | 2020-01-06 08:49 | History & Physical-Hospitalist ---
History of Present Illness HPI/Chief Complaint Pt is a 59yoCM with a PMH of COPD, alcoholic cirrhosis, esophageal varices, tobacco abuse who presented to the ER due to "alcohol poisoning." He states that he has a long history of drinking and was sober for 6 years but went on a cross last week. He was drinking a fifth per day. His last drink was Saturday afternoon. He reports a history of alcohol withdrawal but denies any withdrawal seizures. He has been hospitalized multiple times in the past for complications of alcohol abuse and liver disease and thought that was the problem today. On arrival to the ER he was found to be in a-fib with RVR. He denies any history of this but states his heart has raced before in the past. he was admitted to the ICU on a cardizem gtt. This morning he complains of nausea but otherwise is feeling better. Source: patient Exam Limitations: no limitations Date Seen 01/06/20 Time Seen by a Provider: 08:26 Attending Physician Patricia Tellez MD [facility] Referring Physician Date of Admission Jan 06, 2020 at 05:00 Home Medications & Allergies Home Medications Reviewed patient Home Medication Reconciliation performed by pharmacy medication reconciliations hydrometeorological technician and/or nursing. Patients Allergies have been reviewed. Allergies Allergies Coded Allergies No Known Drug Allergies (Unverified03/09/14) Past Hogjohb-Eebpkx-Hvvieo Hx Past Med/Social Hx: Reviewed and Corrections made Patient Social History Alcohol Use: Regular Use (LONG STANDING ALCOHOL ABUSE--DAILY/HEAVY USE-AT LEAST A FIFTH OF HARD LIQUOR/DAY) Number of Drinks Today: 0 Alcohol Beverage of Choice: Other (HARD LIQUOR) Recreational Drug Use: Yes (THC, METH, COCAINE, "EVERYTHING" BUT DENIES HEROIN USE, OR IV DRUG USE) Drug of Choice: THC, METH, COCAINE, "EVERYTHING" BUT DENIES HEROIN USE OR IV DRUG USE Smoking Status: Current Everyday Smoker (1 1/2 PPD) Type Used: Cigarettes ( 1 1/2 PPD) Recent Foreign Travel: No Contact w/other who traveled: No Recent Hopitalizations: No Recent Infectious Disease Expo: No Seasonal Allergies Seasonal Allergies: No Past Medical History Surgeries: Abdominal Gastrointestinal: Liver Disease/Jaundice, Esophageal Varices, Cirrhosis, Gall Bladder Disease Psychosocial: Depression History of Blood Disorders: Yes (THROMBOCYTOPENIA SINCE AT LEAST 2013) Family History Congenital heart disease Diabetes mellitus 19 FATHER, Onset:Unknown Hypertension 19 FATHER, Onset:Unknown Review of Systems Constitutional: No chills, No fever; malaise EENTM: no symptoms reported Respiratory: No cough Cardiovascular: No chest pain, No edema, No Hx of Intervention; palpitations Gastrointestinal: No abdominal pain, No nausea, No vomiting Genitourinary: no symptoms reported Musculoskeletal: no symptoms reported Skin: no symptoms reported Psychiatric/Neurological: No Symptoms Reported Physical Exam Physical Exam Vital Signs Vital Signs - First Documented 01/06/20 01/06/20 04:00 08:45 Temp 36.3 Pulse 141 Resp 22 B/P (MAP) 150/85 (106) Pulse Ox 95 O2 Delivery Nasal Cannula O2 Flow Rate 2.00 FiO2 28 Capillary Refill : Less Than 3 Seconds Height, Weight, BMI Height: 5'10.00" Weight: 225lbs. 3.0oz. 102.449915my; 36.69 BMI Method:Stated General Appearance: No Apparent Distress, WD/WN, Obese HEENT: PERRL/EOMI, Moist Mucous Membranes; No Scleral Icterus (L), No Scleral Icterus (R) Neck: Normal Inspection, Supple; No Thyromegaly Respiratory: Lungs Clear, No Accessory Muscle Use, No Respiratory Distress Cardiovascular: No Murmur, Irregularly Irregular, Tachycardia Gastrointestinal: Normal Bowel Sounds, Non Tender, Soft Extremity: Swelling (2+ to bilateral calves) Neurologic/Psychiatric: Alert, Oriented x3, Normal Mood/Affect Skin: Normal Color, Warm/Dry Results Results/Procedures Labs Laboratory Tests 01/06/20 04:08 01/06/20 09:00 Patient resulted labs reviewed. Imaging Date of Exam:01/06/20 CHEST 1 VIEW, AP/PA ONLY INDICATION: Shortness of breath COMPARISON: 06/02/2013 FINDINGS: Single view of the chest demonstrates cardiac enlargement with slight central vascular congestion. There is atelectasis in the left base. There is no pneumothorax. Osseous structures are stable. IMPRESSION: 1. Cardiac enlargement with slight central vascular congestion 2. Atelectasis left base. Follow-up recommended. Assessment/Plan Admission Diagnosis A-fib with RVR- new onset Admission Status: Inpatient Order (span 2 midnights) Reason for Inpatient Admission: IV cardizem, needs echo, high risk for withdrawal Assessment and Plan A-fib with RVR- new onset Continue on cardizem Cardiology consulted, appreciate recs Echo Avoid anticoagulation due to severe thrombocytopenia Alcohol Withdrawal Alcoholic Cirrhosis CIWA protocol Mild transaminitis and hyperbilirubinemia Request records from [facility] COPD Continue home inhalers MAT protocol On 2lpm LA Clinical Quality Measures DVT/VTE Risk/Contraindication: Risk Factor Score Per Nursin RFS Level Per Nursing on Admit: 4+=Very High JOCELIN KINNEY MD Jan 06, 2020 08:49
[2020-01-06] MEDS ORDERED: URSO300C3 PO (08:58)
[2020-01-06] MEDS ORDERED: BUDE10.2 PO (08:58)
[2020-01-06] MEDS ORDERED: IPRA4AER PO (08:58)
[2020-01-06] MEDS ORDERED: RT-ALBUINH PO (08:58)
[2020-01-06] MEDS ORDERED: FURO20TA4 PO (08:58)
[2020-01-06] MEDS ORDERED: PROP20TA5 PO (08:58)
[2020-01-06] MEDS ORDERED: BUDE0.5A NEB (08:58)
[2020-01-06] MEDS ORDERED: THIAMINE INJECTION 100 MG, FOLIC ACID INJECTION 1 MG, MAGNESIUM SULFATE 2 GM, VITAMIN M... IV SCH ×5 (09:00)
[2020-01-06 09:07] LABS: HEMOGLOBIN 12.4 G/DL (13.3-17.7); MEAN PLATELET VOLUME 11.6 FL (7.4-10.4); RED CELL DISTRIBUTION WIDTH 14.9 % (10.0-14.5); WHITE BLOOD COUNT 4.8 10^3/uL (4.3-11.0)
[2020-01-06 09:21] LABS: CHLORIDE 88 MMOL/L (98-107); POTASSIUM 3.3 MMOL/L (3.6-5.0); SODIUM 134 MMOL/L (135-145)
[2020-01-06 09:22] LABS: CALCIUM 8.6 MG/DL (8.5-10.1)
[2020-01-06 09:23] LABS: GLUCOSE 263 MG/DL (70-105)
[2020-01-06 09:24] LABS: CARBON DIOXIDE 28 MMOL/L (21-32)
[2020-01-06 09:27] LABS: CREATININE SERUM 0.71 MG/DL (0.60-1.30); GFR ESTIMATED > 60
[2020-01-06 09:28] LABS: BUN/CREATININE RATIO 17
[2020-01-06] MEDS: RT-ALBUTEROL/IPRATROPIUM 3 ML (DUONEB) VIAL INH SCH ×4 (10:40→21:59)
--- NOTE | 2020-01-06 10:44 | NUR ---
CM/SS: Visited with pt as to plan for discharge Plan: Undetermined at this time. Pt came from home and lives alone. Summary: Pt reports he is waiting to see the heart doctor. He reports he just moved here from [place], [place] as he had family in the area and he stated drinking again and was having some issues with his breathing. Pt reports he has been to treatment in the past and that he has lived in detention houses and just made a mistakes after he lost his job with drinking. Pt reports being clean and sober for the last 6 years. Pt is unsure if he will be able to get another job or work, and He only request that he have information about disability and [facility]. This worker is able to provide information with the phone number for disability, and phone number for [facility], and their addiction program, and a handout on the effects of alcohol on the body. Pt reports having applied for unemployment. Pt seems tired and sleepy and thanks this worker for the information.
--- NOTE | 2020-01-06 10:47 | NUR ---
"RD ASSESSMENT PMHx: COPD; ETOH cirrhosis; jaundice; esophageal varices; tobacco use; polysubstance use (THC, meth) PT INTERACTION: Pt was awake and pleasant during nutrition assessment. Pt states current appetite is good, but it was poor yesterday. Note pt currently NPO per chart review. Pt states following a regular diet at home, and has no issues with chewing/swallowing food. Pt states some recent issues with nausea, but not of vomiting, constipation, or diarrhea. Pt states last BM was 01/05. Note pt currently on bowel regimen of Senna BID, per chart review. Pt states no recent wt changes. Note unable to determine recent wt hx, per chart review. ABNORMAL NUTRITION-RELATED LAB VALUES LOW: Na 134; K 3.1; Cl 85; Mg 1.5; amylase 15 HIGH: glu 282; bili 1.4; AST 67; ALT 75 Est. kcal needs: 5099-0387 kcal | 15-18 kcal/kg Est. Pro needs: 93-116 g Pro | 0.8-1.0 g Pro/kg PES STATEMENT: Inadequate oral intake (NI-2.1) related to loss of appetite | nausea | NPO status as evidenced by pt interview | chart review INTERVENTION: Note pt currently NPO. Would recommend advancing diet when medically able and as tolerated. Would recommend repletion of electrolytes and Mg, as current levels are abnormally low. Will continue to follow and reassess as pt needs, intake, and status change. MONITOR/EVALUATE: PO Intake; Plan of Care; Hydration Status; Weight Status; Lab Values Bony Kinney, MS, RD, LD"
[2020-01-06] MEDS ORDERED: C250T PO (11:00)
[2020-01-06] MEDS ORDERED: MULT-1136 PO (11:00)
[2020-01-06] MEDS ORDERED: TMSL.4C PO (11:05)
--- NOTE | 2020-01-06 11:06 | NUR ---
SPOKE WITH THE PT (ALSO SPOKE WITH HIS MOTHER LOIS-HE INDICATES SHE KNOWS HIS MEDS) WENT THRU THE EXT MED HISTORY AND CALLED [facility] TO COMPLETE THE MED REC 11-03-2019 TAMSULOSIN 0.4MG #60/60DS (THIS DOES NOT SHOW ON THE EXT MED HISTORY) ALL OTHER MEDICATIONS ARE SHOWN ON THE EXT MED HISTORY ALL HIS BREATHING TREATMENTS/INHALERS HE JUST USES PRN OTC MEDS: MTV VITAMIN C
[2020-01-06] MEDS ORDERED: RT-ALBUTEROL/IPRATROPIUM 3 ML (DUONEB) VIAL INH PRN (12:00)
--- NOTE | 2020-01-06 12:06 | Diagnostic Imaging Report ---
INDICATION: Dyspnea. Portable chest obtained at 1152 a.m. is compared to same day at 0454 a.m. Heart is mildly enlarged. There is central vascular prominence which is similar to the prior study. There is hyperinflation compatible with COPD. There are chronic appearing increased interstitial markings. There is no acute consolidation or pneumothorax or pleural fluid. IMPRESSION: Mild cardiomegaly and central vascular prominence. COPD changes with no discrete infiltrate or pneumothorax or pleural fluid. Dictated by: Dictated on workstation # [id number]
[2020-01-06] MEDS ORDERED: dilTIAZem120 MG (CARDIZEM CD) CAP PO ONE (12:12)
[2020-01-06] MEDS ORDERED: dilTIAZem120 MG (CARDIZEM CD) CAP PO SCH (12:15)
[2020-01-06] MEDS ORDERED: NS (IVPB) 0 ML ONE (13:41)
--- NOTE | 2020-01-06 13:48 | Consultation-Cardiology ---
HPI-Cardiology Cardiology Consultation: Date of Consultation 01/06/20 Date of Admission Attending Physician Patricia Tellez MD Admitting Physician [facility] [place] Consulting Physician Clemencia REBOLLAR MD HPI: Time Seen by a Provider: 12:00 Chief Complaint: Atrial fibrillation This is a 59-year-old gentleman who has past history of COPD, alcoholic cirrhosis, esophageal varices, active smoking who presented to the ER after binge drinking alcohol for 5 days. The patient also has history of alcohol abuse and alcohol withdrawal. He did tell me that he has been sober for 6 years. In the ER he was found to be tachycardic and was diagnosed with atrial fibrillation with RVR. He denies having atrial fibrillation in the past. He was started on Cardizem infusion and transferred to the ICU. He denies any chest pain, syncope, near-syncope or shortness of breath. Pertinent family history is negative. Review of Systems-Cardiology Review of Systems Constitutional: As described under HPI; No As described under HPI, No no symptoms reported, No chills, No fever, No lightheadedness Eyes: No As described under HPI, No no symptoms reported, No blindness, No blurred vision, No contact lenses, No drainage, No decreased acuity, No foreign body sensation, No pain, No vision change Ears/Nose/Throat: No As described under HPI, No no symptoms reported, No chronic hearing loss, No ear discharge, No ear pain, No nasal drainage, No ulcerations Respiratory: No no symptoms reported; As described under HPI; No As described under HPI, No cough, No orthopnea, No shortness of breath, No SOB with excertion Cardiovascular: No no symptoms reported; As described under HPI; No As described under HPI, No chest pain, No edema, No irregular heart rate, No lightheadedness; palpitations Gastrointestinal: No no symptoms reported, No As described under HPI, No abdomen distended, No abdominal pain, No blood streaked bowels, No constipation, No diarrhea, No nausea, No vomiting, No stool coloration changes Genitourinary: No As described under HPI, No burning, No dysuria, No discharge, No frequency, No flank pain, No hematuria, No urgency Skin: No rash, No skin related problems, No ulcerations Psychiatric/Neurological: No anxiety, No depression, No seizure, No focal weakness, No syncope Hematologic: No bleeding abnormalities [id number] Hx Patient Social History Alcohol Use: Regular Use (LONG STANDING ALCOHOL ABUSE--DAILY/HEAVY USE-AT LEAST A FIFTH OF HARD LIQUOR/DAY) Recreational Drug Use: Yes (THC, METH, COCAINE, "EVERYTHING" BUT DENIES HEROIN USE, OR IV DRUG USE) Drug of Choice: THC, METH, COCAINE, "EVERYTHING" BUT DENIES HEROIN USE OR IV DRUG USE Smoking Status: Current Everyday Smoker (1 1/2 PPD) Type Used: Cigarettes ( 1 /2 PPD) Recent Foreign Travel: No Recent Infectious Disease Expo: No Hospitalization with Isolation: Denies Past Medical History PMH As described under Assessment. Family Medical History Family History: Congenital heart disease Diabetes mellitus 19 FATHER, Onset:Unknown Hypertension 19 FATHER, Onset:Unknown Allergies and Home Medications Allergies Coded Allergies: No Known Drug Allergies (Unverified , 03/09/14) Home Medications Albuterol Sulfate 1 Puff Puff, 2 PUFF PO Q4H PRN for SHORTNESS OF BREATH, (Reported) Albuterol/Ipratropium 4 Gm Aero, 1 PUFF PO QID PRN for SHORTNESS OF BREATH, (Reported) Ascorbic Acid 250 Mg Tab, 250 MG PO DAILY, (Reported) Budesonide 0.5 Mg/2 Ml Ampul.neb, 1 VIAL NEB BID PRN for SHORTNESS OF BREATH, (Reported) Budesonide/Formoterol Fumarate 10.2 Gm Hfa.aer.ad, 2 PUFF PO BID PRN for SHORTNESS OF BREATH, (Reported) Furosemide 20 Mg Tablet, 20 MG PO DAILY, (Reported) Multivitamin 1 Each Tablet, 1 EACH PO DAILY, (Reported) Propranolol HCl 20 Mg Tablet, 20 MG PO BID, (Reported) Tamsulosin HCl 0.4 Mg Cap, 0.4 MG PO DAILY, (Reported) Ursodiol 300 Mg Capsule, 300 MG PO BID, (Reported) Patient Home Medication List Home Medication List Reviewed: Yes Physical Exam-Cardiology Physical Exam Vital Signs/I&O 01/08/20 01/08/20 01/08/20 01/08/20 03:36 04:00 05:00 05:50 Pulse 104 111 109 Resp 15 20 B/P (MAP) 143/68 (93) 144/87 (106) 133/111 Pulse Ox 93 96 O2 Delivery Nasal Cannula Nasal Cannula Nasal Cannula O2 Flow Rate 2.50 2.50 2.50 01/08/20 01/08/20 01/08/20 01/08/20 06:00 06:03 06:41 07:00 Pulse 108 111 100 101 Resp 17 13 B/P (MAP) 143/82 (102) 143/82 163/74 (103) Pulse Ox 96 94 O2 Delivery Nasal Cannula Nasal Cannula O2 Flow Rate 2.50 2.50 01/08/20 01/08/20 01/08/20 01/08/20 07:16 07:55 08:00 08:00 Temp 35.8 Pulse 98 Resp 12 B/P (MAP) 166/65 (98) Pulse Ox 95 94 O2 Delivery Nasal Cannula Nasal Cannula Nasal Cannula O2 Flow Rate 2.00 2.50 2.00 01/08/20 01/08/20 01/08/20 01/08/20 09:00 10:00 10:39 10:56 Temp 35.8 Pulse 114 112 115 Resp 27 18 B/P (MAP) 137/90 (106) 144/84 (104) Pulse Ox 98 96 96 97 O2 Delivery Nasal Cannula Nasal Cannula Nasal Cannula O2 Flow Rate 2.50 2.50 2.00 FiO2 28 01/08/20 01/08/20 01/08/20 01/08/20 11:00 12:00 12:00 12:00 Temp 35.8 Pulse 116 126 Resp 12 14 B/P (MAP) 142/73 (96) 153/114 (127) Pulse Ox 94 90 O2 Delivery Nasal Cannula Nasal Cannula Nasal Cannula O2 Flow Rate 2.50 2.50 2.00 01/08/20 01/08/20 01/08/20 12:44 13:00 14:00 Pulse 121 116 121 Resp 17 21 B/P (MAP) 162/81 (108) 129/54 (79) Pulse Ox 95 98 O2 Delivery Nasal Cannula Nasal Cannula O2 Flow Rate 2.50 2.50 01/08/20 00:00 Intake Total 1760 ml Output Total 1625 ml Balance 135 ml Capillary Refill : Less Than 3 Seconds Constitutional: appears stated age, AAO x 3; No apparent distress; well- developed, well-nourished HEENT: PERRL; No discharge; hearing is well preserved, oral hygience is good; No ulceration, No xanthelasmas are seen Neck: No carotid bruit; carotid pulses are 2 + bilaterally Respiratory: chest is bilaterally symmetric, lungs clear to auscultation Cardiovascular: regular rate-rhythm, tachycardia, S1 and S2 Gastrointestinal: soft, audible bowel sounds; No spleenomegaly Rectal: deferred Extremities: normal range of motion, non-tender, normal inspection; No clubbing, No cyanosis; no lower extremity edema bilateral; No significant edema Neurologic/Psychiatric: no motor/sensory deficits, alert, normal mood/affect, oriented x 3, power is 5/5 both on sides Skin: normal color; No rash, No ulcerations Data Review Labs Laboratory Tests 01/07/20 16:05: Glucometer 286H 01/07/20 20:20: Glucometer 308H 01/08/20 03:00: White Blood Count 2.6L, Red Blood Count 2.78L, Hemoglobin 9.2L, Hematocrit 28L, Mean Corpuscular Volume 101H, Mean Corpuscular Hemoglobin 33, Mean Corpuscular Hemoglobin Concent 33, Red Cell Distribution Width 16.6H, Platelet Count 15*L, Mean Platelet Volume , Neutrophils (%) (Auto) 65, Lymphocytes (%) (Auto) 21, Monocytes (%) (Auto) 12, Eosinophils (%) (Auto) 3, Basophils (%) (Auto) 0, Neutrophils # (Auto) 1.7L, Lymphocytes # (Auto) 0.5L, Monocytes # (Auto) 0.3, Eosinophils # (Auto) 0.1, Basophils # (Auto) 0.0, Sodium Level 135, Potassium Level 3.7, Chloride Level 95L, Carbon Dioxide Level 32, Anion Gap 8, Blood Urea Nitrogen 13, Creatinine 0.56L, Estimat Glomerular Filtration Rate > 60, BUN/Creatinine Ratio 23, Glucose Level 250H, Calcium Level 8.2L, Corrected Calcium 8.8, Phosphorus Level 1.1L, Magnesium Level 2.1, Total Bilirubin 0.7, Aspartate Amino Transf (AST/SGOT) 55H, Alanine Aminotransferase (ALT/SGPT) 69H, Alkaline Phosphatase 55, Total Protein 5.2L, Albumin 3.3 01/08/20 05:54: Glucometer 266H 01/08/20 10:47: Glucometer 337H Microbiology 01/06/20 MRSA Screen - Final, Complete MRSA not isolated ECG Impression ECG Initial ECG Rhythm: S.Tach A/P-Cardiology Assessment/Admission Diagnosis Acute alcohol withdrawal, Atrial fibrillation with RVR, Anemia, Alcoholic cirrhosis, History of esophageal varices Plan Acute alcohol withdrawal, defer to the primary team. The patient is currently in sinus tachycardia which is likely due to alcohol withdrawal. Atrial fibrillation with RVR, he was started on Cardizem infusion overnight. He converted to sinus rhythm spontaneously. He is currently in sinus tachycardia due to alcohol withdrawal. Echocardiogram. Anemia, Alcoholic cirrhosis, History of esophageal varices Thank you for your consultation. Please call me if you have any questions. Ajay Rebollar MD, FACP, FACC, FSCAI, FHRS, CCDS Interventional Cardiology Cardiac Electrophysiology Vascular Medicine and Endovascular Interventions Clinical Quality Measures DVT/VTE Risk/Contraindication: Risk Factor Score Per Nursin RFS Level Per Nursing on Admit: 4+=Very High Clemencia REBOLLAR MD Jan 06, 2020 13:48
[2020-01-06] MEDS: inSUlin ASPART (NovoLOG) 1 UNIT/0.01 ML (CHARGE PER UNIT) SC SCH ×2 (13:56→17:49)
[2020-01-06] MEDS: DexMEDEtomidine 250 ML DRIP 250 ML IV SCH (14:28)
[2020-01-06] MEDS: APIXABAN 5 MG (ELIQUIS) TABLET PO SCH (20:14)
--- NOTE | 2020-01-06 20:30 | NUR ---
Pt up to urinal for second time since 1900. Pt desating into lower 80's, heart rate increasing to 120's/130's upon exertion, pt reports feeling groggy, decision made to place Solor[facility], see interventions.
[2020-01-06 21:36] LABS: HEPATITIS C ANTIBODY C Non-Reactive (Non-Reactive)
[2020-01-07] VITALS (24 sets, daily range): BP systolic 101–158; BP diastolic 46–100
[2020-01-07] MEDS: 1/2 NS W/KCL 20 MEQ/L 1,000 ML IV SCH ×3 (00:29→16:46)
[2020-01-07] MEDS: inSUlin ASPART (NovoLOG) 1 UNIT/0.01 ML (CHARGE PER UNIT) SC SCH ×5 (00:31→20:23)
[2020-01-07] MEDS: RT-ALBUTEROL/IPRATROPIUM 3 ML (DUONEB) VIAL INH SCH ×6 (02:11→23:57)
[2020-01-07 03:01] LABS: BASOPHILS % (AUTO) 0 % (0-10); EOSINOPHILS # (AUTO) 0.1 10^3/uL (0.0-0.3); EOSINOPHILS % (AUTO) 3 % (0-10); HEMATOCRIT 31 % (40-54); LYMPHOCYTES # (AUTO) 0.5 X 10^3 (1.0-4.0); LYMPHOCYTES % (AUTO) 16 % (12-44); MEAN CORPUSCULAR HEMOGLOBIN 32 PG (25-34); MEAN CORPUSCULAR HGB CONC 32 G/DL (32-36); MEAN CORPUSCULAR VOLUME 100 FL (80-99); MONOCYTES # (AUTO) 0.4 X 10^3 (0.0-1.0); MONOCYTES % (AUTO) 10 % (0-12); NEUTROPHILS # (AUTO) 2.4 X 10^3 (1.8-7.8); NEUTROPHILS % (AUTO) 71 % (42-75); RED CELL DISTRIBUTION WIDTH 15.9 % (10.0-14.5); WHITE BLOOD COUNT 3.4 10^3/uL (4.3-11.0)
[2020-01-07 03:06] LABS: PLATELET COUNT 16 10^3/uL (130-400)
[2020-01-07 03:24] LABS: ALANINE AMINOTRANSFERASE 70 U/L (0-55); ALBUMIN 3.5 GM/DL (3.2-4.5); ALKALINE PHOSPHATASE 57 U/L (40-136); BILIRUBIN,TOTAL 0.9 MG/DL (0.1-1.0); BUN/CREATININE RATIO 30; CALCIUM 7.8 MG/DL (8.5-10.1); CARBON DIOXIDE 29 MMOL/L (21-32); CHLORIDE 92 MMOL/L (98-107); CREATININE SERUM 0.66 MG/DL (0.60-1.30); GFR ESTIMATED > 60; GLUCOSE 257 MG/DL (70-105); MAGNESIUM 2.1 MG/DL (1.6-2.4); PHOSPHORUS 1.3 MG/DL (2.3-4.7); POTASSIUM 3.8 MMOL/L (3.6-5.0); SODIUM 135 MMOL/L (135-145); TOTAL PROTEIN 5.3 GM/DL (6.4-8.2)
[2020-01-07] MEDS: POTASSIUM CL 10MEQ/50ML IVPB 50 ML IV SCH (05:23)
[2020-01-07] MEDS: MAGNESIUM 1 GM/100 ML IVPB 100 ML IV SCH (05:23)
[2020-01-07] MEDS: KCL 20 MEQ TAB (K-DUR) PO SCH (05:24)
[2020-01-07] MEDS: APIXABAN 5 MG (ELIQUIS) TABLET PO SCH ×2 (08:33→20:18)
[2020-01-07] MEDS: THIAMINE INJECTION 100 MG, FOLIC ACID INJECTION 1 MG, MAGNESIUM SULFATE 2 GM, VITAMIN M... IV SCH ×5 (08:34)
[2020-01-07] MEDS: dilTIAZem120 MG (CARDIZEM CD) CAP PO SCH (08:34)
[2020-01-07] MEDS: LORazepam 1 MG (ATIVAN) TAB PO PRN ×2 (09:10→11:56)
[2020-01-07] MEDS: ONDANSETRON 4 MG (ZOFRAN) ORAL DISSOLVE TAB SL PRN (09:11)
--- NOTE | 2020-01-07 11:57 | Progress Note - Hospitalist ---
Subjective HPI/CC On Admission Date Seen by Provider: Jan 07, 2020 Time Seen by Provider: 11:53 Pt is a 59yoCM with a PMH of COPD, alcoholic cirrhosis, esophageal varices, tobacco abuse who presented to the ER due to "alcohol poisoning." He states that he has a long history of drinking and was sober for 6 years but went on a cross last week. He was drinking a fifth per day. His last drink was Saturday afternoon. He reports a history of alcohol withdrawal but denies any withdrawal seizures. He has been hospitalized multiple times in the past for complications of alcohol abuse and liver disease and thought that was the problem today. On arrival to the ER he was found to be in a-fib with RVR. He denies any history of this but s tates his heart has raced before in the past. he was admitted to the ICU on a cardizem gtt. This morning he complains of nausea but otherwise is feeling better. Subjective/Events-last exam Pt reports feeling better today. Still gets SOB with ambulation. Heart rate much improved. Off precedex. Focused Exam Lactate Level 01/06/20 06:50: Lactic Acid Level 2.09*H 01/06/20 09:00: Lactic Acid Level 1.47 Objective Exam Vital Signs Vital Signs Date Time Temp Pulse Resp B/P (MAP) Pulse Ox O2 Delivery O2 Flow Rate FiO2 01/08/20 07:55 35.8 01/08/20 07:16 95 Nasal Cannula 2.00 01/08/20 06:41 100 01/08/20 06:03 143/82 01/08/20 06:00 17 01/06/20 08:45 28 Capillary Refill : Less Than 3 Seconds General Appearance: No Apparent Distress, Obese Respiratory: Lungs Clear, No Respiratory Distress Cardiovascular: No Murmur, Tachycardia Gastrointestinal: Normal Bowel Sounds, Non Tender, Soft Neurologic/Psychiatric: Alert, Oriented x3 Results/Procedures Lab Laboratory Tests 01/08/20 03:00 Patient resulted labs reviewed. Assessment/Plan Assessment and Plan Assess & Plan/Chief Complaint A-fib with RVR- resolved Continue on cardizem orally Cardiology consulted, appreciate recs Echo reveals preserved EF and grade 1 diastolic dysfunction Avoid anticoagulation due to severe thrombocytopenia Alcohol Withdrawal Alcoholic Cirrhosis Macrocytic anemia CIWA protocol, now off precedex Mild transaminitis and hyperbilirubinemia Request records from [facility] social work professor consulted COPD Continue home inhalers MAT protocol On 2lpm NC- titrate as able NIDDMII Hyperglycemia No known diagnosis of DM A1c 8.0 Will need Metformin on discharge Clinical Quality Measures DVT/VTE Risk/Contraindication: Risk Factor Score Per Nursin RFS Level Per Nursing on Admit: 4+=Very High JOCELIN KINNEY MD Jan 07, 2020 11:57
--- NOTE | 2020-01-07 15:26 | NUR ---
CM/SS: Telephone Call from Vonnie (Mother of pt) [phone] - She expresses concern for pt as to his plan for discharge. She expressed concerns as to pt's medical condition and his drinking alcohol use. She asked about his discharge plan - At this point pt would be able to return home, undetermined at this time as to other needs related to medication or services. She verbalizes understanding, and just would like for pt to get some help with is drinking. She is requesting some feedback as to what services can help him locally. This worker provides her with some information. She continues to express concern as to pt. She would like to know when pt will be discharged. This worker will follow up once a date of discharge has been determined. She verbalizes understanding.
--- NOTE | 2020-01-07 22:22 | Cardiology Progress Note ---
Cardiology SOAP Progress Note Subjective: No cardiac complaints. Objective: I&O/Vital Signs 01/08/20 01/08/20 01/08/20 01/08/20 03:36 04:00 05:00 05:50 Pulse 104 111 109 Resp 15 20 B/P (MAP) 143/68 (93) 144/87 (106) 133/111 Pulse Ox 93 96 O2 Delivery Nasal Cannula Nasal Cannula Nasal Cannula O2 Flow Rate 2.50 2.50 2.50 01/08/20 01/08/20 01/08/20 01/08/20 06:00 06:03 06:41 07:00 Pulse 108 111 100 101 Resp 17 13 B/P (MAP) 143/82 (102) 143/82 163/74 (103) Pulse Ox 96 94 O2 Delivery Nasal Cannula Nasal Cannula O2 Flow Rate 2.50 2.50 01/08/20 01/08/20 01/08/20 01/08/20 07:16 07:55 08:00 08:00 Temp 35.8 Pulse 98 Resp 12 B/P (MAP) 166/65 (98) Pulse Ox 95 94 O2 Delivery Nasal Cannula Nasal Cannula Nasal Cannula O2 Flow Rate 2.00 2.50 2.00 01/08/20 01/08/20 01/08/20 01/08/20 09:00 10:00 10:39 10:56 Temp 35.8 Pulse 114 112 115 Resp 27 18 B/P (MAP) 137/90 (106) 144/84 (104) Pulse Ox 98 96 96 97 O2 Delivery Nasal Cannula Nasal Cannula Nasal Cannula O2 Flow Rate 2.50 2.50 2.00 FiO2 28 01/08/20 01/08/20 01/08/20 01/08/20 11:00 12:00 12:00 12:00 Temp 35.8 Pulse 116 126 Resp 12 14 B/P (MAP) 142/73 (96) 153/114 (127) Pulse Ox 94 90 O2 Delivery Nasal Cannula Nasal Cannula Nasal Cannula O2 Flow Rate 2.50 2.50 2.00 01/08/20 01/08/20 01/08/20 12:44 13:00 14:00 Pulse 121 116 121 Resp 17 21 B/P (MAP) 162/81 (108) 129/54 (79) Pulse Ox 95 98 O2 Delivery Nasal Cannula Nasal Cannula O2 Flow Rate 2.50 2.50 01/08/20 00:00 Intake Total 1760 ml Output Total 1625 ml Balance 135 ml Weight (Pounds): 225 Weight (Ounces): 3.0 Weight (Calculated Kilograms): 102.859234 Constitutional: AAO x 3 Respiratory: chest is bilaterally symmetric, lungs clear to auscultation Cardiovascular: regular rate-rhythm, tachycardia, S1 and S2 Gastrointestional: soft, audible bowel sounds Extremities: normal range of motion, non-tender, normal inspection, no lower extremity edema bilateral Neurologic/Psychiatric: alert Results/Procedures: Labs Laboratory Tests 01/07/20 16:05: Glucometer 286H 01/07/20 20:20: Glucometer 308H 01/08/20 03:00: White Blood Count 2.6L, Red Blood Count 2.78L, Hemoglobin 9.2L, Hematocrit 28L, Mean Corpuscular Volume 101H, Mean Corpuscular Hemoglobin 33, Mean Corpuscular Hemoglobin Concent 33, Red Cell Distribution Width 16.6H, Platelet Count 15*L, Mean Platelet Volume , Neutrophils (%) (Auto) 65, Lymphocytes (%) (Auto) 21, Mo nocytes (%) (Auto) 12, Eosinophils (%) (Auto) 3, Basophils (%) (Auto) 0, Neutrophils # (Auto) 1.7L, Lymphocytes # (Auto) 0.5L, Monocytes # (Auto) 0.3, Eosinophils # (Auto) 0.1, Basophils # (Auto) 0.0, Sodium Level 135, Potassium Level 3.7, Chloride Level 95L, Carbon Dioxide Level 32, Anion Gap 8, Blood Urea Nitrogen 13, Creatinine 0.56L, Estimat Glomerular Filtration Rate > 60, BUN/Creatinine Ratio 23, Glucose Level 250H, Calcium Level 8.2L, Corrected Calcium 8.8, Phosphorus Level 1.1L, Magnesium Level 2.1, Total Bilirubin 0.7, Aspartate Amino Transf (AST/SGOT) 55H, Alanine Aminotransferase (ALT/SGPT) 69H, Alkaline Phosphatase 55, Total Protein 5.2L, Albumin 3.3 01/08/20 05:54: Glucometer 266H 01/08/20 10:47: Glucometer 337H Microbiology 01/06/20 MRSA Screen - Final, Complete MRSA not isolated A/P: Assessment/Dx: Acute alcohol withdrawal, Atrial fibrillation with RVR, Anemia, Alcoholic cirrhosis, History of esophageal varices Plan: Acute alcohol withdrawal, defer to the primary team. The patient is currently in sinus tachycardia which is likely due to alcohol withdrawal. Atrial fibrillation with RVR, He converted to sinus rhythm spontaneously. He is currently in sinus tachycardia due to alcohol withdrawal. Echocardiogram shows normal LV function. Anemia, Alcoholic cirrhosis, History of esophageal varices Thank you for your consultation. Please call me if you have any questions. Ajay Rebollar MD, FACP, FACC, FSCAI, FHRS, CCDS Interventional Cardiology Cardiac Electrophysiology Vascular Medicine and Endovascular Interventions Focused Exam Lactate Level 01/06/20 06:50: Lactic Acid Level 2.09*H 01/06/20 09:00: Lactic Acid Level 1.47 Clemencia REBOLLAR MD Jan 07, 2020 22:22
[2020-01-07] MEDS: DexMEDEtomidine 250 ML DRIP 250 ML IV SCH (23:45)
[2020-01-08] VITALS (23 sets, daily range): BP systolic 121–166; BP diastolic 54–114
[2020-01-08] MEDS: ONDANSETRON 4 MG/2 ML (SDV) Z0FRAN IV PRN ×3 (00:12→15:01)
[2020-01-08] MEDS: 1/2 NS W/KCL 20 MEQ/L 1,000 ML IV SCH ×4 (00:12→19:38)
[2020-01-08] MEDS: RT-ALBUTEROL/IPRATROPIUM 3 ML (DUONEB) VIAL INH SCH ×6 (02:35→22:12)
[2020-01-08] MEDS: LORazepam INJ 2 MG/ML (ATIVAN) VIAL IV PRN ×2 (03:16→06:08)
[2020-01-08 03:30] LABS: BASOPHILS % (AUTO) 0 % (0-10); EOSINOPHILS # (AUTO) 0.1 10^3/uL (0.0-0.3); EOSINOPHILS % (AUTO) 3 % (0-10); HEMATOCRIT 28 % (40-54); HEMOGLOBIN 9.2 G/DL (13.3-17.7); LYMPHOCYTES # (AUTO) 0.5 X 10^3 (1.0-4.0); LYMPHOCYTES % (AUTO) 21 % (12-44); MEAN CORPUSCULAR HEMOGLOBIN 33 PG (25-34); MEAN CORPUSCULAR HGB CONC 33 G/DL (32-36); MEAN CORPUSCULAR VOLUME 101 FL (80-99); MONOCYTES # (AUTO) 0.3 X 10^3 (0.0-1.0); MONOCYTES % (AUTO) 12 % (0-12); NEUTROPHILS # (AUTO) 1.7 X 10^3 (1.8-7.8); NEUTROPHILS % (AUTO) 65 % (42-75); RED CELL DISTRIBUTION WIDTH 16.6 % (10.0-14.5); WHITE BLOOD COUNT 2.6 10^3/uL (4.3-11.0)
[2020-01-08 04:08] LABS: PLATELET COUNT 15 10^3/uL (130-400)
[2020-01-08 04:28] LABS: ALANINE AMINOTRANSFERASE 69 U/L (0-55); ALBUMIN 3.3 GM/DL (3.2-4.5); ALKALINE PHOSPHATASE 55 U/L (40-136); BILIRUBIN,TOTAL 0.7 MG/DL (0.1-1.0); BUN/CREATININE RATIO 23; CALCIUM 8.2 MG/DL (8.5-10.1); CARBON DIOXIDE 32 MMOL/L (21-32); CHLORIDE 95 MMOL/L (98-107); CREATININE SERUM 0.56 MG/DL (0.60-1.30); GFR ESTIMATED > 60; GLUCOSE 250 MG/DL (70-105); MAGNESIUM 2.1 MG/DL (1.6-2.4); PHOSPHORUS 1.1 MG/DL (2.3-4.7); POTASSIUM 3.7 MMOL/L (3.6-5.0); SODIUM 135 MMOL/L (135-145); TOTAL PROTEIN 5.2 GM/DL (6.4-8.2)
[2020-01-08] MEDS: MAGNESIUM 1 GM/100 ML IVPB 100 ML IV SCH (04:33)
[2020-01-08] MEDS: POTASSIUM CL 10MEQ/50ML IVPB 50 ML IV SCH (04:33)
[2020-01-08] MEDS: KCL 20 MEQ TAB (K-DUR) PO SCH (04:33)
[2020-01-08] MEDS: inSUlin ASPART (NovoLOG) 1 UNIT/0.01 ML (CHARGE PER UNIT) SC SCH ×4 (05:57→20:11)
--- NOTE | 2020-01-08 09:38 | Progress Note - Hospitalist ---
Subjective HPI/CC On Admission Date Seen by Provider: Jan 08, 2020 Time Seen by Provider: 09:35 Pt is a 59yoCM with a PMH of COPD, alcoholic cirrhosis, esophageal varices, tobacco abuse who presented to the ER due to "alcohol poisoning." He states that he has a long history of drinking and was sober for 6 years but went on a cross last week. He was drinking a fifth per day. His last drink was Saturday afternoon. He reports a history of alcohol withdrawal but denies any withdrawal seizures. He has been hospitalized multiple times in the past for complications of alcohol abuse and liver disease and thought that was the problem today. On arrival to the ER he was found to be in a-fib with RVR. He denies any history of this but s tates his heart has raced before in the past. he was admitted to the ICU on a cardizem gtt. This morning he complains of nausea but otherwise is feeling better. Subjective/Events-last exam Pt reports feeling better today. Still sleepy. Went back on precedex last night. States he is hungry but no other complaints. Focused Exam Lactate Level 01/06/20 06:50: Lactic Acid Level 2.09*H 01/06/20 09:00: Lactic Acid Level 1.47 Objective Exam Vital Signs Vital Signs Date Time Temp Pulse Resp B/P (MAP) Pulse Ox O2 Delivery O2 Flow Rate FiO2 01/08/20 07:55 35.8 01/08/20 07:16 95 Nasal Cannula 2.00 01/08/20 06:41 100 01/08/20 06:03 143/82 01/08/20 06:00 17 01/06/20 08:45 28 Capillary Refill : Less Than 3 Seconds General Appearance: No Apparent Distress, Chronically ill Respiratory: Lungs Clear, No Respiratory Distress Cardiovascular: No Murmur, Tachycardia Gastrointestinal: Normal Bowel Sounds, Soft Neurologic/Psychiatric: Alert, Oriented x3 Results/Procedures Lab Laboratory Tests 01/08/20 03:00 Patient resulted labs reviewed. Assessment/Plan Assessment and Plan Assess & Plan/Chief Complaint Alcohol Withdrawal Alcoholic Cirrhosis Macrocytic anemia CIWA protocol, was placed back on precedex yesterday Attempt to wean off today Mild transaminitis and hyperbilirubinemia Request records from [facility]- still awaiting this information social and human services assistant consulted, appreciate recs A-fib with RVR- resolved Continue on cardizem orally Cardiology consulted, appreciate recs Echo reveals preserved EF and grade 1 diastolic dysfunction Avoid anticoagulation due to severe thrombocytopenia COPD Continue home inhalers MAT protocol On 2lpm NC- titrate as able NIDDMII Hyperglycemia No known diagnosis of DM A1c 8.0 Will need Metformin on discharge Diagnosis/Problems Diagnosis/Problems (1) Alcohol withdrawal Qualifiers: Complication of substance-induced condition: with unspecified complication Qualified Codes: F10.239 - Alcohol dependence with withdrawal, unspecified (2) Thrombocytopenia (3) Cirrhosis Qualifiers: Hepatic cirrhosis type: alcoholic cirrhosis (4) History of illicit drug use Status: Acute (5) Chronic alcohol abuse Status: Acute (6) Atrial fibrillation with RVR (7) Tobacco abuse (8) Hyperglycemia (9) COPD (chronic obstructive pulmonary disease) Qualifiers: COPD type: unspecified COPD Qualified Codes: J44.9 - Chronic obstructive pulmonary disease, unspecified Clinical Quality Measures DVT/VTE Risk/Contraindication: Risk Factor Score Per Nursin RFS Level Per Nursing on Admit: 4+=Very High JOCELIN KINNEY MD Jan 08, 2020 09:38
[2020-01-08] MEDS: dilTIAZem120 MG (CARDIZEM CD) CAP PO SCH (09:43)
[2020-01-08] MEDS: APIXABAN 5 MG (ELIQUIS) TABLET PO SCH ×2 (09:43→20:10)
[2020-01-08] MEDS: THIAMINE INJECTION 100 MG, FOLIC ACID INJECTION 1 MG, MAGNESIUM SULFATE 2 GM, VITAMIN M... IV SCH ×5 (10:00)
--- NOTE | 2020-01-08 10:22 | NUR ---
CM/SS: Visited with pt as to plan discharge Plan: Pt to return home when deemed appropriate Summary: Pt seems to be lethargic and a little confused on this date. Pt ask what day it is. He is told Saturday, he just shakes his head. Pt reports not feeling as good today. Pt is encouraged that we want him to feel better before going home. Pt again drifts off back to sleep. This worker talks with the RN and she reports that pt was agitated in the night, and received medication. Pt will remain in the hospital today and through the weekend, for possible discharge for Saturday. This worker will follow up.
--- NOTE | 2020-01-08 15:16 | Cardiology Progress Note ---
Cardiology SOAP Progress Note Subjective: Sleepy today. Objective: I&O/Vital Signs 01/08/20 01/08/20 01/08/20 01/08/20 03:36 04:00 05:00 05:50 Pulse 104 111 109 Resp 15 20 B/P (MAP) 143/68 (93) 144/87 (106) 133/111 Pulse Ox 93 96 O2 Delivery Nasal Cannula Nasal Cannula Nasal Cannula O2 Flow Rate 2.50 2.50 2.50 01/08/20 01/08/20 01/08/20 01/08/20 06:00 06:03 06:41 07:00 Pulse 108 111 100 101 Resp 17 13 B/P (MAP) 143/82 (102) 143/82 163/74 (103) Pulse Ox 96 94 O2 Delivery Nasal Cannula Nasal Cannula O2 Flow Rate 2.50 2.50 01/08/20 01/08/20 01/08/20 01/08/20 07:16 07:55 08:00 08:00 Temp 35.8 Pulse 98 Resp 12 B/P (MAP) 166/65 (98) Pulse Ox 95 94 O2 Delivery Nasal Cannula Nasal Cannula Nasal Cannula O2 Flow Rate 2.00 2.50 2.00 01/08/20 01/08/20 01/08/20 01/08/20 09:00 10:00 10:39 10:56 Temp 35.8 Pulse 114 112 115 Resp 27 18 B/P (MAP) 137/90 (106) 144/84 (104) Pulse Ox 98 96 96 97 O2 Delivery Nasal Cannula Nasal Cannula Nasal Cannula O2 Flow Rate 2.50 2.50 2.00 FiO2 28 01/08/20 01/08/20 01/08/20 01/08/20 11:00 12:00 12:00 12:00 Temp 35.8 Pulse 116 126 Resp 12 14 B/P (MAP) 142/73 (96) 153/114 (127) Pulse Ox 94 90 O2 Delivery Nasal Cannula Nasal Cannula Nasal Cannula O2 Flow Rate 2.50 2.50 2.00 01/08/20 01/08/20 01/08/20 12:44 13:00 14:00 Pulse 121 116 121 Resp 17 21 B/P (MAP) 162/81 (108) 129/54 (79) Pulse Ox 95 98 O2 Delivery Nasal Cannula Nasal Cannula O2 Flow Rate 2.50 2.50 01/08/20 00:00 Intake Total 1760 ml Output Total 1625 ml Balance 135 ml Weight (Pounds): 225 Weight (Ounces): 3.0 Weight (Calculated Kilograms): 102.331105 Constitutional: AAO x 3 Respiratory: chest is bilaterally symmetric, lungs clear to auscultation Cardiovascular: regular rate-rhythm, tachycardia, S1 and S2 Gastrointestional: soft, audible bowel sounds Extremities: normal range of motion, non-tender, normal inspection, no lower extremity edema bilateral Neurologic/Psychiatric: other (Sleepy when I saw the patient.) Skin: normal color; No rash, No ulcerations Results/Procedures: Labs Laboratory Tests 01/07/20 16:05: Glucometer 286H 01/07/20 20:20: Glucometer 308H 01/08/20 03:00: White Blood Count 2.6L, Red Blood Count 2.78L, Hemoglobin 9.2L, Hematocrit 28L, Mean Corpuscular Volume 101H, Mean Corpuscular Hemoglobin 33, Mean Corpuscular Hemoglobin Concent 33, Red Cell Distribution Width 16.6H, Platelet Count 15*L, Mean Platelet Volume , Neutrophils (%) (Auto) 65, Lymphocytes (%) (Auto) 21, Monocytes (%) (Auto) 12, Eosinophils (%) (Auto) 3, Basophils (%) (Auto) 0, Neutrophils # (Auto) 1.7L, Lymphocytes # (Auto) 0.5L, Monocytes # (Auto) 0.3, Eosinophils # (Auto) 0.1, Basophils # (Auto) 0.0, Sodium Level 135, Potassium Level 3.7, Chloride Level 95L, Carbon Dioxide Level 32, Anion Gap 8, Blood Urea Nitrogen 13, Creatinine 0.56L, Estimat Glomerular Filtration Rate > 60, BUN/Creatinine Ratio 23, Glucose Level 250H, Calcium Level 8.2L, Corrected Calcium 8.8, Phosphorus Level 1.1L, Magnesium Level 2.1, Total Bilirubin 0.7, Aspartate Amino Transf (AST/SGOT) 55H, Alanine Aminotransferase (ALT/SGPT) 69H, Alkaline Phosphatase 55, Total Protein 5.2L, Albumin 3.3 01/08/20 05:54: Glucometer 266H 01/08/20 10:47: Glucometer 337H Microbiology 01/06/20 MRSA Screen - Final, Complete MRSA not isolated A/P: Assessment/Dx: Acute alcohol withdrawal, Atrial fibrillation with RVR, Anemia, Alcoholic cirrhosis, History of esophageal varices Diabetes Plan: Acute alcohol withdrawal, defer to the primary team. The patient is currently in sinus tachycardia which is likely due to alcohol withdrawal. Atrial fibrillation with RVR, He converted to sinus rhythm spontaneously. He is currently in sinus tachycardia due to alcohol withdrawal. Echocardiogram shows normal LV function. Anemia, Alcoholic cirrhosis, History of esophageal varices Diabetes Thank you for your consultation. Please call me if you have any questions. Ajay Rebollar MD, FACP, FACC, FSCAI, FHRS, CCDS Interventional Cardiology Cardiac Electrophysiology Vascular Medicine and Endovascular Interventions Focused Exam Lactate Level 01/06/20 06:50: Lactic Acid Level 2.09*H 01/06/20 09:00: Lactic Acid Level 1.47 Clemencia REBOLLAR MD Jan 08, 2020 15:16
[2020-01-08] MEDS: ONDANSETRON 4 MG (ZOFRAN) ORAL DISSOLVE TAB SL PRN (18:48)
--- NOTE | 2020-01-08 20:48 | NUR ---
PT STATED HE WAS FEELING AGITATED. PT ASKED THIS RN IF HE HAD ANY MEDICATION TO HELP HIM RELAX AND CALM DOWN. PRECEDEX RESTARTED AT THIS TIME
[2020-01-09] VITALS (27 sets, daily range): BP systolic 96–189; BP diastolic 50–112
[2020-01-09] MEDS: RT-ALBUTEROL/IPRATROPIUM 3 ML (DUONEB) VIAL INH SCH ×6 (02:44→23:15)
[2020-01-09] MEDS: 1/2 NS W/KCL 20 MEQ/L 1,000 ML IV SCH ×2 (03:34→18:53)
[2020-01-09 03:40] LABS: BASOPHILS % (AUTO) 1 % (0-10); EOSINOPHILS # (AUTO) 0.1 10^3/uL (0.0-0.3); EOSINOPHILS % (AUTO) 3 % (0-10); HEMATOCRIT 28 % (40-54); LYMPHOCYTES # (AUTO) 0.4 X 10^3 (1.0-4.0); LYMPHOCYTES % (AUTO) 21 % (12-44); MEAN CORPUSCULAR HEMOGLOBIN 33 PG (25-34); MEAN CORPUSCULAR HGB CONC 32 G/DL (32-36); MEAN CORPUSCULAR VOLUME 102 FL (80-99); MEAN PLATELET VOLUME 13.4 FL (7.4-10.4); MONOCYTES # (AUTO) 0.2 X 10^3 (0.0-1.0); MONOCYTES % (AUTO) 12 % (0-12); NEUTROPHILS # (AUTO) 1.2 X 10^3 (1.8-7.8); NEUTROPHILS % (AUTO) 64 % (42-75); RED CELL DISTRIBUTION WIDTH 16.9 % (10.0-14.5); WHITE BLOOD COUNT 1.9 10^3/uL (4.3-11.0)
[2020-01-09 03:55] LABS: PLATELET COUNT 16 10^3/uL (130-400)
[2020-01-09 04:00] LABS: ALBUMIN 3.2 GM/DL (3.2-4.5); CHLORIDE 98 MMOL/L (98-107); POTASSIUM 3.8 MMOL/L (3.6-5.0); SODIUM 137 MMOL/L (135-145)
[2020-01-09 04:02] LABS: GLUCOSE 218 MG/DL (70-105); TOTAL PROTEIN 5.3 GM/DL (6.4-8.2)
[2020-01-09 04:03] LABS: CARBON DIOXIDE 29 MMOL/L (21-32)
[2020-01-09 04:04] LABS: BILIRUBIN,TOTAL 0.7 MG/DL (0.1-1.0)
[2020-01-09 04:05] LABS: ALKALINE PHOSPHATASE 53 U/L (40-136); PHOSPHORUS 2.7 MG/DL (2.3-4.7)
[2020-01-09 04:06] LABS: CREATININE SERUM 0.53 MG/DL (0.60-1.30); GFR ESTIMATED > 60
[2020-01-09] MEDS: KCL 20 MEQ TAB (K-DUR) PO SCH (04:06)
[2020-01-09] MEDS: POTASSIUM CL 10MEQ/50ML IVPB 50 ML IV SCH (04:06)
[2020-01-09 04:07] LABS: BUN/CREATININE RATIO 15
[2020-01-09 04:09] LABS: ALANINE AMINOTRANSFERASE 67 U/L (0-55)
[2020-01-09] MEDS: MAGNESIUM 1 GM/100 ML IVPB 100 ML IV SCH (04:10)
[2020-01-09] MEDS: inSUlin ASPART (NovoLOG) 1 UNIT/0.01 ML (CHARGE PER UNIT) SC SCH ×4 (05:25→20:49)
[2020-01-09] MEDS: dilTIAZem120 MG (CARDIZEM CD) CAP PO SCH (07:13)
[2020-01-09] MEDS: PANTOPRAZOLE 40 MG (PROTONIX) VIAL IV SCH ×2 (07:27→20:49)
[2020-01-09] MEDS ORDERED: NS IV 500 ML 500 ML IV SCH (09:51)
--- NOTE | 2020-01-09 09:51 | Progress Note - Hospitalist ---
Subjective HPI/CC On Admission Date Seen by Provider: Jan 09, 2020 Time Seen by Provider: 09:47 Pt is a 59yoCM with a PMH of COPD, alcoholic cirrhosis, esophageal varices, tobacco abuse who presented to the ER due to "alcohol poisoning." He states that he has a long history of drinking and was sober for 6 years but went on a cross last week. He was drinking a fifth per day. His last drink was Saturday afternoon. He reports a history of alcohol withdrawal but denies any withdrawal seizures. He has been hospitalized multiple times in the past for complications of alcohol abuse and liver disease and thought that was the problem today. On arrival to the ER he was found to be in a-fib with RVR. He denies any history of this but s tatsam his heart has raced before in the past. he was admitted to the ICU on a cardizem gtt. This morning he complains of nausea but otherwise is feeling better. Subjective/Events-last exam Pt reports feeling better today. Started having dark stools last night. Objective Exam Vital Signs Vital Signs Date Time Temp Pulse Resp B/P (MAP) Pulse Ox O2 Delivery O2 Flow Rate FiO2 01/09/20 14:30 36.3 116 19 100/66 91 Nasal Cannula 2.00 01/08/20 10:56 28 Capillary Refill : Less Than 3 Seconds General Appearance: No Apparent Distress, Chronically ill, Obese Respiratory: Lungs Clear, No Respiratory Distress Cardiovascular: No Murmur, Tachycardia Gastrointestinal: Normal Bowel Sounds, Non Tender, Soft Neurologic/Psychiatric: Alert, Oriented x3 Results/Procedures Lab Laboratory Tests 01/09/20 03:30 01/09/20 10:05 Patient resulted labs reviewed. Assessment/Plan Assessment and Plan Assess & Plan/Chief Complaint Alcohol Withdrawal Alcoholic Cirrhosis Macrocytic anemia CIWA protocol, off precedex- doing better Mild transaminitis and hyperbilirubinemia Request records from [place]- still awaiting this information social work supervisor consulted, appreciate recs GI Bleed thrombocytopenia Dark stools yesterday FOBT + Consulted general surgery, appreciate recs DC anticoagulation H&H this evening PPI Transfuse plts A-fib with RVR- resolved Continue on cardizem orally Cardiology consulted, appreciate recs Echo reveals preserved EF and grade 1 diastolic dysfunction Avoid anticoagulation due GI bleed COPD Continue home inhalers MAT protocol On 2lpm NC- titrate as able NIDDMII Hyperglycemia No known diagnosis of DM A1c 8.0 Will need Metformin on discharge Diagnosis/Problems Diagnosis/Problems (1) Alcohol withdrawal Qualifiers: Complication of substance-induced condition: with unspecified complication Qualified Codes: F10.239 - Alcohol dependence with withdrawal, unspecified (2) Thrombocytopenia (3) Cirrhosis Qualifiers: Hepatic cirrhosis type: alcoholic cirrhosis (4) History of illicit drug use Status: Acute (5) Chronic alcohol abuse Status: Acute (6) Atrial fibrillation with RVR (7) Tobacco abuse (8) Hyperglycemia (9) COPD (chronic obstructive pulmonary disease) Qualifiers: COPD type: unspecified COPD Qualified Codes: J44.9 - Chronic obstructive pulmonary disease, unspecified Clinical Quality Measures DVT/VTE Risk/Contraindication: Risk Factor Score Per Nursin RFS Level Per Nursing on Admit: 4+=Very High JOCELIN KINNEY MD Jan 09, 2020 09:51
[2020-01-09] MEDS ORDERED: diphenhydrAMINE 50 MG/ML INJ (BENADRYL) IVP PRN (10:00)
--- NOTE | 2020-01-09 10:03 | Physical Therapy Evaluation ---
PT Evaluation-General Medical Diagnosis Admission Date Jan 06, 2020 at 05:00 Medical Diagnosis: chest pain, a-fib, SOB Onset Date: Jan 06, 2020 Therapy Diagnosis Therapy Diagnosis: decreased mobility Height/Weight Height (Feet): 5 Height (Inches): 10.00 Weight (Pounds): 225 Weight (Ounces): 3.0 Precautions Precautions/Isolations: Fall Prevention, Standard Precautions Weight Bear Status Right Lower Extremity: Right Full Weight Bearing Left Lower Extremity: Left Full Weight Bearing Referral Physician: Dr. Shi Reason for Referral: Evaluation/Treatment Medical History Pertinent Medical History: COPD Additional Medical History alcoholic cirrhosis Current History Presented to ER with alcohol poisoning, found to be in a-fib with RVR. Social History Home: Single Level Current Living Status: Alone Entry Into Home: Level Entry Prior Prior Level of Function SCALE: Activities may be completed with or without assistive devices. 0-Jopwglhkmo-abppozj completes the activity by him/herself with no assistance from a helper. 5-Set-up or Clean-up Assistance-helper sets up or cleans up; patient completes activity. [place] assists only prior to or following the activity. 4-Supervision or Touching Assistance-helper provides verbal cues and/or touching/steadying and/or contact guard assistance as patient completes activity. Assistance may be provided throughout the activity or intermittently. 3-Partial/Moderate Assistance-helper does LESS THAN HALF the effort. [place] lifts, holds or supports trunk or limbs, but provides less than half the effort. 2-Substantial/Maximal Assistance-helper does MORE THAN HALF the effort. [place] lifts or holds trunk or limbs and provides more than half the effort. 5-Janbuzbbb-rxjlsx does ALL the effort. Patient does none of the effort to complete the activity. Or, the assistance of 2 or more helpers is required for the patient to complete the activity. If activity was not attempted, code reason: 7-Patient Refused. 9-Not Applicable-not attempted and the patient did not perform the activity before the current illness, exacerbation or injury. 10-Not Attempted due to Environmental Limitations-(lack of equipment, weather restraints, etc.). 88-Not Attempted due to Medical Conditions or Safety Concerns. Bed Mobility: 6 Transfers (B,C,W/C): 6 Gait: 6 Indoor Mobility (Ambulation): Independent Prior Devices Use: None PT Evaluation-Current Subjective Pt. in bedside chair, states "I can't walk" however agrees to PT. Pt. denies pain. Objective Patient Orientation: Person, Place, Time, Situation Attachments: Oxygen (3L), IV ROM/Strength ROM Upper Extremities WNL ROM Lower Extremities WNL Strength Upper Extremities WNL Strength Lower Extremities Grossly 4/5 (B) Integumentary/Posture Integumentary grossly intact Bladder Incontinence: No Posture generally upright Neuromuscular (Tone, Coordination, Reflexes) unremarkable Sensory Vision: Functional Hearing: Functional Sensation Right Upper Extremit: Intact Sensation Left Upper Extremity: Intact Sensation Right Lower Extremit: Intact Sensation Left Lower Extremity: Intact Transfers Sit to Stand (QC): 5 Gait Does the Patient Walk?: Yes Mode of Locomotion: Walk Anticipated Mode of Locomotion: Walk Walk 10 feet (QC): 4 Distance: 125 ft Gait Assistive Device: FWW Comments/Gait Description steady but slowed gait speed, leans on walker Wheelchair Training Does the Pt Use a Wheelchair?: No Balance Sitting Static: Good Sitting Dynamic: Good Standing Static: Good Standing Dynamic: Fair Treatment gait Assessment/Needs Pt. is a 59 y.o. male with decreased mobility. He currently is SBA/CGA with transfers and ambulation, recommend use of FWW at this time. Pt. was steady with gait but did fatigue with 125 ft. Pt. returned to bedside chair with call light, O2 in situ and all needs met. Pt. would benefit from short-term skilled PT to progress mobility for full return home (I). Rehab Potential: Good PT Short Term Goals Short Term Goals Time Frame: January 15, 2020 Roll Left & Right: 6 Sit to lyin Lying to sitting on side of be: 6 Sit to stand: 6 Chair/lvi-je-xsbkp transfer: 6 Toilet transfer: 6 Walk 10 feet: 6 Walk 50 feet with two turns: 6 Walk 150 feet: 6 PT Plan Problem List Problem List: Activity Tolerance, Functional Strength, Safety, Balance, Gait, Transfer, Bed Mobility, ROM Treatment/Plan Treatment Plan: Continue Plan of Care Treatment Plan: Bed Mobility, Education, Functional Activity Jonh, Functional Strength, Gait, Safety, Therapeutic Exercise, Transfers Treatment Duration: January 15, 2020 Frequency: 6 times per week Estimated Hrs Per Day: .25 hour per day Patient and/or Family Agrees t: Yes Time/GCodes Time In: 855 Time Out: 915 Total Billed Treatment Time: 20 Total Billed Treatment 1, EVL 10', GT 10' GIUSEPPE ROBERTS PT Jan 09, 2020 10:03
[2020-01-09] MEDS: ONDANSETRON 4 MG (ZOFRAN) ORAL DISSOLVE TAB SL PRN (10:09)
[2020-01-09 10:15] LABS: BASOPHILS % (AUTO) 0 % (0-10); EOSINOPHILS # (AUTO) 0.1 10^3/uL (0.0-0.3); EOSINOPHILS % (AUTO) 3 % (0-10); HEMATOCRIT 29 % (40-54); HEMOGLOBIN 9.3 G/DL (13.3-17.7); LYMPHOCYTES # (AUTO) 0.3 X 10^3 (1.0-4.0); LYMPHOCYTES % (AUTO) 15 % (12-44); MEAN CORPUSCULAR HEMOGLOBIN 33 PG (25-34); MEAN CORPUSCULAR HGB CONC 32 G/DL (32-36); MEAN CORPUSCULAR VOLUME 104 FL (80-99); MEAN PLATELET VOLUME 12.1 FL (7.4-10.4); MONOCYTES # (AUTO) 0.2 X 10^3 (0.0-1.0); MONOCYTES % (AUTO) 9 % (0-12); NEUTROPHILS # (AUTO) 1.5 X 10^3 (1.8-7.8); NEUTROPHILS % (AUTO) 73 % (42-75); WHITE BLOOD COUNT 2.1 10^3/uL (4.3-11.0)
[2020-01-09 10:17] LABS: PLATELET COUNT 14 10^3/uL (130-400)
[2020-01-09 10:25] LABS: ALBUMIN 3.3 GM/DL (3.2-4.5); CHLORIDE 96 MMOL/L (98-107); POTASSIUM 3.8 MMOL/L (3.6-5.0); SODIUM 136 MMOL/L (135-145)
[2020-01-09 10:27] LABS: CALCIUM 8.4 MG/DL (8.5-10.1)
[2020-01-09 10:28] LABS: GLUCOSE 279 MG/DL (70-105); TOTAL PROTEIN 5.5 GM/DL (6.4-8.2)
[2020-01-09 10:29] LABS: CARBON DIOXIDE 31 MMOL/L (21-32)
[2020-01-09 10:30] LABS: BILIRUBIN,TOTAL 0.8 MG/DL (0.1-1.0)
[2020-01-09 10:31] LABS: ALKALINE PHOSPHATASE 55 U/L (40-136); CREATININE SERUM 0.58 MG/DL (0.60-1.30); GFR ESTIMATED > 60
[2020-01-09 10:32] LABS: BUN/CREATININE RATIO 16
[2020-01-09 10:34] LABS: ALANINE AMINOTRANSFERASE 68 U/L (0-55)
--- NOTE | 2020-01-09 13:41 | Consultation - Surgery ---
History of Present Illness History of Present Illness Patient Consulted On(amanda/time) 01/09/20 13:29 Date Seen by Provider: Jan 09, 2020 Time Seen by Provider: 09:41 History of Present Illness Consult requested by Dr. Yuridia gomez GI bleed. Patient is a 60 year old male states he was admitted due to his alcohol intake. Patient has had a drop in his hemoglobin and having dark stools. Nothing seems to make worse or better. Denies any abdominal pain. Not having any nausea or emesis. Does note a history of esophageal varices. Denies n/v fever sweats chills shortness of breath or chest pain. He was on eliquis which is now on hold. His platelets are low as well and planning transfusion. Allergies and Home Medications Allergies Coded Allergies: No Known Drug Allergies (Unverified , 03/09/14) Home Medications Albuterol Sulfate 1 Puff Puff, 2 PUFF PO Q4H PRN for SHORTNESS OF BREATH, (Reported) Albuterol/Ipratropium 4 Gm Aero, 1 PUFF PO QID PRN for SHORTNESS OF BREATH, (Reported) Ascorbic Acid 250 Mg Tab, 250 MG PO DAILY, (Reported) Budesonide 0.5 Mg/2 Ml Ampul.neb, 1 VIAL NEB BID PRN for SHORTNESS OF BREATH, (Reported) Budesonide/Formoterol Fumarate 10.2 Gm Hfa.aer.ad, 2 PUFF PO BID PRN for SHORTNESS OF BREATH, (Reported) Furosemide 20 Mg Tablet, 20 MG PO DAILY, (Reported) Multivitamin 1 Each Tablet, 1 EACH PO DAILY, (Reported) Propranolol HCl 20 Mg Tablet, 20 MG PO BID, (Reported) Tamsulosin HCl 0.4 Mg Cap, 0.4 MG PO DAILY, (Reported) Ursodiol 300 Mg Capsule, 300 MG PO BID, (Reported) Patient Home Medication List Home Medication List Reviewed: Yes Past Ehzechx-Vhhhho-Gchdwv Hx Patient Social History Alcohol Use: Regular Use (LONG STANDING ALCOHOL ABUSE--DAILY/HEAVY USE-AT LEAST A FIFTH OF HARD LIQUOR/DAY) Number of Drinks Today: 0 Recreational Drug Use: Yes (THC, METH, COCAINE, "EVERYTHING" BUT DENIES HEROIN USE, OR IV DRUG USE) Drug of Choice: THC, METH, COCAINE, "EVERYTHING" BUT DENIES HEROIN USE OR IV DRUG USE Smoking Status: Current Everyday Smoker (2 PPD) Type Used: Cigarettes ( 1 1/2 PPD) Recent Foreign Travel: No Contact w/Someone Who Travel: No Recent Infectious Disease Expo: No Recent Hopitalizations: No Seasonal Allergies Seasonal Allergies: No Surgeries History of Surgeries: Yes (LEFT INGUINAL HERNIA AND/OR HYDROCOELE REPAIR CHILD) Surgeries: Abdominal Respiratory History of Respiratory Disorde: Yes (O2 DEPENDENT AT 2L/NC CONTINUOUSLY ) Respiratory Disorders: COPD Cardiovascular History of Cardiac Disorders: No Neurological History of Neurological Disord: No Genitourinary History of Genitourinary Disor: No Gastrointestinal History of Gastrointestinal Di: Yes (ESOPHAGEAL VARICES, HEPATOSPLENOMEGALY & GALLSTONE NOTED ON CT DONE IN 2013) Gastrointestinal Disorders: Liver Disease/Jaundice, Esophageal Varices, Ci rrhosis, Gall Bladder Disease Musculoskeletal History of Musculoskeletal Dis: No Endocrine History of Endocrine Disorders: Yes (OBESITY) HEENT History of HEENT Disorders: No Cancer History of Cancer: No Psychosocial History of Psychiatric Problem: Yes (SUBSTANCE ABUSE) Behavioral Health Disorders: Depression Integumentary History of Skin or Integumenta: No Blood Transfusions History of Blood Disorders: Yes (THROMBOCYTOPENIA SINCE AT LEAST 2013) Reviewed Nursing Assessment Reviewed/Agree w Nursing PMH: Yes Family Medical History Significant Family History: No Pertinent Family Hx Family Medial History: Congenital heart disease Diabetes mellitus 19 FATHER, Onset:Unknown Hypertension 19 FATHER, Onset:Unknown Review of Systems-General Constitutional: No chills, No diaphoresis EENTM: no symptoms reported; No blurred vision, No double vision Respiratory: No cough, No dyspnea on exertion Cardiovascular: no symptoms reported; No chest pain Gastrointestinal: see HPI; No heartburn Genitourinary: no symptoms reported; No decreased output, No discharge Musculoskeletal: no symptoms reported; No back pain, No gout, No joint pain Skin: no symptoms reported; No change in color, No change in hair/nails Psychiatric/Neurological: No Symptoms Reported; Denies Anxiety, Denies Depressed, Denies Emotional Problems Physical Exam-General Problems Physical Exam Vital Signs Vital Signs - First Documented 01/06/20 01/06/20 04:00 08:45 Temp 36.3 Pulse 141 Resp 22 B/P (MAP) 150/85 (106) Pulse Ox 95 O2 Delivery Nasal Cannula O2 Flow Rate 2.00 FiO2 28 Capillary Refill : Less Than 3 Seconds General Appearance: no apparent distress HEENT: PERRL/EOMI, normal ENT inspection Neck: non-tender, full range of motion, supple, normal inspection Respiratory: chest non-tender, no respiratory distress, no accessory muscle use Cardiovascular: regular rate, rhythm Gastrointestinal: non tender, no organomegaly, no pulsatile mass Rectal: deferred Back: normal inspection, no CVA tenderness Extremities: non-tender, normal inspection, no pedal edema Neurologic/Psychiatric: high heel builder II-XII nml as tested, alert, normal mood/affect, oriented x 3 Skin: normal color, warm/dry Lymphatic: no adenopathy Data Review Labs Laboratory Tests 01/08/20 16:08: Glucometer 272H 01/08/20 17:39: Stool Occult Blood Immunoassay POSITIVEH 01/08/20 20:05: Glucometer 257H 01/09/20 03:30: White Blood Count 1.9L, Red Blood Count 2.74L, Hemoglobin 9.0L, Hematocrit 28L, Mean Corpuscular Volume 102H, Mean Corpuscular Hemoglobin 33, Mean Corpuscular Hemoglobin Concent 32, Red Cell Distribution Width 16.9H, Platelet Count 16*L, Mean Platelet Volume 13.4H, Neutrophils (%) (Auto) 64, Lymphocytes (%) (Auto) 21, Monocytes (%) (Auto) 12, Eosinophils (%) (Auto) 3, Basophils (%) (Auto) 1, Neutrophils # (Auto) 1.2L, Lymphocytes # (Auto) 0.4L, Monocytes # (Auto) 0.2, Eosinophils # (Auto) 0.1, Basophils # (Auto) 0.0, Sodium Level 137, Potassium Level 3.8, Chloride Level 98, Carbon Dioxide Level 29, Anion Gap 10, Blood Urea Nitrogen 8, Creatinine 0.53L, Estimat Glomerular Filtration Rate > 60, BUN/Creatinine Ratio 15, Glucose Level 218H, Calcium Level 8.0L, Corrected Calcium 8.6, Phosphorus Level 2.7, Magnesium Level 2.0, Total Bilirubin 0.7, Aspartate Amino Transf (AST/SGOT) 47H, Alanine Aminotransferase (ALT/SGPT) 67H, Alkaline Phosphatase 53, Total Protein 5.3L, Albumin 3.2 01/09/20 10:05: White Blood Count 2.1L, Red Blood Count 2.79L, Hemoglobin 9.3L, Hematocrit 29L, Mean Corpuscular Volume 104H, Mean Corpuscular Hemoglobin 33, Mean Corpuscular Hemoglobin Concent 32, Red Cell Distribution Width 17.0H, Platelet Count 14*L, Mean Platelet Volume 12.1H, Neutrophils (%) (Auto) 73, Lymphocytes (%) (Auto) 15, Monocytes (%) (Auto) 9, Eosinophils (%) (Auto) 3, Basophils (%) (Auto) 0, Neutrophils # (Auto) 1.5L, Lymphocytes # (Auto) 0.3L, Monocytes # (Auto) 0.2, Eosinophils # (Auto) 0.1, Basophils # (Auto) 0.0, Sodium Level 136, Potassium Level 3.8, Chloride Level 96L, Carbon Dioxide Level 31, Anion Gap 9, Blood Urea Nitrogen 9, Creatinine 0.58L, Estimat Glomerular Filtration Rate > 60, BUN/Creat inine Ratio 16, Glucose Level 279H, Calcium Level 8.4L, Corrected Calcium 9.0, Total Bilirubin 0.8, Aspartate Amino Transf (AST/SGOT) 44H, Alanine Aminotransferase (ALT/SGPT) 68H, Alkaline Phosphatase 55, Total Protein 5.5L, Albumin 3.3 01/09/20 11:19: Glucometer 268H Microbiology 01/06/20 MRSA Screen - Final, Complete MRSA not isolated Assessment/Plan Assessment/Plan Assessment/Plan GI bleed likely upper anemia occult + stool etOH use cirrhosis with history of varices thrombocytopenia Protonix Hold anticoagluation due to gi bleed follow hgb and platelets transfusin prn endoscopy inpatient vs outpatient Clinical Quality Measures DVT/VTE Risk/Contraindication: Risk Factor Score Per Nursin RFS Level Per Nursing on Admit: 4+=Very High CIERA WHITEHEAD DO Jan 09, 2020 13:41
--- NOTE | 2020-01-09 13:50 | Cardiology Progress Note ---
Cardiology SOAP Progress Note Subjective: No cardiac complaints. Objective: I&O/Vital Signs 01/09/20 01/09/20 01/09/20 01/09/20 02:00 02:44 03:00 03:47 Pulse 92 97 Resp 20 15 B/P (MAP) 96/60 (72) 107/67 (80) Pulse Ox 95 95 94 O2 Delivery Nasal Cannula Nasal Cannula Nasal Cannula Nasal Cannula O2 Flow Rate 2.00 3.00 2.00 2.00 01/09/20 01/09/20 01/09/20 01/09/20 03:47 04:00 05:00 06:00 Temp 37.0 Pulse 86 86 87 Resp 12 12 12 B/P (MAP) 118/74 (89) 117/69 (85) 116/77 (90) Pulse Ox 98 98 96 O2 Delivery Nasal Cannula Nasal Cannula Nasal Cannula O2 Flow Rate 2.00 2.00 2.00 01/09/20 01/09/20 01/09/20 01/09/20 06:42 07:00 07:18 07:20 Pulse 119 113 Resp 33 B/P (MAP) 137/89 (105) Pulse Ox 89 90 90 O2 Delivery Nasal Cannula Nasal Cannula Nasal Cannula O2 Flow Rate 2.00 3.00 3.00 01/09/20 01/09/20 01/09/20 01/09/20 07:21 07:28 07:28 08:00 Temp 36.3 36.3 Pulse 105 Resp 15 B/P (MAP) 135/65 (88) Pulse Ox 89 O2 Delivery Nasal Cannula Nasal Cannula O2 Flow Rate 2.00 2.00 01/09/20 01/09/20 01/09/20 01/09/20 09:00 10:00 10:23 11:00 Pulse 107 100 105 Resp 18 14 18 B/P (MAP) 125/72 (89) 165/112 (129) 125/50 (75) Pulse Ox 91 92 91 95 O2 Delivery Nasal Cannula Nasal Cannula Nasal Cannula Nasal Cannula O2 Flow Rate 2.00 2.00 3.00 2.00 01/09/20 01/09/20 01/09/20 01/09/20 11:20 11:25 11:40 12:00 Temp 36.7 36.4 36.6 Pulse 105 112 112 Resp 10 18 17 B/P (MAP) 154/72 122/70 119/79 (92) Pulse Ox 93 95 95 O2 Delivery Nasal Cannula Nasal Cannula Nasal Cannula O2 Flow Rate 2.00 2.00 2.00 01/09/20 12:00 O2 Delivery Nasal Cannula O2 Flow Rate 2.00 01/09/20 00:00 Intake Total 1990.2 ml Output Total 600 ml Balance 1390.2 ml Weight (Pounds): 225 Weight (Ounces): 3.0 Weight (Calculated Kilograms): 102.666053 Constitutional: AAO x 3 Respiratory: chest is bilaterally symmetric, lungs clear to auscultation Cardiovascular: regular rate-rhythm, tachycardia, S1 and S2 Gastrointestional: soft, audible bowel sounds Extremities: normal range of motion, non-tender, normal inspection, no lower extremity edema bilateral Neurologic/Psychiatric: other (Sleepy when I saw the patient.) Skin: normal color; No rash, No ulcerations Results/Procedures: Labs Laboratory Tests 01/08/20 16:08: Glucometer 272H 01/08/20 17:39: Stool Occult Blood Immunoassay POSITIVEH 01/08/20 20:05: Glucometer 257H 01/09/20 03:30: White Blood Count 1.9L, Red Blood Count 2.74L, Hemoglobin 9.0L, Hematocrit 28L, Mean Corpuscular Volume 102H, Mean Corpuscular Hemoglobin 33, Mean Corpuscular Hemoglobin Concent 32, Red Cell Distribution Width 16.9H, Platelet Count 16*L, Mean Platelet Volume 13.4H, Neutrophils (%) (Auto) 64, Lymphocytes (%) (Auto) 21, Monocytes (%) (Auto) 12, Eosinophils (%) (Auto) 3, Basophils (%) (Auto) 1, Neutrophils # (Auto) 1.2L, Lymphocytes # (Auto) 0.4L, Monocytes # (Auto) 0.2, E osinophils # (Auto) 0.1, Basophils # (Auto) 0.0, Sodium Level 137, Potassium Level 3.8, Chloride Level 98, Carbon Dioxide Level 29, Anion Gap 10, Blood Urea Nitrogen 8, Creatinine 0.53L, Estimat Glomerular Filtration Rate > 60, BUN/Cre atinine Ratio 15, Glucose Level 218H, Calcium Level 8.0L, Corrected Calcium 8.6, Phosphorus Level 2.7, Magnesium Level 2.0, Total Bilirubin 0.7, Aspartate Amino Transf (AST/SGOT) 47H, Alanine Aminotransferase (ALT/SGPT) 67H, Alkaline Phosphatase 53, Total Protein 5.3L, Albumin 3.2 01/09/20 10:05: White Blood Count 2.1L, Red Blood Count 2.79L, Hemoglobin 9.3L, Hematocrit 29L, Mean Corpuscular Volume 104H, Mean Corpuscular Hemoglobin 33, Mean Corpuscular Hemoglobin Concent 32, Red Cell Distribution Width 17.0H, Platelet Count 14*L, Mean Platelet Volume 12.1H, Neutrophils (%) (Auto) 73, Lymphocytes (%) (Auto) 15, Monocytes (%) (Auto) 9, Eosinophils (%) (Auto) 3, Basophils (%) (Auto) 0, Neutrophils # (Auto) 1.5L, Lymphocytes # (Auto) 0.3L, Monocytes # (Auto) 0.2, Eosinophils # (Auto) 0.1, Basophils # (Auto) 0.0, Sodium Level 136, Potassium Level 3.8, Chloride Level 96L, Carbon Dioxide Level 31, Anion Gap 9, Blood Urea Nitrogen 9, Creatinine 0.58L, Estimat Glomerular Filtration Rate > 60, BUN/Creatinine Ratio 16, Glucose Level 279H, Calcium Level 8.4L, Corrected Calcium 9.0, Total Bilirubin 0.8, Aspartate Amino Transf (AST/SGOT) 44H, Alanine Aminotransferase (ALT/SGPT) 68H, Alkaline Phosphatase 55, Total Protein 5.5L, Albumin 3.3 01/09/20 11:19: Glucometer 268H Microbiology 01/06/20 MRSA Screen - Final, Complete MRSA not isolated A/P: Assessment/Dx: Acute alcohol withdrawal, Atrial fibrillation with RVR, converted to sinus tachycardia Anemia, Alcoholic cirrhosis, History of esophageal varices Diabetes Plan: Acute alcohol withdrawal, defer to the primary team. The patient is currently in sinus tachycardia which is likely due to alcohol withdrawal. Atrial fibrillation with RVR, He converted to sinus rhythm spontaneously. He is currently in sinus tachycardia due to alcohol withdrawal. Echocardiogram shows normal LV function. Anemia, Alcoholic cirrhosis, History of esophageal varices Diabetes Thank you for your consultation. Please call me if you have any questions. Ajay Rebollar MD, FACP, FACC, FSCAI, FHRS, CCDS Interventional Cardiology Cardiac Electrophysiology Vascular Medicine and Endovascular Interventions Clemencia REBOLLAR MD Jan 09, 2020 13:50
[2020-01-09] MEDS: LORazepam 1 MG (ATIVAN) TAB PO PRN (21:43)
[2020-01-10] VITALS (17 sets, daily range): BP systolic 103–179; BP diastolic 61–110
[2020-01-10] MEDS: RT-ALBUTEROL/IPRATROPIUM 3 ML (DUONEB) VIAL INH SCH ×6 (02:48→21:24)
[2020-01-10 03:25] LABS: BASOPHILS % (AUTO) 0 % (0-10); EOSINOPHILS # (AUTO) 0.1 10^3/uL (0.0-0.3); EOSINOPHILS % (AUTO) 3 % (0-10); HEMATOCRIT 30 % (40-54); HEMOGLOBIN 9.4 G/DL (13.3-17.7); LYMPHOCYTES # (AUTO) 0.5 X 10^3 (1.0-4.0); LYMPHOCYTES % (AUTO) 23 % (12-44); MEAN CORPUSCULAR HEMOGLOBIN 33 PG (25-34); MEAN CORPUSCULAR HGB CONC 32 G/DL (32-36); MEAN CORPUSCULAR VOLUME 104 FL (80-99); MEAN PLATELET VOLUME 12.7 FL (7.4-10.4); MONOCYTES # (AUTO) 0.3 X 10^3 (0.0-1.0); MONOCYTES % (AUTO) 17 % (0-12); NEUTROPHILS # (AUTO) 1.1 X 10^3 (1.8-7.8); NEUTROPHILS % (AUTO) 57 % (42-75); RED CELL DISTRIBUTION WIDTH 17.6 % (10.0-14.5)
[2020-01-10 03:33] LABS: PLATELET COUNT 19 10^3/uL (130-400)
[2020-01-10 03:43] LABS: ALANINE AMINOTRANSFERASE 61 U/L (0-55); ALBUMIN 3.6 GM/DL (3.2-4.5); ALKALINE PHOSPHATASE 54 U/L (40-136); BILIRUBIN,TOTAL 0.7 MG/DL (0.1-1.0); BUN/CREATININE RATIO 18; CALCIUM 8.5 MG/DL (8.5-10.1); CARBON DIOXIDE 32 MMOL/L (21-32); CHLORIDE 97 MMOL/L (98-107); GFR ESTIMATED > 60; GLUCOSE 198 MG/DL (70-105); MAGNESIUM 1.9 MG/DL (1.6-2.4); PHOSPHORUS 3.2 MG/DL (2.3-4.7); POTASSIUM 3.8 MMOL/L (3.6-5.0); SODIUM 139 MMOL/L (135-145); TOTAL PROTEIN 5.6 GM/DL (6.4-8.2)
[2020-01-10] MEDS: POTASSIUM CL 10MEQ/50ML IVPB 50 ML IV SCH (03:51)
[2020-01-10] MEDS: MAGNESIUM 1 GM/100 ML IVPB 100 ML IV SCH (03:51)
[2020-01-10] MEDS: inSUlin ASPART (NovoLOG) 1 UNIT/0.01 ML (CHARGE PER UNIT) SC SCH ×4 (03:51→21:30)
[2020-01-10] MEDS: KCL 20 MEQ TAB (K-DUR) PO SCH (03:51)
[2020-01-10] MEDS: 1/2 NS W/KCL 20 MEQ/L 1,000 ML IV SCH ×2 (06:52→11:44)
--- NOTE | 2020-01-10 08:31 | Progress Note - Hospitalist ---
Subjective HPI/CC On Admission Date Seen by Provider: Jan 10, 2020 Time Seen by Provider: 08:26 Pt is a 59yoCM with a PMH of COPD, alcoholic cirrhosis, esophageal varices, tobacco abuse who presented to the ER due to "alcohol poisoning." He states that he has a long history of drinking and was sober for 6 years but went on a cross last week. He was drinking a fifth per day. His last drink was Saturday afternoon. He reports a history of alcohol withdrawal but denies any withdrawal seizures. He has been hospitalized multiple times in the past for complications of alcohol abuse and liver disease and thought that was the problem today. On arrival to the ER he was found to be in a-fib with RVR. He denies any history of this but s tates his heart has raced before in the past. he was admitted to the ICU on a cardizem gtt. This morning he complains of nausea but otherwise is feeling better. Subjective/Events-last exam Pt reports feeling well. Wanting to eat. No other complaints. Did well off precedex yesterday and last night per RN. Objective Exam Vital Signs Vital Signs Date Time Temp Pulse Resp B/P (MAP) Pulse Ox O2 Delivery O2 Flow Rate FiO2 01/10/20 07:48 92 Nasal Cannula 3.00 01/10/20 06:00 116 129/80 (96) 01/10/20 04:00 20 01/10/20 04:00 36.6 01/08/20 10:56 28 Capillary Refill : Less Than 3 Seconds General Appearance: No Apparent Distress, Chronically ill, Obese Respiratory: Lungs Clear, No Respiratory Distress Cardiovascular: Regular Rate, Rhythm, No Murmur Gastrointestinal: Normal Bowel Sounds, Non Tender, Soft Neurologic/Psychiatric: Alert, Oriented x3 Results/Procedures Lab Laboratory Tests 01/09/20 10:05 01/10/20 03:15 Patient resulted labs reviewed. Assessment/Plan Assessment and Plan Assess & Plan/Chief Complaint Alcohol Withdrawal Alcoholic Cirrhosis Macrocytic anemia CIWA protocol, off precedex- doing well- can transfer to the floor once seen by surgery Mild transaminitis and hyperbilirubinemia Request records from [facility]- ER visit sent. I reviewed 50 pages of records regarding COPD visit. Appears platelets 19 at that time as well transition social worker consulted, appreciate recs GI Bleed thrombocytopenia Dark stools 01/07 FOBT + Consulted general surgery, appreciate recs DC anticoagulation Hemoglobin stable PPI Platelets at 19 after transfusion A-fib with RVR- resolved Continue on cardizem orally Cardiology consulted, appreciate recs Echo reveals preserved EF and grade 1 diastolic dysfunction Avoid anticoagulation due GI bleed COPD Continue home inhalers MAT protocol On 2lpm NC- titrate as able NIDDMII Hyperglycemia No known diagnosis of DM A1c 8.0 Will need Metformin on discharge Diagnosis/Problems Diagnosis/Problems (1) Alcohol withdrawal Qualifiers: Complication of substance-induced condition: with unspecified complication Qualified Codes: F10.239 - Alcohol dependence with withdrawal, unspecified (2) Thrombocytopenia (3) Cirrhosis Qualifiers: Hepatic cirrhosis type: alcoholic cirrhosis (4) History of illicit drug use Status: Acute (5) Chronic alcohol abuse Status: Acute (6) Atrial fibrillation with RVR (7) Tobacco abuse (8) Hyperglycemia (9) COPD (chronic obstructive pulmonary disease) Qualifiers: COPD type: unspecified COPD Qualified Codes: J44.9 - Chronic obstructive pulmonary disease, unspecified Clinical Quality Measures DVT/VTE Risk/Contraindication: Risk Factor Score Per Nursin RFS Level Per Nursing on Admit: 4+=Very High JOCELIN KINNEY MD Jan 10, 2020 08:31
[2020-01-10] MEDS: PANTOPRAZOLE 40 MG (PROTONIX) VIAL IV SCH ×2 (08:33→20:17)
[2020-01-10] MEDS: dilTIAZem120 MG (CARDIZEM CD) CAP PO SCH (11:48)
--- NOTE | 2020-01-10 13:45 | NUR ---
REC'D PER CHAIR FROM ICU. SEE ASSESSMENT.
--- NOTE | 2020-01-10 14:12 | Cardiology Progress Note ---
Cardiology SOAP Progress Note Subjective: Doing better. Objective: I&O/Vital Signs 01/10/20 01/10/20 01/10/20 01/10/20 03:00 04:00 04:00 04:00 Temp 36.6 Pulse 112 105 Resp 20 20 B/P (MAP) 157/73 (101) 163/86 (111) Pulse Ox 92 96 O2 Delivery Nasal Cannula Nasal Cannula Nasal Cannula O2 Flow Rate 2.00 2.00 2.00 01/10/20 01/10/20 01/10/20 01/10/20 05:00 06:00 06:43 07:00 Pulse 96 116 97 112 B/P (MAP) 120/61 (80) 129/80 (96) 175/84 (114) Pulse Ox 98 95 95 O2 Delivery Nasal Cannula Nasal Cannula Nasal Cannula O2 Flow Rate 2.00 2.00 2.00 01/10/20 01/10/20 01/10/20 01/10/20 07:46 07:48 08:00 08:00 Pulse 98 B/P (MAP) 129/67 (87) Pulse Ox 89 92 93 O2 Delivery Nasal Cannula Nasal Cannula Nasal Cannula Nasal Cannula O2 Flow Rate 3.00 3.00 2.00 2.00 01/10/20 01/10/20 01/10/20 01/10/20 08:15 09:00 10:00 10:53 Temp 36.0 Pulse 105 109 B/P (MAP) 128/67 (87) 132/110 (117) Pulse Ox 93 94 95 O2 Delivery Nasal Cannula Nasal Cannula Nasal Cannula O2 Flow Rate 2.00 2.00 3.00 01/10/20 01/10/20 01/10/20 01/10/20 11:00 11:35 12:00 12:00 Temp 36.3 Pulse 101 103 B/P (MAP) 103/63 (76) 130/71 (90) Pulse Ox 95 98 O2 Delivery Nasal Cannula Nasal Cannula Nasal Cannula O2 Flow Rate 2.00 2.00 2.00 01/10/20 01/10/20 01/10/20 12:42 13:00 13:42 Temp 36.8 Pulse 115 98 104 Resp 18 B/P (MAP) 122/77 (92) 158/86 (110) Pulse Ox 95 95 O2 Delivery Nasal Cannula Nasal Cannula O2 Flow Rate 2.00 2.00 01/10/20 00:00 Intake Total 1700 ml Output Total 1500 ml Balance 200 ml Weight (Pounds): 225 Weight (Ounces): 3.0 Weight (Calculated Kilograms): 102.968546 Constitutional: AAO x 3 Respiratory: chest is bilaterally symmetric, lungs clear to auscultation Cardiovascular: regular rate-rhythm, tachycardia, S1 and S2 Gastrointestional: soft, audible bowel sounds Extremities: normal range of motion, non-tender, normal inspection, pedal edema Neurologic/Psychiatric: other (Sleepy when I saw the patient.) Skin: normal color; No rash, No ulcerations Results/Procedures: Labs Laboratory Tests 01/09/20 15:33: Glucometer 253H 01/09/20 20:23: Glucometer 264H 01/10/20 03:15: White Blood Count 2.0L, Red Blood Count 2.87L, Hemoglobin 9.4L, Hematocrit 30L, Mean Corpuscular Volume 104H, Mean Corpuscular Hemoglobin 33, Mean Corpuscular Hemoglobin Concent 32, Red Cell Distribution Width 17.6H, Platelet Count 19*L, Mean Platelet Volume 12.7H, Neutrophils (%) (Auto) 57, Lymphocytes (%) (Auto) 23, Monocytes (%) (Auto) 17H, Eosinophils (%) (Auto) 3, Basophils (%) (Auto) 0, Neutrophils # (Auto) 1.1L, Lymphocytes # (Auto) 0.5L, Monocytes # (Auto) 0.3, Eosinophils # (Auto) 0.1, Basophils # (Auto) 0.0, Sodium Level 139, Potassium Level 3.8, Chloride Level 97L, Carbon Dioxide Level 32, Anion Gap 10, Blood Urea Nitrogen 11, Creatinine 0.60, Estimat Glomerular Filtration Rate > 60, BUN/Creatinine Ratio 18, Glucose Level 198H, Calcium Level 8.5, Corrected Calcium 8.8, Phosphorus Level 3.2, Magnesium Level 1.9, Total Bilirubin 0.7, Aspartate Amino Transf (AST/SGOT) 38H, Alanine Aminotransferase (ALT/SGPT) 61H, Alkaline Phosphatase 54, Total Protein 5.6L, Albumin 3.6 01/10/20 10:34: Glucometer 200H Microbiology 01/06/20 MRSA Screen - Final, Complete MRSA not isolated A/P: Assessment/Dx: Acute alcohol withdrawal, Atrial fibrillation with RVR, converted to sinus tachycardia Anemia, Alcoholic cirrhosis, History of esophageal varices Diabetes Plan: Acute alcohol withdrawal, defer to the primary team. The patient is currently in sinus tachycardia which is likely due to alcohol withdrawal. Atrial fibrillation with RVR, He converted to sinus rhythm spontaneously. He is currently in sinus tachycardia due to alcohol withdrawal. Echocardiogram shows normal LV function. Bilateral lower external to swelling. Anemia, Alcoholic cirrhosis, History of esophageal varices Diabetes Thank you for your consultation. Please call me if you have any questions. Ajay Rebollar MD, FACP, FACC, FSCAI, FHRS, CCDS Interventional Cardiology Cardiac Electrophysiology Vascular Medicine and Endovascular Interventions Clemencia REBOLLAR MD Jan 10, 2020 14:12
--- NOTE | 2020-01-10 21:41 | Progress Note - Surgery ---
Subjective Date Seen by a Provider: Jan 10, 2020 Time Seen by a Provider: 11:26 Subjective/Events-last exam Wanting diet. No abdominal pain. Hgb stable. No new complaints. Denies n/v fever sweats chills shortness of breath or chest pain at this time. Objective Exam Vital Signs Date Time Temp Pulse Resp B/P (MAP) Pulse Ox O2 Delivery O2 Flow Rate FiO2 01/10/20 21:24 91 Nasal Cannula 2.00 01/10/20 19:00 111 01/10/20 18:07 91 Nasal Cannula 2.00 01/10/20 16:21 36.9 103 18 130/76 (94) 93 Nasal Cannula 1.50 01/10/20 14:45 91 Nasal Cannula 2.00 01/10/20 13:42 36.8 104 18 158/86 (110) 95 Nasal Cannula 2.00 01/10/20 13:00 98 122/77 (92) 95 Nasal Cannula 2.00 01/10/20 12:42 115 01/10/20 12:00 Nasal Cannula 2.00 01/10/20 12:00 103 130/71 (90) 98 Nasal Cannula 2.00 01/10/20 11:35 36.3 01/10/20 11:00 101 103/63 (76) 95 Nasal Cannula 2.00 01/10/20 10:53 95 Nasal Cannula 3.00 01/10/20 10:00 109 132/110 (117) 94 Nasal Cannula 2.00 01/10/20 09:00 105 128/67 (87) 93 Nasal Cannula 2.00 01/10/20 08:15 36.0 01/10/20 08:00 Nasal Cannula 2.00 01/10/20 08:00 98 129/67 (87) 93 Nasal Cannula 2.00 01/10/20 07:48 92 Nasal Cannula 3.00 01/10/20 07:46 89 Nasal Cannula 3.00 01/10/20 07:00 112 175/84 (114) 95 Nasal Cannula 2.00 01/10/20 06:43 97 01/10/20 06:00 116 129/80 (96) 95 Nasal Cannula 2.00 01/10/20 05:00 96 120/61 (80) 98 Nasal Cannula 2.00 01/10/20 04:00 105 20 163/86 (111) 96 Nasal Cannula 2.00 01/10/20 04:00 36.6 01/10/20 04:00 Nasal Cannula 2.00 01/10/20 03:00 112 20 157/73 (101) 92 Nasal Cannula 2.00 01/10/20 02:00 101 17 158/83 (108) 92 Nasal Cannula 2.00 01/10/20 01:00 101 01/10/20 01:00 101 19 179/77 (111) 92 Nasal Cannula 2.00 01/10/20 00:00 Nasal Cannula 2.00 01/10/20 00:00 124 20 175/80 (111) 95 Nasal Cannula 2.00 01/10/20 00:00 36.4 01/09/20 23:15 90 Nasal Cannula 3.00 01/09/20 23:00 112 23 139/53 (81) 95 Nasal Cannula 2.00 01/09/20 22:00 104 19 152/70 (97) 94 Nasal Cannula 2.00 I & O 01/10/20 07:00 Intake Total 1950 ml Output Total 1850 ml Balance 100 ml Capillary Refill : Less Than 3 Seconds General Appearance: No Apparent Distress, Chronically ill, Obese HEENT: PERRL/EOMI, Moist Mucous Membranes; No Scleral Icterus (L), No Scleral Icterus (R) Neck: Normal Inspection, Non Tender, Supple; No Thyromegaly Respiratory: Chest Non Tender, No Accessory Muscle Use, No Respiratory Distress Cardiovascular: Regular Rate, Rhythm Gastrointestinal: non tender, no organomegaly, no pulsatile mass Extremity: Swelling (2+ to bilateral calves) Neurologic/Psychiatric: Alert, Oriented x3, Normal Mood/Affect Skin: Normal Color, Warm/Dry Lymphatic: No Adenopathy Results Lab Laboratory Tests 01/10/20 03:15: White Blood Count 2.0L, Red Blood Count 2.87L, Hemoglobin 9.4L, Hematocrit 30L, Mean Corpuscular Volume 104H, Mean Corpuscular Hemoglobin 33, Mean Corpuscular Hemoglobin Concent 32, Red Cell Distribution Width 17.6H, Platelet Count 19*L, Mean Platelet Volume 12.7H, Neutrophils (%) (Auto) 57, Lymphocytes (%) (Auto) 23, Monocytes (%) (Auto) 17H, Eosinophils (%) (Auto) 3, Basophils (%) (Auto) 0, Neutrophils # (Auto) 1.1L, Lymphocytes # (Auto) 0.5L, Monocytes # (Auto) 0.3, Eosinophils # (Auto) 0.1, Basophils # (Auto) 0.0, Sodium Level 139, Potassium Level 3.8, Chloride Level 97L, Carbon Dioxide Level 32, Anion Gap 10, Blood Urea Nitrogen 11, Creatinine 0.60, Estimat Glomerular Filtration Rate > 60, BUN/Creatinine Ratio 18, Glucose Level 198H, Calcium Level 8.5, Corrected Calcium 8.8, Phosphorus Level 3.2, Magnesium Level 1.9, Total Bilirubin 0.7, Aspartate Amino Transf (AST/SGOT) 38H, Alanine Aminotransferase (ALT/SGPT) 61H, Alkaline Phosphatase 54, Total Protein 5.6L, Albumin 3.6 01/10/20 10:34: Glucometer 200H 01/10/20 16:20: Glucometer 213H 01/10/20 20:19: Glucometer 222H Microbiology 01/06/20 MRSA Screen - Final, Complete MRSA not isolated Assessment/Plan Assessment/Plan Assessment/Plan GI bleed likely upper anemia occult + stool etOH use cirrhosis with history of varices thrombocytopenia Protonix Hold anticoagluation due to gi bleed follow hgb and platelets transfusin prn endoscopy inpatient vs outpatient if remains stable likely outpatient will follow Clinical Quality Measures DVT/VTE Risk/Contraindication: Risk Factor Score Per Nursin RFS Level Per Nursing on Admit: 4+=Very High CIERA WHITEHEAD DO Jan 10, 2020 21:41
[2020-01-10] MEDS: LORazepam 1 MG (ATIVAN) TAB PO PRN (21:43)
[2020-01-10] MEDS: ONDANSETRON 4 MG/2 ML (SDV) Z0FRAN IV PRN (21:44)
[2020-01-11] VITALS: BP 145/69
[2020-01-11] MEDS: RT-ALBUTEROL/IPRATROPIUM 3 ML (DUONEB) VIAL INH SCH ×4 (02:02→13:45)
[2020-01-11 04:00] VITALS: BP 137/74
[2020-01-11 04:50] LABS: BASOPHILS % (AUTO) 0 % (0-10); EOSINOPHILS # (AUTO) 0.1 10^3/uL (0.0-0.3); EOSINOPHILS % (AUTO) 4 % (0-10); HEMATOCRIT 29 % (40-54); LYMPHOCYTES # (AUTO) 0.3 X 10^3 (1.0-4.0); LYMPHOCYTES % (AUTO) 21 % (12-44); MEAN CORPUSCULAR HEMOGLOBIN 33 PG (25-34); MEAN CORPUSCULAR HGB CONC 31 G/DL (32-36); MEAN CORPUSCULAR VOLUME 104 FL (80-99); MEAN PLATELET VOLUME 12.7 FL (7.4-10.4); MONOCYTES # (AUTO) 0.3 X 10^3 (0.0-1.0); MONOCYTES % (AUTO) 18 % (0-12); NEUTROPHILS # (AUTO) 0.9 X 10^3 (1.8-7.8); NEUTROPHILS % (AUTO) 57 % (42-75); RED CELL DISTRIBUTION WIDTH 17.1 % (10.0-14.5); WHITE BLOOD COUNT 1.5 10^3/uL (4.3-11.0)
[2020-01-11 04:54] LABS: PLATELET COUNT 21 10^3/uL (130-400)
[2020-01-11 05:06] LABS: ALBUMIN 3.3 GM/DL (3.2-4.5)
[2020-01-11 05:07] LABS: CHLORIDE 100 MMOL/L (98-107); POTASSIUM 3.6 MMOL/L (3.6-5.0); SODIUM 142 MMOL/L (135-145)
[2020-01-11 05:08] LABS: CALCIUM 8.3 MG/DL (8.5-10.1)
[2020-01-11 05:09] LABS: GLUCOSE 171 MG/DL (70-105); TOTAL PROTEIN 5.4 GM/DL (6.4-8.2)
[2020-01-11 05:10] LABS: CARBON DIOXIDE 31 MMOL/L (21-32)
[2020-01-11 05:11] LABS: BILIRUBIN,TOTAL 0.7 MG/DL (0.1-1.0)
[2020-01-11 05:12] LABS: ALKALINE PHOSPHATASE 55 U/L (40-136)
[2020-01-11 05:13] LABS: GFR ESTIMATED > 60
[2020-01-11 05:14] LABS: BUN/CREATININE RATIO 12
[2020-01-11 05:16] LABS: ALANINE AMINOTRANSFERASE 56 U/L (0-55); MAGNESIUM 1.9 MG/DL (1.6-2.4)
[2020-01-11] MEDS: MAGNESIUM 1 GM/100 ML IVPB 100 ML IV SCH (05:29)
[2020-01-11] MEDS: POTASSIUM CL 10MEQ/50ML IVPB 50 ML IV SCH (05:30)
[2020-01-11] MEDS: inSUlin ASPART (NovoLOG) 1 UNIT/0.01 ML (CHARGE PER UNIT) SC SCH ×2 (05:31→11:39)
[2020-01-11] MEDS: KCL 20 MEQ TAB (K-DUR) PO SCH (06:46)
[2020-01-11] MEDS: ONDANSETRON 4 MG (ZOFRAN) ORAL DISSOLVE TAB SL PRN (07:33)
[2020-01-11 08:08] VITALS: BP 134/69
[2020-01-11] MEDS: PANTOPRAZOLE 40 MG (PROTONIX) VIAL IV SCH (08:58)
[2020-01-11] MEDS: dilTIAZem120 MG (CARDIZEM CD) CAP PO SCH (08:59)
--- NOTE | 2020-01-11 09:54 | Physical Therapy Daily Note ---
PT Daily Note-Current Subjective Patient agrees to PT. Patient voices concern with bilateral LE edema. RN is aware. Pain Numeric Pain Scale: 0-No Pain Location: No Pain Reported Mental Status Patient Orientation: Normal For Age Attachments: Oxygen (2L) Transfers SCALE: Activities may be completed with or without assistive devices. 2-Nyvnlkljjt-pauiwdx completes the activity by him/herself with no assistance from a helper. 5-Set-up or Clean-up Assistance-helper sets up or cleans up; patient completes activity. [place] assists only prior to or following the activity. 4-Supervision or Touching Assistance-helper provides verbal cues and/or touching/steadying and/or contact guard assistance as patient completes activity. Assistance may be provided throughout the activity or intermittently. 3-Partial/Moderate Assistance-helper does LESS THAN HALF the effort. [place] lifts, holds or supports trunk or limbs, but provides less than half the effort. 2-Substantial/Maximal Assistance-helper does MORE THAN HALF the effort. [place] lifts or holds trunk or limbs and provides more than half the effort. 6-Tepzacudm-ybdyug does ALL the effort. Patient does none of the effort to complete the activity. Or, the assistance of 2 or more helpers is required for the patient to complete the activity. If activity was not attempted, code reason: 7-Patient Refused. 9-Not Applicable-not attempted and the patient did not perform the activity before the current illness, exacerbation or injury. 10-Not Attempted due to Environmental Limitations-(lack of equipment, weather restraints, etc.). 88-Not Attempted due to Medical Conditions or Safety Concerns. Sit to Stand (QC): 6 Weight Bearing Right Lower Extremity: Right Full Weight Bearing Left Lower Extremity: Left Full Weight Bearing Gait Training Does the Patient Walk?: Yes Distance: 500' Walk 10 feet (QC): 6 Walk 50 ft with 2 Turns(QC): 6 Walk 150 ft (QC): 6 Gait Assistive Device: FWW safe and functional gait sequence with FWW with 2 standing recovery periods due to fatigue. Assessment Patient remains up in recliner with needs met. PT Short Term Goals Short Term Goals Time Frame: January 15, 2020 Roll Left & Right: 6 Sit to lyin Lying to sitting on side of be: 6 Sit to stand: 6 Chair/war-ef-xstmn transfer: 6 Toilet transfer: 6 Walk 10 feet: 6 Walk 50 feet with two turns: 6 Walk 150 feet: 6 PT Plan Treatment/Plan Treatment Plan: Continue Plan of Care Treatment Plan: Bed Mobility, Education, Functional Activity Jonh, Functional Strength, Gait, Safety, Therapeutic Exercise, Transfers Treatment Duration: January 15, 2020 Frequency: 6 times per week Estimated Hrs Per Day: .25 hour per day Patient and/or Family Agrees t: Yes Time/GCodes Time In: 901 Time Out: 915 Total Billed Treatment Time: 14 Total Billed Treatment 1 visit FA 14 min GARCIA PARMAR PT Jan 11, 2020 09:54
--- NOTE | 2020-01-11 10:56 | Cardiology Progress Note ---
Subjective Date Seen by Provider: Jan 11, 2020 Time Seen by Provider: 10:15 Subjective/Events-last exam Patient sitting up in chair, complaining of increased dyspnea this morning. Denies any chest pain or palpitations. Review of Systems General: No Chills, No Night Sweats, No Fatigue, No Malaise, No Appetite, No Other HEENT: No Head Aches, No Visual Changes, No Eye Pain, No Ear Pain, No Dysphasia, No Sinus Congestion, No Post Nasal Drip, No Sore Throat, No Other Pulmonary: Dyspnea; No Cough, No Pleuritic Chest Pain, No Other Cardiovascular: Edema; No: Chest Pain, Palpitations, Orthopnea, Paroxysmal Noc. Dyspnea, Lt Headedness, Other Objective-Cardiology Exam Last Set of Vital Signs Vital Signs 01/08/20 01/11/20 01/11/20 10:56 11:55 12:13 Temp 36.8 Pulse 107 Resp 20 B/P (MAP) 131/65 (87) Pulse Ox 93 O2 Delivery Nasal Cannula O2 Flow Rate 3.00 FiO2 28 Capillary Refill : Less Than 3 Seconds I&O Intake and Output 01/11/20 00:00 Intake Total 1510 ml Output Total 850 ml Balance 660 ml Intake Oral 1510 ml Output Urine Total 850 ml # Voids 5 General: Alert, Oriented X3, Cooperative HEENT: Atraumatic, PERRLA Neck: Supple, No JVD, No Thyromegaly Lungs: Clear to Auscultation, Normal Air Movement Heart: Normal S1, Normal S2, Other (tachycardic) Abdomen: Soft, No Tenderness Extremities: No Clubbing, No Cyanosis, Other (+ 2 edema BLE) Skin: No Rashes, No Significant Lesion Neuro: Normal Speech, Cranial Nerves 3-12 NL Psych/Mental Status: Mental Status NL, Mood NL Results Lab Laboratory Tests 01/11/20 04:10 A/P-Cardiology Admission Diagnosis Afib with RVR Alcohol withdrawal Alcohol cirrhosis GI bleed Assessment/Plan Acute alcohol withdrawal, defer to the primary team. The patient is currently in sinus tachycardia which is likely due to alcohol withdrawal. Atrial fibrillation with RVR, He converted to sinus rhythm spontaneously. He is currently in sinus tachycardia due to alcohol withdrawal. Echocardiogram shows normal LV function. Unable to tolerate OAC at this time secondary to GI bleed. Bilateral lower extremity swelling, diurese and continue to monitor Dyspnea, likely secondary to volume overload, I will diurese and continue to monitor closely. Anemia, GI bleed, Dr. Hale consulted and following, planning for endoscopy in near future. Alcoholic cirrhosis, History of esophageal varices Diabetes Patient was seen and evaluated with Jil, examination performed, management plan was discussed, agree with the current scribed note, I made few changes to the note using Italic font Patient is having significant peripheral edema and increasing dyspnea Lungs were clear to auscultation bilaterally I will give him a dose of Lasix and start him on Aldactone and monitor tolerance and response Clinical Quality Measures DVT/VTE Risk/Contraindication: Risk Factor Score Per Nursin RFS Level Per Nursing on Admit: 4+=Very High JIL LARRY Jan 11, 2020 10:55 HEATHER CARTER MD Jan 11, 2020 13:27
[2020-01-11 11:55] VITALS: BP 131/65
[2020-01-11] MEDS ORDERED: SPIR50TA PO (13:12)
[2020-01-11] MEDS ORDERED: DILT-27 PO (13:12)
[2020-01-11] MEDS ORDERED: METF-397 PO (13:12)
[2020-01-11] MEDS ORDERED: FUROSEMIDE 40 MG/4 ML INJ (LASIX) IVP ONE (13:45)
[2020-01-11] MEDS ORDERED: SPIRONOLACTONE 25 MG (ALDACTONE) TAB PO SCH (14:00)
[2020-01-11] MEDS ORDERED: FUROSEMIDE 40 MG/4 ML INJ (LASIX) IVP NR (14:00)
--- NOTE | 2020-01-11 14:56 | NUR ---
"RD ASSESSMENT PMHx: COPD; ETOH cirrhosis; jaundice; esophageal varices; tobacco use; polysubstance use (THC, meth) PT INTERACTION: Pt was awake and pleasant during nutrition follow-up. Note Phuong MELISSA called and stated pt requested DM education prior to discharge. Pt states current appetite is good. Note avg PO intake 100% x2d, per chart review. Pt states some issues with nausea since last assessment. Pt states no issues with vomiting, constipation or diarrhea since last assessment. Note last BM was 01/07, and pt currently on bowel regimen of Senna PRN, per chart review. ABNORMAL NUTRITION-RELATED LAB VALUES LOW: Pro 5.4; Ca 8.3 HIGH: glu 171; AST 37; ALT 56 Est. kcal needs: 1453-1677 kcal | 15-18 kcal/kg Est. Pro needs: 101-126 g Pro | 0.8-1.0 g Pro/kg PES STATEMENT: Food- and nutrition-related knowledge deficit (NB-1.1) related to lack of prior nurition-related education as evidenced by no prior knowledge of need for food- and nutrition-related recommendations INTERVENTION: Continue with current diet order of DYS2 Mechanically Altered diet. Discussed and provided handout on CHO counting. Provided pt with examples of common foods in his current diet and the amount of CHOs in those items. Explained that portion control will be beneficial to better glucose control. Pt verbalized understanding of these recommendations and appears confident to follow them upon discharge. Provided contact information should pt have questions upon discharge. Will continue to follow and reassess as pt needs, intake, and status change. MONITOR/EVALUATE: PO Intake; Plan of Care; Hydration Status; Weight Status; Lab Values Bony Kinney, MS, RD, LD"
--- NOTE | 2020-01-11 15:09 | NUR ---
CM/SS: Visited with pt as to plan for discharge. Plan: Pt will be discharged to home with follow up appt at [facility]. Summary: Pt is more alert today, and seems to know what he needs to do in order to remain out of the hospital. Pt reports he wants to live and not , so he just can not drink. Pt was talking to his mother on the phone, and reports he wants to spend some time with her and his dad as his dad is in the penitentiary in [place]. Pt reports a somewhat distance relationship with his siblings, as they never visit him, he will visit them. He is encouraged to keep his follow up appointments, and remain clean and sober, as continued alcohol use can only cause more health problems. Pt verbalizes understanding.
[2020-01-11 15:27] VITALS: BP 131/65
--- NOTE | 2020-01-11 17:21 | Progress Note - Surgery ---
Subjective Date Seen by a Provider: Jan 11, 2020 Time Seen by a Provider: 09:02 Subjective/Events-last exam Patient with no new complaints. Abdomen no pain. Not seeing any blood per rectum. Hgb stable. Wanting to go home. Denies n/v feve sweats chills shortness of breath or chest pain. Objective Exam Vital Signs Date Time Temp Pulse Resp B/P (MAP) Pulse Ox O2 Delivery O2 Flow Rate FiO2 01/11/20 15:27 36.8 107 20 131/65 95 Nasal Cannula 3.00 01/11/20 13:39 95 Nasal Cannula 3.00 01/11/20 12:13 107 01/11/20 11:55 36.8 114 20 131/65 (87) 93 Nasal Cannula 3.00 01/11/20 10:49 97 Nasal Cannula 3.00 01/11/20 08:08 36.5 108 21 134/69 (90) 91 Nasal Cannula 2.00 01/11/20 08:00 Nasal Cannula 3.00 01/11/20 07:00 95 01/11/20 06:52 96 Nasal Cannula 4.00 01/11/20 04:00 36.5 104 20 137/74 (95) 97 Nasal Cannula 2.00 01/11/20 02:02 87 Nasal Cannula 2.00 01/11/20 01:00 95 01/11/20 00:23 133 01/11/20 00:00 36.9 114 22 145/69 (94) 92 Nasal Cannula 2.00 01/10/20 21:24 91 Nasal Cannula 2.00 01/10/20 20:15 Nasal Cannula 2.00 01/10/20 20:12 36.9 93 20 121/68 (85) 94 Nasal Cannula 2.00 01/10/20 19:00 111 01/10/20 18:07 91 Nasal Cannula 2.00 I & O 01/11/20 07:00 Intake Total 2060 ml Output Total 700 ml Balance 1360 ml Capillary Refill : Less Than 3 Seconds General Appearance: No Apparent Distress, Chronically ill, Obese HEENT: PERRL/EOMI, Moist Mucous Membranes; No Scleral Icterus (L), No Scleral Icterus (R) Neck: Normal Inspection, Non Tender, Supple; No Thyromegaly Respiratory: Chest Non Tender, No Accessory Muscle Use, No Respiratory Distress Cardiovascular: Regular Rate, Rhythm Gastrointestinal: non tender, no organomegaly, no pulsatile mass Extremity: Swelling (2+ to bilateral calves) Neurologic/Psychiatric: Alert, Oriented x3, Normal Mood/Affect Skin: Normal Color, Warm/Dry Lymphatic: No Adenopathy Results Lab Laboratory Tests 01/10/20 20:19: Glucometer 222H 01/11/20 04:10: White Blood Count 1.5L, Red Blood Count 2.76L, Hemoglobin 9.0L, Hematocrit 29L, Mean Corpuscular Volume 104H, Mean Corpuscular Hemoglobin 33, Mean Corpuscular Hemoglobin Concent 31L, Red Cell Distribution Width 17.1H, Platelet Count 21*L, Mean Platelet Volume 12.7H, Neutrophils (%) (Auto) 57, Lymphocytes (%) (Auto) 21, Monocytes (%) (Auto) 18H, Eosinophils (%) (Auto) 4, Basophils (%) (Auto) 0, Neutrophils # (Auto) 0.9L, Lymphocytes # (Auto) 0.3L, Monocytes # (Auto) 0.3, Eosinophils # (Auto) 0.1, Basophils # (Auto) 0.0, Sodium Level 142, Potassium Level 3.6, Chloride Level 100, Carbon Dioxide Level 31, Anion Gap 11, Blood Urea Nitrogen 7, Creatinine 0.60, Estimat Glomerular Filtration Rate > 60, BUN/Creatinine Ratio 12, Glucose Level 171H, Calcium Level 8.3L, Corrected Calcium 8.9, Magnesium Level 1.9, Total Bilirubin 0.7, Aspartate Amino Transf (AST/SGOT) 37H, Alanine Aminotransferase (ALT/SGPT) 56H, Alkaline Phosphatase 55, Total Protein 5.4L, Albumin 3.3 01/11/20 04:16: 01/11/20 11:16: Glucometer 237H 01/11/20 12:25: Lab Scanned Report Transfusion Reaction Form Microbiology 01/06/20 MRSA Screen - Final, Complete MRSA not isolated Assessment/Plan Assessment/Plan Assessment/Plan GI bleed likely upper anemia occult + stool etOH use cirrhosis with history of varices thrombocytopenia Protonix Hold anticoagluation due to gi bleed Patient wanting to go home so will plan endoscopy outpatient okay to [place] home from surgical standpoint Clinical Quality Measures DVT/VTE Risk/Contraindication: Risk Factor Score Per Nursin RFS Level Per Nursing on Admit: 4+=Very High CIERA WHITEHEAD DO Jan 11, 2020 17:21
[2020-01-12] MEDS ORDERED: SPIRONOLACTONE 25 MG (ALDACTONE) TAB PO SCH (09:00)
--- NOTE | 2020-01-13 14:00 | Discharge Summary ---
Discharge Summary Hospital Course Was the Problem List Reviewed?: Yes Problems/Dx: (1) Alcohol withdrawal Status: Acute Qualifiers: Qualified Codes: F10.239 - Alcohol dependence with withdrawal, unspecified (2) Thrombocytopenia Status: Chronic (3) Cirrhosis Status: Chronic Qualifiers: Qualified Codes: K70.30 - Alcoholic cirrhosis of liver without ascites (4) History of illicit drug use Status: Acute (5) Chronic alcohol abuse Status: Acute (6) Atrial fibrillation with RVR Status: Acute (7) Tobacco abuse Status: Chronic (8) COPD (chronic obstructive pulmonary disease) Qualifiers: Qualified Codes: J44.9 - Chronic obstructive pulmonary disease, unspecified (9) Type II diabetes mellitus Status: Acute Qualifiers: Qualified Codes: E11.9 - Type 2 diabetes mellitus without complications Hospital Course Date of Admission: Jan 06, 2020 at 05:00 Admission Diagnosis : Alcohol dependence with withdrawal [facility] Date of Discharge: 01/13/20 Discharge Diagnosis: Alcohol dependence with withdrawal Hospital Course: Gavin Albarado is a 59-year-old male with past medical history of alcohol de pendence who presented with alcohol withdrawal. He was treated with the CIWA protocol and improved. His course was complicated by thrombocytopenia which is chronic. He also had atrial fibrillation with rapid ventricular response and was started on diltiazem. He was not started on anticoagulation due to his severe thrombocytopenia. He has newly diagnosed diabetes and was started on metformin on discharge. General surgery was consulted due to his anemia but his hemoglobin remained stable so endoscopy is not pursued while inpatient. He will need an upper endoscopy as an outpatient. He needs to establish care with a primary care physician and was set up with an appointment with [facility] on discharge. He was encouraged to abstain from alcohol. Labs and Pending Lab Test: Microbiology 01/06/20 MRSA Screen - Final, Complete MRSA not isolated Home Meds Active Metformin HCl 500 Mg Tablet 500 Mg PO DAILY 30 Days Aldactone (Spironolactone) 50 Mg Tablet 50 Mg PO DAILY 30 Days Diltiazem 24Hr ER (Diltiazem HCl) 120 Mg Cap.er.24h 120 Mg PO DAILY 30 Days Reported Flomax (Tamsulosin HCl) 0.4 Mg Cap 0.4 Mg PO DAILY Vitamin C (Ascorbic Acid) 250 Mg Tab 250 Mg PO DAILY Multivitamin 1 Each Tablet 1 Each PO DAILY Symbicort 160-4.5 Mcg Inhaler (Budesonide/Formoterol Fumarate) 10.2 Gm Hfa.ae r.ad 2 Puff PO BID PRN Budesonide 0.5 Mg/2 Ml Ampul.neb 1 Vial NEB BID PRN Furosemide 20 Mg Tablet 20 Mg PO DAILY Ursodiol 300 Mg Capsule 300 Mg PO BID Proair Hfa (Albuterol Sulfate) 1 Puff Puff 2 Puff PO Q4H PRN Combivent Respimat Inhal [place] (Albuterol/Ipratropium) 4 Gm Aero 1 Puff PO QID PRN Propranolol HCl 20 Mg Tablet 20 Mg PO BID Assessment/Pt Instructions Take medications as prescribed. Avoid alcohol use. Follow-up with your primary care physician. Discharge Planning: <30 minutes discharge planning Discharge Instructions Discharge Diet: Low Sodium Diet Activity as Tolerated: Yes Pneumonia Vaccine Order Indica: Yes Consultations Cardiology, general surgery Discharge Physical Examination Vital Signs Vital Signs Date Time Temp Pulse Resp B/P (MAP) Pulse Ox O2 Delivery O2 Flow Rate FiO2 01/11/20 15:27 36.8 107 20 131/65 95 Nasal Cannula 3.00 01/08/20 10:56 28 General Appearance: No Apparent Distress, Obese Respiratory: Lungs Clear, Normal Breath Sounds, No Respiratory Distress Cardiovascular: Regular Rate, Rhythm, No Murmur Gastrointestinal: Normal Bowel Sounds, Non Tender, Soft Extremity: Normal Inspection, Non Tender Skin: Normal Color, Warm/Dry Neurologic/Psychiatric: Alert, Normal Mood/Affect Allergies: Coded Allergies: No Known Drug Allergies (Unverified , 03/09/14) Copy Copies To 1: [facility] – [place], [place] Discharge Summary Date of Admission Jan 06, 2020 at 05:00 Date of Discharge Jan 11, 2020 at 15:28 Discharge Date: Jan 11, 2020 Discharge Time: 15:28 Admission Diagnosis A-fib with RVR- new onset Consults/Procedures Consulations Cardiology, general surgery Discharge Diagnosis (1) Alcohol withdrawal Status: Acute Qualifiers: Qualified Codes: F10.239 - Alcohol dependence with withdrawal, unspecified (2) Thrombocytopenia Status: Chronic (3) Cirrhosis Status: Chronic Qualifiers: Qualified Codes: K70.30 - Alcoholic cirrhosis of liver without ascites (4) History of illicit drug use Status: Acute (5) Chronic alcohol abuse Status: Acute (6) Atrial fibrillation with RVR Status: Acute (7) Tobacco abuse Status: Chronic (8) COPD (chronic obstructive pulmonary disease) Qualifiers: Qualified Codes: J44.9 - Chronic obstructive pulmonary disease, unspecified (9) Type II diabetes mellitus Status: Acute Qualifiers: Qualified Codes: E11.9 - Type 2 diabetes mellitus without complications Clinical Quality Measures DVT/VTE Risk/Contraindication: Risk Factor Score Per Nursin RFS Level Per Nursing on Admit: 4+=Very High DEEPALI PARSONS MD Jan 13, 2020 13:58
== END 2020-01-11 15:28 | disposition home or self-care (01) | DRG 896 ==
LOC: EDUNIT# 03:49 → ER 03:53 → ICU 05:00 → 4TH 01-10 13:37
PROVIDERS: ADMIT Internal Medicine; ATTEND Internal Medicine
DX: F10.239 Alcohol dependence with withdrawal, unspecified (principal); I48.91 Unspecified atrial fibrillation; R00.0 Tachycardia, unspecified; I85.11 Secondary esophageal varices with bleeding; K70.30 Alcoholic cirrhosis of liver without ascites; D69.6 Thrombocytopenia, unspecified; J44.9 Chronic obstructive pulmonary disease, unspecified; E11.65 Type 2 diabetes mellitus with hyperglycemia; R60.0 Localized edema; R06.03 Acute respiratory distress; F17.210 Nicotine dependence, cigarettes, uncomplicated; R16.2 Hepatomegaly with splenomegaly, not elsewhere classified; E66.01 Morbid (severe) obesity due to excess calories; B35.3 Tinea pedis; E87.6 Hypokalemia; E83.42 Hypomagnesemia; Z99.81 Dependence on supplemental oxygen; Z68.36 Body mass index [BMI] 36.0-36.9, adult; D64.9 Anemia, unspecified
CPT/HCPCS: 36415; 71045; 80048; 80053; 80074; 80306; 80320; 80329; 81000; 82010; 82150; 82274; 82550; 82553; 82607; 82746; 82805; 82962; 83036; 83605; 83690; 83735; 83874; 83880; 84100; 84443; 84484; 85025; 85027; 85610; 85730; 86703; 86850; 86900; 86901; 87081; 93005; 93041; 94640; 94664; 94760

== ENCOUNTER → 2020-03-01 | Outpatient (CLI) | payer SELFPAY ==
[~2020-03-01] MED LIST changes: +BUDE0.5A NEB; +BUDE10.2 PO; +C250T PO; +DILT-27 PO; +FURO20TA4 PO; +IPRA4AER PO; +METF-397 PO; +MULT-1136 PO; +PROP20TA5 PO; +RT-ALBUINH PO; +SPIR50TA PO; +TMSL.4C PO; +URSO300C3 PO
[2020-03-01 09:46] LABS: BASOPHILS % (AUTO) 0 % (0-10); EOSINOPHILS # (AUTO) 0.2 10^3/uL (0.0-0.3); EOSINOPHILS % (AUTO) 3 % (0-10); HEMATOCRIT 42 % (40-54); HEMOGLOBIN 14.4 G/DL (13.3-17.7); LYMPHOCYTES # (AUTO) 1.1 X 10^3 (1.0-4.0); LYMPHOCYTES % (AUTO) 18 % (12-44); MEAN CORPUSCULAR HEMOGLOBIN 30 PG (25-34); MEAN CORPUSCULAR HGB CONC 34 G/DL (32-36); MEAN CORPUSCULAR VOLUME 89 FL (80-99); MEAN PLATELET VOLUME 13.4 FL (7.4-10.4); MONOCYTES # (AUTO) 0.6 X 10^3 (0.0-1.0); MONOCYTES % (AUTO) 10 % (0-12); NEUTROPHILS # (AUTO) 4.2 X 10^3 (1.8-7.8); NEUTROPHILS % (AUTO) 69 % (42-75); RED CELL DISTRIBUTION WIDTH 14.6 % (10.0-14.5)
[2020-03-01 09:59] LABS: PLATELET COUNT 46 10^3/uL (130-400)
[2020-03-01 10:00] LABS: BUN/CREATININE RATIO 18; CALCIUM 9.8 MG/DL (8.5-10.1); CARBON DIOXIDE 27 MMOL/L (21-32); CHLORIDE 99 MMOL/L (98-107); CREATININE SERUM 0.71 MG/DL (0.60-1.30); GFR ESTIMATED > 60; GLUCOSE 195 MG/DL (70-105); POTASSIUM 3.8 MMOL/L (3.6-5.0); SODIUM 137 MMOL/L (135-145)
== END ==
LOC: LAB 09:20
PROVIDERS: ATTEND Surgery
DX: K92.1 Melena (principal)
CPT/HCPCS: 36415; 80048; 85025

== ENCOUNTER 2020-05-06 05:47 | Outpatient (RCR) | payer MEDICAID ==
[~2020-05-06] VITALS: Ht 177.8 cm; Wt 113.2 kg
[~2020-05-06 05:47] MED LIST changes: +ASCO250T16 PO; -C250T PO
== END 2020-05-06 09:43 | disposition home or self-care (01) ==
LOC: PREOP 05:47
PROVIDERS: ATTEND Surgery
DX: Z01.818 Encounter for other preprocedural examination (principal); Z01.812 Encounter for preprocedural laboratory examination; Z12.11 Encounter for screening for malignant neoplasm of colon; D64.9 Anemia, unspecified; R19.5 Other fecal abnormalities; Z20.828 Contact with and (suspected) exposure to other viral communicable diseases
CPT/HCPCS: 87635

== ENCOUNTER 2020-05-10 09:12 | Day surgery (SDC) | payer MEDICAID ==
[~2020-05-10] VITALS: Ht 179 cm; Wt 103.6 kg
[2020-05-10] VITALS (7 sets, daily range): BP systolic 126–141; BP diastolic 70–91
[2020-05-10] MEDS ORDERED: LACTATED RINGERS 1,000 ML IV STA (09:22)
[2020-05-10] MEDS ORDERED: HURRICAINE EXT TUBE (BENZOCAINE) XX PRN (09:30)
[2020-05-10] MEDS ORDERED: LACTATED RINGERS 1,000 ML IV ONE (09:31)
[2020-05-10 09:43] LABS: AMPHETAMINE SCREEN, URINE NEGATIVE (NEGATIVE); BARBITURATE SCREEN URINE NEGATIVE (NEGATIVE); BENZODIAZEPINES SCREEN URINE NEGATIVE (NEGATIVE); CANNABINOID SCREEN, URINE NEGATIVE (NEGATIVE); COCAINE SCREEN URINE NEGATIVE (NEGATIVE); METHADONE STAT NEGATIVE (NEGATIVE); METHAMPHETAMINE SCREEN URINE S NEGATIVE (NEGATIVE); OPIATE SCREEN URINE NEGATIVE (NEGATIVE); OXYCODONE STAT NEGATIVE (NEGATIVE); PROPOXYPHENE STAT NEGATIVE (NEGATIVE); TRICYCLIC ANTIDEPRESSANTS SCRE NEGATIVE (NEGATIVE)
[2020-05-10] MEDS ORDERED: MIDAZOLAM 2 MG/2 ML (VERSED) VIAL ONE (10:22)
[2020-05-10] MEDS ORDERED: PROPOFOL INJECTION 50 ML IV ONE ×2 (10:22→10:43)
--- NOTE | 2020-05-10 11:56 | Progress Note-Post Operative ---
Post-Operative Progess Note Surgeon (s)/Script Worker (s) Surgeon CIERA WHITEHEAD DO Script Worker: na Pre-Operative Diagnosis melena, blood in stool Post-Operative Diagnosis slight gastritis, hiatal hernia, esophageal varices, colon polyps Procedure & Operative Findings Date of Procedure 05/10/20 Procedure Performed/Findings egd c biopsies, colonoscopy c snare polypectomy x 6, hot bx mucosal change of sigmoid colon and hot bx polypectomy x 1 sigmoid colon Anesthesia Type per flight service agent Estimated Blood Loss Estimated blood loss (mL): scant Specimens/Packing Specimens Removed antrum, body, colon polyps, mucosal change sigmoid CIERA WHITEHEAD DO May 10, 2020 11:56
--- NOTE | 2020-05-10 11:58 | Discharge Inst-Simple/Standard ---
Discharge Inst-Standard Patient Instructions/Follow Up Plan of Care/Instructions/FU: 2 weeks Geoffrey Activity as Tolerated: Yes Discharge Diet: Regular Diet CIERA WHITEHEAD DO May 10, 2020 11:58
[2020-05-10] MEDS ORDERED: OMEP40CA27 PO (11:59)
--- NOTE | 2020-05-10 13:17 | Anesthesia-General Post-Op ---
MAC Patient Condition Mental Status/LOC: Same as Preop Cardiovascular: Satisfactory Nausea/Vomiting: Absent Respiratory: Satisfactory Pain: Controlled Complications: Absent Post Op Complications Complications None Follow Up Care/Instructions Patient Instructions None needed. Anesthesiology Discharge Order Discharge Order Patient is doing well, no complaints, stable vital signs, no apparent adverse anesthesia problems. No complications reported per nursing. MICHAEL TOLBERT CRNA May 10, 2020 13:17
--- NOTE | 2020-05-10 20:31 | OPERATIVE REPORT ---
DATE OF SERVICE: 05/10/2020 PREOPERATIVE DIAGNOSES: Melena, blood in stool. POSTOPERATIVE DIAGNOSES: Slight gastritis, hiatal hernia, esophageal varices, colon polyps. PROCEDURE: EGD with biopsies, colonoscopy with snare polypectomy x6, hot biopsies of the mucosal changes of the sigmoid colon and hot biopsy polypectomy x1 sigmoid colon. SURGEON: Ciera Hale DO ANESTHESIA: Per DESK MAKER. ESTIMATED BLOOD LOSS: Scant. COMPLICATIONS: None. INDICATIONS: The patient is a 59-year-old male with melena and blood in stool. He understands risks and benefits of procedure and wished to proceed with procedure. Consent was signed in the chart. DESCRIPTION OF PROCEDURE: The patient was taken to the endoscopy suite, placed in left lateral recumbent position. Timeout was performed. Scope was inserted in mouth, down the esophagus, stomach and into the duodenum without difficulty. There were no polyps, masses or ulcerations within the duodenum. Scope was slowly retracted back into the stomach where it was further insufflated. Slight erythematous changes consistent with some slight gastritis was present. No polyps, masses or ulcerations. Biopsy of the antrum and body were obtained. Scope was retroflexed noting hiatal hernia. Scope was then returned to its normal position, slowly withdrawn to distal esophagus, which had significant esophageal varices throughout the majority of the esophagus. Scope was then slowly retracted back until completely removed. Digital rectal exam was performed. There were no palpable polyps, masses or ulcerations. Scope was inserted in the rectum, advanced all the way to cecum with minimal difficulty. Prep was adequate. In the cecum, there were two larger polyps, which snare polypectomy was performed on both polyps. One was able to be suctioned, one had to be snared into pieces to get removed. Scope was then continued slowly retracted back. In the ascending colon, there were no polyps, masses or ulcerations. In the transverse colon, no polyps, masses or ulcerations. In the descending colon, two larger polyps were present, which these two polyps had snare polypectomies performed. These were obtained for pathology. Scope was then continuously retracted back. In the sigmoid at 30 cm, there is mucosal change, which hot biopsies were obtained of this area. Scope was then continued to be slowly retracted back and another small polyp was present, which hot biopsy polypectomy was performed in the sigmoid colon. Once in the rectum, there were two other small polyps, which snare polypectomies were performed. Scope was retroflexed noting no other pathology. Scope was returned to its normal position, slowly withdrawn until completely removed. The patient tolerated procedure well without any complications and taken to recovery room in stable condition. RECOMMENDATIONS: The patient will be started on omeprazole 40 mg daily. The patient will need repeat colonoscopy in six months to reevaluate colon due to the number of polyps and size of polyps. Job ID: [id number] DocumentID: [id number] Dictated Date: 05/10/2020 12:11:29 Apparel Merchandiser Date: 05/10/2020 20:30:50 Dictated By: CIERA HALE DO
== END 2020-05-10 12:30 | disposition home or self-care (01) ==
LOC: ENDO 09:12
PROVIDERS: ATTEND Surgery
DX: K29.70 Gastritis, unspecified, without bleeding (principal); K44.9 Diaphragmatic hernia without obstruction or gangrene; I85.00 Esophageal varices without bleeding; D12.0 Benign neoplasm of cecum; D12.4 Benign neoplasm of descending colon; K63.5 Polyp of colon; K62.1 Rectal polyp; I10 Essential (primary) hypertension; E11.9 Type 2 diabetes mellitus without complications; D69.6 Thrombocytopenia, unspecified; J44.9 Chronic obstructive pulmonary disease, unspecified; E66.9 Obesity, unspecified; F17.210 Nicotine dependence, cigarettes, uncomplicated; Z99.81 Dependence on supplemental oxygen; Z79.899 Other long term (current) drug therapy; Z79.84 Long term (current) use of oral hypoglycemic drugs; Z68.35 Body mass index [BMI] 35.0-35.9, adult
CPT/HCPCS: 80306; 82962; 88305

== ENCOUNTER → 2020-06-23 | Outpatient (CLI) | payer MEDICAID ==
[~2020-06-23] MED LIST changes: +OMEP40CA27 PO
--- NOTE | 2020-06-23 13:50 | Diagnostic Imaging Report ---
INDICATION: Palpable lump right breast. COMPARISON: No prior studies are available for comparison. 2-D and 3-D bilateral diagnostic mammography was performed with CAD. There is mild fibroglandular tissue noted in the retroareolar regions bilaterally, slightly greatest on the right. Findings are consistent with gynecomastia. No discrete mass is detected. No malignant appearing microcalcifications are seen. Axillae are unremarkable. IMPRESSION: BI-RADS 0. Findings suggestive of gynecomastia. Further evaluation of the retroareolar regions with ultrasound is recommended and will be performed today. ACR BI-RADS Category 0: Incomplete. (Needs additional imaging evaluation). Result letter will be mailed to the patient. Note: At least 10% of breast cancer is not imaged by mammography. Dictated by: Dictated on workstation # [id number]
--- NOTE | 2020-06-23 16:03 | Diagnostic Imaging Report ---
INDICATION: Lump in the right breast. EXAMINATION: Sonographic interrogation of the retroareolar region of the right breast was performed. FINDINGS: There is ill-defined hypoechogenicity at this location consistent with gynecomastia. This correlates with findings on diagnostic mammogram. This area measures 1.9 x 1.3 x 1.6 cm. The left retroareolar region was evaluated for comparison purposes. Minimal gynecomastia at this location is noted as well. IMPRESSION: Findings consistent with gynecomastia, greatest on the right. No discrete mass is detected. ACR BI-RADS Category 2: Benign findings. Result letter will be mailed to the patient. Note: At least 10% of breast cancer is not imaged by mammography. Dictated by: Dictated on workstation # [id number]
== END ==
LOC: RAD 13:45
PROVIDERS: ATTEND Physician Assistant
DX: N63.10 Unspecified lump in the right breast, unspecified quadrant (principal); Z20.828 Contact with and (suspected) exposure to other viral communicable diseases
CPT/HCPCS: 76642; 77065; G0279

== ENCOUNTER → 2020-09-01 | Outpatient (CLI) | payer MEDICAID ==
[2020-09-01 09:00] LABS: BASOPHILS % (AUTO) 1 % (0-10); EOSINOPHILS # (AUTO) 0.3 10^3/uL (0.0-0.3); EOSINOPHILS % (AUTO) 7 % (0-10); HEMATOCRIT 42 % (40-54); HEMOGLOBIN 14.5 g/dL (13.3-17.7); LYMPHOCYTES # (AUTO) 0.8 10^3/uL (1.0-4.0); LYMPHOCYTES % (AUTO) 20 % (12-44); MEAN CORPUSCULAR HEMOGLOBIN 32 pg (25-34); MEAN CORPUSCULAR HGB CONC 35 g/dL (32-36); MEAN CORPUSCULAR VOLUME 92 fL (80-99); MEAN PLATELET VOLUME 12.9 fL (9.0-12.2); MONOCYTES # (AUTO) 0.4 10^3/uL (0.0-1.0); MONOCYTES % (AUTO) 10 % (0-12); NEUTROPHILS # (AUTO) 2.4 10^3/uL (1.8-7.8); NEUTROPHILS % (AUTO) 62 % (42-75); WHITE BLOOD COUNT 3.8 10^3/uL (4.3-11.0)
[2020-09-01 09:15] LABS: PLATELET COUNT 29 10^3/uL (130-400)
[2020-09-01 09:21] LABS: BUN/CREATININE RATIO 22; CARBON DIOXIDE 31 MMOL/L (21-32); CHLORIDE 100 MMOL/L (98-107); CREATININE SERUM 0.68 MG/DL (0.60-1.30); GFR ESTIMATED > 60; GLUCOSE 171 MG/DL (70-105); POTASSIUM 4.2 MMOL/L (3.6-5.0); SODIUM 140 MMOL/L (135-145)
== END ==
LOC: LAB 08:41
PROVIDERS: ATTEND Surgery
DX: D69.6 Thrombocytopenia, unspecified (principal)
CPT/HCPCS: 36415; 80048; 85025

== ENCOUNTER 2020-09-22 12:51 | Outpatient (RCR) | payer MEDICAID ==
[~2020-09-22] VITALS: Ht 177.8 cm; Wt 103.6 kg
[2020-10-15] MEDS ORDERED: FAMO40TA72 PO (04:42)
[2020-10-15] MEDS ORDERED: PRD20T PO (04:42)
[2020-10-15] MEDS ORDERED: ONDA4TAB11 PO (05:04)
== END 2020-12-21 | disposition home or self-care (01) ==
LOC: PREOP 12:51
PROVIDERS: ATTEND Surgery
DX: Z01.818 Encounter for other preprocedural examination (principal)

== ENCOUNTER 2020-10-07 13:33 | Outpatient (RCR) | payer MEDICAID ==
[2020-10-07 13:49] LABS: BASOPHILS % (AUTO) 0 % (0-10); EOSINOPHILS # (AUTO) 0.3 10^3/uL (0.0-0.3); EOSINOPHILS % (AUTO) 6 % (0-10); HEMATOCRIT 42 % (40-54); HEMOGLOBIN 14.4 g/dL (13.3-17.7); LYMPHOCYTES # (AUTO) 0.9 10^3/uL (1.0-4.0); LYMPHOCYTES % (AUTO) 20 % (12-44); MEAN CORPUSCULAR HEMOGLOBIN 32 pg (25-34); MEAN CORPUSCULAR HGB CONC 34 g/dL (32-36); MEAN CORPUSCULAR VOLUME 94 fL (80-99); MEAN PLATELET VOLUME 12.6 fL (9.0-12.2); MONOCYTES # (AUTO) 0.4 10^3/uL (0.0-1.0); MONOCYTES % (AUTO) 9 % (0-12); NEUTROPHILS # (AUTO) 2.9 10^3/uL (1.8-7.8); NEUTROPHILS % (AUTO) 65 % (42-75); WHITE BLOOD COUNT 4.5 10^3/uL (4.3-11.0)
[2020-10-07 13:50] LABS: PLATELET COUNT 34 10^3/uL (130-400)
[2020-10-07 14:07] LABS: ALANINE AMINOTRANSFERASE 26 U/L (0-55); ALBUMIN 4.4 GM/DL (3.2-4.5); ALKALINE PHOSPHATASE 61 U/L (40-136); BILIRUBIN,TOTAL 0.4 MG/DL (0.1-1.0); BUN/CREATININE RATIO 18; CALCIUM 9.6 MG/DL (8.5-10.1); CARBON DIOXIDE 30 MMOL/L (21-32); CHLORIDE 101 MMOL/L (98-107); CREATININE SERUM 0.78 MG/DL (0.60-1.30); GFR ESTIMATED > 60; GLUCOSE 209 MG/DL (70-105); POTASSIUM 4.1 MMOL/L (3.6-5.0); SODIUM 140 MMOL/L (135-145); TOTAL PROTEIN 7.2 GM/DL (6.4-8.2)
[2020-10-15] MEDS ORDERED: FAMO40TA72 PO (04:42)
[2020-10-15] MEDS ORDERED: PRD20T PO (04:42)
[2020-10-15] MEDS ORDERED: ONDA4TAB11 PO (05:04)
== END 2021-01-05 | disposition home or self-care (01) ==
LOC: ONC 13:33
PROVIDERS: ATTEND Internal Medicine Hematology & Oncology
DX: D69.59 Other secondary thrombocytopenia (principal); K74.60 Unspecified cirrhosis of liver; K76.6 Portal hypertension; D12.4 Benign neoplasm of descending colon; R16.1 Splenomegaly, not elsewhere classified
CPT/HCPCS: 80053; 82105; 85025; G0463; 99214

== ENCOUNTER → 2020-10-14 | Outpatient (CLI) | payer MEDICAID ==
[~2020-10-14] MED LIST changes: +CATHETER FLUSH 10 ML SYR IV PRN; +FAMO40TA72 PO; +HOLD METFORMIN - RECEIVED CONTRAST 20 ML VIAL IV SCH; +IOHEXOL 350 MG/ML 100 ML (OMNIPAQUE 350) VIAL IV ONE; +NS 100 ML (IVPB) BAG IV ONE; +ONDA4TAB11 PO; +PRD20T PO
--- NOTE | 2020-10-14 09:47 | Diagnostic Imaging Report ---
PROCEDURE: CT abdomen and pelvis with and without contrast. TECHNIQUE: Precontrast acquisitions were acquired through the abdomen and pelvis. Multiple contiguous axial images were obtained through the abdomen and pelvis after the administration of intravenous contrast. Auto Exposure Controls were utilized during the CT exam to meet ALARA standards for radiation dose reduction. INDICATION: Cirrhosis, nausea and fatigue. There are no prior CT examinations available for comparison. The abdominal ultrasound exam performed on 03/10/2014 noted a large gallstone within the gallbladder but failed to show any sign of acute cholecystitis. There was also mild hepatomegaly and splenomegaly. The spleen measured 17.7 x 9.6 x 10.0 cm. On this exam, those findings are again evident and do not appear to have changed significantly. The spleen now measures approximately 18.9 cm in length. There is still no evidence for acute cholecystitis. The pancreas, the adrenals, the aorta and inferior vena cava show no sign of an acute abnormality.. The stomach is not well-distended and consequently difficult to assess. There is a 5 mm nonobstructive calculus in the inferior pole of the right kidney. There is no evidence for nephrolithiasis on the left and the kidneys do not appear to be obstructed. There is a fair amount of radiopaque material throughout the colon. This is of uncertain etiology. According to our records the patient has not had a recent oral contrast exam. There is diverticulosis of the sigmoid and descending colon without evidence for acute diverticulitis. The urinary bladder and prostate gland are grossly unremarkable. The appendix is not abnormally thickened. The bone windows show no sign of a fracture or of a destructive lesion. The lung bases are clear. IMPRESSION: 1. There is no acute abnormality of the abdomen or pelvis. 2. The hepatosplenomegaly seen previously is again evident and not significantly changed. 3. There is a large gallstone within the gallbladder but there is no sign of acute cholecystitis. 4. There is a nonobstructive calculus within the right kidney. 5. There is a fair amount of radiopaque material within the colon. This is of uncertain etiology. Correlation with patient's history would be recommended. Dictated by: Dictated on workstation # [id number]
== END ==
LOC: RAD 08:59
PROVIDERS: ATTEND Internal Medicine Hematology & Oncology
DX: K74.60 Unspecified cirrhosis of liver (principal); K80.20 Calculus of gallbladder without cholecystitis without obstruction; N20.0 Calculus of kidney; D69.59 Other secondary thrombocytopenia; R16.1 Splenomegaly, not elsewhere classified
CPT/HCPCS: 74178

== ENCOUNTER 2020-10-15 03:16 | Emergency (ER) | payer MEDICAID ==
[~2020-10-15] VITALS: Ht 177.8 cm; Wt 111.0 kg
[~2020-10-15 03:16] MED LIST changes: -CATHETER FLUSH 10 ML SYR IV PRN; -FAMO40TA72 PO; -HOLD METFORMIN - RECEIVED CONTRAST 20 ML VIAL IV SCH; -IOHEXOL 350 MG/ML 100 ML (OMNIPAQUE 350) VIAL IV ONE; -NS 100 ML (IVPB) BAG IV ONE; -ONDA4TAB11 PO; -PRD20T PO
[2020-10-15] MEDS ORDERED: diphenhydrAMINE 50 MG/ML INJ (BENADRYL) IV STA (04:09)
[2020-10-15] MEDS ORDERED: methylPREDNISolone 125 MG (Solu-MEDROL) VIAL IV STA (04:09)
[2020-10-15] MEDS ORDERED: FAMOTIDINE 20MG/2ML IV (PEPCID) IVP ONE (04:15)
[2020-10-15] MEDS ORDERED: ONDANSETRON 4 MG/2 ML (SDV) Z0FRAN ONE (04:25)
[2020-10-15] MEDS ORDERED: ONDANSETRON 4 MG/2 ML (SDV) Z0FRAN IVP ONE (04:30)
--- NOTE | 2020-10-15 04:35 | NUR ---
DECREASED SWELLING NOTED TO EYELIDS, DECREASED REDNESS AND ITCHINESS TO GENERALIZED BODY.
[2020-10-15] MEDS ORDERED: PRD20T PO (04:42)
[2020-10-15] MEDS ORDERED: FAMO40TA72 PO (04:42)
--- NOTE | 2020-10-15 04:43 | ED Integumentary General ---
General Chief Complaint: Allergic Reaction Stated Complaint: RASH ALL OVER,HAD A CT ON SATURDAY Source: patient History of Present Illness Date Seen by Provider: Oct 15, 2020 Time Seen by Provider: 03:50 Initial Comments PT ARRIVES VIA POV FROM HOME C/O ITCHING AND RASH ALL OVER, AND EYES PUFFY--BEGAN AROUND 0200 NO SWELLING OF TONGUE OR PROBLEMS BREATHING OR SWALLOWING. TOOK 6 BENADRYL SINCE 0200 WITHOUT IMPROVEMENT STATES HE HAD CT SCAN WITH IV CONTRAST YESTERDAY AT 0915 HAS HAD IV CONTRAST BEFORE AND NOT HAD ANY PROBLEM NO NEW MEDICATIONS, PRODUCTS, FOODS, ETC. OR KNOWN NEW EXPOSURES ATE POTATOES AND BRATS FOR DINNER--MADE AT HOME, NO NEW BRAND OF PRODUCTS, OR SPICES, ETC. STATES THIS HAPPENED ONCE BEFORE, ABOUT A YEAR AGO, UNKNOWN CAUSE. PCP: SABRINA MÉNDEZ TORCHIA Allergies and Home Medications Allergies Coded Allergies: No Known Drug Allergies (Unverified , 03/09/14) Home Medications Albuterol Sulfate 1 Puff Puff, 2 PUFF PO Q4H PRN for SHORTNESS OF BREATH, (Reported) Albuterol/Ipratropium 4 Gm Aero, 1 PUFF PO QID PRN for SHORTNESS OF BREATH, (Reported) Ascorbic Acid 250 Mg Tab, 250 MG PO DAILY, (Reported) Budesonide 0.5 Mg/2 Ml Ampul.neb, 1 VIAL NEB BID PRN for SHORTNESS OF BREATH, (Reported) Budesonide/Formoterol Fumarate 10.2 Gm Hfa.aer.ad, 2 PUFF PO BID PRN for SHOR TNESS OF BREATH, (Reported) Diltiazem HCl 120 Mg Cap.er.24h, 120 MG PO DAILY Prescribed by: DEEPALI PARSONS on 01/11/20 1312 Famotidine 40 Mg Tablet, 40 MG PO DAILY Prescribed by: HENRY PRINCE on 10/15/20 0442 Furosemide 20 Mg Tablet, 20 MG PO DAILY, (Reported) Metformin HCl 500 Mg Tablet, 500 MG PO DAILY Prescribed by: DEEPALI PARSONS on 01/11/20 1312 Multivitamin 1 Each Tablet, 1 EACH PO DAILY, (Reported) Omeprazole 40 Mg Capsule.dr, 40 MG PO DAILY Prescribed by: CIERA WHITEHEAD on 05/10/20 1159 Ondansetron 4 Mg Tab.rapdis, 4 MG PO Q4H Prescribed by: HENRY PRINCE on 10/15/20 0504 Prednisone 20 Mg Tab, 40 MG PO DAILY Prescribed by: HENRY PRINCE on 10/15/20 0442 Propranolol HCl 20 Mg Tablet, 20 MG PO BID, (Reported) Spironolactone 50 Mg Tablet, 50 MG PO DAILY Prescribed by: DEEPALI PARSONS on 01/11/20 1312 Tamsulosin HCl 0.4 Mg Cap, 0.4 MG PO DAILY, (Reported) Ursodiol 300 Mg Capsule, 300 MG PO BID, (Reported) Patient Home Medication List Home Medication List Reviewed: Yes Review of Systems Review of Systems Constitutional: no symptoms reported; No dizziness EENTM: no symptoms reported; No blurred vision, No double vision, No eye pain, No hoarseness, No mouth swelling, No nose congestion, No throat swelling Respiratory: no symptoms reported; No cough, No short of breath Cardiovascular: no symptoms reported; No chest pain, No palpitations, No syncope Gastrointestinal: no symptoms reported; No abdominal pain, No nausea, No vomiting Genitourinary: no symptoms reported Musculoskeletal: no symptoms reported Skin: see HPI Psychiatric/Neurological: No Symptoms Reported Endocrine: No Symptoms Reported Hematologic/Lymphatic: No Symptoms Reported Past Wcmuywm-Mvwsli-Lvqyeq Hx Past Med/Social Hx: Reviewed and Corrections made Patient Social History Alcohol Use: Regular Use Alcohol Beverage of Choice: Other Drug of Choice: THC, METH, COCAINE, "EVERYTHING" BUT DENIES HEROIN USE OR IV DRUG USE Smoking Status: Current Everyday Smoker Type Used: Cigarettes Recent Hopitalizations: No Seasonal Allergies Seasonal Allergies: No Past Medical History Surgeries: Yes (LEFT INGUINAL HERNIA AND/OR HYDROCOELE REPAIR CHILD) Abdominal Respiratory: Yes (O2 DEPENDENT AT 2L/NC CONTINUOUSLY ) COPD Cardiac: Yes (had a-fib after severe drinking episode) Atrial Fibrillation Neurological: No Genitourinary: No Gastrointestinal: Yes (ESOPHAGEAL VARICES, HEPATOSPLENOMEGALY & GALLSTONE NOTED ON CT DONE IN 2013) Liver Disease/Jaundice, Esophageal Varices, Cirrhosis, Gall Bladder Disease Musculoskeletal: No Endocrine: Yes (OBESITY) HEENT: No Cancer: No Psychosocial: Yes (SUBSTANCE ABUSE) Depression Integumentary: No Blood Disorders: Yes (THROMBOCYTOPENIA SINCE AT LEAST 2013) Family Medical History Congenital heart disease Diabetes mellitus 19 FATHER, Onset:Unknown Hypertension 19 FATHER, Onset:Unknown No Pertinent Family Hx Physical Exam Vital Signs Vital Signs - First Documented 10/15/20 05:15 Pulse Ox 97 Capillary Refill : General Appearance: WD/WN, no apparent distress HEENT: PERRL/EOMI, normal ENT inspection, TMs normal, pharynx normal, other (BILATERAL PERIORBITAL EDEMA, FACE VERY FLUSHED/ERYTHEMATOUS. NO SWELLING TO LIPS OR TONGUE OR POSTERIOR PHARYNX. VOICE NORMAL. ) Neck: normal inspection Cardiovascular: regular rate, rhythm, no murmur Respiratory: normal breath sounds, no respiratory distress, no accessory muscle use; No stridor, No wheezing Gastrointestinal: non tender, soft Extremities: normal inspection, no pedal edema, normal capillary refill; No swelling Neurologic/Psychiatric: no motor/sensory deficits, alert, normal mood/affect, oriented x 3 Skin: warm/dry, rash (DIFFUSE ERYTHEMA TO MOST OF BODY--PALMS/SOLES SPARED. ) Progress/Results/Core Measures Results/Orders My Orders Orders - HENRY PRINCE DO Monitor-Rhythm Ecg Trace Only (10/15/20 04:09) Diphenhydramine Injection (Benadryl Inje (10/15/20 04:09) Methylprednisolone Sod Succ (Solu-Medrol (10/15/20 04:09) Famotidine Injection (Pepcid Injection) (10/15/20 04:15) Ondansetron Injection (Zofran Injectio (10/15/20 04:30) Ondansetron Injection (Zofran Injectio (10/15/20 04:25) O2 (10/15/20 04:58) Medications Given in ED Vital Signs/I&O 10/15/20 10/15/20 10/15/20 03:48 03:48 05:15 Temp 37.1 37.1 Pulse 101 98 Resp 20 18 B/P (MAP) 123/76 (92) 111/69 (92) Pulse Ox 97 O2 Delivery Nasal Cannula Nasal Cannula Nasal Cannula O2 Flow Rate 3.00 3.00 3.00 Progress Progress Note : Progress Note GIVEN SOLU-MEDROL, BENADRYL AND PEPCID DID HAVE SOME NAUSEA AND GIVEN ZOFRAN SYMPTOMS MUCH IMPROVED, MUCH LESS ERYTHEMA TO BODY AND FACE, AND MUCH LESS PERIORBITAL EDEMA PT IS ANXIOUS TO GO HOME NO DETERIORATION IN PT'S CONDITION DURING ER STAY Departure Impression Primary Impression: allegic reaction due to unknown cause Disposition: HOME, SELF-CARE Condition: Improved Departure-Patient Inst. Referrals: [facility] (PCP/Family) Primary Care Physician Patient Instructions: Allergic Reaction ED Add. Discharge Instructions: HOME, REST LOTS OF CLEAR LIQUIDS TAKE BENADRYL 50 MG EVERY 4 HOURS NEEDED FOR RASH AND ITCHING RETURN TO ER IF WORSE All discharge instructions reviewed with patient and/or family. Voiced understanding. Scripts Ondansetron (Ondansetron Odt) 4 Mg Tab.rapdis 4 MG PO Q4H for Nausea/Vomiting, #10 TAB Prov: HENRY PRINCE DO 10/15/20 Famotidine (Pepcid) 40 Mg Tablet 40 MG PO DAILY, #10 TAB Prov: HENRY PRINCE DO 10/15/20 Prednisone (Prednisone) 20 Mg Tab 40 MG PO DAILY, #6 TAB 0 Refills Prov: HENRY PRINCE DO 10/15/20 HENRY PRINCE DO Oct 15, 2020 04:43
[2020-10-15] MEDS ORDERED: ONDA4TAB11 PO (05:04)
[2020-10-15 05:15] VITALS: BP 111/69
== END 2020-10-15 05:16 | disposition home or self-care (01) ==
LOC: EDUNIT# 03:16 → ER 03:20
DX: R21 Rash and other nonspecific skin eruption (principal); T45.0X5A Adverse effect of antiallergic and antiemetic drugs, initial encounter; E66.9 Obesity, unspecified; J44.9 Chronic obstructive pulmonary disease, unspecified; F17.210 Nicotine dependence, cigarettes, uncomplicated; Z82.49 Family history of ischemic heart disease and other diseases of the circulatory system; Z83.3 Family history of diabetes mellitus; Z95.810 Presence of automatic (implantable) cardiac defibrillator; Z79.52 Long term (current) use of systemic steroids
CPT/HCPCS: 93041

== ENCOUNTER 2020-11-22 05:35 | Outpatient (RCR) | payer MEDICAID ==
[~2020-11-22] VITALS: Ht 177.8 cm; Wt 109.9 kg
[~2020-11-22 05:35] MED LIST changes: +FAMO40TA72 PO; +ONDA4TAB11 PO; +PRD20T PO
== END 2020-11-22 15:33 | disposition home or self-care (01) ==
LOC: PREOP 05:35
PROVIDERS: ATTEND Surgery
DX: Z01.818 Encounter for other preprocedural examination (principal)

== ENCOUNTER 2020-11-29 09:17 | Day surgery (SDC) | payer MEDICAID ==
[~2020-11-29] VITALS: Ht 177 cm; Wt 110.0 kg
[2020-11-29] MEDS ORDERED: LACTATED RINGERS 1,000 ML IV STA (09:20)
[2020-11-29 09:39] VITALS: BP 104/72
[2020-11-29] MEDS ORDERED: LACTATED RINGERS 1,000 ML IV ONE (09:53)
[2020-11-29] MEDS ORDERED: PROPOFOL INJECTION 50 ML IV ONE (10:11)
[2020-11-29] MEDS ORDERED: MIDAZOLAM 2 MG/2 ML (VERSED) VIAL ONE (10:11)
--- NOTE | 2020-11-29 10:12 | Progress Note-Pre Operative ---
Pre-Operative Progress Note H&P Reviewed The H&P was reviewed, patient examined and no changes noted. Date Seen by Provider: Nov 29, 2020 Time Seen by Provider: 10:12 Date H&P Reviewed: Nov 29, 2020 Time H&P Reviewed: 10:12 Pre-Operative Diagnosis: hx polyps CIERA WHITEHEAD DO Nov 29, 2020 10:12
[2020-11-29] MEDS ORDERED: proPOfol 200 MG/20 ML (DIPRIVAN) VIAL IV ONE (11:18)
--- NOTE | 2020-11-29 11:51 | Progress Note-Post Operative ---
Post-Operative Progess Note Surgeon (s)/Dormitory Supervisor (s) Surgeon CIERA WHITEHEAD DO Dormitory Supervisor: na Pre-Operative Diagnosis hx polyps Post-Operative Diagnosis colon polyps Procedure & Operative Findings Date of Procedure 11/29/20 Procedure Performed/Findings colonoscopy c hot bx polypectomy x 3 and snare polypectomy x2 Anesthesia Type per elementary math tutor Estimated Blood Loss Estimated blood loss (mL): none Specimens/Packing Specimens Removed colon polyps CIERA WHITEHEAD DO Nov 29, 2020 11:51
--- NOTE | 2020-11-29 11:52 | Discharge Inst-Simple/Standard ---
Discharge Inst-Standard Patient Instructions/Follow Up Plan of Care/Instructions/FU: 2-3 weeks Geoffrey Activity as Tolerated: Yes Discharge Diet: Regular Diet CIERA WHITEHEAD DO Nov 29, 2020 11:52
[2020-11-29 11:55] VITALS: BP 116/64
[2020-11-29 12:00] VITALS: BP 121/73
[2020-11-29 12:05] VITALS: BP 128/76
[2020-11-29 12:35] VITALS: BP 124/73
--- NOTE | 2020-11-29 12:35 | OPERATIVE REPORT ---
DATE OF SERVICE: 11/29/2020 PREOPERATIVE DIAGNOSIS: History of polyps. POSTOPERATIVE DIAGNOSIS: Colon polyps. PROCEDURES PERFORMED: Colonoscopy with hot biopsy polypectomy x3 and snare polypectomy x2. SURGEON: Ciera Hale DO ANESTHESIA: Per VOIP NETWORK TECHNICIAN. ESTIMATED BLOOD LOSS: None. COMPLICATIONS: None. INDICATIONS FOR PROCEDURE: The patient is a 60-year-old male with history of colon polyps. He understands the risks and benefits of the procedure and wished to proceed with the procedure. Consent was signed in the chart. DESCRIPTION OF PROCEDURE: The patient was taken to the endoscopy suite and placed in the left lateral recumbent position. Timeout was performed. Digital rectal exam was performed. There were no palpable polyps, masses or ulcerations. Scope was inserted in the rectum, advanced all the way to cecum with minimal difficulty. Prep was adequate. Scope was then slowly retracted back. No polyps, masses or ulcerations in the cecum. Two small polyps in the proximal ascending colon, which hot biopsy polypectomy was performed. Scope was then continued to be retracted back. No polyps, masses or ulcerations within the remainder of the ascending colon. In the transverse colon, another small polyp was present, which hot biopsy polypectomy was performed. Scope was then continued to be slowly retracted back. No other polyps in the transverse, descending colon. In the sigmoid colon, there were two polyps, which snare polypectomies were performed. These were obtained for specimen. Scope was then slowly retracted back to the rectum, where it was also retroflexed noting no other pathology. Scope was returned to its normal position, slowly withdrawn until completely removed. The patient tolerated the procedure well without any complications and taken to the recovery room in a stable condition. RECOMMENDATIONS: The patient will follow up in the office in two to three weeks to discuss pathology results. We would recommend repeat colonoscopy in three to five years and any issues before that will be seen at that time. Job ID: [id number] DocumentID: [id number] Dictated Date: 11/29/2020 11:55:03 Inspector Automatic Typewriter Date: 11/29/2020 12:34:13 Dictated By: CIERA HALE DO
[2020-11-29 12:43] VITALS: BP 124/73
== END 2020-11-29 12:45 | disposition home or self-care (01) ==
LOC: ENDO 09:17
PROVIDERS: ATTEND Surgery
DX: D12.2 Benign neoplasm of ascending colon (principal); D12.5 Benign neoplasm of sigmoid colon; D12.3 Benign neoplasm of transverse colon; I10 Essential (primary) hypertension; I48.91 Unspecified atrial fibrillation; J44.9 Chronic obstructive pulmonary disease, unspecified; F32.9 Major depressive disorder, single episode, unspecified; E11.9 Type 2 diabetes mellitus without complications; K29.70 Gastritis, unspecified, without bleeding; E66.9 Obesity, unspecified; Z68.35 Body mass index [BMI] 35.0-35.9, adult; Z79.51 Long term (current) use of inhaled steroids; Z79.899 Other long term (current) drug therapy; Z79.84 Long term (current) use of oral hypoglycemic drugs; Z86.010 Personal history of colon polyps
CPT/HCPCS: 82962; 88305

== ENCOUNTER 2021-04-06 09:52 | Outpatient (RCR) | payer MEDICAID ==
[~2021-04-06 09:52] MED LIST changes: -OMEP40CA27 PO; +OMEP40CA6 PO
[2021-04-06 10:06] LABS: BASOPHILS % (AUTO) 0 % (0-10); EOSINOPHILS # (AUTO) 0.2 10^3/uL (0.0-0.3); EOSINOPHILS % (AUTO) 6 % (0-10); HEMATOCRIT 43 % (40-54); HEMOGLOBIN 14.7 g/dL (13.3-17.7); LYMPHOCYTES # (AUTO) 0.7 10^3/uL (1.0-4.0); LYMPHOCYTES % (AUTO) 19 % (12-44); MEAN CORPUSCULAR HEMOGLOBIN 32 pg (25-34); MEAN CORPUSCULAR HGB CONC 34 g/dL (32-36); MEAN CORPUSCULAR VOLUME 94 fL (80-99); MEAN PLATELET VOLUME 12.3 fL (9.0-12.2); MONOCYTES # (AUTO) 0.4 10^3/uL (0.0-1.0); MONOCYTES % (AUTO) 11 % (0-12); NEUTROPHILS # (AUTO) 2.3 10^3/uL (1.8-7.8); NEUTROPHILS % (AUTO) 63 % (42-75); WHITE BLOOD COUNT 3.6 10^3/uL (4.3-11.0)
[2021-04-06 10:07] LABS: PLATELET COUNT 30 10^3/uL (130-400)
[2021-04-06 10:22] LABS: ALBUMIN 4.2 GM/DL (3.2-4.5); BILIRUBIN,TOTAL 0.5 MG/DL (0.1-1.0); CALCIUM 9.7 MG/DL (8.5-10.1); CREATININE SERUM 0.72 MG/DL (0.60-1.30); POTASSIUM 4.4 MMOL/L (3.6-5.0); TOTAL PROTEIN 7.3 GM/DL (6.4-8.2)
== END 2021-07-05 | disposition home or self-care (01) ==
LOC: ONC 09:52
PROVIDERS: ATTEND Internal Medicine Hematology & Oncology
DX: D69.59 Other secondary thrombocytopenia (principal); K74.60 Unspecified cirrhosis of liver; D12.4 Benign neoplasm of descending colon; K76.6 Portal hypertension; R16.1 Splenomegaly, not elsewhere classified
CPT/HCPCS: 80053; 82105; 82728; 85025; G0463; 99213

== ENCOUNTER → 2022-05-02 | Outpatient (CLI) | payer MEDICAID | LOC: CARD 10:52 | PROVIDERS: ATTEND Internal Medicine Cardiovascular Disease | DX: I35.0 Nonrheumatic aortic (valve) stenosis (principal); I51.7 Cardiomegaly; R94.31 Abnormal electrocardiogram [ECG] [EKG] | CPT/HCPCS: 93306 ==

== ENCOUNTER → 2022-05-10 | Outpatient (CLI) | payer MEDICAID ==
[~2022-05-10] VITALS: Ht 177 cm; Wt 100.0 kg
[~2022-05-10] MED LIST changes: +REGADENOSON 0.4 MG/5 ML SYR (LEXISCAN) IV ONE
[2022-05-10] MEDS: CATHETER FLUSH 10 ML SYR IVP PRN ×2 (07:30→08:58)
[2022-05-10 08:57] VITALS: BP 132/67
--- NOTE | 2022-05-10 16:37 | NUCLEAR STRESS TEST ---
REGADENOSON NUCLEAR STRESS Date of procedure: 05/10/2022. Primary care provider: [facility] Admitting physician: Nestor Cortez Jr., MD. INDICATION: Abnormal electrocardiogram. BASELINE ELECTROCARDIOGRAM: Sinus rhythm with low voltage in the precordial leads and nonspecific ST changes. STRESS TEST PROCEDURE: The patient was administered 0.4 mg of intravenous Regadenoson. The resting heart rate was 76 bpm and the peak heart rate was 106 bpm. The resting blood pressure was 131/74 mmHg and the minimum blood pressure was 131/74 mmHg. This represents a normal heart rate and a blunted blood pr essure response to Regadenoson. The test was stopped due to the protocol. There was no chest discomfort during the test. There were no arrhythmias during the test. There were no significant stress induced electrocardiogram changes. NUCLEAR PROCEDURE: The patient was administered 10.6 mCi of intravenous technetium 99m Tetrofosmin at rest for the rest images. The patient was webster bsequently administered 28.8 mCi of intravenous technetium 99m Tetrofosmin at peak stress for the stress images. Following an appropriate wait after each injection, imaging was obtained. The images were subsequently processed and reformatted in the usual views. Gated imaging was obtained. The image quality was adequate with a mild degree of gastrointestinal attenuation artifact. CT attenuation correction was used as a adjunct to standard imaging. Both the corrected and uncorrected images were reviewed for interpretation. NUCLEAR RESULTS: There was normal myocardial perfusion in all segments without evidence of infarction or ischemia. The left ventricle was dilated with an end- diastolic volume of 146 mL and an end-systolic volume of 69 mL. There was no evidence of transient ischemic dilatation. The TID ratio was 1.1. There was normal wall motion in all segments with a calculated ejection fraction of 53%. IMPRESSION: 1. Normal heart rate and a blunted blood pressure response to regadenoson. 2. There was no chest discomfort, arrhythmias, or electrocardiogram changes during the test. 3. The left ventricle was dilated. 4. There was normal myocardial perfusion in all segments without evidence of infarction or ischemia. 5. There was normal wall motion in all segments with a calculated ejection fraction of 53%. Certain portions of this document may have been dictated utilizing voice recognition technology. Inherent to this technology, typographical and grammatical errors may exist. As much as I am diligent to identify and correct these mistakes, some errors may remain in the document. NESTOR CORTEZ JR, MD May 10, 2022 16:37
== END ==
LOC: CARD 07:45
PROVIDERS: ATTEND Internal Medicine Cardiovascular Disease
DX: R94.31 Abnormal electrocardiogram [ECG] [EKG] (principal)
CPT/HCPCS: 78452; 93017; A9502

== ENCOUNTER 2022-08-30 15:36 | Emergency (ER) | payer MEDICARE, MEDICAID ==
[~2022-08-30] VITALS: Ht 177 cm; Wt 97.0 kg
[~2022-08-30 15:36] MED LIST changes: +ALBU8.5H6 PO; -REGADENOSON 0.4 MG/5 ML SYR (LEXISCAN) IV ONE; -RT-ALBUINH PO
[2022-08-30] MEDS ORDERED: RT-ALBUTEROL SULF 2.5 MG/3 ML PRE-MIX VIAL INH ONE (16:30)
[2022-08-30] MEDS ORDERED: RT-ALBUTEROL/IPRATROPIUM 3 ML (DUONEB) VIAL INH ONE (16:30)
--- NOTE | 2022-08-30 16:30 | ED Respiratory ---
General Chief Complaint: Respiratory Problems Stated Complaint: FLU+,LOW OXYGEN LVLS Nursing Triage Note: FLU + WITH INCREASED SOA AND LOW OXYGEN LEVELS. PT ARRIVED WITH OXYGEN ON AT 3L Source: patient Exam Limitations: no limitations (IKE MATAMOROS MD) History of Present Illness Date Seen by Provider: Aug 30, 2022 Time Seen by Provider: 16:10 Initial Comments Patient is a 62-year-old male who presents to the emergency department today with a chief complaint of feeling "sick", worsening shortness of breath generalized weakness. He states that he started having symptoms last Saturday, was diagnosed with influenza on Saturday. Was not started on Tamiflu. Wears oxygen at home at 2-1/2 L. Has not had to increase it. Cough is semiproductive. He denies fevers or chills. No chest pain. Slightly decreased appetite, no abdominal pain. No significant lower extremity edema. Was concerned that maybe he had taken too much TheraFlu and Mucinex. Continues to smoke. All other review of systems reviewed and negative except as stated Timing/Duration: just prior to arrival Severity: moderate Prior Episodes/Possible Cause: illness exposure Modifying Factors: Improves With Albuterol Inhaler, Improves With Albuterol Nebulizer Associated Symptoms: cough, lightheadedness, nasal congestion (IKE MATAMOROS MD) Allergies and Home Medications Allergies Coded Allergies: No Known Drug Allergies (Unverified , 03/09/14) Patient Home Medication List Home Medication List Reviewed: Yes (IKE MATAMOROS MD) Albuterol Sulfate (Ventolin Hfa) 1 Puff Puff, 2 PUFF PO Q4H PRN for SHORTNESS OF BREATH, (Reported) Entered as Reported by: DARYL PHILLIPS on 01/06/20 0858 Albuterol/Ipratropium (Combivent Respimat Inhal Essie) 4 Gm Aero, 1 PUFF PO QID PRN for SHORTNESS OF BREATH, (Reported) Entered as Reported by: DARYL PHILLIPS on 01/06/20 0858 Ascorbic Acid (Vitamin C) 250 Mg Tab, 250 MG PO DAILY, (Reported) Entered as Reported by: DARYL PHILLIPS on 01/06/20 1100 Budesonide (Budesonide) 0.5 Mg/2 Ml Ampul.neb, 1 VIAL NEB BID PRN for SHORTNESS OF BREATH, (Reported) Entered as Reported by: DARYL PHILLIPS on 01/06/20 0858 Budesonide/Formoterol Fumarate (Symbicort 160-4.5 Mcg Inhaler) 10.2 Gm Hfa.aer.ad, 2 PUFF PO BID PRN for SHORTNESS OF BREATH, (Reported) Entered as Reported by: DARYL PHILLIPS on 01/06/20 0858 Diltiazem HCl (Diltiazem 24Hr ER) 120 Mg Cap.er.24h, 120 MG PO DAILY Prescribed by: DEEPALI PARSONS on 01/11/20 1312 Furosemide (Furosemide) 20 Mg Tablet, 20 MG PO DAILY, (Reported) Entered as Reported by: DARYL PHILLIPS on 01/06/20 08 Metformin HCl (Metformin HCl) 500 Mg Tablet, 500 MG PO DAILY Prescribed by: DEEPALI PARSONS on 01/11/20 1312 Multivitamin (Multivitamin) 1 Each Tablet, 1 EACH PO DAILY, (Reported) Entered as Reported by: DARYL PHILLIPS on 01/06/20 1100 Omeprazole (Omeprazole) 40 Mg Capsule.dr, 40 MG PO DAILY Prescribed by: CIERA WHITEHEAD on 05/10/20 1159 Prednisone (Prednisone) 50 Mg Tab, 50 MG PO DAILY Prescribed by: IKE MATAMOROS on 08/30/22 1748 Propranolol HCl (Propranolol HCl) 20 Mg Tablet, 20 MG PO BID, (Reported) Entered as Reported by: DARYL PHILLIPS on 01/06/20 0858 Tamsulosin HCl (Flomax) 0.4 Mg Cap, 0.4 MG PO DAILY, (Reported) Entered as Reported by: DARYL PHILLIPS on 01/06/20 1105 Ursodiol (Ursodiol) 300 Mg Capsule, 300 MG PO BID, (Reported) Entered as Reported by: DARYL PHILLIPS on 01/06/20 08 Review of Systems Review of Systems Constitutional: see HPI, malaise EENTM: nose congestion; No ear pain Respiratory: cough, short of breath Cardiovascular: no symptoms reported Gastrointestinal: no symptoms reported Genitourinary: no symptoms reported Musculoskeletal: no symptoms reported Skin: no symptoms reported (IKE MATAMOROS MD) All Other Systems Reviewed Negative Unless Noted: Yes (IKE MATAMOROS MD) Past Miaeviy-Jeazqx-Euojle Hx Patient Social History Smoking Status: Current Everyday Smoker Substance use?: No Alcohol Use?: No (IKE MATAMOROS MD) Immunizations Up To Date COVID19 Vaccine [employer] Member: UNKNOWN (IKE MATAMOROS MD) Seasonal Allergies Seasonal Allergies: No (IKE MATAMOROS MD) Past Medical History Surgeries: Yes (LEFT INGUINAL HERNIA AND/OR HYDROCOELE REPAIR CHILD) Abdominal Respiratory: Yes (O2 DEPENDENT AT 2L/NC CONTINUOUSLY ) COPD Cardiac: Yes Atrial Fibrillation, Hypertension Neurological: No Genitourinary: Yes Kidney Stones Gastrointestinal: Yes (ESOPHAGEAL VARICES, HEPATOSPLENOMEGALY & GALLSTONE NOTED ON CT DONE IN 2013) Liver Disease/Jaundice, Esophageal Varices, Cirrhosis, Gall Bladder Disease Musculoskeletal: No Endocrine: Yes (OBESITY) Diabetes, Non-Insulin dep HEENT: No Cancer: No Psychosocial: Yes (SUBSTANCE ABUSE) Depression Integumentary: No Blood Disorders: Yes (THROMBOCYTOPENIA SINCE AT LEAST 2013) (IKE MATAMOROS MD) Family Medical History Congenital heart disease Diabetes mellitus 19 FATHER, Onset:Unknown Hypertension 19 FATHER, Onset:Unknown No Pertinent Family Hx (IKE MATAMOROS MD) Physical Exam Vital Signs - First Documented 08/30/22 15:40 Temp 36.4 Pulse 98 Resp 20 B/P (MAP) 140/84 (102) Pulse Ox 89 O2 Delivery Nasal Cannula O2 Flow Rate 3.00 (JANEE ECHEVERRIA DO) Capillary Refill : Less Than 3 Seconds (IKE MATAMOROS MD) Height: 5'10.00" Weight: 225lbs. 3.0oz. [id number]; 30.00 BMI Method:Stated General Appearance: WD/WN, no apparent distress Eyes: Bilateral Eye Normal Inspection HEENT: PERRL/EOMI Respiratory: no respiratory distress, no accessory muscle use, other (mild "pursed lip" breathing; poor air movement; scant expiratory wheezes) Cardiovascular: regular rate, rhythm Gastrointestinal: non tender, soft Extremities: normal range of motion, normal inspection Neurologic/Psychiatric: alert, normal mood/affect, oriented x 3 Skin: normal color, warm/dry (IKE MATAMOROS MD) Progress/Results/Core Measures Suspected Sepsis SIRS Temperature: Pulse: 98 Respiratory Rate: 20 Laboratory Tests 08/30/22 16:50: White Blood Count 5.3 Blood Pressure 140 /84 Mean: 102 Laboratory Tests 08/30/22 16:50: Creatinine 0.72, Platelet Count 25*L (IKE MATAMOROS MD) Results/Orders Lab Results Laboratory Tests Test 08/30/22 16:50 Range/Units White Blood Count 5.3 4.3-11.0 10^3/uL Red Blood Count 4.88 4.30-5.52 10^6/uL Hemoglobin 15.9 13.3-17.7 g/dL Hematocrit 45 40-54 % Mean Corpuscular Volume 92 80-99 fL Mean Corpuscular Hemoglobin 33 25-34 pg Mean Corpuscular Hemoglobin Concent 35 32-36 g/dL Red Cell Distribution Width 13.4 10.0-14.5 % Platelet Count 25 *L 130-400 10^3/uL Mean Platelet Volume 11.1 9.0-12.2 fL Immature Granulocyte % (Auto) 0 % Neutrophils (%) (Auto) 78 H 42-75 % Lymphocytes (%) (Auto) 8 L 12-44 % Monocytes (%) (Auto) 9 0-12 % Eosinophils (%) (Auto) 5 0-10 % Basophils (%) (Auto) 0 0-10 % Neutrophils # (Auto) 4.1 1.8-7.8 10^3/uL Lymphocytes # (Auto) 0.4 L 1.0-4.0 10^3/uL Monocytes # (Auto) 0.5 0.0-1.0 10^3/uL Eosinophils # (Auto) 0.2 0.0-0.3 10^3/uL Basophils # (Auto) 0.0 0.0-0.1 10^3/uL Immature Granulocyte # (Auto) 0.0 0.0-0.1 10^3/uL Percent Immature Platelet Fraction 8.8 H 0.0-7.6 % Sodium Level 140 135-145 MMOL/L Potassium Level 3.9 3.6-5.0 MMOL/L Chloride Level 100 98-107 MMOL/L Carbon Dioxide Level 27 21-32 MMOL/L Anion Gap 13 5-14 MMOL/L Blood Urea Nitrogen 15 7-18 MG/DL Creatinine 0.72 0.60-1.30 MG/DL Estimat Glomerular Filtration Rate 103 BUN/Creatinine Ratio 21 Glucose Level 129 H 70-105 MG/DL Calcium Level 9.8 8.5-10.1 MG/DL (JANEE ECHEVERRIA DO) Medications Given in ED Current Medications Medications Dose Ordered Sig/Ricardo Route Start Time Stop Time Status Last Admin Dose Admin Albuterol Sulfate 10 mg ONCE ONCE INH 08/30/22 16:30 08/30/22 16:31 DC 08/30/22 17:26 10 MG Albuterol/ Ipratropium 3 ml ONCE ONCE INH 08/30/22 16:30 08/30/22 16:31 DC 08/30/22 17:26 3 ML Methylprednisolone Sodium Succinate 125 mg ONCE ONCE IVP 08/30/22 18:00 08/30/22 18:01 DC 08/30/22 18:16 125 MG (JANEE ECHEVERRIA DO) Vital Signs/I&O 08/30/22 08/30/22 08/30/22 15:40 16:57 17:27 Temp 36.4 Pulse 98 Resp 20 B/P (MAP) 140/84 (102) Pulse Ox 89 92 O2 Delivery Nasal Cannula Nasal Cannula Nasal Cannula O2 Flow Rate 3.00 3.00 (JANEE ECHEVERRIA DO) Vital Signs/I&O Capillary Refill : Less Than 3 Seconds (IKE MATAMOROS MD) Blood Pressure Mean: 102 Progress Note : Time: 17:43 Progress Note Patient reassessed while on his breathing treatment, he is definitely moving more air, a little bit more wheezy. His chest x-ray does not show any consolidative infiltrate. His labs are remarkable for thrombocytopenia with a platelet count of 25,000. Per review of the medical record he is normally in the 30s to 40,000 range. He states he last saw the cancer center about 6 months ago, he is not 100% sure who he follows up with. I counseled him on precautions about bleeding and advised that he follow-up closely with the cancer center. He is advised if he has any bleeding from the mouth or intestinal tract or severe headache that he needs to come back to the emergency department immediately. I am going to go ahead and put him on some steroids for his breathing. 125 mg of Solu-Medrol here and prednisone daily. No concerning findings for sepsis. Sepsis "work-up" considered but history and physical exam do not support the need. Patient is feeling better during his breathing treatment. Recommended continued breathing treatments at home over the next 2 to 3 days. Fvnj-tgh-rpbvacv decongestants, Coricidin HBP, fluids and smoking cessation encouraged (IKE MATAMOROS MD) Progress Note : Time: 18:20 Progress Note On reevaluation the patient is no longer wheezing. He is on 2 L of oxygen via nasal cannula which is what he wears at home and suction saturations between 94 to 96%. He states he is feeling subjectively much better as well. No indication for any bacterial infection or require antibiotics. He is discharged home with steroids. He already has inhalers and nebulizers at home. He will follow-up with his doctor in the next 24 to 48 hours. Strict return precautions were guiven (JANEE ECHEVERRIA DO) Diagnostic Imaging Diagonstic Imaging: Xray Plain Films/CT/US/NM/MRI: chest Comments [facility], [place] NAME: RIN [facility]ANDAR[facility] REC#: [id number] PT STATUS: REG ER : 1960 PHYSICIAN: IKE MATAMOROS MD ADMIT DATE: 08/30/22/ER Draft Date of Exam:08/30/22 CHEST 1 VIEW, AP/PA ONLY CLINICAL INDICATION: Patient with shortness of breath. EXAM: Portable chest x-ray upright view. COMPARISON: Chest x-ray dated 01/06/2020. FINDINGS: Lungs/pleura: Lungs are clear. There is no pneumothorax. There is no pleural effusion. Mediastinum: Unremarkable. Pulmonary vasculature: Unremarkable. Heart: Unremarkable. Bones/extrathoracic soft tissue: There are hypertrophic spurs involving the thoracic spine. IMPRESSION: There is no radiographic evidence of acute cardiopulmonary process. Dictated on workstation # [id number] Dict: 08/30/22 164 Trans: 08/30/221643 AS6 [id number] Interpreted by: GERARD MARVIN MD Electronically signed by: (IKE MATAMOROS MD) Departure Impression Primary Impression: Hx of influenza Additional Impressions: Thrombocytopenia Acute exacerbation of chronic obstructive pulmonary disease (COPD) Disposition: HOME, SELF-CARE Condition: Stable Departure-Patient Inst. Referrals: [facility] (PCP/Family) Primary Care Physician LEO REECE Patient Instructions: Chronic Obstructive Pulmonary Disease (COPD) (DC), Flu, Chronic Obstructive Pulmonary Disease (COPD), Including Emphysema Add. Discharge Instructions: You will need to take the prednisone starting tomorrow for 5 days, once a day. Use your breathing treatments every 4-6 hours at home as needed and directed. Quox-jen-giytyij Mucinex and TheraFlu are safe to take together. Follow packaging instructions. You should try and stop smoking. Your platelet count is very low today, 25,000. The lower it goes the more at risk you are for spontaneous bleeding. If you notice any bleeding in your stool, have severe headache, vomit blood then you need to come back emergently to the emergency department. Please follow-up with your [facility] at the cancer center next week. Scripts Prednisone (Prednisone) 50 Mg Tab 50 MG PO DAILY for 5 Days, #5 TAB Prov: IKE MATAMOROS MD 08/30/22 Copy Copies To 1: CORAL NAIDU DO Copies To 2: LEO REECE KATHRYN M MD Aug 30, 2022 16:30 JANEE ECHEVERRIA DO Aug 30, 2022 18:25
--- NOTE | 2022-08-30 16:44 | Diagnostic Imaging Report ---
CLINICAL INDICATION: Patient with shortness of breath. EXAM: Portable chest x-ray upright view. COMPARISON: Chest x-ray dated 01/06/2020. FINDINGS: Lungs/pleura: Lungs are clear. There is no pneumothorax. There is no pleural effusion. Mediastinum: Unremarkable. Pulmonary vasculature: Unremarkable. Heart: Unremarkable. Bones/extrathoracic soft tissue: There are hypertrophic spurs involving the thoracic spine. IMPRESSION: There is no radiographic evidence of acute cardiopulmonary process. Dictated by: Dictated on workstation # [id number]
[2022-08-30 16:59] LABS: BASOPHILS % (AUTO) 0 % (0-10); HEMOGLOBIN 15.9 g/dL (13.3-17.7)
[2022-08-30 17:01] LABS: EOSINOPHILS # (AUTO) 0.2 10^3/uL (0.0-0.3); EOSINOPHILS % (AUTO) 5 % (0-10); HEMATOCRIT 45 % (40-54); LYMPHOCYTES # (AUTO) 0.4 10^3/uL (1.0-4.0); LYMPHOCYTES % (AUTO) 8 % (12-44); MEAN CORPUSCULAR HEMOGLOBIN 33 pg (25-34); MEAN CORPUSCULAR HGB CONC 35 g/dL (32-36); MEAN CORPUSCULAR VOLUME 92 fL (80-99); MEAN PLATELET VOLUME 11.1 fL (9.0-12.2); MONOCYTES # (AUTO) 0.5 10^3/uL (0.0-1.0); MONOCYTES % (AUTO) 9 % (0-12); NEUTROPHILS # (AUTO) 4.1 10^3/uL (1.8-7.8); NEUTROPHILS % (AUTO) 78 % (42-75); WHITE BLOOD COUNT 5.3 10^3/uL (4.3-11.0)
[2022-08-30 17:03] LABS: PLATELET COUNT 25 10^3/uL (130-400)
[2022-08-30 17:18] LABS: POTASSIUM 3.9 MMOL/L (3.6-5.0)
[2022-08-30 17:19] LABS: CALCIUM 9.8 MG/DL (8.5-10.1)
[2022-08-30 17:24] LABS: CREATININE SERUM 0.72 MG/DL (0.60-1.30)
[2022-08-30] MEDS ORDERED: PRD50T PO (17:48)
[2022-08-30] MEDS ORDERED: methylPREDNISolone 125 MG (Solu-MEDROL) VIAL IVP ONE (18:00)
[2022-08-30 18:20] VITALS: BP 127/68
== END 2022-08-30 18:55 | disposition home or self-care (01) ==
LOC: EDUNIT# 15:36 → ER 15:38
DX: J44.1 Chronic obstructive pulmonary disease with (acute) exacerbation (principal); D69.6 Thrombocytopenia, unspecified; E66.9 Obesity, unspecified; F17.200 Nicotine dependence, unspecified, uncomplicated; Z99.81 Dependence on supplemental oxygen; Z68.30 Body mass index [BMI] 30.0-30.9, adult; Z87.09 Personal history of other diseases of the respiratory system
CPT/HCPCS: 36415; 71045; 80048; 85025; 94640